=== PATIENT | female | born 1945 | race Caucasian/White ===

== ENCOUNTER 2019-05-15 09:25 | Inpatient (IN) ==
[2019-05-15 10:19] LABS: Hematocrit (blood only) 44.9 % (37-47); Hemoglobin 14.9 g/dL (12.0-16.0); Immature Granulocytes # (auto) 0.07 K/uL (0.00-0.02); Immature Granulocytes % (auto) 0.4 %; Lymphocytes % (auto) 7.2 %; Mean Corpuscular Hemoglobin 30.1 pg (25-34); Mean Corpuscular Hgb Conc 33.2 g/dL (32-36); Mean Corpuscular Volume 90.7 fL (80-100); Mean Platelet Volume 8.8 fL (7.4-10.4); Monocytes % (auto) 7.8 %; Neutrophils # (auto) 14.19 K/uL (1.4-6.5); Neutrophils % (auto) 84.6 %; Platelet Count 518 K/uL (130-400); RDW Coefficient of Variation 14.1 % (11.5-14.5); RDW Standard Deviation 46.6 fL (36.4-46.3); Red Blood Count 4.95 M/uL (4.2-5.4); White Blood Count 16.76 K/uL (4.8-10.8)
[2019-05-15 10:26] LABS: pH VBG 7.45 (7.36-7.41)
[2019-05-15 10:42] LABS: BUN Creatinine Ratio 30.1 (10-20); Calcium 8.8 mg/dl (8.5-10.1); Creatinine Clr Calc Pharmacy 37.7 ml/min; Est GFR (African American) 48.3; Est GFR (Non-African American) 41.6
[2019-05-15] MEDS ORDERED: SODIUM CHLORIDE 0.9% 1000ML 1,000 ML IV ONE ×2 (10:53→11:41)
--- NOTE | 2019-05-15 10:55 | CT Scan Report ---
CT head/brain wo con CLINICAL HISTORY: 73 years-old Female presenting with increasing tremors hx of parkinsons. TECHNIQUE: Multidetector CT imaging of the head was performed without the use of intravenous contrast . IV contrast: None. One or more dose lowering techniques were used consistent with the principles of ALARA (as low as reasonably achievable), including automatic exposure control, mA or kV adjustment t o individual patient size, and/or use of iterative reconstruction. COMPARISON: 11/08/2013. CT DOSE (mGy.cm): The estimated cumulative dose is 998.18 mGy.cm. FINDINGS: [employer] topogram: Unremarkable. Ventricles and sulci normal in size. No hemorrhage. Severe periventricular and subcortical white kishor er hypoattenuation, nonspecific but likely indicative of chronic small vessel ischemic change. No acu te territorial infarct. No mass effect or midline shift. No extra-axial fluid collection. Paranasal s inuses and mastoid air cells clear. Calvarium intact. IMPRESSION: 1. Severe chronic small vessel ischemic change as on prior exam. No acute intracranial abnormality. ACT 112: Negative or not required by law. Electronically signed by: Davey Kelly M.D. 05/15/2019 10:53 AM
--- NOTE | 2019-05-15 10:59 | XRay Report ---
XR chest 2V PA/lateral CLINICAL HISTORY: cough COMPARISON STUDY: 03/28/2016 FINDINGS: The cardiac and mediastinal contours are normal. There is no evidence of focal pulmonary co nsolidation. There is no evidence of failure. No pleural effusions are visualized.[There is stable ri ght midlung zone atelectasis/scarring. IMPRESSION: No active disease in the chest. ACT 112: Negative or not required by law. Electronically signed by: Bassem Washington M.D. 05/15/2019 10:57 AM
[2019-05-15 11:02] LABS: Influenza A virus by PCR Neg for Influ A (Neg); Influenza B virus by PCR Neg for Influ B (Neg)
[2019-05-15 11:53] LABS: Appearance Urine Cloudy (Clear); Bacteria Urine Automated Negative (Negative); Blood Urine Negative (Negative); Color Urine Dark Yellow; Epithelial Cell Urine Auto >30 /lpf (0-5); Glucose Urine UA Negative (Negative); Ketones Urine Trace (Negative); Leukocyte Esterase Urine Trace (Negative); Nitrite Urine Negative (Negative); Protein Urine Trace (Negative); Specific Gravity Urine 1.021 (1.000-1.030); Urobilinogen Urine Negative (Negative)
[2019-05-15 12:03] LABS: Bilirubin Urine Negative (Negative); Ictotest Urine Negative (Negative)
[2019-05-15] MEDS ORDERED: VANCOMYCIN HCL 1,500 MG in SODIUM CHLORIDE 0.9% 500 ML IV ONE (12:23)
[2019-05-15] MEDS ORDERED: PIPERACILL/TAZOBAC CONSULT ACTIVE PRN ×2 (12:23→13:03)
[2019-05-15] MEDS ORDERED: VANCOMYCIN CONSULT ACTIVE PRN ×2 (12:23→13:02)
[2019-05-15] MEDS: SODIUM CHLORIDE 0.9% 500 ML IV SCH ×2 (12:24→14:53)
--- NOTE | 2019-05-15 12:58 | History & Physical Report ---
Date of Service May 15, 2019 Assessment & Plan (1) Lactic acidosis: Pt is 73 y/o F with PMH Parkinson's, HTN, GERD, hypothyroidism presented to ER with complaint of weakness and feeling shaky. C/O intermittent productive cough of white sputum, congestion, hoarseness for couple weeks. Treated outpatient for bronchitis with prednisone taper and clarithromycin 500 mg twice daily x 10 days on 05/09/2019 C/O weakness, tremors of bilateral hands. Reports poor oral intake. Denies fever/chills, vomiting, diarrhea, abdominal pain, dysuria, hematuria, aspiration In ER afebrile, P: 122 down to 100, R: 20, BP: 120/71 down to 78/61, 97% on RA. WBC: 16, lactic acid: 4.3, Na: 134, BUN: 38, Cr: 1.26, GFR: 41. Negative influenza swab. Procalcitonin WNL. UA: appears contaminated CXR: No active disease in the chest. CT HEAD: Severe chronic small vessel ischemic change as on prior exam. No acute intracranial abnormality. Unknown source -Repeat lactic acid: 3.0 after 2L NSS in ER -Zosyn -trend lactic acid -Blood cultures pending -Urine culture -MRSA swab and if positive to add MRSA coverage -Hold Clarithromycin. May been having interaction with other medications such as nifedipine -IVF -Hold home BP meds at this time -Monitor CBC, BMP (2) ISRRAEL (acute kidney injury): BUN: 38, Cr: 1.26, GFR: 41. No h/o CKD -Hold lisinopril, lasix -Avoid other nephrotoxic agents -Monitor renal functions (3) Parkinson disease: -Continue Sinemet, Nuplazid -Aspiration precautions -Fall risk precautions -PT/OT eval (4) Hypertension: BP on low side and hypotensive in ER, resolved with IVF. Had BP meds prior to arrival -Hold lisinopril, lasix, nifedipine -Monitor BP (5) Hypothyroidism: -TSH in am -Continue levothyroxine (6) GERD (gastroesophageal reflux disease): -Continue PPI, H2 estephanie DVT Prophylaxis -Heparin SQ Full Code as per discussion with pt Follows with Dr Pena for routine care Pt was seen and care coordinated with Dr Brenner. See addendum History of Present Illness Chief Complaint: weakness Primary Care Provider: Burke Pena MD Pt is 73 y/o F with PMH Parkinson's, HTN, GERD, hypothyroidism presented to ER with complaint of weakness and feeling shaky. History obtained from patient and assisted by patient's daughter. Reports that patient had intermittent cough intermittently productive of white sputum, congestion, hoarseness for couple weeks. She was seen by PCP office on 05/09/2019 and was started on prednisone taper and clarithromycin 500 mg twice daily x10 days for bronchitis. Patient reports feeling weak and unsteady and has been having shaking of bilateral hands since starting medications. Reports still does not feel all that well. Patient's daughter reports seems like her cough is mild and has chronic nasal congestion. Patient reports some nausea after starting medications, no vomiting or diarrhea. Denies any history of choking or aspiration. Denies shortness of breath, fever, chills. Reports poor oral intake past day and today had decreased urination. Denies dysuria, hematuria, flank pain. Denies diaphoresis, MURRAY, dizziness, syncope, vision changes, neck pain, CP, SOB, orthopnea, palpitations, otalgia, abdominal pain, paresthesias, extremity edema, rashes. Allergies Allergy/AdvReac Type Severity Reaction Status Date / Time Sulfa (Sulfonamide Allergy Intermediate HIVES AND Verified 05/15/19 10:16 Antibiotics) RASH Home Medications Home Medications Medication Instructions Recorded Confirmed Type alendronate 1 dose PO WK 02/26/18 05/15/19 History aspirin 81 mg PO QAM 02/26/18 05/15/19 History calcium carbonate-vitamin D3 1 tab PO BID 02/26/18 05/15/19 History [Calcium 500 With D] docusate sodium 200 mg PO QAM 02/26/18 05/15/19 History furosemide [Lasix] 20 mg PO DAILY 02/26/18 05/15/19 History lisinopril 20 mg PO DAILY 02/26/18 05/15/19 History loratadine [Claritin] 10 mg PO DAILY 02/26/18 05/15/19 History nifedipine 60 mg PO QAM 02/26/18 05/15/19 History potassium chloride 20 meq PO BID 02/26/18 05/15/19 History sucralfate [Carafate] 1 g PO QID 02/26/18 05/15/19 History tramadol 50 mg PO QID PRN 02/26/18 05/15/19 History pimavanserin 34 mg capsule 34 mg PO DAILY 30 Days #30 cap 05/07/19 05/15/19 Rx carbidopa-levodopa 1 tab PO UD 05/15/19 05/15/19 History clarithromycin 500 mg PO BID 05/15/19 05/15/19 History famotidine 20 mg PO BID 05/15/19 05/15/19 History levothyroxine 150 mcg PO DAILY 05/15/19 05/15/19 History melatonin 10 mg PO HS 05/15/19 05/15/19 History omeprazole 20 mg PO BID 05/15/19 05/15/19 History prednisone 0 mg PO UD 05/15/19 05/15/19 History Past Med/Surg History Medical History Arrhythmia DTR REPORTS PT "SKIPS A BEAT SOMETIMES" Atrial flutter (Chronic) Dizziness (Chronic) Essential tremor (Chronic) Gait disturbance (Chronic) GERD (gastroesophageal reflux disease) GERD (gastroesophageal reflux disease) (Chronic) Hallucinations (Chronic) Hypertension Hypertension (Chronic) Hypothyroidism Hypothyroidism (Chronic) Memory loss (Chronic) Osteoarthritis Osteoporosis Parkinson disease FOLLOWS W/ DR. DURÁN Parkinson disease (Chronic) Peripheral neuropathy (Chronic) Surgical History History of cholecystectomy History of elbow surgery LEFT History of tooth extraction Hx of cataract surgery RIGHT S/P knee surgery Family History (Updated 05/15/19 @ 13:53 by Leila Malagon PA-C) Daughter Family history of diabetes mellitus Mother No pertinent family history Father No pertinent family history Other Cancer Social History Preferred Language: Sami Communication Ability: Effective Podiatric Assistant Required: No Beliefs That Will Affect Care: None Current Living Situation: Family Current Living Situation Comment: LIVES W/ DTR Other Information That Helps Us Care for You: No Feels Safe at Home: Yes Safety Concerns: Feels Safe At This Time Smoking Status: Never smoker Second Hand Exposure: Yes (HER WAS A SMOKER) ; Hx Alcohol Use: No Hx Substance Use: No Review of Systems Review of Systems: All systems reviewed & are unremarkable except as noted in HPI & below Physical Exam Physical Exam: General: no distress, obese Head: normocephalic, atraumatic Eyes: PERRL, EOM's intact, conjunctiva non-injected, anicteric ENT: normal inspection external ears, nose, mucous membranes dry Neck: supple, trachea midline, non-tender Lungs: clear, no respiratory distress, no wheezing/rhonchi/rales CV: RRR, no murmur, no pretibial edema Abd: normal BS, soft, non-tender Ext: no cyanosis, no calf tenderness Neuro: A&O x 3, masked facies, +cogwheel rigidity, + tremor bilateral hands Skin: warm, dry Results & Data Vital Signs (Past 12 Hours) Vital Signs Temp Pulse Pulse Resp BP BP Pulse Ox 05/15/19 11:42 104 H 20 110/61 05/15/19 11:08 107 H 23 111/47 L 96 05/15/19 11:04 106 H 23 78/61 L 96 05/15/19 09:29 36.5 C 122 H 20 120/71 97 Laboratory Results Short CBC 05/15/19 Range/Units 10:02 WBC 16.76 H (4.8-10.8) K/uL Hgb 14.9 (12.0-16.0) g/dL Hct 44.9 (37-47) % Plt Count 518 H (130-400) K/uL BMP 05/15/19 10:02 Sodium 134 L Potassium 4.0 Chloride 103 Carbon Dioxide 21 BUN 38 H Creatinine 1.26 H Glucose 118 H Calcium 8.8 Urine 05/15/19 Range/Units 11:35 Urine Color Dark Yellow Urine Appearance Cloudy A (Clear) Urine pH 5.0 (4.5-7.5) Ur Specific Thompson 1.021 (1.000-1.030) Urine Protein Trace H (Negative) Urine Glucose (UA) Negative (Negative) Diagnostic Findings CT HEAD: IMPRESSION: 1. Severe chronic small vessel ischemic change as on prior exam. No acute intracranial abnormality. CXR: IMPRESSION: No active disease in the chest. ECG Additional Comments: poor tracing, difficult to interpret sinus rhythm, rate 83 Code Status & VTE Plan VTE Prophylaxis Plan VTE Prophylaxis will be ordered: Yes Supervising Physician Co-Signing Physician Notes Patient is a 73-year-old female with multiple comorbidities presents with history of worsening generalized weakness, shakiness. Patient was recently diagnosed to have URI and was started on clarithromycin and prednisone by her PCP. Patient's family believes symptoms worsened after being started on these medications. Please review HPI for complete details of presentation. On exam patient is moderately built and nourished, generalized tremor, normocephalic atraumatic, lungs--decreased breath sounds, clear to auscultation, S1-S2, tachycardic, no murmur, bilateral 1+ lower extremity edema, abdomen soft nontender, alert, awake, oriented, grossly no focal neurological deficits. Possible Drug reaction: Interaction between clarithromycin, nifedipine. Disc ontinue clarithromycin. Also discontinue prednisone--no wheezing on exam. Possible Sepsis: Leukocytosis, lactic acidosis--no clear source of infection other than recent URI. Urine sample likely contaminated. Empirically started on IV Zosyn, IV fluids. Hold Lasix for now. Blood cultures obtained. Trend lactate levels. ISRRAEL--agree with holding Lasix, lisinopril. Continue IV fluids. Monitor renal function. I personally reviewed the record. Patient is interviewed and examined at bedside. Patient's care is coordinated with Leila Malagon PA-C. Please refer to the documentation above for details of patient's presentation and for discussion of other issues.
[2019-05-15] MEDS: PIPERACILLIN/TAZOBACTAM 4.5 GM/120 ML BAG IV ONE ×2 (13:05→13:14)
[2019-05-15] MEDS ORDERED: ACETAMINOPHEN 325 MG TAB PO PRN (14:01)
[2019-05-15] MEDS: SUCRALFATE 1 GM TAB PO SCH ×3 (15:56→20:49)
[2019-05-15] MEDS: CARBIDOPA/LEVODOPA 25/100MG TAB PO SCH ×2 (15:56→18:29)
[2019-05-15] MEDS: SODIUM CHLORIDE 0.9% 1000ML 1,000 ML IV SCH (15:56)
[2019-05-15] MEDS: HEPARIN SOD 5,000 UNIT/0.5 ML VIAL SQ SCH ×2 (15:57→21:15)
--- NOTE | 2019-05-15 17:32 | Emergency Department Note ---
Entered by Tata Odonnell acting as a scribe for Alfa Grigsby History of Present Illness General Chief complaint: Illness Stated complaint: ONGOING PNEUMONIA, NOT GETTING BETTER Time Seen by Provider: 05/15/19 09:35 Source: patient and family History of Present Illness Onset (ago): week(s) (last week) Location: chest and upper extremity Pain Consistency: + other (worsening) Maximum Pain Intensity: 0 Quality: + other (illness) Relieved By: not by medication (Clarithromycin, Prednisone) Associated symptoms: + denies other symptoms (recent falls), + cough and + other (increased shaking); no fever/chills (fever) The patient is a 73 year old female who presents to the Emergency Room with complaints of worsening illness starting last week. The patients daughter states that last week the patient went to her PCP, Dr. Jeffrey at [facility], and when they listened to her lungs, they diagnosed her with pneumonia. She reports that they started her on Clarithromycin and Prednisone for 10 days. She states that since then, her cough has not gotten better and she has become unsteady. She reports that she is now shaking more than usual and is unsure if it is due to the antibiotics interacting with her Parkinsons medication. The patients daughter denies the patient having a history of COPD and asthma. The patient denies a fever and falling recently. Home Medications Home Medications Medication Instructions Recorded Confirmed Type alendronate 1 dose PO WK 02/26/18 05/15/19 History aspirin 81 mg PO QAM 02/26/18 05/15/19 History calcium carbonate-vitamin D3 1 tab PO BID 02/26/18 05/15/19 History [Calcium 500 With D] docusate sodium 200 mg PO QAM 02/26/18 05/15/19 History furosemide [Lasix] 20 mg PO DAILY 02/26/18 05/15/19 History lisinopril 20 mg PO DAILY 02/26/18 05/15/19 History loratadine [Claritin] 10 mg PO DAILY 02/26/18 05/15/19 History nifedipine 60 mg PO QAM 02/26/18 05/15/19 History potassium chloride 20 meq PO BID 02/26/18 05/15/19 History sucralfate [Carafate] 1 g PO QID 02/26/18 05/15/19 History tramadol 50 mg PO QID PRN 02/26/18 05/15/19 History pimavanserin 34 mg capsule 34 mg PO DAILY 30 Days #30 cap 05/07/19 05/15/19 Rx carbidopa-levodopa 1 tab PO UD 05/15/19 05/15/19 History clarithromycin 500 mg PO BID 05/15/19 05/15/19 History famotidine 20 mg PO BID 05/15/19 05/15/19 History levothyroxine 150 mcg PO DAILY 05/15/19 05/15/19 History melatonin 10 mg PO HS 05/15/19 05/15/19 History omeprazole 20 mg PO BID 05/15/19 05/15/19 History prednisone 0 mg PO UD 05/15/19 05/15/19 History Allergies Allergy/AdvReac Type Severity Reaction Status Date / Time Sulfa (Sulfonamide Allergy Intermediate HIVES AND Verified 05/15/19 10:16 Antibiotics) RASH Past Med/Surg History Medical History Arrhythmia DTR REPORTS PT "SKIPS A BEAT SOMETIMES" Atrial flutter (Chronic) Dizziness (Chronic) Essential tremor (Chronic) Gait disturbance (Chronic) GERD (gastroesophageal reflux disease) GERD (gastroesophageal reflux disease) (Chronic) Hallucinations (Chronic) Hypertension Hypertension (Chronic) Hypothyroidism Hypothyroidism (Chronic) Memory loss (Chronic) Osteoarthritis Osteoporosis Parkinson disease FOLLOWS W/ DR. DURÁN Parkinson disease (Chronic) Peripheral neuropathy (Chronic) Surgical History History of cholecystectomy History of elbow surgery LEFT History of tooth extraction Hx of cataract surgery RIGHT S/P knee surgery Family History (Updated 05/15/19 @ 13:53 by Leila Malagon PA-C) Daughter Family history of diabetes mellitus Mother No pertinent family history Father No pertinent family history Other Cancer Social History Preferred Language: Estonian Communication Ability: Effective Lifestyle Block Farmer Required: No Beliefs That Will Affect Care: None Current Living Situation: Family Current Living Situation Comment: LIVES W/ DTR Feels Safe at Home: Yes Smoking Status: Never smoker Second Hand Exposure: Yes (HER WAS A SMOKER) ; Hx Alcohol Use: No Hx Substance Use: No Review of Systems See HPI for pertinent positives & negatives. and A total of 10 systems reviewed and were otherwise negative Physical Exam Vital Signs Vital Signs - 24 hr 05/15/19 09:29 05/15/19 09:40 05/15/19 10:04 Temperature 36.5 C Temperature Source Oral Oral Pulse Rate 122 H Pulse Rate [Right Finger] Respiratory Rate 20 Respiratory Effort / Characteristics Non-Labored Respiratory Depth Normal Blood Pressure 120/71 Blood Pressure [Left Arm] Blood Pressure Mean 87 Blood Pressure Mean [Left Arm] Blood Pressure Position Sitting Pulse Oximetry 97 Oxygen Delivery Method Room Air Room Air Sepsis Recent Fever Within 48 Hours No Sepsis New/Unexplained Change in Mental Status No Sepsis Action Taken by Nursing No Action Required 05/15/19 11:04 05/15/19 11:08 05/15/19 11:42 Temperature Temperature Source Pulse Rate Pulse Rate [Right Finger] 106 H 107 H 104 H Respiratory Rate 23 23 20 Respiratory Effort / Characteristics Respiratory Depth Blood Pressure Blood Pressure [Left Arm] 78/61 L 111/47 L 110/61 Blood Pressure Mean Blood Pressure Mean [Left Arm] 66 68 77 Blood Pressure Position Pulse Oximetry 96 96 Oxygen Delivery Method Room Air Room Air Sepsis Recent Fever Within 48 Hours Sepsis New/Unexplained Change in Mental Status Sepsis Action Taken by Nursing GENERAL: She is oriented to person, place, and time. She appears well-developed and well-nourished. She does not appear distressed. HENT: Exam performed. - Head: Normocephalic and atraumatic. - Right Ear: External ear normal. No mastoid tenderness. - Left Ear: External ear normal. No mastoid tenderness. - Mouth/Throat: The oropharynx is clear and moist. No trismus in the jaw. No dental abscesses or uvula swelling. No oropharyngeal exudate or tonsillar abscesses. EYES: Conjunctivae and EOM are normal. Pupils are equal, round, and reactive to light. Right eye exhibits no discharge. Left eye exhibits no discharge. No scleral icterus. NECK: Normal range of motion. Neck supple. No JVD present. No spinous process tenderness present. No carotid bruit present. No rigidity. No tracheal deviation and normal range of motion present. No Brudzinski's sign and no Kernig's sign noted. CV: Normal rate, regular rhythm, normal heart sounds and intact distal pulses. There is no peripheral edema. Palpable radial pulses bue. PULM/CHEST: Effort normal and breath sounds normal. No respiratory distress. No stridor. She has no wheezes. She has no rales. Chest Wall: She exhibits no tenderness. ABD: The abdomen is soft. Bowel sounds are normal. She has no distension. No mass is present. There is no tenderness. There is no rebound, no guarding, no Matson's sign and no tenderness at McBurney's point. Rovsig negative MUSC/SKEL: Normal range of motion. There is no peripheral edema, tenderness or deformity. LYMPH: No cervical adenopathy. NEURO: She is alert and oriented to person, place, and time. She has normal strength. No cranial nerve deficit or sensory deficit. Coordination and gait normal. GCS eye subscore is 4. GCS verbal subscore is 5. GCS motor subscore is 6. cerbellar tests wnl. Mild tremor. Masked face. SKIN: Skin is warm and dry. She is not diaphoretic. PSYCH: She has a normal mood and affect. Her behavior is normal. Judgment and thought content normal. Course Course 09: EMR reviewed. The patient has a history of Parkinson Disease and Atrial Flutter. She is on carbidopa-levodopa. The patient was evaluated in room B12B. A complete history and physical exam was performed. 1056: Vital signs show that she remains tachycardic. Her white count came back at 16.7 and her lactic acid is 4.3. 30 cc/kg IV fluid bolus was initiated. Her CT of the head was within normal limits. Her chest x-ray showed no pneumonia. Her flu swab was negative. We are awaiting her urinalysis and then plan on admitting her to the hospital. We will repeat a lactic acid after the fluid bolus is completed. Blood culture sent. 1128: I discussed the patient's case with [facility] She will evaluate the patient for further management under Dr. Brenner's service. 1223: Blood pressure stable. Patient remains tachycardic. Status post 1 L fluid, the patient's lactic acid is 3.0, which is improved. I discussed the patient's case with Dr[facility] Wills states to start the patient on empiric antibiotics Zosyn and vancomycin. Administered Medications Carbidopa/Levodopa (Sinemet 25/100 Mg) 1 tab PO BID@1400,2100 [facility] Stop: 06/14/19 14:59 Last Admin: 05/15/19 15:56 Dose: 1 tab Documented by: [id number] Heparin Sodium (Porcine) (Heparin Sodium (Porcine)) 5,000 units SQ Q8 [facility] Stop: 06/14/19 14:00 Last Admin: 05/15/19 15:57 Dose: Not Given Documented by: [id number] Sodium Chloride (Nss 1000ml) 1,000 mls @ 100 mls/hr IV .Q10H [facility] Stop: 05/16/19 10:00 Last Admin: 05/15/19 15:56 Dose: 100 mls/hr Documented by: [id number] Nuplazid 34 Mg: Non- Formulary Patient's Own Med 1 ea PO DAILY [facility] Stop: 06/15/19 08:59 Last Admin: 05/15/19 16:02 Dose: 1 cap Documented by: [id number] Sucralfate (Carafate Tab) 1 gm PO QID [facility] Stop: 06/14/19 14:00 Last Admin: 05/15/19 16:03 Dose: Not Given Documented by: [id number] Admin: 05/15/19 15:56 Dose: 1 gm Documented by: [id number] Discontinued Medications Sodium Chloride (Nss) 500 mls @ 125 mls/hr IV .Q4H [facility] Stop: 06/14/19 09:44 Last Admin: 05/15/19 14:53 Dose: Not Given Documented by: [id number] Admin: 05/15/19 12:24 Dose: Not Given Documented by: [id number] Sodium Chloride (Nss 1000ml) 1,000 mls @ 999 mls/hr IV .Q1H1M ONE Stop: 05/15/19 11:53 Last Infusion: 05/15/19 12:24 Dose: 0 mls/hr Documented by: [id number] Admin: 05/15/19 11:08 Dose: 999 mls/hr Documented by: [id number] Sodium Chloride (Nss 1000ml) 1,000 mls @ 999 mls/hr IV .Q1H1M ONE Stop: 05/15/19 12:41 Last Infusion: 05/15/19 13:36 Dose: 0 mls/hr Documented by: [id number] Admin: 05/15/19 12:24 Dose: 999 mls/hr Documented by: [id number] Vancomycin HCl 1,500 mg/ (Sodium Chloride) 530 mls @ 200 mls/hr IV NOW ONE Stop: 05/15/19 15:01 Last Admin: 05/15/19 14:53 Dose: Not Given Documented by: [id number] Piperacillin Sod/Tazobactam Sod (Zosyn) 4.5 gm in 120 mls @ 30 mls/hr IV NOW ONE Stop: 05/15/19 16:22 Last Infusion: 05/15/19 14:03 Dose: 0 mls/hr Documented by: [id number] Admin: 05/15/19 13:14 Dose: 200 mls/hr Documented by: [id number] Critical Care Time Critical Care Time: Yes Total Critical Care Time: 75 I have personally spent 75 minutes of critical care time in the direct management of this patient. This includes bedside care, interpretation of diagnostic studies, and testing, discussion with consultants, patient, and family members, and other required patient management activities. This 75 minutes is in excess of all separately billable procedures. Medical Decision Making Medical Records Attestation: I reviewed the patient's medical records. Home Medications Current Medication List: was personally reviewed by me Laboratory Data Attestation: I reviewed the patient's lab results. Result diagrams: 05/15/19 10:02 05/15/19 10:02 Lab Results 05/15/19 05/15/19 05/15/19 Range/Units 09:55 10:02 10:02 WBC 16.76 H (4.8-10.8) K/uL RBC 4.95 (4.2-5.4) M/uL Hgb 14.9 (12.0-16.0) g/dL Hct 44.9 (37-47) % MCV 90.7 (80-100) fL MCH 30.1 (25-34) pg MCHC 33.2 (32-36) g/dL RDW Std Deviation 46.6 H (36.4-46.3) fL RDW Coeff of Marcelino 14.1 (11.5-14.5) % Plt Count 518 H (130-400) K/uL MPV 8.8 (7.4-10.4) fL Immature Gran % (Auto) 0.4 % Neut % (Auto) 84.6 % Lymph % (Auto) 7.2 % Sumner % (Auto) 7.8 % Eos % (Auto) 0.0 % Baso % (Auto) 0.0 % Immature Gran # (Auto) 0.07 H (0.00-0.02) K/uL Neut # (Auto) 14.19 H (1.4-6.5) K/uL Lymph # (Auto) 1.20 (1.2-3.4) K/uL Sumner # (Auto) 1.30 H (0.11-0.59) K/uL Eos # (Auto) 0.00 (0-0.5) K/uL Baso # (Auto) 0.00 (0-0.2) K/uL VBG pH (7.36-7.41) VBG pCO2 (38-50) mmHg VBG pO2 mmHg VBG HCO3 mmol/L VBG O2 Saturation % VBG Base Excess mEq/L Barometric Pressure mm/Hg Sodium 134 L (136-145) mmol/L Potassium 4.0 (3.5-5.1) mmol/L Chloride 103 (98-107) mmol/L Carbon Dioxide 21 (21-32) mmol/L Anion Gap 10.0 (3-11) BUN 38 H (7-18) mg/dl Creatinine 1.26 H (0.6-1.2) mg/dl Est Cr Clr Drug Dosing 37.7 ml/min Est GFR ( Amer) 48.3 Est GFR (Non-Af Amer) 41.6 BUN/Creatinine Ratio 30.1 H (10-20) Glucose 118 H (70-99) mg/dl Lactate (0.4-2.0) mmol/L Calcium 8.8 (8.5-10.1) mg/dl Procalcitonin (0-0.5) ng/ml Urine Color Urine Appearance (Clear) Urine pH (4.5-7.5) Ur Specific [place] (1.000-1.030) Urine Protein (Negative) Urine Glucose (UA) (Negative) Urine Ketones (Negative) Urine Blood (Negative) Urine Nitrite (Negative) Urine Bilirubin (Negative) Urine Urobilinogen (Negative) Ur Leukocyte Esterase (Negative) Urine WBC (Auto) (0-5) /hpf Urine RBC (Auto) (0-4) /hpf U Hyaline Cast (Auto) (0-5) /lpf U Epithel Cells (Auto) (0-5) /lpf Urine Bacteria (Auto) (Negative) Influenza Type A (PCR) Neg for Influ A (Neg) Influenza Type B (PCR) Neg for Influ B (Neg) 05/15/19 05/15/19 05/15/19 Range/Units 10:02 10:02 10:02 WBC (4.8-10.8) K/uL RBC (4.2-5.4) M/uL Hgb (12.0-16.0) g/dL Hct (37-47) % MCV (80-100) fL MCH (25-34) pg MCHC (32-36) g/dL RDW Std Deviation (36.4-46.3) fL RDW Coeff of Marcelino (11.5-14.5) % Plt Count (130-400) K/uL MPV (7.4-10.4) fL Immature Gran % (Auto) % Neut % (Auto) % Lymph % (Auto) % Sumner % (Auto) % Eos % (Auto) % Baso % (Auto) % Immature Gran # (Auto) (0.00-0.02) K/uL Neut # (Auto) (1.4-6.5) K/uL Lymph # (Auto) (1.2-3.4) K/uL Sumner # (Auto) (0.11-0.59) K/uL Eos # (Auto) (0-0.5) K/uL Baso # (Auto) (0-0.2) K/uL VBG pH 7.45 H (7.36-7.41) VBG pCO2 30 L (38-50) mmHg VBG pO2 51 mmHg VBG HCO3 21 mmol/L VBG O2 Saturation 88.0 % VBG Base Excess -2.0 mEq/L Barometric Pressure 737.4 mm/Hg Sodium (136-145) mmol/L Potassium (3.5-5.1) mmol/L Chloride (98-107) mmol/L Carbon Dioxide (21-32) mmol/L Anion Gap (3-11) BUN (7-18) mg/dl Creatinine (0.6-1.2) mg/dl Est Cr Clr Drug Dosing ml/min Est GFR ( Amer) Est GFR (Non-Af Amer) BUN/Creatinine Ratio (10-20) Glucose (70-99) mg/dl Lactate 4.3 H* (0.4-2.0) mmol/L Calcium (8.5-10.1) mg/dl Procalcitonin < 0.05 (0-0.5) ng/ml Urine Color Urine Appearance (Clear) Urine pH (4.5-7.5) Ur Specific [place] (1.000-1.030) Urine Protein (Negative) Urine Glucose (UA) (Negative) Urine Ketones (Negative) Urine Blood (Negative) Urine Nitrite (Negative) Urine Bilirubin (Negative) Urine Urobilinogen (Negative) Ur Leukocyte Esterase (Negative) Urine WBC (Auto) (0-5) /hpf Urine RBC (Auto) (0-4) /hpf U Hyaline Cast (Auto) (0-5) /lpf U Epithel Cells (Auto) (0-5) /lpf Urine Bacteria (Auto) (Negative) Influenza Type A (PCR) (Neg) Influenza Type B (PCR) (Neg) 05/15/19 05/15/19 Range/Units 11:35 12:16 WBC (4.8-10.8) K/uL RBC (4.2-5.4) M/uL Hgb (12.0-16.0) g/dL Hct (37-47) % MCV (80-100) fL MCH (25-34) pg MCHC (32-36) g/dL RDW Std Deviation (36.4-46.3) fL RDW Coeff of Marcelino (11.5-14.5) % Plt Count (130-400) K/uL MPV (7.4-10.4) fL Immature Gran % (Auto) % Neut % (Auto) % Lymph % (Auto) % Sumner % (Auto) % Eos % (Auto) % Baso % (Auto) % Immature Gran # (Auto) (0.00-0.02) K/uL Neut # (Auto) (1.4-6.5) K/uL Lymph # (Auto) (1.2-3.4) K/uL Sumner # (Auto) (0.11-0.59) K/uL Eos # (Auto) (0-0.5) K/uL Baso # (Auto) (0-0.2) K/uL VBG pH (7.36-7.41) VBG pCO2 (38-50) mmHg VBG pO2 mmHg VBG HCO3 mmol/L VBG O2 Saturation % VBG Base Excess mEq/L Barometric Pressure mm/Hg Sodium (136-145) mmol/L Potassium (3.5-5.1) mmol/L Chloride (98-107) mmol/L Carbon Dioxide (21-32) mmol/L Anion Gap (3-11) BUN (7-18) mg/dl Creatinine (0.6-1.2) mg/dl Est Cr Clr Drug Dosing ml/min Est GFR ( Amer) Est GFR (Non-Af Amer) BUN/Creatinine Ratio (10-20) Glucose (70-99) mg/dl Lactate 3.0 H* (0.4-2.0) mmol/L Calcium (8.5-10.1) mg/dl Procalcitonin (0-0.5) ng/ml Urine Color Dark Yellow Urine Appearance Cloudy A (Clear) Urine pH 5.0 (4.5-7.5) Ur Specific [place] 1.021 (1.000-1.030) Urine Protein Trace H (Negative) Urine Glucose (UA) Negative (Negative) Urine Ketones Trace H (Negative) Urine Blood Negative (Negative) Urine Nitrite Negative (Negative) Urine Bilirubin Negative (Negative) Urine Urobilinogen Negative (Negative) Ur Leukocyte Esterase Trace H (Negative) Urine WBC (Auto) 1-5 (0-5) /hpf Urine RBC (Auto) 5-10 H (0-4) /hpf U Hyaline Cast (Auto) 10-30 H (0-5) /lpf U Epithel Cells (Auto) >30 H (0-5) /lpf Urine Bacteria (Auto) Negative (Negative) Influenza Type A (PCR) (Neg) Influenza Type B (PCR) (Neg) Imaging Data Radiologist's Impression: Radiology results as stated below per my review and the radiologist's interpretation: XR chest 2V PA/lateral CLINICAL HISTORY: cough COMPARISON STUDY: 03/28/2016 FINDINGS: The cardiac and mediastinal contours are normal. There is no evidence of focal pulmonary consolidation. There is no evidence of failure. No pleural effusions are visualized.[There is stable right midlung zone atelectasis/scarring. IMPRESSION: No active disease in the chest. ACT 112: Negative or not required by law. Electronically signed by: Bassem Washington M.D. 05/15/2019 10:[address] head/brain wo con CLINICAL HISTORY: 73 years-old Female presenting with increasing tremors hx of parkinsons. TECHNIQUE: Multidetector CT imaging of the head was performed without the use of intravenous contrast. IV contrast: None. One or more dose lowering techniques were used consistent with the principles of ALARA (as low as reasonably achievable), including automatic exposure control, mA or kV adjustment to in dividual patient size, and/or use of iterative reconstruction. COMPARISON: 11/08/2013. CT DOSE (mGy.cm): The estimated cumulative dose is 998.18 mGy.cm. FINDINGS: Motor Vehicle Representative topogram: Unremarkable. Ventricles and sulci normal in size. No hemorrhage. Severe periventricular and subcortical white matter hypoattenuation, nonspecific but likely indicative of chronic small vessel ischemic change. No acute territorial infarct. No mass effect or midline shift. No extra-axial fluid collection. Paranasal sinuses and mastoid air cells clear. Calvarium intact. IMPRESSION: 1. Severe chronic small vessel ischemic change as on prior exam. No acute intracranial abnormality. ACT 112: Negative or not required by law. Electronically signed by: Davey Kelly M.D. 05/15/2019 10:53 AM ECG Data Attestation: I personally reviewed and interpreted this ECG as follows: Indication: + other (arrhythmia) Rate (beats per minute): 110 Rhythm: + sinus tachycardia ECG Intervals/blocks: + Normal QRS, + Normal NM and + Normal QT-c ECG ST segments: no ST depression and no ST elevation Blood Pressure Blood Pressure Findings: Normal blood pressure Blood Pressure Disposition: did not require urgent referral [facility] Narrative 0938: EMR reviewed. The patient has a history of Parkinson Disease and Atrial Flutter. She is on carbidopa-levodopa. The patient was evaluated in room B12B. A complete history and physical exam was performed. 1056: Vital signs show that she remains tachycardic. Her white count came back at 16.7 and her lactic acid is 4.3. 30 cc/kg IV fluid bolus was initiated. Her CT of the head was within normal limits. Her chest x-ray showed no pneumonia. Her flu swab was negative. We are awaiting her urinalysis and then plan on admitting her to the hospital. We will repeat a lactic acid after the fluid bolus is completed. Blood culture sent. 1128: I discussed the patient's case with NNEKA Woody Hospitalist. She will evaluate the patient for further management under Dr. Brenner's service. 1223: Blood pressure stable. Patient remains tachycardic. Status post 1 L fluid, the patient's lactic acid is 3.0, which is improved. I discussed the patient's case with Dr. Antonia Galarza Hospitalist. Dr. Wills states to start the patient on empiric antibiotics Zosyn and vancomycin. Impression & Plan Sepsis Discharge Plan Visit Data *Final* Discharge Date/Time: 05/15/19 13:33 Chief Complaint: Illness Stated Complaint: ONGOING PNEUMONIA, NOT GETTING BETTER ED Provider: Alfa Grigsby Discharge Problem: Sepsis Patient Disposition: Admitted As Inpatient Discharge Instructions Interventions: ED Discharge Assessment Last Done: 05/15/19 13:33 Discharge Problem: Sepsis Qualifiers: Sepsis type: sepsis due to unspecified organism Sepsis acute organ dysfunction status: unspecified Qualified Code(s): A41.9 - Sepsis, unspecified organism The scribe's documentation has been prepared under my direction and personally reviewed by me in its entirety. I confirm that the note above accurately reflects all work, treatment, procedures, and medical decision making performed by me.
[2019-05-15] MEDS: CALCIUM 600MG + VIT D 400 IU TAB PO SCH (18:23)
[2019-05-15] MEDS: PANTOprazole 40 MG TAB PO SCH (20:49)
[2019-05-15] MEDS: FAMOTIDINE 20 MG TAB PO SCH (20:49)
[2019-05-15] MEDS: PIPERACILLIN/TAZOBACTAM 3.375 GM in DEXTROSE 5% 100 ML IV SCH (20:51)
[2019-05-15] MEDS ORDERED: CARBIDOPA/LEVODOPA 25/100MG TAB PO SCH (21:00)
[2019-05-16] MEDS ORDERED: Nursing to Pharmacy Communication ONE (00:28)
[2019-05-16] MEDS: SODIUM CHLORIDE 0.9% 1000ML 1,000 ML IV SCH (04:16)
[2019-05-16] MEDS: PIPERACILLIN/TAZOBACTAM 3.375 GM in DEXTROSE 5% 100 ML IV SCH ×3 (04:19→20:19)
[2019-05-16] MEDS: HEPARIN SOD 5,000 UNIT/0.5 ML VIAL SQ SCH ×3 (05:28→22:38)
[2019-05-16 07:23] LABS: Basophils # (auto) 0.01 K/uL (0-0.2); Basophils % (auto) 0.1 %; Eosinophils # (auto) 0.01 K/uL (0-0.5); Eosinophils % (auto) 0.1 %; Hematocrit (blood only) 42.4 % (37-47); Hemoglobin 14.3 g/dL (12.0-16.0); Immature Granulocytes # (auto) 0.08 K/uL (0.00-0.02); Immature Granulocytes % (auto) 0.6 %; Lymphocytes # (auto) 2.22 K/uL (1.2-3.4); Lymphocytes % (auto) 15.3 %; Mean Corpuscular Hgb Conc 33.7 g/dL (32-36); Mean Corpuscular Volume 89.1 fL (80-100); Mean Platelet Volume 8.9 fL (7.4-10.4); Monocytes # (auto) 2.01 K/uL (0.11-0.59); Monocytes % (auto) 13.9 %; Neutrophils # (auto) 10.18 K/uL (1.4-6.5); Platelet Count 409 K/uL (130-400); RDW Coefficient of Variation 14.1 % (11.5-14.5); RDW Standard Deviation 46.4 fL (36.4-46.3); Red Blood Count 4.76 M/uL (4.2-5.4); White Blood Count 14.51 K/uL (4.8-10.8)
[2019-05-16 08:04] LABS: Calcium 8.5 mg/dl (8.5-10.1); Est GFR (African American) 75.5; Est GFR (Non-African American) 65.2; Potassium 3.8 mmol/L (3.5-5.1)
[2019-05-16 08:13] LABS: Thyroid Stimulating Hormone 1.41 uIu/ml (0.300-4.500)
[2019-05-16] MEDS: TRAMADOL HCL 50 MG TABLET PO PRN ×2 (08:28→18:32)
[2019-05-16] MEDS: ASPIRIN 81 MG ECTAB PO SCH (08:29)
[2019-05-16] MEDS: CALCIUM 600MG + VIT D 400 IU TAB PO SCH ×2 (08:29→20:20)
[2019-05-16] MEDS: SUCRALFATE 1 GM TAB PO SCH ×4 (08:29→20:20)
[2019-05-16] MEDS: FAMOTIDINE 20 MG TAB PO SCH ×2 (08:30→20:21)
[2019-05-16] MEDS: PANTOprazole 40 MG TAB PO SCH ×2 (08:30→20:21)
[2019-05-16] MEDS: LORATADINE 10 MG TAB PO SCH (08:30)
[2019-05-16] MEDS: LEVOTHYROXINE SODIUM 150 MCG TABLET PO SCH (08:30)
[2019-05-16] MEDS: CARBIDOPA/LEVODOPA 25/100MG TAB PO SCH ×3 (08:30→20:21)
[2019-05-16] MEDS: DOCUSATE SODIUM 100 MG CAP PO SCH (08:30)
[2019-05-16] MEDS ORDERED: NUPLAZID 34 MG PO SCH (09:00)
[2019-05-16] MEDS ORDERED: CARBIDOPA/LEVODOPA 25/100MG TAB PO SCH (09:00)
--- NOTE | 2019-05-16 14:51 | Hospitalist Progress Note ---
Date of Service May 16, 2019 Assessment & Plan (1) Lactic acidosis: Leukocytosis -Pt is 73 y/o F with PMH Parkinson's, HTN, GERD, hypothyroidism presented to ER with complaint of weakness and feeling shaky. C/O intermittent productive cough of white sputum, congestion, hoarseness for couple weeks. Treated outpatient for bronchitis with prednisone taper and clarithromycin 500 mg twice daily x 10 days on 05/09/2019 C/O weakness, tremors of bilateral hands. Reports poor oral intake. Denies fever/chills, vomiting, diarrhea, abdominal pain, dysuria, hematuria, aspiration -In ER afebrile, P: 122 down to 100, R: 20, BP: 120/71 down to 78/61, 97% on RA. WBC: 16K, lactic acid: 4.3, Na: 134, BUN: 38, Cr: 1.26, GFR: 41. Negative influenza swab. Procalcitonin WNL. UA: appears contaminated CXR: No active disease in the chest. CT HEAD: Severe chronic small vessel ischemic change as on prior exam. No acute intracranial abnormality. -Lactic acid downtrended with IV fluids, and patient was started on empiric Zosyn -05/16/19: no fevers to date, continue Zosyn empirically, continue to hold clarithromycin while on Zosyn, follow admission blood/urine cultures. suspect that admission leukocytosis may be from previous prednisone use as outpatient (2) ISRRAEL (acute kidney injury): admission BUN: 38, Cr: 1.26, GFR: 41. No h/o CKD -Held lisinopril, lasix -creatinine 0.87 as of 05/16/19 and therefor renal function back at baseline (3) Parkinson disease: -Continue Sinemet, Nuplazid -Aspiration precautions -Fall risk precautions -PT/OT evaluations -05/16/19: Patient seen and examined after working with physical therapist. Physical Therapist felt patient walked well. (4) Hypertension: History of Hypertension with Hypotension on admission -admission blood pressures were low on admission -continue to hold blood pressure medications of lisinopril, lasix, nifedipine -blood pressure currently low normotensive (5) Hypothyroidism: -TSH 1.4 which is within euthyroid parameters -Continue levothyroxine (6) GERD (gastroesophageal reflux disease): -Continue PPI, H2 estephanie DVT Prophylaxis -Heparin SQ Full Code as per discussion with pt Follows with Dr Pena for routine [facility] [phone] Subjective Patient seen and examined after working with physical therapist. Physical Therapist felt patient walked well. Patient denied acute pain. no shortness of breath. no shaking movements. cooperative on exam. patient is pleasant. Hospital course to date also discussed with her daughter Review of Systems Review of Systems: All systems reviewed & are unremarkable except as noted in HPI & below Physical Exam Constitutional: comfortable ENMT: external ear and nose normal, oropharynx normal Neck: normal visual inspection Respiratory: normal respiratory effort, lungs clear to auscultation Cardiovascular: Rate/Rhythm: regular rhythm Gastrointestinal (Abdomen): normal bowel sounds, soft, nontender, no hepatos plenomegaly Musculoskeletal: Head/Neck/Chest: normocephalic and head atraumatic Neurologic: PERRL, EOMI, accommodation nl, no face palsy, no dysarthria Psychiatric: Orientation: alert and cooperative Results & Data Vital Signs (Past 12 Hours) Vital Signs Temp Pulse Pulse Resp BP Pulse Ox Pulse Ox 05/16/19 11:42 37.0 C 100 H 18 103/68 99 05/16/19 11:38 95 05/16/19 08:30 102 H 05/16/19 08:09 36.9 C 84 18 109/63 96 05/16/19 04:00 36.8 C 103 H 20 120/56 L 96
[2019-05-16] MEDS: NUPLAZID 34 MG PO SCH (16:30)
[2019-05-17] MEDS: PIPERACILLIN/TAZOBACTAM 3.375 GM in DEXTROSE 5% 100 ML IV SCH ×3 (05:02→19:56)
[2019-05-17] MEDS: HEPARIN SOD 5,000 UNIT/0.5 ML VIAL SQ SCH ×3 (05:03→20:02)
[2019-05-17] MEDS: LEVOTHYROXINE SODIUM 150 MCG TABLET PO SCH (05:04)
--- NOTE | 2019-05-17 06:55 | XRay Report ---
XR chest 1V portable CLINICAL HISTORY: congestion COMPARISON STUDY: Chest radiograph May 15, 2019. FINDINGS: Elevation of the right hemidiaphragm is unchanged. There is no consolidation or evidence fo r pulmonary edema. Linear right midlung opacity is unchanged and suggests atelectasis. Cardiomediasti nal silhouette is normal. Appearance of the chest is unchanged. IMPRESSION: No acute cardiopulmonary findings. No change in appearance of the chest. ACT 112: Negative or not required by law. Electronically signed by: Lamin Conte M.D. 05/17/2019 6:53 AM
[2019-05-17 07:24] LABS: Eosinophils # (auto) 0.01 K/uL (0-0.5); Eosinophils % (auto) 0.1 %; Hematocrit (blood only) 40.4 % (37-47); Hemoglobin 13.7 g/dL (12.0-16.0); Immature Granulocytes # (auto) 0.06 K/uL (0.00-0.02); Immature Granulocytes % (auto) 0.5 %; Lymphocytes # (auto) 2.05 K/uL (1.2-3.4); Lymphocytes % (auto) 17.8 %; Mean Corpuscular Hgb Conc 33.9 g/dL (32-36); Mean Corpuscular Volume 88.6 fL (80-100); Mean Platelet Volume 8.5 fL (7.4-10.4); Monocytes # (auto) 1.37 K/uL (0.11-0.59); Monocytes % (auto) 11.9 %; Neutrophils # (auto) 8.04 K/uL (1.4-6.5); Neutrophils % (auto) 69.7 %; Platelet Count 334 K/uL (130-400); RDW Coefficient of Variation 13.8 % (11.5-14.5); RDW Standard Deviation 45.1 fL (36.4-46.3); Red Blood Count 4.56 M/uL (4.2-5.4); White Blood Count 11.53 K/uL (4.8-10.8)
[2019-05-17] MEDS ORDERED: METOPROLOL TARTRATE 1 MG/ML VIAL IV PRN (07:52)
[2019-05-17] MEDS ORDERED: METOPROLOL TARTRATE 25 MG TAB PO STA (07:55)
[2019-05-17 08:00] LABS: Albumin Level 3.1 gm/dl (3.4-5.0); BUN Creatinine Ratio 26.5 (10-20); Calcium 8.5 mg/dl (8.5-10.1); Creatinine Clr Calc Pharmacy 63.8 ml/min; Est GFR (African American) 88.9; Est GFR (Non-African American) 76.7; Potassium 3.4 mmol/L (3.5-5.1)
[2019-05-17 08:02] LABS: Albumin Globulin Ratio 0.9 (0.9-2); Bilirubin,Total 0.9 mg/dl (0.2-1); Globulin 3.4 gm/dl (2.5-4.0); Total Protein 6.5 gm/dl (6.4-8.2)
[2019-05-17] MEDS: CALCIUM 600MG + VIT D 400 IU TAB PO SCH ×2 (08:18→20:02)
[2019-05-17] MEDS: ASPIRIN 81 MG ECTAB PO SCH (08:19)
[2019-05-17] MEDS: SUCRALFATE 1 GM TAB PO SCH ×4 (08:19→20:01)
[2019-05-17] MEDS: LORATADINE 10 MG TAB PO SCH (08:19)
[2019-05-17] MEDS: PANTOprazole 40 MG TAB PO SCH ×2 (08:20→20:03)
[2019-05-17] MEDS: CARBIDOPA/LEVODOPA 25/100MG TAB PO SCH ×3 (08:20→20:04)
[2019-05-17] MEDS: FAMOTIDINE 20 MG TAB PO SCH ×2 (08:20→20:04)
[2019-05-17] MEDS: DOCUSATE SODIUM 100 MG CAP PO SCH (08:21)
--- NOTE | 2019-05-17 08:39 | Hospitalist Progress Note ---
Date of Service May 17, 2019 Assessment & Plan (1) Lactic acidosis: Leukocytosis -Pt is 73 y/o F with PMH Parkinson's, HTN, GERD, hypothyroidism presented to ER with complaint of weakness and feeling shaky. C/O intermittent productive cough of white sputum, congestion, hoarseness for couple weeks. Treated outpatient for bronchitis with prednisone taper and clarithromycin 500 mg twice daily x 10 days on 05/09/2019 C/O weakness, tremors of bilateral hands. Reports poor oral intake. Denies fever/chills, vomiting, diarrhea, abdominal pain, dysuria, hematuria, aspiration -In ER afebrile, P: 122 down to 100, R: 20, BP: 120/71 down to 78/61, 97% on RA. WBC: 16K, lactic acid: 4.3, Na: 134, BUN: 38, Cr: 1.26, GFR: 41. Negative influenza swab. Procalcitonin WNL. UA: appears contaminated CXR: No active disease in the chest. CT HEAD: Severe chronic small vessel ischemic change as on prior exam. No acute intracranial abnormality. -Lactic acid downtrended with IV fluids, and patient was started on empiric Zosyn -05/16/19: no fevers to date, continue Zosyn empirically, continue to hold clarithromycin while on Zosyn, follow admission blood/urine cultures. suspect that admission leukocytosis may be from previous prednisone use as outpatient -05/17/19: white blood cell counts downtrended to 11K, urine culture no growth, blood culture results have not finalized yet but no growth to date. also of note that patient was noted on telemetry to have tachycardia and possibly atrial f ibrillation with rapid ventricular response however there are poor lead placements. metoprolol 5 mg IV given with prn metoprolol 5 mg IV q6h prn if heart rate above 110 bpm and also metoprolol 12.5 mg tartrate given. reviewed that outpatient stress echocardiogram in 09/2018 without worrisome findings. hospitalist is not convinced that patient has atrial fibrillation and will seek cardiology consult. will also plan to resume patient's nifedipine (2) Hypertension: History of Hypertension with Hypotension on admission -admission blood pressures were low on admission, continue to hold blood pressure medications of lisinopril, lasix, nifedipine -low normotensive blood pressures have improved -continue to hold lisinopril for now, continue to hold Lasix for now -will resume nifedipine 60 mg starting on 05/17/19 -monitor blood pressure while newly given metoprolol (3) ISRRAEL (acute kidney injury): admission BUN: 38, Cr: 1.26, GFR: 41. No h/o CKD -Held lisinopril, lasix -creatinine 0.87 as of 05/16/19 and therefor renal function back at baseline (4) Parkinson disease: -Continue Sinemet, Nuplazid -Aspiration precautions -Fall risk precautions -PT/OT evaluations -05/16/19: Patient seen and examined after working with physical therapist. Physical Therapist felt patient walked well. (5) Hypothyroidism: -TSH 1.4 which is within euthyroid parameters -Continue levothyroxine (6) GERD (gastroesophageal reflux disease): -Continue PPI, H2 estephanie DVT Prophylaxis -Heparin SQ Full Code Follows with Dr Pena for routine care Daughter [phone] Subjective of note that patient was noted on telemetry to have tachycardia and possibly atrial fibrillation with rapid ventricular response however there are poor lead placements. metoprolol 5 mg IV given with prn metoprolol 5 mg IV q6h prn if heart rate above 110 bpm and also metoprolol 12.5 mg tartrate given. reviewed that outpatient stress echocardiogram in 09/2018 without worrisome findings. hospitalist is not convinced that patient has atrial fibrillation and will seek cardiology consult. patient denies chest pain. patient denies palpitations. on room air. no shortness of breath. no abdominal pain. no vomiting. no fevers. Review of Systems Review of Systems: All systems reviewed & are unremarkable except as noted in HPI & below Physical Exam Constitutional: comfortable Eyes: PERRL, conjunctivae normal, anicteric sclerae + corneal abnormality ENMT: external ear and nose normal, oropharynx normal Neck: normal visual inspection Respiratory: normal respiratory effort, lungs clear to auscultation Cardiovascular: Rate/Rhythm: regular rhythm Gastrointestinal (Abdomen): normal bowel sounds, soft, nontender, no hepatosplenomegaly Musculoskeletal: Head/Neck/Chest: normocephalic and head atraumatic Neurologic: PERRL, EOMI, accommodation nl, no face palsy, no dysarthria Psychiatric: Orientation: alert and cooperative Results & Data Vital Signs (Past 12 Hours) Vital Signs Temp Pulse Pulse Resp BP BP Pulse Ox 05/17/19 08:18 93 H 145/58 H 05/17/19 08:16 93 H 145/58 H 05/17/19 07:55 37.1 C 99 H 18 100/63 94 05/17/19 04:18 36.6 C 94 H 16 106/52 L 95 05/17/19 01:36 114 H 05/16/19 23:08 37 C 115 H 20 126/63 97
[2019-05-17] MEDS: NIFEdipine EXTENDED REL 30 MG TABCR PO SCH (09:50)
[2019-05-17] MEDS ORDERED: ACETAMINOPHEN 325 MG TAB PO PRN (11:37)
[2019-05-17] MEDS ORDERED: METOPROLOL TARTRATE 1 MG/ML VIAL IV SCH (12:00)
--- NOTE | 2019-05-17 14:09 | Cardiology Consultation ---
Date of Consultation May 17, 2019 Assessment & Plan (1) Sepsis: (2) Lactic acidosis: (3) Parkinson disease: I have reviewed the EKGs. I have also reviewed the telemetry since the patient's admission. The majority of her tachycardias represents artifact due to movement as well as her Parkinson's disease. She had a stress test earlier this year that was negative. Echocardiogram during that stress test was unremarkable. I do not believe any additional cardiac testing is indicated at this time. History of Present Illness Attending Physician: Leo Tripathi MD History of Present Illness This is a 73-year-old female with a history of Parkinson's disease that was brought to the hospital by her family after prolonged outpatient illness. She had been treated for bronchitis with antibiotics and steroids. She continued to not feel well with malaise and anorexia. She was noted to have lactic acidosis upon admission and has been admitted with sepsis. Her blood and urine cultures are negative. Chest x-ray does not show evidence of pneumonia. After admission she was noted to be tachycardic on telemetry and EKG. I been asked to see her in regard to tachycardia. She has no prior history of heart disease. The patient had a stress test earlier this year that was negative and the echocardiogram had no significant findings. Allergies Allergy/AdvReac Type Severity Reaction Status Date / Time Sulfa (Sulfonamide Allergy Intermediate HIVES AND Verified 05/15/19 10:16 Antibiotics) RASH Home Medications Home Medications Medication Instructions Recorded Confirmed Type alendronate 1 dose PO WK 02/26/18 05/15/19 History aspirin 81 mg PO QAM 02/26/18 05/15/19 History calcium carbonate-vitamin D3 1 tab PO BID 02/26/18 05/15/19 History [Calcium 500 With D] docusate sodium 200 mg PO QAM 02/26/18 05/15/19 History furosemide [Lasix] 20 mg PO DAILY 02/26/18 05/15/19 History lisinopril 20 mg PO DAILY 02/26/18 05/15/19 History loratadine [Claritin] 10 mg PO DAILY 02/26/18 05/15/19 History nifedipine 60 mg PO QAM 02/26/18 05/15/19 History potassium chloride 20 meq PO BID 02/26/18 05/15/19 History sucralfate [Carafate] 1 g PO QID 02/26/18 05/15/19 History tramadol 50 mg PO QID PRN 02/26/18 05/15/19 History pimavanserin 34 mg capsule 34 mg PO DAILY 30 Days #30 cap 05/07/19 05/15/19 Rx carbidopa-levodopa 1 tab PO UD 05/15/19 05/15/19 History clarithromycin 500 mg PO BID 05/15/19 05/15/19 History famotidine 20 mg PO BID 05/15/19 05/15/19 History levothyroxine 150 mcg PO DAILY 05/15/19 05/15/19 History melatonin 10 mg PO HS 05/15/19 05/15/19 History omeprazole 20 mg PO BID 05/15/19 05/15/19 History prednisone 0 mg PO UD 05/15/19 05/15/19 History Patient History Medical History Arrhythmia DTR REPORTS PT "SKIPS A BEAT SOMETIMES" Atrial flutter (Chronic) Dizziness (Chronic) Essential tremor (Chronic) Gait disturbance (Chronic) GERD (gastroesophageal reflux disease) GERD (gastroesophageal reflux disease) (Chronic) Hallucinations (Chronic) Hypertension Hypertension (Chronic) Hypothyroidism Hypothyroidism (Chronic) Memory loss (Chronic) Osteoarthritis Osteoporosis Parkinson disease FOLLOWS W/ DR. DURÁN Parkinson disease (Chronic) Peripheral neuropathy (Chronic) Surgical History History of cholecystectomy History of elbow surgery LEFT History of tooth extraction Hx of cataract surgery RIGHT S/P knee surgery Family History Daughter Family history of diabetes mellitus Mother No pertinent family history Father No pertinent family history Other Cancer Social History Preferred Language: Azeri Communication Ability: Effective National Account Director Required: No Beliefs That Will Affect Care: None Current Living Situation: Family Current Living Situation Comment: LIVES W/ DTR Other Information That Helps Us Care for You: No Feels Safe at Home: Yes Safety Concerns: Feels Safe At This Time Smoking Status: Never smoker Second Hand Exposure: Yes (HER WAS A SMOKER) ; Hx Alcohol Use: No Hx Substance Use: No Review of Systems Review of Systems: All systems reviewed & are unremarkable except as noted in HPI & below Nothing additional to add. Physical Exam 2 Physical Exam: General: no acute distress and stated age Head: normocephalic, no masses, lesions, tenderness or abnormalities Eyes: conjunctiva are pink and non-injected, sclera clear Neck: supple, no adenopathy, no bruits, normal jugular venous pulse, no hepatojugular reflux Chest: normal shape and normal respiratory effort Lungs: clear to auscultation and percussion Cardiac Exam: - regular rate & rhythm, no murmurs gallops or rubs - normal S1, normal S2 Pulses: 2(+) throughout Abdomen: abdomen soft, non-tender, no abnormal masses and no hepatosplenomegaly Musculoskeletal: no gait disturbance, no joint inflammation, no deforming arthritis Extremities: no edema and no cyanosis Neuro: The patient has a tremor. Results & Data Vital Signs (Past 12 Hours) Vital Signs Temp Pulse Pulse Resp BP BP Pulse Ox 05/17/19 11:59 36.4 C L 62 18 111/75 100 05/17/19 08:18 93 H 145/58 H 05/17/19 08:16 93 H 145/58 H 05/17/19 07:55 37.1 C 99 H 18 100/63 94 05/17/19 04:18 36.6 C 94 H 16 106/52 L 95 Laboratory Results Laboratory Results - last 24 hr 05/17/19 05/17/19 07:13 07:13 WBC 11.53 H RBC 4.56 Hgb 13.7 Hct 40.4 MCV 88.6 MCH 30.0 MCHC 33.9 RDW Std Deviation 45.1 RDW Coeff of Marcelino 13.8 Plt Count 334 MPV 8.5 Immature Gran % (Auto) 0.5 Neut % (Auto) 69.7 Lymph % (Auto) 17.8 [place] % (Auto) 11.9 Eos % (Auto) 0.1 Baso % (Auto) 0.0 Immature Gran # (Auto) 0.06 H Neut # (Auto) 8.04 H Lymph # (Auto) 2.05 [place] # (Auto) 1.37 H Eos # (Auto) 0.01 Baso # (Auto) 0.00 Sodium 133 L Potassium 3.4 L Chloride 101 Carbon Dioxide 24 Anion Gap 8.0 BUN 20 H Creatinine 0.76 Est Cr Clr Drug Dosing 63.8 Est GFR ( Amer) 88.9 Est GFR (Non-Af Amer) 76.7 BUN/Creatinine Ratio 26.5 H Glucose 97 Calcium 8.5 Total Bilirubin 0.9 AST 22 ALT 24 Alkaline Phosphatase 78 Total Protein 6.5 Albumin 3.1 L Globulin 3.4 Albumin/Globulin Ratio 0.9 Medications Administered Current Inpatient Medications Acetaminophen (Tylenol) 325 mg PO Q6H PRN PRN Reason: Pain or Fever Stop: 06/14/19 14:00 Aspirin (Ecotrin [facility]ab) [facility] [place] Stop: 06/15/19 08:59 Last Admin: 05/17/19 08:19 Dose: 81 mg Documented by: Carbidopa/Levodopa (Sinemet 25/100 Mg) 1 tab PO BID@1400,2100 [facility] Stop: 06/14/19 14:59 Last Admin: 05/17/19 13:40 Dose: 1 tab Documented by: Carbidopa/Levodopa (Sinemet 25/100 Mg) [facility] [place] Stop: 06/15/19 08:59 Last Admin: 05/17/19 08:20 Dose: 2 tab Documented by: Diphenhydramine HCl (Benadryl Capsule) 25 mg PO HS PRN PRN Reason: insomnia Stop: 06/15/19 20:59 Last Admin: 05/16/19 20:19 Dose: 25 mg Documented by: Docusate Sodium (Colace) 100 mg PO QAM [facility] Stop: 06/15/19 08:59 Last Admin: 05/17/19 08:21 Dose: 100 mg Documented by: Famotidine (Pepcid) 20 mg PO BID [facility] Stop: 06/14/19 20:59 Last Admin: 05/17/19 08:20 Dose: 20 mg Documented by: Heparin Sodium (Porcine) (Heparin Sodium (Porcine)) 5,000 units SQ Q8 [facility] Stop: 06/14/19 14:00 Last Admin: 05/17/19 13:40 Dose: 5,000 units Documented by: Piperacillin Sod/Tazobactam (Sod 3.375 gm/ Dextrose) 115 mls @ 28.75 mls/hr IV Q8H [facility]; Protocol Stop: 05/22/19 19:59 Last Admin: 05/17/19 12:48 Dose: 28.8 mls/hr Documented by: Levothyroxine Sodium (Synthroid) 150 mcg PO DAILYBB [facility] Stop: 06/15/19 08:59 Last Admin: 05/17/19 05:04 Dose: 150 mcg Documented by: Loratadine (Claritin) 10 mg PO DAILY [facility] Stop: 06/15/19 08:59 Last Admin: 05/17/19 08:19 Dose: 10 mg Documented by: Metoprolol Tartrate (Lopressor) 5 mg IV Q6 PRN PRN Reason: tachycardia Stop: 06/16/19 11:59 Last Admin: 05/17/19 08:18 Dose: 5 mg Documented by: Miscellaneous Information (Consult) 1 ea N/A UD PRN PRN Reason: Consult Stop: 06/14/19 13:02 Multivitamins/Minerals (Caltrate Plus) 1 tab PO BID [facility] Stop: 06/14/19 20:59 Last Admin: 05/17/19 08:18 Dose: 1 tab Documented by: Nifedipine (Procardia Xl) 60 mg PO QAM [facility] Stop: 06/16/19 08:59 Last Admin: 05/17/19 09:50 Dose: 60 mg Documented by: Nuplazid 34 Mg Caps: Non-Formulary Patient's Own Med 1 ea PO DAILY@1600 [facility] Stop: 06/15/19 15:59 Last Admin: 05/16/19 16:30 Dose: 1 cap Documented by: Pantoprazole Sodium (Protonix) 40 mg PO BID [facility] Stop: 06/14/19 20:59 Last Admin: 05/17/19 08:20 Dose: 40 mg Documented by: Sucralfate (Carafate Tab) 1 gm PO QID [facility] Stop: 06/14/19 14:00 Last Admin: 05/17/19 13:40 Dose: 1 gm Documented by: Tramadol HCl (Ultram) 50 mg PO QID PRN PRN Reason: Pain Stop: 06/14/19 14:00 Last Admin: 05/16/19 18:32 Dose: 50 mg Documented by: (1) Sepsis Sepsis acute organ dysfunction status: unspecified Sepsis type: sepsis due to unspecified organism Qualified Code(s): A41.9 - Sepsis, unspecified organism
[2019-05-17] MEDS: NUPLAZID 34 MG PO SCH (16:27)
[2019-05-17] MEDS ORDERED: Nursing to Pharmacy Communication ONE (18:18)
[2019-05-17] MEDS: TRAMADOL HCL 50 MG TABLET PO PRN (19:59)
[2019-05-18] MEDS: PIPERACILLIN/TAZOBACTAM 3.375 GM in DEXTROSE 5% 100 ML IV SCH ×2 (05:01→12:23)
[2019-05-18] MEDS: LEVOTHYROXINE SODIUM 150 MCG TABLET PO SCH (05:05)
[2019-05-18] MEDS: HEPARIN SOD 5,000 UNIT/0.5 ML VIAL SQ SCH ×2 (05:05→14:01)
[2019-05-18 06:26] LABS: Basophils # (auto) 0.01 K/uL (0-0.2); Basophils % (auto) 0.1 %; Eosinophils # (auto) 0.24 K/uL (0-0.5); Eosinophils % (auto) 1.7 %; Hematocrit (blood only) 42.6 % (37-47); Hemoglobin 14.4 g/dL (12.0-16.0); Immature Granulocytes # (auto) 0.05 K/uL (0.00-0.02); Immature Granulocytes % (auto) 0.4 %; Lymphocytes % (auto) 16.4 %; Mean Corpuscular Hemoglobin 30.2 pg (25-34); Mean Corpuscular Hgb Conc 33.8 g/dL (32-36); Mean Corpuscular Volume 89.3 fL (80-100); Mean Platelet Volume 8.6 fL (7.4-10.4); Monocytes # (auto) 1.36 K/uL (0.11-0.59); Monocytes % (auto) 9.7 %; Neutrophils # (auto) 10.08 K/uL (1.4-6.5); Neutrophils % (auto) 71.7 %; Platelet Count 338 K/uL (130-400); RDW Coefficient of Variation 13.8 % (11.5-14.5); RDW Standard Deviation 45.3 fL (36.4-46.3); Red Blood Count 4.77 M/uL (4.2-5.4); White Blood Count 14.04 K/uL (4.8-10.8)
[2019-05-18 06:47] LABS: BUN Creatinine Ratio 20.3 (10-20); Calcium 8.7 mg/dl (8.5-10.1); Creatinine Clr Calc Pharmacy 65.6 ml/min; Est GFR (African American) 93.4; Est GFR (Non-African American) 80.6; Potassium 3.1 mmol/L (3.5-5.1)
[2019-05-18 06:50] LABS: Albumin Globulin Ratio 0.9 (0.9-2); Globulin 3.5 gm/dl (2.5-4.0); Total Protein 6.5 gm/dl (6.4-8.2)
[2019-05-18] MEDS: ASPIRIN 81 MG ECTAB PO SCH (07:59)
[2019-05-18] MEDS: NIFEdipine EXTENDED REL 30 MG TABCR PO SCH (08:00)
[2019-05-18] MEDS: DOCUSATE SODIUM 100 MG CAP PO SCH (08:00)
[2019-05-18] MEDS: PANTOprazole 40 MG TAB PO SCH (08:01)
[2019-05-18] MEDS: LORATADINE 10 MG TAB PO SCH (08:01)
[2019-05-18] MEDS: CARBIDOPA/LEVODOPA 25/100MG TAB PO SCH ×2 (08:01→13:58)
[2019-05-18] MEDS: FAMOTIDINE 20 MG TAB PO SCH (08:02)
[2019-05-18] MEDS: SUCRALFATE 1 GM TAB PO SCH ×2 (08:02→12:24)
[2019-05-18] MEDS: CALCIUM 600MG + VIT D 400 IU TAB PO SCH (08:03)
[2019-05-18] MEDS ORDERED: POTASSIUM CHLORIDE 20 MEQ TABCR PO STA (09:49)
[2019-05-18 13:29] LABS: Basophils # (auto) 0.02 K/uL (0-0.2); Basophils % (auto) 0.2 %; Eosinophils # (auto) 0.33 K/uL (0-0.5); Eosinophils % (auto) 2.6 %; Hematocrit (blood only) 43.2 % (37-47); Hemoglobin 14.6 g/dL (12.0-16.0); Immature Granulocytes # (auto) 0.06 K/uL (0.00-0.02); Immature Granulocytes % (auto) 0.5 %; Lymphocytes # (auto) 2.67 K/uL (1.2-3.4); Lymphocytes % (auto) 20.7 %; Mean Corpuscular Volume 88.9 fL (80-100); Mean Platelet Volume 8.7 fL (7.4-10.4); Monocytes # (auto) 1.21 K/uL (0.11-0.59); Monocytes % (auto) 9.4 %; Neutrophils # (auto) 8.63 K/uL (1.4-6.5); Neutrophils % (auto) 66.6 %; Platelet Count 339 K/uL (130-400); RDW Coefficient of Variation 13.9 % (11.5-14.5); RDW Standard Deviation 45.2 fL (36.4-46.3); Red Blood Count 4.86 M/uL (4.2-5.4); White Blood Count 12.92 K/uL (4.8-10.8)
[2019-05-18 13:32] LABS: Mean Corpuscular Hgb Conc 33.8 g/dL (32-36)
[2019-05-18 13:47] LABS: BUN Creatinine Ratio 15.9 (10-20); Calcium 8.9 mg/dl (8.5-10.1); Creatinine Clr Calc Pharmacy 42.8 ml/min; Est GFR (African American) 55.6; Potassium 3.5 mmol/L (3.5-5.1)
--- NOTE | 2019-05-18 14:02 | Hospitalist Progress Note ---
Date of Service May 18, 2019 Assessment & Plan (1) Lactic acidosis: Leukocytosis -Pt is 73 y/o F with PMH Parkinson's, HTN, GERD, hypothyroidism presented to ER with complaint of weakness and feeling shaky. C/O intermittent productive cough of white sputum, congestion, hoarseness for couple weeks. Treated outpatient for bronchitis with prednisone taper and clarithromycin 500 mg twice daily x 10 days on 05/09/2019 C/O weakness, tremors of bilateral hands. Reports poor oral intake. Denies fever/chills, vomiting, diarrhea, abdominal pain, dysuria, hematuria, aspiration -In ER afebrile, P: 122 down to 100, R: 20, BP: 120/71 down to 78/61, 97% on RA. WBC: 16K, lactic acid: 4.3, Na: 134, BUN: 38, Cr: 1.26, GFR: 41. Negative influenza swab. Procalcitonin WNL. UA: appears contaminated CXR: No active disease in the chest. CT HEAD: Severe chronic small vessel ischemic change as on prior exam. No acute intracranial abnormality. -Lactic acid downtrended with IV fluids, and patient was started on empiric Zosyn -05/16/19: no fevers to date, continue Zosyn empirically, continue to hold clarithromycin while on Zosyn, follow admission blood/urine cultures. suspect that admission leukocytosis may be from previous prednisone use as outpatient -05/17/19: white blood cell counts downtrended to 11K, urine culture no growth, blood culture results have not finalized yet but no growth to date. also of note that patient was noted on telemetry to have tachycardia and possibly atrial f ibrillation with rapid ventricular response however there are poor lead placements. metoprolol 5 mg IV given with prn metoprolol 5 mg IV q6h prn if heart rate above 110 bpm and also metoprolol 12.5 mg tartrate given. reviewed that outpatient stress echocardiogram in 09/2018 without worrisome findings. cardiology evaluated and that heart . will also plan to resume patient's nifedipine 05/18/19: Patient has not had fevers. cultures from urine and blood have not shown any growth of organisms. lactic acid as 0.7 in 6 AM labs. decision to stop further IV Zosyn by noon time. Since no source of infection is identified, hospital doctor discussed with patient and family members about stopping antibiotics completely. Patient's family preference to monitor at home rather than monitor in the hospital off antibiotics. discharge plans discussed at length. oddly the lactic acid around 1 pm was 2.5 on repeat labs when also checking for potassium levels. this sudden change may be lab error and repeat la ctic acid ordered. without further intervention the lactic acid is 1. (2) Hypertension: History of Hypertension with Hypotension on admission -admission blood pressures were low on admission, continue to hold blood pressure medications of lisinopril, lasix, nifedipine -low normotensive blood pressures have improved -continue to hold lisinopril for now, continue to hold furosemide -resumed nifedipine 60 mg starting on 05/17/19 -lisinopril and furosemide to be stopped from discharge medication; since patient's blood pressure was controlled off lisinopril and furosemide and recent outpatient cardiac test show good heart function and to avoid dehydration from furosemide; patient should discuss with family medical doctor before resuming these medications Hypokalemia -potassium 3.1 on 05/18/19 and patient given IV potassium supplements -potassium 3.5 on 05/18/19 after repletion -Patient should have repeat complete blood count and potassium levels and renal function with primary care doctor 05/23/2019 11:00 AM Provider Burke Pena MD Department Family Practice [facility] Patient should seek medical attention if she develops fevers potassium pills can be given as once a day rather than twice a day when off furosemide; prescription of potassium 20 meq daily sent off to [facility] (3) ISRRAEL (acute kidney injury): admission BUN: 38, Cr: 1.26, GFR: 41. No h/o CKD -Held lisinopril, lasix -creatinine 0.87 as of 05/16/19 and therefor renal function back at baseline (4) Parkinson disease: -Continue Sinemet, Nuplazid -Aspiration precautions -Fall risk precautions -PT/OT evaluations -05/16/19: Patient seen and examined after working with physical therapist. Physical Therapist felt patient walked well. (5) Hypothyroidism: -TSH 1.4 which is within euthyroid parameters -Continue levothyroxine (6) GERD (gastroesophageal reflux disease): -Continue PPI, H2 estephanie DVT Prophylaxis -Heparin SQ Patient should have repeat complete blood count and renal function with primary care doctor 05/23/2019 11:00 AM Provider Burke Pena MD Department Family [facility] Patient should seek medical attention if she develops fevers Full Code Lactic acidosis (resolved), Leukocytosis, Parkinson disease, Acute Kidney Injury (resolved), hypokalemia (treated) Subjective Patient has not had fevers. cultures from urine and blood have not shown any growth of organisms. IV Zosyn stopped. Since no source of infection is identified, hospital doctor discussed with patient and family members about stoppping antibiotics completely. Patient's family preference to monitor at home rather than monitor in the hospital off antibiotics. discharge plans discussed at length patient does not report of pain. no distress. breathing on room air. does not report of symptoms Review of Systems Review of Systems: All systems reviewed & are unremarkable except as noted in HPI & below Physical Exam Constitutional: comfortable Eyes: PERRL, conjunctivae normal, anicteric sclerae EOM intact bilaterally ENMT: external ear and nose normal, oropharynx normal Neck: normal visual inspection Respiratory: normal respiratory effort, lungs clear to auscultation Cardiovascular: Rate/Rhythm: regular rhythm Gastrointestinal (Abdomen): normal bowel sounds, soft, nontender, no hepatosplenomegaly Musculoskeletal: Head/Neck/Chest: normocephalic and head atraumatic Neurologic: PERRL, EOMI, accommodation nl, no face palsy, no dysarthria Psychiatric: Orientation: alert and cooperative Results & Data Vital Signs (Past 12 Hours) Vital Signs Temp Pulse Pulse Pulse Resp BP BP 05/18/19 11:22 36.7 C 81 20 120/89 05/18/19 08:00 36.4 C L 107 H 20 137/79 05/18/19 03:17 36.6 C 91 H 18 114/67 Pulse Ox 05/18/19 11:22 94 05/18/19 08:00 95 05/18/19 03:17 94
[2019-05-18] MEDS ORDERED: SODIUM CHLORIDE 0.9% 1000ML 250 ML IV ONE ×2 (14:14→14:45)
--- NOTE | 2019-05-18 15:09 | Discharge Summary ---
Date of Service May 18, 2019 Admission HPI Per Admitting Provider Pt is 73 y/o F with PMH Parkinson's, HTN, GERD, hypothyroidism presented to ER with complaint of weakness and feeling shaky. History obtained from patient and assisted by patient's daughter. Reports that patient had intermittent cough intermittently productive of white sputum, congestion, hoarseness for couple weeks. She was seen by PCP office on 05/09/2019 and was started on prednisone taper and clarithromycin 500 mg twice daily x10 days for bronchitis. Patient reports feeling weak and unsteady and has been having shaking of bilateral hands since starting medications. Reports still does not feel all that well. Patient's daughter reports seems like her cough is mild and has chronic nasal congestion. Patient reports some nausea after starting medications, no vomiting or diarrhea. Denies any history of choking or aspiration. Denies shortness of breath, fever, chills. Reports poor oral intake past day and today had decreased urination. Denies dysuria, hematuria, flank pain. Denies diaphoresis, MURRAY, dizziness, syncope, vision changes, neck pain, CP, SOB, orthopnea, palpitations, otalgia, abdominal pain, paresthesias, extremity edema, rashes. Admission Exam Per Admitting Provider General: no distress, obese Head: normocephalic, atraumatic Eyes: PERRL, EOM's intact, conjunctiva non-injected, anicteric ENT: normal inspection external ears, nose, mucous membranes dry Neck: supple, trachea midline, non-tender Lungs: clear, no respiratory distress, no wheezing/rhonchi/rales CV: RRR, no murmur, no pretibial edema Abd: normal BS, soft, non-tender Ext: no cyanosis, no calf tenderness Neuro: A&O x 3, masked facies, +cogwheel rigidity, + tremor bilateral hands Skin: warm, dry Principal Diagnosis Lactic acidosis (resolved), Leukocytosis, Parkinson disease, Acute Kidney Injury (resolved), hypokalemia (treated) Discharge Exam Constitutional comfortable Eyes PERRL, conjunctivae normal, anicteric sclerae EOM intact bilaterally ENMT external ear and nose normal, oropharynx normal Neck normal visual inspection Respiratory normal respiratory effort, lungs clear to auscultation Cardiovascular Rate/Rhythm: regular rhythm Gastrointestinal (Abdomen) normal bowel sounds, soft, nontender, no hepatosplenomegaly Musculoskeletal Head/Neck/Chest: normocephalic and head atraumatic Neurologic PERRL, EOMI, accommodation nl, no face palsy, no dysarthria Psychiatric Orientation: alert and cooperative Discharge Data Allergies Allergy/AdvReac Type Severity Reaction Status Date / Time Sulfa (Sulfonamide Allergy Intermediate HIVES AND Verified 05/15/19 10:16 Antibiotics) RASH Consultations 05/15/19 11:42 ED Decision to Admit Stat 05/15/19 14:01 Consult Case Management - Discharge Planning Routine 05/17/19 07:54 Consult Cardiology Routine Ordered Studies 05/15/19 09:45 CT head/brain wo con Stat Hospital Course (1) Lactic acidosis: Leukocytosis -Pt is 73 y/o F with PMH Parkinson's, HTN, GERD, hypothyroidism presented to ER with complaint of weakness and feeling shaky. C/O intermittent productive cough of white sputum, congestion, hoarseness for couple weeks. Treated outpatient for bronchitis with prednisone taper and clarithromycin 500 mg twice daily x 10 days on 05/09/2019 C/O weakness, tremors of bilateral hands. Reports poor oral intake. Denies fever/chills, vomiting, diarrhea, abdominal pain, dysuria, hematuria, aspiration -In ER afebrile, P: 122 down to 100, R: 20, BP: 120/71 down to 78/61, 97% on RA. WBC: 16K, lactic acid: 4.3, Na: 134, BUN: 38, Cr: 1.26, GFR: 41. Negative influenza swab. Procalcitonin WNL. UA: appears contaminated CXR: No active disease in the chest. CT HEAD: Severe chronic small vessel ischemic change as on prior exam. No acute intracranial abnormality. -Lactic acid downtrended with IV fluids, and patient was started on empiric Zosyn -05/16/19: no fevers to date, continue Zosyn empirically, continue to hold clarithromycin while on Zosyn, follow admission blood/urine cultures. suspect that admission leukocytosis may be from previous prednisone use as outpatient -05/17/19: white blood cell counts downtrended to 11K, urine culture no growth, blood culture results have not finalized yet but no growth to date. also of note that patient was noted on telemetry to have tachycardia and possibly atrial fibrillation with rapid ventricular response however there are poor lead placements. metoprolol 5 mg IV given with prn metoprolol 5 mg IV q6h prn if heart rate above 110 bpm and also metoprolol 12.5 mg tartrate given. reviewed that outpatient stress echocardiogram in 09/2018 without worrisome findings. cardiology evaluated and that heart . will also plan to resume patient's nifedipine 05/18/19: Patient has not had fevers. cultures from urine and blood have not shown any growth of organisms. lactic acid as 0.7 in 6 AM labs. decision to stop further IV Zosyn by noon time. Since no source of infection is identified, hospital doctor discussed with patient and family members about stopping antibiotics completely. Patient's family preference to monitor at home rather t myers monitor in the hospital off antibiotics. discharge plans discussed at length. oddly the lactic acid around 1 pm was 2.5 on repeat labs when also checking for potassium levels. this sudden change may be lab error and repeat lactic acid ordered. without further intervention the lactic acid is 1. (2) Hypertension: History of Hypertension with Hypotension on admission -admission blood pressures were low on admission, continue to hold blood pressure medications of lisinopril, lasix, nifedipine -low normotensive blood pressures have improved -continue to hold lisinopril for now, continue to hold furosemide -resumed nifedipine 60 mg starting on 05/17/19 -lisinopril and furosemide to be stopped from discharge medication; since patient's blood pressure was controlled off lisinopril and furosemide and recent outpatient cardiac test show good heart function and to avoid dehydration from furosemide; patient should discuss with family medical doctor before resuming these medications Hypokalemia -potassium 3.1 on 05/18/19 and patient given IV potassium supplements -potassium 3.5 on 05/18/19 after repletion -Patient should have repeat complete blood count and potassium levels and renal function with primary care doctor 05/23/2019 11:00 AM Provider Burke Pena MD Department Family [facility] Patient should seek medical attention if she develops fevers potassium pills can be given as once a day rather than twice a day when off furosemide; prescription of potassium 20 meq daily sent off to [facility] (3) ISRRAEL (acute kidney injury): admission BUN: 38, Cr: 1.26, GFR: 41. No h/o CKD -Held lisinopril, lasix -creatinine 0.87 as of 05/16/19 and therefor renal function back at baseline (4) Parkinson disease: -Continue Sinemet, Nuplazid -Aspiration precautions -Fall risk precautions -PT/OT evaluations -05/16/19: Patient seen and examined after working with physical therapist. Physical Therapist felt patient walked well. (5) Hypothyroidism: -TSH 1.4 which is within euthyroid parameters -Continue levothyroxine (6) GERD (gastroesophageal reflux disease): -Continue PPI, H2 estephanie DVT Prophylaxis -Heparin SQ Patient should have repeat complete blood count and renal function with primary care doctor 05/23/2019 11:00 AM Provider Burke Pena MD [facility] Patient should seek medical attention if she develops fevers Full Code Lactic acidosis (resolved), Leukocytosis, Parkinson disease, Acute Kidney Injury (resolved), hypokalemia (treated) Total Time Total Time Spent Total Time Spent (In Minutes): 40 minutes Total Time Includes: Examination of the Patient, Discharge Planning, Medication Reconciliation and Communication With Other Providers Discharge Plan Discharge Items Patient Disposition: Home - Self-Care Reason For Visit: ELEVATED LACTIC ACID Discharge Diagnosis: Lactic acidosis (resolved), Leukocytosis, Parkinson disease, Acute Kidney Injury (resolved), hypokalemia (treated) Condition on Discharge: Good Activity: Resume your previous activity Non-emergency contact: Primary Care Provider Call non-emergency contact if: you have any medication questions Follow-up/Referrals: Burke Pena MD [Primary Care Provider] - Diet: Heart Healthy Addtl Attending Provider Instructions: Patient was treated in the hospital concerning for infection with elevated lactic acid and elevated white blood cell. Lactic acid elevation resolved with IV fluids. White blood cell count downtrended but still above 10,000 while on Zosyn. Patient has not had fevers to date and no source of bacteria of urine cultures or blood cultures Patient also treated for hypokalemia and acute kidney injury Patient should have repeat complete blood count and potassium levels and renal function with primary care doctor 05/23/2019 11:00 AM Provider Burke Pena MD [facility] Patient should seek medical attention if she develops fevers lisinopril and furosemide to be stopped from discharge medication; since patient's blood pressure was controlled off lisinopril and furosemide and recent outpatient cardiac test show good heart function and to avoid dehydration from furosemide; patient should discuss with family medical doctor before resuming these medications potassium pills can be given as once a day rather than twice a day when off furosemide; prescription of potassium 20 meq daily sent off to [facility] Pending Studies at Discharge: No Stand-Alone Forms: My [facility], Smoking Cessation Medications and DC Order Prescriptions: New potassium chloride 20 mEq tablet extended release 20 meq PO DAILY 30 Days Qty: 30 RF: 0 Continued pimavanserin 34 mg capsule 34 mg PO DAILY 30 Days Qty: 30 RF: 5 prednisone 10 mg tablet 0 mg PO UD RF: 0 levothyroxine 150 mcg tablet 150 mcg PO DAILY RF: 0 carbidopa-levodopa 25-100 mg tablet 1 tab PO UD RF: 0 famotidine 20 mg Tablet 20 mg PO BID RF: 0 omeprazole 20 mg capsule,delayed release(DR/EC) 20 mg PO BID RF: 0 melatonin 10 mg Tablet 10 mg PO HS RF: 0 aspirin 81 mg Tablet,Delayed Release (Dr/Ec) 81 mg PO QAM RF: 0 tramadol 50 mg Tablet 50 mg PO QID PRN (Reason: Pain) RF: 0 nifedipine 60 mg Tablet Extended Release 60 mg PO QAM RF: 0 docusate sodium 100 mg Tablet 200 mg PO QAM RF: 0 loratadine [Claritin] 10 mg Tablet 10 mg PO DAILY RF: 0 calcium carbonate-vitamin D3 [Calcium 500 With D] 500 mg(1,250mg) -400 unit Tablet 1 tab PO BID RF: 0 sucralfate [Carafate] 1 gram Tablet 1 g PO QID RF: 0 alendronate 70 mg Tablet 1 dose PO WK RF: 0 Discontinued clarithromycin 500 mg tablet 500 mg PO BID RF: 0 lisinopril 20 mg Tablet 20 mg PO DAILY RF: 0 furosemide [Lasix] 20 mg Tablet 20 mg PO DAILY RF: 0 potassium chloride 20 mEq Tablet Extended Release 20 meq PO BID RF: 0 Discharge Orders: Discharge Order (Routine); Ordered 05/18/19 Ordered By: Leo Tripathi Admission Data Admit Date/Time: 05/15/19 12:54 Attending Provider: Leo Tripathi Admit Provider: Demetri Brenner Primary Care Provider: Burke Pena Other Providers: Demetri Brenner ; Julian Reese
[2019-05-18] MEDS ORDERED: MELATONIN 10 MG PO SCH (21:00)
== END 2019-05-18 16:17 | disposition home or self-care (01) | DRG 640 ==
LOC: ED 09:25 → 2N 12:54 → SUATTDRO 12:54 → 2N 13:33

== ENCOUNTER 2021-01-21 07:19 | Inpatient (IN) ==
[2021-01-21] MEDS ORDERED: methylPREDNISolone 125 MG/2 ML VIAL IV STA (07:25)
[2021-01-21] MEDS ORDERED: ALBUT/IPRATROP 3MG/0.5MG NEB 3 ML VIAL INH STA (07:25)
--- NOTE | 2021-01-21 07:32 | Emergency Department Note ---
History of Present Illness General Chief complaint: Unresponsive History of Present Illness 75-year-old female presents to the ED by EMS. The EMS provider reports that the patient was being helped by family members to go to the bathroom when she became unresponsive. The patient was transported here by EMS. Prehospital blood sugar was okay. The patient, on arrival does open her eyes briefly on verbal command. She also grimaces to pain and withdrawal slightly from pain with her upper extremities. Negative Babinski. The patient provides no additional information at this time. EMS report the family states no CPR. No additional information at this time. They brought her in on 15 L of oxygen. Home Medications Medication Instructions Recorded Confirmed Type alendronate 70 mg tablet (Fosamax) 1 dose PO WK 02/26/18 01/21/21 History aspirin 81 mg tablet,delayed 81 mg PO QAM 02/26/18 01/21/21 History release (Aspirin Low Dose) calcium carbonate 500 mg (1,250 1 tab PO BID 02/26/18 01/21/21 History mg)-vitamin D3 400 unit tablet (Calcium 500 With D) docusate sodium 100 mg tablet 200 mg PO HS 02/26/18 01/21/21 History (Stool Softener) loratadine 10 mg tablet (Claritin) 10 mg PO QAM 02/26/18 01/21/21 History nifedipine 60 mg tablet,extended 60 mg PO QAM 02/26/18 01/21/21 History release (Adalat CC) sucralfate 1 gram tablet (Carafate) 1 g PO QID 02/26/18 01/21/21 History tramadol 50 mg tablet (Ultram) 50 mg PO QID PRN 02/26/18 01/21/21 History famotidine 20 mg tablet (Pepcid) 20 mg PO HS 05/15/19 01/21/21 History omeprazole 20 mg capsule,delayed 20 mg PO BID 05/15/19 01/21/21 History release furosemide 20 mg tablet (Lasix) 20 mg PO QAM tab 06/26/19 01/21/21 History lisinopril 20 mg tablet (Prinivil) 20 mg PO QAM tab 06/26/19 01/21/21 History polyethylene glycol 3350 17 17 gm PO QAM 06/26/19 01/21/21 History gram/dose oral powder (Miralax) Hospital Bed Homecare ([facility] 1 ea FengROUTE .COMPLEX #1 ea 11/24/20 11/24/20 Rx Bed) carbidopa 25 mg-levodopa 100 mg 1 tab PO BID 01/21/21 01/21/21 History tablet (Sinemet) hydrocodone 10 mg-acetaminophen 1 tab PO Q6H PRN 01/21/21 01/21/21 History 325 mg tablet levothyroxine 175 mcg tablet 175 mcg PO DAILYBB 01/21/21 01/21/21 History (Synthroid) meloxicam 7.5 mg tablet (Mobic) 7.5 mg PO DAILY@1600 01/21/21 01/21/21 History potassium chloride 10 mEq 10 meq PO DAILY@1600 01/21/21 01/21/21 History capsule,extended release quetiapine 100 mg tablet (Seroquel) 100 mg PO HS 01/21/21 01/21/21 History quetiapine 25 mg tablet (Seroquel) 25 mg PO QAM 01/21/21 01/21/21 History Allergies Allergy/AdvReac Type Severity Reaction Status Date / Time Sulfa (Sulfonamide Allergy Intermediate HIVES AND Verified 11/24/20 10:49 Antibiotics) RASH Macrolide Antibiotics AdvReac Severe Interacted Unverified 01/21/21 08:11 with other meds Past Med/Surg History Medical History (Updated 01/21/21 @ 09:57 by Shade Knox DO) Arrhythmia DTR REPORTS PT "SKIPS A BEAT SOMETIMES" Atrial flutter Dizziness Essential tremor Gait disturbance GERD (gastroesophageal reflux disease) GERD (gastroesophageal reflux disease) Hallucinations Hypertension Hypertension Hypothyroidism Hypothyroidism Memory loss Osteoarthritis Osteoporosis Parkinson disease FOLLOWS W/ DR. 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 Required: No Beliefs That Will Affect Care: None Current Living Situation: Family Current Living Situation Comment: LIVES W/ DTR Feels Safe at Home: Yes Assistive Devices: Walker Review of Systems A total of 10 systems reviewed and were otherwise negative Physical Exam Vital Signs Vital Signs - 24 hr 01/21/21 07:28 01/21/21 07:30 01/21/21 07:35 Temperature 36.9 C Temperature Source Oral Pulse Rate 111 H 109 H Pulse Rate [Left Radial] Pulse Rate from SpO2 Sensor 111 H Respiratory Rate 25 H 25 H Respiratory Effort / Characteristics Non-Labored Respiratory Depth Normal Respiratory Pattern Regular Blood Pressure 147/109 H 147/109 H Blood Pressure [Right Arm] Blood Pressure Mean 121 121 Blood Pressure Mean [Right Arm] Blood Pressure Position Lying Blood Pressure Position [Right Arm] Pulse Oximetry 93 92 97 Oxygen Delivery Method Nasal Cannula Nasal Cannula Oxygen Flow Rate 2 4 Sepsis Recent Fever Within 48 Hours No Sepsis New/Unexplained Change in Mental Status Yes Sepsis Action Taken by Nursing Physician Notified 01/21/21 07:36 01/21/21 07:59 01/21/21 08:08 Temperature Temperature Source Pulse Rate 106 H Pulse Rate [Left Radial] 100 H Pulse Rate from SpO2 Sensor 106 H Respiratory Rate 20 33 H Respiratory Effort / Characteristics Non-Labored Spontaneous Respiratory Depth Respiratory Pattern Blood Pressure Blood Pressure [Right Arm] Blood Pressure Mean Blood Pressure Mean [Right Arm] Blood Pressure Position Blood Pressure Position [Right Arm] Pulse Oximetry 95 93 92 Oxygen Delivery Method Nasal Cannula Nasal Cannula Oxygen Flow Rate 4 4 Sepsis Recent Fever Within 48 Hours Sepsis New/Unexplained Change in Mental Status Sepsis Action Taken by Nursing 01/21/21 08:10 01/21/21 08:32 01/21/21 08:46 Temperature Temperature Source Pulse Rate 107 H 110 H 111 H Pulse Rate [Left Radial] Pulse Rate from SpO2 Sensor 109 H 121 H 111 H Respiratory Rate 29 H 25 H 28 H Respiratory Effort / Characteristics Respiratory Depth Respiratory Pattern Blood Pressure 124/51 L Blood Pressure [Right Arm] Blood Pressure Mean 75 Blood Pressure Mean [Right Arm] Blood Pressure Position Blood Pressure Position [Right Arm] Pulse Oximetry 94 82 L 96 Oxygen Delivery Method Oxygen Flow Rate Sepsis Recent Fever Within 48 Hours Sepsis New/Unexplained Change in Mental Status Sepsis Action Taken by Nursing 01/21/21 09:02 01/21/21 09:10 01/21/21 09:20 Temperature Temperature Source Pulse Rate 110 H 105 H 113 H Pulse Rate [Left Radial] Pulse Rate from SpO2 Sensor 111 H 106 H 115 H Respiratory Rate 33 H 27 H 24 Respiratory Effort / Characteristics Respiratory Depth Respiratory Pattern Blood Pressure Blood Pressure [Right Arm] Blood Pressure Mean Blood Pressure Mean [Right Arm] Blood Pressure Position Blood Pressure Position [Right Arm] Pulse Oximetry 96 99 96 Oxygen Delivery Method Oxygen Flow Rate Sepsis Recent Fever Within 48 Hours Sepsis New/Unexplained Change in Mental Status Sepsis Action Taken by Nursing 01/21/21 09:26 Temperature Temperature Source Pulse Rate Pulse Rate [Left Radial] Pulse Rate from SpO2 Sensor Respiratory Rate Respiratory Effort / Characteristics Respiratory Depth Respiratory Pattern Blood Pressure Blood Pressure [Right Arm] 115/65 Blood Pressure Mean Blood Pressure Mean [Right Arm] 81 Blood Pressure Position Blood Pressure Position [Right Arm] Lying Pulse Oximetry Oxygen Delivery Method Oxygen Flow Rate Sepsis Recent Fever Within 48 Hours Sepsis New/Unexplained Change in Mental Status Sepsis Action Taken by Nursing CONSTITUTIONAL/VITAL SIGNS: Reviewed / noted above. GENERAL: Minimally responsive, generally weak. INTEGUMENTARY: Warm, dry, and [place]. HEAD: Normocephalic. EYES: without scleral icterus or trauma. ENT/OROPHARYNX: clear and moist. LYMPHADENOPATHY/NECK: Is supple without lymphadenopathy or meningismus. RESPIRATORY: Diminished breath sounds bilaterally with expiratory wheezing. Some increased work of breathing. CARDIOVASCULAR: Regular rate and rhythm. GI/ABDOMEN: Soft and nontender. No organomegaly or pulsatile mass. EXTREMITIES: Warm and well perfused. NEUROLOGICAL: The patient opens eyes to verbal command. She grimaces to pain and withdraws slightly from pain. No focal weakness. Nonverbal. PSYCHIATRIC: normal affect. MUSCULOSKELETAL: Normally developed with good muscle tone. TRIAGE NURSING DOCUMENTATION REVIEWED. Procedures ABG Interpretation ABG Interpretation 1: ABG Results: Mildly acidotic. Slightly under ventilated . Adequate oxygenation. Findings on ABG represent a mild respiratory acidosis. No significant hypercarbia Course Administered Medications Sodium Chloride (Nss 1000ml) 1,000 mls @ 999 mls/hr IV .Q1H1M ONE Stop: 01/21/21 10:38 Last Admin: 01/21/21 09:51 Dose: 999 mls/hr Documented by: [id number] Piperacillin Sod/Tazobactam Sod (Zosyn) 4.5 gm in 120 mls @ 240 mls/hr IV NOW ONE Stop: 01/21/21 10:07 Last Admin: 01/21/21 09:51 Dose: 240 mls/hr Documented by: [id number] Discontinued Medications Albuterol (Albut/Ipratrop 3mg/0.5mg Neb 3 Ml Vial) 12 ml INH ONE STA Stop: 01/21/21 07:26 Last Admin: 01/21/21 07:56 Dose: 12 ml Documented by: [id number] Methylprednisolone (Methylprednisolone 125 Mg/2 Ml Vial) 125 mg IV NOW STA Stop: 01/21/21 07:26 Last Admin: 01/21/21 07:42 Dose: 125 mg Documented by: [id number] Medical Decision Making Differential Diagnosis Differential includes acute cardiac dysrhythmia, microinfarction, CVA, TIA, dehydration, anemia, electrolyte disturbance, seizure, trauma, intracranial bleeding, acute vascular catastrophe, thoracic aortic dissection, PE, abdominal aortic aneurysm rupture, infection, hypoglycemia, overdose, trauma. Medical Records Attestation: I reviewed the patient's medical records. Home Medications Current Medication List: was personally reviewed by me Laboratory Data Attestation: I reviewed the patient's lab results. Result diagrams: 01/21/21 07:30 01/21/21 07:30 Lab Results 01/21/21 01/21/21 01/21/21 Range/Units 07:30 07:30 07:30 WBC 16.60 H (4.8-10.8) K/uL RBC 4.86 (4.2-5.4) M/uL Hgb 14.4 (12.0-16.0) g/dL POC Hgb (12.0-16.0) g/dl Hct 45.4 (37-47) % POC Hct (37-47) % MCV 93.4 (80-100) fL MCH 29.6 (25-34) pg MCHC 31.7 L (32-36) g/dL RDW Std Deviation 48.4 H (36.4-46.3) fL RDW Coeff of Marcelino 14.1 (11.5-14.5) % Plt Count 442 H (130-400) K/uL MPV 9.7 (7.4-10.4) fL Immature Gran % (Auto) 0.3 % Neut % (Auto) 56.8 % Lymph % (Auto) 35.1 % [place] % (Auto) 7.5 % Eos % (Auto) 0.2 % Baso % (Auto) 0.1 % Neut # (Auto) 9.43 H (1.4-6.5) K/uL Lymph # (Auto) 5.83 H (1.2-3.4) K/uL [place] # (Auto) 1.24 H (0.11-0.59) K/uL Eos # (Auto) 0.04 (0-0.5) K/uL Baso # (Auto) 0.01 (0-0.2) K/uL Immature Gran # (Auto) 0.05 H (0.00-0.02) K/uL PT 10.8 (9.0-12.0) Seconds INR 1.1 (0.9-1.1) APTT 22.9 (21.0-31.0) Seconds PTT Ratio 0.9 POC pH (7.35-7.45) POC pCO2 (35-46) mmHg POC pO2 (80-95) mmHg POC HCO3 (19-24) sandro/L POC Total CO2 (24-31) mmol/L POC Base Excess (-9-1.8) sandro/L POC ABG O2 Sat (90-95) % POC Sodium (135-144) mmol/L Sodium 140 (136-145) mmol/L POC Potassium (3.3-5.0) mmol/L Potassium 3.6 (3.5-5.1) mmol/L Chloride 106 (98-107) mmol/L Carbon Dioxide 23 (21-32) mmol/L Anion Gap 12.0 H (3-11) BUN 30 H (7-18) mg/dl Creatinine 1.18 (0.6-1.2) mg/dl Est Cr Clr Drug Dosing 39.1 ml/min Est GFR ( Amer) 51.5 ml/min Est GFR (Non-Af Amer) 44.5 ml/min BUN/Creatinine Ratio 25.2 H (10-20) Glucose 291 H (70-99) mg/dl Lactate (0.4-2.0) mmol/L Calcium 9.3 (8.5-10.1) mg/dl Magnesium 2.4 (1.8-2.4) mg/dl Total Bilirubin 0.4 (0.2-1) mg/dl AST 13 L (15-37) U/L ALT 11 L (12-78) U/L Alkaline Phosphatase 76 (45-117) U/L Troponin I < 0.015 (0-0.045) ng/ml NT-Pro-B Natriuret Pep 462 (0-1800) pg/ml Total Protein 7.5 (6.4-8.2) gm/dl Albumin 3.4 (3.4-5.0) gm/dl Globulin 4.1 H (2.5-4.0) gm/dl Albumin/Globulin Ratio 0.8 L (0.9-2) Urine Color Urine Appearance (Clear) Urine pH (4.5-7.5) Ur Specific [place] (1.000-1.030) Urine Protein (Negative) Urine Glucose (UA) (Negative) Urine Ketones (Negative) Urine Blood (Negative) Urine Nitrite (Negative) Urine Bilirubin (Negative) Urine Urobilinogen (Negative) Ur Leukocyte Esterase (Negative) Urine WBC (Auto) (0-5) /hpf Urine RBC (Auto) (0-4) /hpf U Hyaline Cast (Auto) (0-5) /lpf U Epithel Cells (Auto) (0-5) /lpf Urine Bacteria (Auto) (Negative) Ur Renal Epithelial Cell Granular Casts (0) /lpf Urine Yeast (None Prsent) 01/21/21 01/21/21 01/21/21 Range/Units 07:30 07:55 08:30 WBC (4.8-10.8) K/uL RBC (4.2-5.4) M/uL Hgb (12.0-16.0) g/dL POC Hgb 15.0 (12.0-16.0) g/dl Hct (37-47) % POC Hct 44 (37-47) % MCV (80-100) fL MCH (25-34) pg MCHC (32-36) g/dL RDW Std Deviation (36.4-46.3) fL RDW Coeff of Amrcelino (11.5-14.5) % Plt Count (130-400) K/uL MPV (7.4-10.4) fL Immature Gran % (Auto) % Neut % (Auto) % Lymph % (Auto) % [place] % (Auto) % Eos % (Auto) % Baso % (Auto) % Neut # (Auto) (1.4-6.5) K/uL Lymph # (Auto) (1.2-3.4) K/uL [place] # (Auto) (0.11-0.59) K/uL Eos # (Auto) (0-0.5) K/uL Baso # (Auto) (0-0.2) K/uL Immature Gran # (Auto) (0.00-0.02) K/uL PT (9.0-12.0) Seconds INR (0.9-1.1) APTT (21.0-31.0) Seconds PTT Ratio POC pH 7.31 L (7.35-7.45) POC pCO2 45 (35-46) mmHg POC pO2 84 (80-95) mmHg POC HCO3 23 (19-24) sandro/L POC Total CO2 24 (24-31) mmol/L POC Base Excess -4.0 (-9-1.8) sandro/L POC ABG O2 Sat 95.0 (90-95) % POC Sodium 139 (135-144) mmol/L Sodium (136-145) mmol/L POC Potassium 3.4 (3.3-5.0) mmol/L Potassium (3.5-5.1) mmol/L Chloride (98-107) mmol/L Carbon Dioxide (21-32) mmol/L Anion Gap (3-11) BUN (7-18) mg/dl Creatinine (0.6-1.2) mg/dl Est Cr Clr Drug Dosing ml/min Est GFR ( Amer) ml/min Est GFR (Non-Af Amer) ml/min BUN/Creatinine Ratio (10-20) Glucose (70-99) mg/dl Lactate 6.8 H* (0.4-2.0) mmol/L Calcium (8.5-10.1) mg/dl Magnesium (1.8-2.4) mg/dl Total Bilirubin (0.2-1) mg/dl AST (15-37) U/L ALT (12-78) U/L Alkaline Phosphatase (45-117) U/L Troponin I (0-0.045) ng/ml NT-Pro-B Natriuret Pep (0-1800) pg/ml Total Protein (6.4-8.2) gm/dl Albumin (3.4-5.0) gm/dl Globulin (2.5-4.0) gm/dl Albumin/Globulin Ratio (0.9-2) Urine Color Dark Yellow Urine Appearance Cloudy A (Clear) Urine pH 5.0 (4.5-7.5) Ur Specific [place] 1.024 (1.000-1.030) Urine Protein 1+ H (Negative) Urine Glucose (UA) 1+ H (Negative) Urine Ketones Negative (Negative) Urine Blood Trace H (Negative) Urine Nitrite Negative (Negative) Urine Bilirubin Negative (Negative) Urine Urobilinogen Negative (Negative) Ur Leukocyte Esterase Negative (Negative) Urine WBC (Auto) 5-10 H (0-5) /hpf Urine RBC (Auto) 0-4 (0-4) /hpf U Hyaline Cast (Auto) 10-30 H (0-5) /lpf U Epithel Cells (Auto) >30 H (0-5) /lpf Urine Bacteria (Auto) 1+ H (Negative) Ur Renal Epithelial Cell Not Reportable Granular Casts 1-5 H (0) /lpf Urine Yeast Present A (None Prsent) Imaging Data Radiologist's Impression: Chest X-Ray 01/21/21 07:25 SINGLE VIEW CHEST CLINICAL HISTORY: Dyspnea. FINDINGS: 2 AP, portable, upright chest radiographs are compared to study dated 05/17/2019. Correlation is made with chest CT dated 10/04/2010. The examination is degraded by portable technique and patient rotation. The cardiomediastinal silhouette is unremarkable noting atherosclerotic calcification of the thoracic aorta. There is chronic elevation of the right hemidiaphragm. Scarring/platelike atelectasis is seen in the right midlung. There is no airspace consolidation typical for pneumonia or large pleural effusion. No pneumothorax is seen. The skeletal structures are osteopenic. The bony thorax is grossly intact. C holecystectomy clips are noted in the right upper quadrant. Degenerative change is noted in the shoulders and thoracic spine. IMPRESSION: No acute cardiopulmonary abnormality. ACT 112: Negative or not required by law. Electronically signed by: Lito Ruff M.D. 01/21/2021 8:[address] 01/21/21 07:25 CT head/brain wo con CLINICAL HISTORY: ams COMPARISON STUDY: May 15, 2019 TECHNIQUE: Axial CT of the brain is performed from the vertex to the skull base. IV contrast was not administered for this examination. A dose lowering technique was utilized adhering to the principles of ALARA. CT DOSE: 1074.96 mGy.cm FINDINGS: No acute intracranial hemorrhage, no midline shift or space occupying lesions. Edwards-white matter differentiation is preserved. Calcifications of the falx are seen. Evaluation is slightly limited due to beam hardening and motion artifact despite attempts. There are patchy white matter hypodensities likely on a small vessel basis. There is no evidence of pathologic ventricular dilatation. There is no acute depressed skull fractures seen. Visualized paranasal sinuses and mastoid air cells are patent and well-aerated. Motion and beam hardening artifact limits evaluation of osseous structures. IMPRESSION: No acute intracranial hemorrhage, no midline shift or space occupying lesions. No acute depressed calvarial fractures. Limited exam due to motion and beam hardening artifact. ACT 112: Negative or not required by law. The above report was generated using voice recognition software. It may contain grammatical, syntax or spelling errors. Electronically signed by: Milana Katz DO 01/21/2021 8:21 AM ECG Data Attestation: I personally reviewed and interpreted this ECG as follows: Additional Comments: Twelve-lead EKG: Per my interpretation there is a sinus tach at a rate of 107. No ST elevation. No PVCs. Normal QTC. MDM Narrative Patient presents with an altered mental status. She is only opens her eyes to verbal stimulus. She grimaces to painful stimuli and withdraws her hands from painful stimuli. She does not move her extremities or follow commands or talk. She reportedly ambulates with assistance and does carry on a conversation although slowly, according to EMS. She does have a history of dementia. On my exam her breathing appears to be somewhat labored with diminished breath sounds bilaterally and expiratory wheezes bilaterally. Vital signs reveal hypertension and tachycardia tachypnea. Saturations are 95% on 4 L. Twelve-lead EKG shows sinus tach at a rate of 107 without acute ischemic changes. CT scan of the brain did not show acute process. Chest x-ray was negative for acute disease. EKG showed a sinus tach at a rate of 107. Urine shows contamination without ketones. Questionable UTI. White blood cell count was 16.6. Glucose is 291. Troponin was negative. Lactic acid is elevated at 6.8. The patient was given a DuoNeb treatment for 1 hour in the ED. She was also given IV Solu-Medrol as her lung sounds were diminished with expiratory wheezing. The patient was empirically given IV Zosyn and a liter of normal saline IV. I spoke with the hospitalist about the patient. They will see the patient for further inpatient evaluation and care. Impression & Plan Altered mental status, UTI (urinary tract infection) Discharge Plan Visit Data Chief Complaint: Unresponsive ED Provider: Shade Knox Discharge Problem: Altered mental status, UTI (urinary tract infection) Patient Disposition: Being Evaluated by Hospitalist Forms Stand Alone Forms: My [facility], Virtual Emergency Department, Important Visit Information Prescriptions Prescriptions: No Action polyethylene glycol 3350 [Miralax] 17 gram/dose powder 17 gm PO QAM RF: 0 furosemide [Lasix] 20 mg tablet 20 mg PO QAM RF: 0 lisinopril [Prinivil] 20 mg tablet 20 mg PO QAM RF: 0 Hospital Bed Misc 1 ea .ROUTE .COMPLEX Qty: 1 RF: 0 famotidine [Pepcid] 20 mg Tablet 20 mg PO HS RF: 0 omeprazole 20 mg capsule,delayed release(DR/EC) 20 mg PO BID RF: 0 aspirin [Aspirin Low Dose] 81 mg Tablet,Delayed Release (Dr/Ec) 81 mg PO QAM RF: 0 tramadol [Ultram] 50 mg Tablet 50 mg PO QID PRN (Reason: Severe Pain (Scale Score 7-10)) RF: 0 nifedipine [Adalat CC] 60 mg Tablet Extended Release 60 mg PO QAM RF: 0 docusate sodium [Stool Softener] 100 mg Tablet 200 mg PO HS RF: 0 loratadine [Claritin] 10 mg Tablet 10 mg PO QAM RF: 0 calcium carbonate-vitamin D3 [Calcium 500 With D] 500 mg(1,250mg) -400 unit Tablet 1 tab PO BID RF: 0 sucralfate [Carafate] 1 gram Tablet 1 g PO QID RF: 0 alendronate [Fosamax] 70 mg Tablet 1 dose PO WK RF: 0 levothyroxine [Synthroid] 175 mcg tablet 175 mcg PO DAILYBB RF: 0 potassium chloride 10 mEq Capsule, Extended Release 10 meq PO DAILY@1600 RF: 0 quetiapine [Seroquel] 25 mg tablet 25 mg PO QAM RF: 0 quetiapine [Seroquel] 100 mg tablet 100 mg PO HS RF: 0 carbidopa-levodopa [Sinemet] 25-100 mg tablet 1 tab PO BID RF: 0 hydrocodone-acetaminophen 10-325 mg tablet 1 tab PO Q6H PRN (Reason: Severe Pain (Scale Score 7-10)) RF: 0 meloxicam [Mobic] 7.5 mg tablet 7.5 mg PO DAILY@1600 RF: 0 Referrals Referrals: Burke Pena MD [Primary Care Provider] -
[2021-01-21 07:50] LABS: Hematocrit (blood only) 45.4 % (37-47); Hemoglobin 14.4 g/dL (12.0-16.0); Mean Corpuscular Hemoglobin 29.6 pg (25-34); Mean Corpuscular Hgb Conc 31.7 g/dL (32-36); Mean Corpuscular Volume 93.4 fL (80-100); Mean Platelet Volume 9.7 fL (7.4-10.4); Platelet Count 442 K/uL (130-400); RDW Coefficient of Variation 14.1 % (11.5-14.5); RDW Standard Deviation 48.4 fL (36.4-46.3); Red Blood Count 4.86 M/uL (4.2-5.4)
[2021-01-21 08:05] LABS: INR 1.1 (0.9-1.1); Partial Thromboplastin Ratio 0.9; Partial Thromboplastin Time 22.9 Seconds (21.0-31.0); Prothrombin Time 10.8 Seconds (9.0-12.0)
[2021-01-21 08:10] LABS: Basophils # (auto) 0.01 K/uL (0-0.2); Basophils % (auto) 0.1 %; Eosinophils # (auto) 0.04 K/uL (0-0.5); Eosinophils % (auto) 0.2 %; Immature Granulocytes # (auto) 0.05 K/uL (0.00-0.02); Immature Granulocytes % (auto) 0.3 %; Lymphocytes # (auto) 5.83 K/uL (1.2-3.4); Lymphocytes % (auto) 35.1 %; Monocytes # (auto) 1.24 K/uL (0.11-0.59); Monocytes % (auto) 7.5 %; Neutrophils # (auto) 9.43 K/uL (1.4-6.5); Neutrophils % (auto) 56.8 %
[2021-01-21 08:15] LABS: iSTAT Arterial Blood Gas HCO3 23 meg/L (19-24); iSTAT Arterial Blood Gas pCO2 45 mmHg (35-46); iSTAT Arterial Blood Gas pH 7.31 (7.35-7.45); iSTAT Arterial Blood Gas pO2 84 mmHg (80-95); iSTAT Carbon Dioxide 24 mmol/L (24-31); iSTAT Hematocrit 44 % (37-47); iSTAT Potassium 3.4 mmol/L (3.3-5.0); iSTAT Sodium 139 mmol/L (135-144)
[2021-01-21 08:23] LABS: Alanine Aminotransferase 11 U/L (12-78); Albumin Level 3.4 gm/dl (3.4-5.0); Aspartate Aminotransferase 13 U/L (15-37); BUN Creatinine Ratio 25.2 (10-20); Blood Urea Nitrogen 30 mg/dl (7-18); Calcium 9.3 mg/dl (8.5-10.1); Carbon Dioxide 23 mmol/L (21-32); Chloride 106 mmol/L (98-107); Creatinine Clr Calc Pharmacy 39.1 ml/min; Est GFR (African American) 51.5 ml/min; Est GFR (Non-African American) 44.5 ml/min; Glucose 291 mg/dl (70-99); Magnesium 2.4 mg/dl (1.8-2.4); Potassium 3.6 mmol/L (3.5-5.1); Sodium 140 mmol/L (136-145)
--- NOTE | 2021-01-21 08:23 | CT Scan Report ---
CT head/brain wo con CLINICAL HISTORY: ams COMPARISON STUDY: May 15, 2019 TECHNIQUE: Axial CT of the brain is performed from the vertex to the skull base. IV contrast was not administered for this examination. A dose lowering technique was utilized adhering to the principles of ALARA. CT DOSE: 1074.96 mGy.cm FINDINGS: No acute intracranial hemorrhage, no midline shift or space occupying lesions. Edwards-white matter differentiation is preserved. Calcifications of the falx are seen. Evaluation is slightly limited due to beam hardening and motion artifact despite attempts. There are patchy white matter hypodensities likely on a small vessel basis. There is no evidence of pathologic ventricular dilatation. There is no acute depressed skull fractures seen. Visualized paranasal sinuses and mastoid air cells are patent and well-aerated. Motion and beam hardening artifact limits evaluation of osseous structur es. IMPRESSION: No acute intracranial hemorrhage, no midline shift or space occupying lesions. No acute depressed calvarial fractures. Limited exam due to motion and beam hardening artifact. ACT 112: Negative or not required by law. The above report was generated using voice recognition software. It may contain grammatical, syntax o r spelling errors. Electronically signed by: Milana Katz DO 01/21/2021 8:21 AM
[2021-01-21 08:28] LABS: Albumin Globulin Ratio 0.8 (0.9-2); Alkaline Phosphatase 76 U/L (45-117); Bilirubin,Total 0.4 mg/dl (0.2-1); Globulin 4.1 gm/dl (2.5-4.0); NT Pro B Type Natriuretic Pept 462 pg/ml (0-1800); Total Protein 7.5 gm/dl (6.4-8.2); Troponin I < 0.015 ng/ml (0-0.045)
--- NOTE | 2021-01-21 08:32 | XRay Report ---
SINGLE VIEW CHEST CLINICAL HISTORY: Dyspnea. FINDINGS: 2 AP, portable, upright chest radiographs are compared to study dated 05/17/2019. Correlati on is made with chest CT dated 10/04/2010. The examination is degraded by portable technique and patie nt rotation. The cardiomediastinal silhouette is unremarkable noting atherosclerotic calcification o f the thoracic aorta. There is chronic elevation of the right hemidiaphragm. Scarring/platelike atele ctasis is seen in the right midlung. There is no airspace consolidation typical for pneumonia or larg e pleural effusion. No pneumothorax is seen. The skeletal structures are osteopenic. The bony thorax is grossly intact. Cholecystectomy clips are noted in the right upper quadrant. Degenerative change i s noted in the shoulders and thoracic spine. IMPRESSION: No acute cardiopulmonary abnormality. ACT 112: Negative or not required by law. Electronically signed by: Lito Ruff M.D. 01/21/2021 8:31 AM
[2021-01-21 09:01] LABS: Appearance Urine Cloudy (Clear); Bacteria Urine Automated 1+ (Negative); Bilirubin Urine Negative (Negative); Blood Urine Trace (Negative); Color Urine Dark Yellow; Epithelial Cell Urine Auto >30 /lpf (0-5); Glucose Urine UA 1+ (Negative); Ketones Urine Negative (Negative); Leukocyte Esterase Urine Negative (Negative); Nitrite Urine Negative (Negative); Protein Urine 1+ (Negative); RBC Urine Automated 0-4 /hpf (0-4); Specific Gravity Urine 1.024 (1.000-1.030); Urobilinogen Urine Negative (Negative)
[2021-01-21] MEDS ORDERED: SODIUM CHLORIDE 0.9% 1000ML 1,000 ML IV ONE (09:38)
[2021-01-21] MEDS ORDERED: PIPERACILL/TAZOBAC CONSULT ACTIVE PRN (09:38)
[2021-01-21] MEDS ORDERED: PIPERACILLIN/TAZOBACTAM 4.5 GM/120 ML BAG IV ONE (09:38)
--- NOTE | 2021-01-21 11:12 | History & Physical Report ---
Date of Service January 21, 2021 Assessment & Plan (1) Altered mental status: (2) Hypoxia: (3) Lewy body dementia: (4) Parkinson disease: (5) Hypothyroidism: (6) Hypertension: (7) GERD (gastroesophageal reflux disease): Plan: Pt presented to the ED this AM with altered mental status of unclear etiology. Work-up in the ED revealed leukocytosis and elevated lactate level but CT head negative, CXR negative. New-onset of urinary incontinence and foul odor to urine concerning for potential UTI and associated sepsis - UA appears potentially contaminated, culture is pending. Empiric antibiotics were started in the ED - will continue. Also with tachypnea and hypoxia upon initial presentation. Seems to have improved with solumedrol, neb, and O2. Will check D-dimer and if elevated, check CTA PE protocol to r/o clot. Add doxycycline and nebs Q6 hrs. Holding most oral meds until mental status improves but will continue Seroquel and Sinemet if able to give safely. Speech eval to determine most appropriate diet once mental status improves. Gentle IVF while NPO - monitor for signs of fluid overload. Appears slightly dehydrated at present - dtr notes recent decreased oral intake. Follow lactate. Blood glucose on initial labs is elevated - no hx of DM. Check A1c, accuchecks, insulin sliding scale since may have hyperglycemia related to steroids in ED. Case reviewed with attending physician, Dr. Smith. Plan of care discussed and as outlined above. Code status discussed with daughter, Terri Lew, with whom patient lives. She is the point of contact for family - [phone]. She states that her mother does not have a written living will or POA but that she has verbalized that she is DNR/DNI and does not want a feeding tube placed. Tolu Duenas PA-C History of Present Illness Chief Complaint: Altered mental status Primary Care Provider: Burke Pena MD This is a 75 y/o female with a PMH of Parkinson's, Lewy body dementia, hypothyroidism, osteoporosis, MGUS, and hypertension who was brought to the ED today via EMS due to altered mental status. History from the patient is unobtainable so the chart was extensively reviewed and additional history was provided by the pt's daughter, Terri, with whom she lives. Per the dtr, pt has been "off" for the past 7-10 days. She brought pt to the ED last week due to concern that she may have a UTI but the wait was several hours and pt wasn't in acute distress so they went home. Over the past few days, the dtr has noted increased need for assistance, especially with feeding, and a foul odor to the urine. Pt did have her left knee injection as scheduled yesterday and was able to make that appointment. Last night she had two episodes of urinary incontinence, which the dtr reports is very unusual for pt. This morning, she took her meds but did not eat her breakfast. When family went to help her to the bathroom, she reported that she had already urinated in her Depend then seemed to "check out." Her dtr reports that she has had similar episodes in the past, but they are usually able to get her to snap out of it and "come back" but that this morning, she seemed confused and in distress so they called EMS. The pt's breathing became labored - dtr used their home pulseox and reported it was in the 60s. EMS applied O2 on arrival and transported pt to the ED. In the ED, pt was given Solumedrol and neb treatment due to wheezing. O2 has been weaned to 4L but pulseox drops when it is removed to upper 80s/low 90s. Work-up in the ED shows possible UTI vs contaminated UA - empiric antibiotics were started. CT head negative, chest x-ray negative. COVID test pending. Pt was vaccinated for COVID per dtr. Allergies Allergy/AdvReac Type Severity Reaction Status Date / Time Sulfa (Sulfonamide Allergy Intermediate HIVES AND Verified 11/24/20 10:49 Antibiotics) RASH Macrolide Antibiotics AdvReac Severe Interacted Unverified 01/21/21 08:11 with other meds Home Medications Medication Instructions Recorded Confirmed Type alendronate 70 mg tablet (Fosamax) 1 dose PO WK 02/26/18 01/21/21 History aspirin 81 mg tablet,delayed 81 mg PO QAM 02/26/18 01/21/21 History release (Aspirin Low Dose) calcium carbonate 500 mg (1,250 1 tab PO BID 02/26/18 01/21/21 History mg)-vitamin D3 400 unit tablet (Calcium 500 With D) docusate sodium 100 mg tablet 200 mg PO HS 02/26/18 01/21/21 History (Stool Softener) loratadine 10 mg tablet (Claritin) 10 mg PO QAM 02/26/18 01/21/21 History nifedipine 60 mg tablet,extended 60 mg PO QAM 02/26/18 01/21/21 History release (Adalat CC) sucralfate 1 gram tablet (Carafate) 1 g PO ACHS 02/26/18 01/21/21 History tramadol 50 mg tablet (Ultram) 50 mg PO QID PRN 02/26/18 01/21/21 History famotidine 20 mg tablet (Pepcid) 20 mg PO BID 05/15/19 01/21/21 History omeprazole 20 mg capsule,delayed 20 mg PO BID 05/15/19 01/21/21 History release furosemide 20 mg tablet (Lasix) 20 mg PO QAM tab 06/26/19 01/21/21 History lisinopril 20 mg tablet (Prinivil) 20 mg PO QAM tab 06/26/19 01/21/21 History polyethylene glycol 3350 17 17 gm PO QAM 06/26/19 01/21/21 History gram/dose oral powder (Miralax) carbidopa 25 mg-levodopa 100 mg 1 tab PO BID 01/21/21 01/21/21 History tablet (Sinemet) hydrocodone 10 mg-acetaminophen 1 tab PO Q6H PRN 01/21/21 01/21/21 History 325 mg tablet levothyroxine 175 mcg tablet 175 mcg PO DAILYBB 01/21/21 01/21/21 History (Synthroid) meloxicam 7.5 mg tablet (Mobic) 7.5 mg PO DAILY@1600 01/21/21 01/21/21 History potassium chloride 10 mEq 20 meq PO DAILY@1600 01/21/21 01/21/21 History capsule,extended release quetiapine 100 mg tablet (Seroquel) 100 mg PO HS 01/21/21 01/21/21 History quetiapine 25 mg tablet (Seroquel) 25 mg PO QAM 01/21/21 01/21/21 History Past Med/Surg History Medical History (Updated 01/21/21 @ 13:29 by Madison Duenas PA-C) Arrhythmia DTR REPORTS PT "SKIPS A BEAT SOMETIMES" Atrial flutter Cystocele with rectocele Dizziness Essential tremor Gait disturbance GERD (gastroesophageal reflux disease) Hallucinations Hypertension Hypothyroidism Lewy body dementia Memory loss Monoclonal gammopathy Osteoarthritis Osteoporosis Parkinson disease Peripheral neuropathy Poor balance Surgical History History of cholecystectomy History of elbow surgery LEFT History of tooth extraction Hx of cataract surgery RIGHT S/P knee surgery Family History Daughter Family history of diabetes mellitus Mother No pertinent family history Father No pertinent family history Other Cancer Social History Smoking Status: Former smoker Second Hand Exposure: Yes (HER WAS A SMOKER); Hx Alcohol Use: No Hx Substance Use: No Preferred Language: Pashto Communication Ability: Impaired Rep[employer] Equipment Required: No Beliefs That Will Affect Care: None Current Living Situation: Family Current Living Situation Comment: LIVES W/ DTR Other Information That Helps Us Care for You: No Feels Safe at Home: Yes Safety Concerns: Feels Safe At This Time Assistive Devices: Walker Review of Systems Review of Systems: Unobtainable due to reduced consciousness Physical Exam Constitutional: no acute distress Confused, not answering questions or following commends. Does respond to painful stimuli. Refuses to open eyes or allow them to be opened. Neck: trachea midline Respiratory: + tachypneic; no respiratory distress and does not use accessory muscles Auscultation: lungs clear to auscultation bilaterally and + diminished lung sounds (at bases); no rales, no rhonchi and no wheezes Cardiovascular: Rate/Rhythm: regular rhythm and + tachycardic Heart Sounds: no gallop and no cardiac rub Gastrointestinal (Abdomen): Inspection/Auscultation: normal bowel sounds; abdomen not distended Percussion/Palpation: abdomen soft; abdomen nontender Musculoskeletal: Head/Neck/Chest: normocephalic, head atraumatic and neck supple Skin: no rashes and no jaundice Neurologic: + confused Speech / Cognition: + abnormal speech (mostly non- verbal ) Psychiatric: Orientation: + not oriented to place and + not oriented to time Results & Data Results & Data ([facility]) Vital Signs (Past 12 Hours) Vital Signs Temp Pulse Pulse Resp BP BP Pulse Ox 01/21/21 10:00 113 H 30 H 110/66 94 01/21/21 09:46 105 H 21 102/63 98 01/21/21 09:31 109 H 20 104/64 94 01/21/21 09:26 115/65 01/21/21 09:20 113 H 24 96 01/21/21 09:10 105 H 27 H 99 01/21/21 09:02 110 H 33 H 96 01/21/21 08:46 111 H 28 H 96 01/21/21 08:32 110 H 25 H 124/51 L 82 L 01/21/21 08:10 107 H 29 H 94 01/21/21 08:08 106 H 33 H 92 01/21/21 07:59 100 H 20 93 01/21/21 07:36 95 01/21/21 07:35 97 01/21/21 07:30 36.9 C 109 H 25 H 147/109 H 92 01/21/21 07:28 111 H 25 H 147/109 H 93 Laboratory Results Laboratory Results - last 24 hr 01/21/21 01/21/21 01/21/21 07:30 07:30 07:30 WBC 16.60 H RBC 4.86 Hgb 14.4 POC Hgb Hct 45.4 POC Hct MCV 93.4 MCH 29.6 MCHC 31.7 L RDW Std Deviation 48.4 H RDW Coeff of Marcelino 14.1 Plt Count 442 H MPV 9.7 Immature Gran % (Auto) 0.3 Neut % (Auto) 56.8 Lymph % (Auto) 35.1 [place] % (Auto) 7.5 Eos % (Auto) 0.2 Baso % (Auto) 0.1 Neut # (Auto) 9.43 H Lymph # (Auto) 5.83 H [place] # (Auto) 1.24 H Eos # (Auto) 0.04 Baso # (Auto) 0.01 Immature Gran # (Auto) 0.05 H Blood Smear Review Pending PT 10.8 INR 1.1 APTT 22.9 PTT Ratio 0.9 POC pH POC pCO2 POC pO2 POC HCO3 POC Total CO2 POC Base Excess POC ABG O2 Sat POC Sodium Sodium 140 POC Potassium Potassium 3.6 Chloride 106 Carbon Dioxide 23 Anion Gap 12.0 H BUN 30 H Creatinine 1.18 Est Cr Clr Drug Dosing 39.1 Est GFR ( Amer) 51.5 Est GFR (Non-Af Amer) 44.5 BUN/Creatinine Ratio 25.2 H Glucose 291 H Lactate Calcium 9.3 Magnesium 2.4 Total Bilirubin 0.4 AST 13 L ALT 11 L Alkaline Phosphatase 76 Troponin I < 0.015 NT-Pro-B Natriuret Pep 462 Total Protein 7.5 Albumin 3.4 Globulin 4.1 H Albumin/Globulin Ratio 0.8 L Urine Color Urine Appearance Urine pH Ur Specific [place] Urine Protein Urine Glucose (UA) Urine Ketones Urine Blood Urine Nitrite Urine Bilirubin Urine Urobilinogen Ur Leukocyte Esterase Urine WBC (Auto) Urine RBC (Auto) U Hyaline Cast (Auto) U Epithel Cells (Auto) Urine Bacteria (Auto) Ur Renal Epithelial Cell Granular Casts Urine Yeast COVID-19 Eval Order SARS-CoV-2 (PCR) 01/21/21 01/21/21 01/21/21 07:30 07:55 08:30 WBC RBC Hgb POC Hgb 15.0 Hct POC Hct 44 MCV MCH MCHC RDW Std Deviation RDW Coeff of Marcelino Plt Count MPV Immature Gran % (Auto) Neut % (Auto) Lymph % (Auto) [place] % (Auto) Eos % (Auto) Baso % (Auto) Neut # (Auto) Lymph # (Auto) [place] # (Auto) Eos # (Auto) Baso # (Auto) Immature Gran # (Auto) Blood Smear Review PT INR APTT PTT Ratio POC pH 7.31 L POC pCO2 45 POC pO2 84 POC HCO3 23 POC Total CO2 24 POC Base Excess -4.0 POC ABG O2 Sat 95.0 POC Sodium 139 Sodium POC Potassium 3.4 Potassium Chloride Carbon Dioxide Anion Gap BUN Creatinine Est Cr Clr Drug Dosing Est GFR ( Amer) Est GFR (Non-Af Amer) BUN/Creatinine Ratio Glucose Lactate 6.8 H* Calcium Magnesium Total Bilirubin AST ALT Alkaline Phosphatase Troponin I NT-Pro-B Natriuret Pep Total Protein Albumin Globulin Albumin/Globulin Ratio Urine Color Dark Yellow Urine Appearance Cloudy A Urine pH 5.0 Ur Specific [place] 1.024 Urine Protein 1+ H Urine Glucose (UA) 1+ H Urine Ketones Negative Urine Blood Trace H Urine Nitrite Negative Urine Bilirubin Negative Urine Urobilinogen Negative Ur Leukocyte Esterase Negative Urine WBC (Auto) 5-10 H Urine RBC (Auto) 0-4 U Hyaline Cast (Auto) 10-30 H U Epithel Cells (Auto) >30 H Urine Bacteria (Auto) 1+ H Ur Renal Epithelial Cell Not Reportable Granular Casts 1-5 H Urine Yeast Present A COVID-19 Eval Order SARS-CoV-2 (PCR) 01/21/21 01/21/21 01/21/21 09:31 10:12 10:12 WBC RBC Hgb POC Hgb Hct POC Hct MCV MCH MCHC RDW Std Deviation RDW Coeff of Marcelino Plt Count MPV Immature Gran % (Auto) Neut % (Auto) Lymph % (Auto) [place] % (Auto) Eos % (Auto) Baso % (Auto) Neut # (Auto) Lymph # (Auto) [place] # (Auto) Eos # (Auto) Baso # (Auto) Immature Gran # (Auto) Blood Smear Review PT INR APTT PTT Ratio POC pH POC pCO2 POC pO2 POC HCO3 POC Total CO2 POC Base Excess POC ABG O2 Sat POC Sodium Sodium POC Potassium Potassium Chloride Carbon Dioxide Anion Gap BUN Creatinine Est Cr Clr Drug Dosing Est GFR ( Amer) Est GFR (Non-Af Amer) BUN/Creatinine Ratio Glucose Lactate 4.2 H* Calcium Magnesium Total Bilirubin AST ALT Alkaline Phosphatase Troponin I NT-Pro-B Natriuret Pep Total Protein Albumin Globulin Albumin/Globulin Ratio Urine Color Urine Appearance Urine pH Ur Specific [place] Urine Protein Urine Glucose (UA) Urine Ketones Urine Blood Urine Nitrite Urine Bilirubin Urine Urobilinogen Ur Leukocyte Esterase Urine WBC (Auto) Urine RBC (Auto) U Hyaline Cast (Auto) U Epithel Cells (Auto) Urine Bacteria (Auto) Ur Renal Epithelial Cell Granular Casts Urine Yeast COVID-19 Eval Order Covid19 at [facility] SARS-CoV-2 (PCR) NEGATIVE Diagnostic Findings CT Head 01/21/21 - IMPRESSION: No acute intracranial hemorrhage, no midline shift or space occupying lesions. No acute depressed calvarial fractures. Limited exam due to motion and beam hardening artifact. Chest X-ray 01/21/21 - IMPRESSION: No acute cardiopulmonary abnormality. Medications Administered Discontinued Medications Albuterol (Albut/Ipratrop 3mg/0.5mg Neb 3 Ml Vial) 12 ml INH ONE STA Stop: 01/21/21 07:26 Last Admin: 01/21/21 07:56 Dose: 12 ml Documented by: [id number] Sodium Chloride (Nss 1000ml) 1,000 mls @ 999 mls/hr IV .Q1H1M ONE Stop: 01/21/21 10:38 Last Infusion: 01/21/21 10:53 Dose: 0 mls/hr Documented by: [id number] Admin: 01/21/21 09:51 Dose: 999 mls/hr Documented by: [id number] Piperacillin Sod/Tazobactam Sod (Zosyn) 4.5 gm in 120 mls @ 240 mls/hr IV NOW ONE Stop: 01/21/21 10:07 Last Infusion: 01/21/21 10:53 Dose: 0 mls/hr Documented by: [id number] Admin: 01/21/21 09:51 Dose: 240 mls/hr Documented by: [id number] Methylprednisolone (Methylprednisolone 125 Mg/2 Ml Vial) 125 mg IV NOW STA Stop: 01/21/21 07:26 Last Admin: 01/21/21 07:42 Dose: 125 mg Documented by: [id number] Code Status & VTE Plan VTE Prophylaxis Plan VTE Prophylaxis will be ordered: Yes Supervising Physician Co-Signing Physician Notes Attending Addendum: care coordinated with RAMILA Augusta Duenas please refer to her notes for full details, I agree with her notes patient seen and examined, records reviewed by myself as well on exam, patient seen resting in bed, sitting up alert, pleasantly confused not in distress, on 2 L O2 via NC denies pain, shortness of breath no other symptoms VS noted and reviewed oriented x 0, not in distress, speaks in sentences with no effort nor accessory muscle use normal rate, regular rhythm, no murmurs intermittent faint wheeze b/l, good air entry BL non distended, soft, nontender no bipedal edema, erythema, warmth confused, but no other focal neuro deficits WBC 16 Hg 14 Crea 1.1 ASSESSMENT AND PLAN SEPSIS, LIKELY FROM UTI, ACUTE BRONCHITIS ff up cultures Zosyn + Doxy IV HYPOXIA, ACUTE BRONCHITIS improved continue Nebs, Doxy ENCEPHALOPATHY UNDERLYING LEWY BODY DEMENTIA likely secondary to above management per above other diagnoses and plan of care as per RAMILA Smith MD (1) Altered mental status Altered mental status type: stupor Qualified Code(s): R40.1 - Stupor
[2021-01-21] MEDS ORDERED: GLUCOSE 10 TABS/TUBE PO PRN (13:10)
[2021-01-21] MEDS ORDERED: DEXTROSE 50% 50 ML SYRINGE IV PRN (13:10)
[2021-01-21] MEDS ORDERED: GLUCAGON FOR INJ 1 MG VIAL SQ PRN (13:10)
[2021-01-21] MEDS ORDERED: GLUCOSE 40% GEL 15 GM TUBE PO PRN (13:10)
[2021-01-21] MEDS ORDERED: CARBOHYDRATES FOR HYPOGLYCEMIA PO PRN (13:10)
[2021-01-21 13:17] LABS: D Dimer 2210 ug/L FEU (0-500)
[2021-01-21 13:21] LABS: Estimated Average Glucose 123 mg/dl; Hemoglobin A1C 5.9 % (4.5-5.6)
[2021-01-21] MEDS: SODIUM CHLORIDE 0.9% 1000ML 1,000 ML IV SCH (13:54)
[2021-01-21] MEDS: DOXYCYCLINE HYCLATE 100 MG in DEXTROSE 5% 100 ML IV SCH (13:55)
[2021-01-21] MEDS ORDERED: OPTIRAY 320 125ml IV ONE (15:05)
[2021-01-21] MEDS: PIPERACILLIN/TAZOBACTAM 3.375 GM in DEXTROSE 5% 100 ML IV SCH ×2 (15:16→22:07)
--- NOTE | 2021-01-21 15:27 | CT Scan Report ---
CT ANGIOGRAM OF THE CHEST CLINICAL HISTORY: PE shortness of breath. COMPARISON STUDY: No previous studies for comparison. TECHNIQUE: Following the IV administration of 120 mL of Optiray, CT angiogram of the thorax was perfo rmed from the thoracic inlet to the lung bases utilizing the pulmonary embolus protocol. Images are r eviewed in the axial, sagittal, and coronal planes. IV contrast was administered without complication . MIP imaging was performed. A dose lowering technique was utilized adhering to the principles of AL VIRAL. CT DOSE: 714.79 mGy.cm FINDINGS: There is adequate opacification within main pulmonary artery. No definite pulmonary embolus is seen h owever evaluation of peripheral branches of pulmonary artery is suboptimal due to motion artifact. Main pulmonary artery is normal in caliber. No right heart strain is seen. There is no axillary, supra clavicle or internal mammary lymphadenopathy seen. Evaluation of the righ t axilla and right chest wall is limited due to close proximity to the CT scan gantry and beam harden ing artifact. Heart is normal in size without pericardial effusion. Moderate coronary calcifications are seen. Visualized portion of thyroid gland is not opacified. Esophagus is patulous. Minimal hiatal hernia is seen. Tracheobronchial tree is patent. No large infiltrates or consolidative lesions are seen. There is prominence of the superior aspect of the right major fissure which could be due to loculated effusion however there is no definite pleura l effusion is seen at dependent portions of bilateral lower lobes. -Pulmonary micronodule measuring less than 4 mm in size is seen within left upper lobe, and unchanged since remote prior study performed on October 04, 2010 (4/186) Evaluation is of pulmonary parenchyma is significantly limited due to motion artifact. Limited evaluation of upper abdominal viscera shows no evidence of acute abnormalities, status post c holecystectomy and multiple punctate calcifications of the spleen. Limited exam due to motion artifac t. Osseous structures: Diffuse osteopenia and degenerative changes of the spine. No definite aggressive osseous lesions are seen. IMPRESSION: 1. No definite central pulmonary embolus is seen. Evaluation of peripheral branches of the pulmonary artery is limited due to motion artifact. No secondary signs of pulmonary embolus. 2. No infiltrates or consolidative lesions are seen. Limited evaluation of pulmonary parenchyma due to motion artifact. 3. Splenic calcifications are seen and could represent sequela from prior granulomatous process. 4. Stable pulmonary micronodule within left upper lobe. 5. The rest of findings as above. ACT 112: Negative or not required by law. The above report was generated using voice recognition software. It may contain grammatical, syntax o r spelling errors. Electronically signed by: Milana Katz DO 01/21/2021 3:26 PM
[2021-01-21] MEDS: ALBUT/IPRATROP 3MG/0.5MG NEB 3 ML VIAL NEB SCH ×2 (15:56→19:12)
[2021-01-21] MEDS: INSULIN ASPART 100 UNITS/ML 3 ML PEN SC SCH ×2 (17:24→21:48)
[2021-01-21] MEDS ORDERED: ACETAMINOPHEN 500 MG TAB PO PRN (18:33)
[2021-01-21] MEDS: CARBIDOPA/LEVODOPA 25/100MG TAB PO SCH (20:30)
[2021-01-21] MEDS: PANTOprazole 40 MG in SYRINGE 0 ML IV SCH ×2 (20:31→20:33)
[2021-01-21] MEDS: QUEtiapine FUMARATE 100 MG TABLET PO SCH (20:31)
[2021-01-21] MEDS ORDERED: FAMOTIDINE 20 MG in SYRINGE 3 ML IV SCH (21:00)
[2021-01-22] MEDS ORDERED: ALBUT/IPRATROP 3MG/0.5MG NEB 3 ML VIAL NEB PRN (02:36)
[2021-01-22] MEDS: DOXYCYCLINE HYCLATE 100 MG in DEXTROSE 5% 100 ML IV SCH ×2 (02:38→13:05)
[2021-01-22 03:17] LABS: Base Excess ABG -3.7 mEq/L (-9-1.8); HCO3 ABG 22 mmol/L (19-24); Oxygen Saturation ABG 98.6 % (90-95); PCO2 ABG 40 mmHg (35-46); PO2 ABG 130 mmHg (80-95); pH ABG 7.35 (7.35-7.45)
[2021-01-22 03:21] LABS: Allen Test POS (Pos)
[2021-01-22] MEDS: SODIUM CHLORIDE 0.9% 1000ML 1,000 ML IV SCH (04:46)
[2021-01-22] MEDS: LEVOTHYROXINE SODIUM 175 MCG TABLET PO SCH (05:33)
[2021-01-22 06:35] LABS: Basophils # (auto) 0.01 K/uL (0-0.2); Basophils % (auto) 0.1 %; Eosinophils # (auto) 0.01 K/uL (0-0.5); Eosinophils % (auto) 0.1 %; Hematocrit (blood only) 40.8 % (37-47); Hemoglobin 12.9 g/dL (12.0-16.0); Immature Granulocytes # (auto) 0.04 K/uL (0.00-0.02); Immature Granulocytes % (auto) 0.3 %; Lymphocytes # (auto) 1.61 K/uL (1.2-3.4); Mean Corpuscular Hemoglobin 28.5 pg (25-34); Mean Corpuscular Hgb Conc 31.6 g/dL (32-36); Mean Corpuscular Volume 90.1 fL (80-100); Mean Platelet Volume 9.1 fL (7.4-10.4); Monocytes # (auto) 1.26 K/uL (0.11-0.59); Monocytes % (auto) 8.6 %; Neutrophils # (auto) 11.66 K/uL (1.4-6.5); Neutrophils % (auto) 79.9 %; Platelet Count 319 K/uL (130-400); RDW Coefficient of Variation 14.6 % (11.5-14.5); RDW Standard Deviation 47.8 fL (36.4-46.3); Red Blood Count 4.53 M/uL (4.2-5.4); White Blood Count 14.59 K/uL (4.8-10.8)
--- NOTE | 2021-01-22 06:47 | Electrocardiogram Report ---
Test Reason : Blood Pressure : / mmHG Vent. Rate : 107 BPM Atrial Rate : 107 BPM P-R Int : 178 ms QRS Dur : 102 ms QT Int : 320 ms P-R-T Axes : 037 010 089 degrees QTc Int : 427 ms Poor data quality, interpretation may be adversely affected Sinus tachycardia Nonspecific ST and T wave abnormality Abnormal ECG When compared with ECG of 30-NOV-2020 09:19, Premature atrial complexes are no longer Present Confirmed by Dg Lai ([id number]) on 01/22/2021 6:46:41 AM Referred By: REFERRED SELF Confirmed By:Dg Lai
[2021-01-22 06:57] LABS: BUN Creatinine Ratio 32.1 (10-20); Calcium 8.2 mg/dl (8.5-10.1); Creatinine Clr Calc Pharmacy 51.7 ml/min; Est GFR (African American) 72.5 ml/min; Est GFR (Non-African American) 62.5 ml/min; Potassium 3.4 mmol/L (3.5-5.1)
[2021-01-22] MEDS: ALBUT/IPRATROP 3MG/0.5MG NEB 3 ML VIAL NEB SCH (07:31)
[2021-01-22] MEDS ORDERED: methylPREDNISolone 60 MG in SYRINGE 0 ML IV STA (07:49)
[2021-01-22] MEDS ORDERED: FUROSEMIDE 40 MG in SYRINGE 0 ML IV SCH (08:00)
[2021-01-22] MEDS: PIPERACILLIN/TAZOBACTAM 3.375 GM in DEXTROSE 5% 100 ML IV SCH ×3 (08:17→23:29)
[2021-01-22] MEDS ORDERED: LEVALBUTEROL HCL 1.25 MG/3 ML NEB INH SCH (08:30)
--- NOTE | 2021-01-22 08:40 | Hospitalist Progress Note ---
Date of Service January 22, 2021 Assessment & Plan (1) Sepsis: (2) Respiratory failure: Plan: SEPSIS, SECONDARY TO UTI, ACUTE BRONCHITIS lactic acidosis resolved cultures pending continue Zosyn + Doxy d/c IV fluids monitor closely ACUTE HYPOXIC, HYPERCAPNEIC RESPIRATORY FAILURE CXR: (+) LL infiltrates, congestion lasix 40mg IV BID Solumedrol 40mg BID Nebs q6h antibiotics as above Echo ordered HTN BP meds held to prevent hypotension LEWY BODY DEMENTIA [place] DISEASE METABOLIC ENCEPHALOPATHY SECONDARY TO ABOVE monitor continue Sinemet GERD continue Protonix DVT Px add Lovenox SC daily plan of care discussed with patient's daughter Erma in detail and at length all questions answered she is understanding, agreeable, comfortable with the plan of care Admission and Anticipated Discharge Date Admission Date: January 21, 2021 Subjective ff up for sepsis, UTI, bronchitis, etc called by RN and RT due to hypoxia, respiratory distress seen at bedside immediately 83% on oxymask, no verbal output, eyes closed, tachypneic (+) bilateral rales/wheezing STAT bipap, lasix, solumedrol, abg, labs ordered improved to 94% on Bipap patient became more comfortable discussed with Dr. Hagen daughter Treri updated Review of Systems Review of Systems: all noted and negative except for above Physical Exam Physical Exam: General- lethargic, tachypneic Eyes- anicteric Neck- no JVD Lungs- (+) bilateral rales/wheezing- moderate Heart- normal rate, regular rhythm; no murmurs Abdomen- normal bowel sounds, nondistended, soft, nontender Extremities- no pretibial edema, no calf tenderness Neuro- lethargic Skin- warm & dry Results & Data Results & Data ([facility]) Vital Signs (Past 12 Hours) Vital Signs Temp Pulse Pulse Resp BP Pulse Ox 01/22/21 08:25 115 H 24 92 01/22/21 08:11 122 H 24 96 01/22/21 07:32 87 22 93 01/22/21 07:20 37.1 C 108 H 24 173/79 H 96 01/22/21 04:12 37.1 C 98 H 22 113/68 98 01/22/21 00:16 109 H 01/21/21 23:30 36.6 C 120 H 22 100/55 L 94 all noted and reviewed including below
--- NOTE | 2021-01-22 08:41 | XRay Report ---
XR chest 1V portable CLINICAL HISTORY: hypoxia, possible chf COMPARISON STUDY: January 21, 2021 FINDINGS: No definite pneumothorax is seen however evaluation is limited because bilateral lung apices are obsc ured by patient's chin.. No pleural effusion. Interval development of prominent mixed reticular and airspace opacity at the left perihilar region w hich was not seen on prior study yesterday. Lung volumes are decreased. There is prominence of linear density within right mid lung. Right hemidiaphragm remains elevated. Cardiomediastinal silhouette is within normal limits in size. Pulmonary vasculature is indistinct.. Osseous structures: Osteopenia and degenerative changes of the spine. IMPRESSION: 1. Interval development of prominent left perihilar opacity which was not seen on prior study yester day, might represent atelectasis, or aspiration or focal focal pulmonary edema. Pneumonia could also be included in differential diagnosis. 2. The rest of findings as above. ACT 112: Negative or not required by law. The above report was generated using voice recognition software. It may contain grammatical, syntax o r spelling errors. Electronically signed by: Milana Katz DO 01/22/2021 8:40 AM
[2021-01-22] MEDS: INSULIN ASPART 100 UNITS/ML 3 ML PEN SC SCH ×4 (08:59→23:39)
[2021-01-22 09:01] LABS: Base Excess ABG -4.9 mEq/L (-9-1.8); HCO3 ABG 28 mmol/L (19-24); Oxygen Saturation ABG 94.2 % (90-95); PCO2 ABG 94 mmHg (35-46); PO2 ABG 86 mmHg (80-95)
[2021-01-22 09:10] LABS: Allen Test Pos (Pos)
[2021-01-22 09:12] LABS: pH ABG 7.08 (7.35-7.45)
--- NOTE | 2021-01-22 09:49 | Pulmonary Consultation ---
Date of Consultation January 22, 2021 Assessment & Plan (1) Acute on chronic respiratory failure with hypoxia and hypercapnia: (2) Parkinson disease: (3) Lewy body dementia: (4) Kyphoscoliosis: CT chest 01/21/2021 personally reviewed: Minimal linear atelectasis of the posterior segment of the right upper lobe No lung infiltrate appreciated No mediastinal adenopathy Chest x-ray 01/22/2021 personally reviewed: Increased hilar vascular markings, this is new compared to the time of presentation likely fluid overload/pulmonary edema ABG 01/22/2021 9 AM: 7.08/94/86 ABG 01/22/2021 11 AM: 7.27/56/112 --Acute hypoxic hypercapnic respiratory failure Hypercapnia is likely multifactorial from TAMMI/OHS as well as possibility of kyphoscoliosis playing a role I do not see any clear signs of pneumonia on the CT chest. I would not give antibiotics if it was given for pneumonia. COVID-19 PCR negative Continue with BiPAP nightly and as needed shortness of breath Keep O2 saturation between 88-92% Do not over oxygenate the patient as this will decrease the central drive. --Pulmonary edema Patient got Lasix today Repeat chest x-ray done in the afternoon 01/22/2021 already shows improvement No further Lasix but try to keep the patient euvolemic --Kyphoscoliosis --DNR/DNI Plan: Patient's ABG did improve after changing settings to the BiPAP Continue with the same BiPAP settings I do think patient's anxiety level is also playing a role Follow-up nasal MRSA. If negative DC vancomycin Overall prognosis of the patient is guarded given that we body dementia Palliative care consult should be considered Repeat chest x-ray done today after diuresis shows improvement in the infiltrates. Continue with aspiration precautions. Would suggest to gradually take the patient off BiPAP to see if she is able to tolerate without it. If not continue with continuous BiPAP Please note the above document was generated using voice recognition software. It may contain grammatical, syntax or spelling errors.Any formal questions or concerns about the content, text or information contained within the body of this dictation should be directly addressed to the provider for clarification. History of Present Illness Attending Physician: Kannan Smith MD History of Present Illness 75-year-old female past medical history of Lewy body dementia, Parkinson's, hypothyroidism, MGUS was brought to the hospital because of altered mental status Patient was also short of breath and hypoxic. Initially she was put on BiPAP She also got IV fluids as she had lactic acidosis. Today pulmonary were consulted as on the ABG patient's pH was 7.08 and PCO2 was in the 90s Unable to obtain history from the patient herself. At the time of examination patient was on BiPAP but she was in distress Breathing in the 30s. Nurses were in the room when I came to see the patient. Her mask was elevated and there was no leak. I refit in the mask and patient started to get good tidal volume. I briefly increased her FiO2 to 100%. Patient saturation went up to 97% I went gradually to 60% and she was still saturating in the low 90s. Allergies Allergy/AdvReac Type Severity Reaction Status Date / Time Sulfa (Sulfonamide Allergy Intermediate HIVES AND Verified 11/24/20 10:49 Antibiotics) RASH Macrolide Antibiotics AdvReac Severe Interacted Unverified 01/21/21 08:11 with other meds Home Medications Medication Instructions Recorded Confirmed Type alendronate 70 mg tablet (Fosamax) 1 dose PO WK 02/26/18 01/21/21 History aspirin 81 mg tablet,delayed 81 mg PO QAM 02/26/18 01/21/21 History release (Aspirin Low Dose) calcium carbonate 500 mg (1,250 1 tab PO BID 02/26/18 01/21/21 History mg)-vitamin D3 400 unit tablet (Calcium 500 With D) docusate sodium 100 mg tablet 200 mg PO HS 02/26/18 01/21/21 History (Stool Softener) loratadine 10 mg tablet (Claritin) 10 mg PO QAM 02/26/18 01/21/21 History nifedipine 60 mg tablet,extended 60 mg PO QAM 02/26/18 01/21/21 History release (Adalat CC) sucralfate 1 gram tablet (Carafate) 1 g PO ACHS 02/26/18 01/21/21 History tramadol 50 mg tablet (Ultram) 50 mg PO QID PRN 02/26/18 01/21/21 History famotidine 20 mg tablet (Pepcid) 20 mg PO BID 05/15/19 01/21/21 History omeprazole 20 mg capsule,delayed 20 mg PO BID 05/15/19 01/21/21 History release furosemide 20 mg tablet (Lasix) 20 mg PO QAM tab 06/26/19 01/21/21 History lisinopril 20 mg tablet (Prinivil) 20 mg PO QAM tab 06/26/19 01/21/21 History polyethylene glycol 3350 17 17 gm PO QAM 06/26/19 01/21/21 History gram/dose oral powder (Miralax) carbidopa 25 mg-levodopa 100 mg 1 tab PO BID 01/21/21 01/21/21 History tablet (Sinemet) hydrocodone 10 mg-acetaminophen 1 tab PO Q6H PRN 01/21/21 01/21/21 History 325 mg tablet levothyroxine 175 mcg tablet 175 mcg PO DAILYBB 01/21/21 01/21/21 History (Synthroid) meloxicam 7.5 mg tablet (Mobic) 7.5 mg PO DAILY@1600 01/21/21 01/21/21 History potassium chloride 10 mEq 20 meq PO DAILY@1600 01/21/21 01/21/21 History capsule,extended release quetiapine 100 mg tablet (Seroquel) 100 mg PO HS 01/21/21 01/21/21 History quetiapine 25 mg tablet (Seroquel) 25 mg PO QAM 01/21/21 01/21/21 History Patient History Medical History (Updated 01/22/21 @ 16:50 by Kannan Smith MD) Arrhythmia DTR REPORTS PT "SKIPS A BEAT SOMETIMES" Atrial flutter Cystocele with rectocele Dizziness Essential tremor Gait disturbance GERD (gastroesophageal reflux disease) Hallucinations Hypertension Hypothyroidism Lewy body dementia Memory loss Monoclonal gammopathy Osteoarthritis Osteoporosis Parkinson disease Peripheral neuropathy Poor balance Surgical History History of cholecystectomy History of elbow surgery LEFT History of tooth extraction Hx of cataract surgery RIGHT S/P knee surgery Family History Daughter Family history of diabetes mellitus Mother No pertinent family history Father No pertinent family history Other Cancer Social History Smoking Status: Former smoker Second Hand Exposure: Yes (HER WAS A SMOKER); Hx Alcohol Use: No Hx Substance Use: No Preferred Language: Angolan Communication Ability: Impaired 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 Required: No Beliefs That Will Affect Care: None Current Living Situation: Family Current Living Situation Comment: LIVES W/ DTR Other Information That Helps Us Care for You: No Feels Safe at Home: Yes Safety Concerns: Feels Safe At This Time Assistive Devices: BiPap and Walker Review of Systems Review of Systems: All systems reviewed & are unremarkable except as noted in HPI & below Physical Exam Physical Exam: Constitutional: In respiratory distress HEENT: EOMI, PERRLA, arcus senilis bilaterally Respiratory system: Decreased air entry bilaterally, no wheeze, no rhonchi, mild crackles bilateral lower lobes CVS: S1-S2 positive, tachycardia Abdomen: Soft, nontender, nondistended, positive bowel sounds x4, obese Extremities: +2 pulses bilaterally radialis/ dorsalis pedis, no cyanosis, no edema Neuro: Awake and alert Psych: Unable to assess G/U: Positive Kelly Skin: no rashes, warm and dry Lymphatic: no cervical or axillary lymphadenopathy Results & Data Results & Data ([facility]) Vital Signs (Past 12 Hours) Vital Signs Temp Pulse Pulse Resp BP Pulse Ox 01/22/21 08:25 115 H 24 92 01/22/21 08:11 122 H 24 96 01/22/21 07:32 87 22 93 01/22/21 07:20 37.1 C 108 H 24 173/79 H 96 01/22/21 04:12 37.1 C 98 H 22 113/68 98 01/22/21 00:16 109 H 01/21/21 23:30 36.6 C 120 H 22 100/55 L 94 01/22/21 06:09 01/22/21 06:09 PG Care Time/CCT Total # of Minutes Spent Total Time Spent with Patient: Total time spent is greater than 50% in coordination of care (as documented) at patient's floor/unit and/or counseling patient: Coding Level of Care Code 27638 Initial Inpt Care Lvl 3 Diagnoses Acute on chronic respiratory failure with hypoxia and hypercapnia J96.21; J96.22 Parkinson disease G20 Lewy body dementia G31.83; F02.80 Kyphoscoliosis M41.9
[2021-01-22] MEDS: CARBIDOPA/LEVODOPA 25/100MG TAB PO SCH ×2 (10:17→21:11)
[2021-01-22] MEDS: QUEtiapine FUMARATE 25 MG TABLET PO SCH (10:18)
[2021-01-22 11:15] LABS: Base Excess ABG -2.8 mEq/L (-9-1.8); HCO3 ABG 25 mmol/L (19-24); Oxygen Saturation ABG 97.6 % (90-95); PCO2 ABG 56 mmHg (35-46); PO2 ABG 112 mmHg (80-95); pH ABG 7.27 (7.35-7.45)
[2021-01-22 11:19] LABS: Allen Test Pos (Pos)
[2021-01-22] MEDS: PANTOprazole 40 MG in SYRINGE 0 ML IV SCH (11:53)
--- NOTE | 2021-01-22 12:18 | Electrocardiogram Report ---
Test Reason : Blood Pressure : / mmHG Vent. Rate : 119 BPM Atrial Rate : 119 BPM P-R Int : 184 ms QRS Dur : 100 ms QT Int : 298 ms P-R-T Axes : 054 018 168 degrees QTc Int : 419 ms Sinus tachycardia with Premature atrial complexes some consecutive Nonspecific ST and T wave abnormality Abnormal ECG When compared with ECG of 21-JAN-2021 07:22, Premature atrial complexes are now Present Nonspecific T wave abnormality, worse in Inferior leads Nonspecific T wave abnormality has replaced inverted T waves in Lateral leads Confirmed by Brenton Bojorquez ([id number]) on 01/22/2021 12:17:48 PM Referred By: REFERRED SELF Confirmed By:Carlos Bojorquez
[2021-01-22] MEDS ORDERED: XOPENEX/ATROVENT 1.25mg/0.5MG NEB COMBO NEB SCH (13:00)
[2021-01-22] MEDS: LEVALBUTEROL 1.25MG/0.5ML NEB INH SCH ×2 (14:03→19:07)
[2021-01-22] MEDS: IPRATROPIUM BROMIDE NEB SOLN 0.02% 2.5 ML VIAL INH SCH ×2 (14:03→19:07)
[2021-01-22] MEDS ORDERED: Nursing to Pharmacy Communication SCH (14:45)
[2021-01-22] MEDS ORDERED: ACETAMINOPHEN 1,000 MG/100 ML VIAL IV STA (15:17)
--- NOTE | 2021-01-22 15:51 | XRay Report ---
XR chest 1V portable CLINICAL HISTORY: respiratory distress COMPARISON STUDY: January 22, 2021 at 08:07 hours FINDINGS: No evidence of pneumothorax. Slightly limited exam because right lung apex is partially obscured by p atient's chin.. No pleural effusion. Recently seen patchy airspace opacities at the left mid to lower lung are significantly improved sinc e recent prior which could be due to better inspiratory effort. Linear density at the right mid lung is no longer visualized. Questionable nodular opacity seen projecting to the right upper lung region. Cardiomediastinal silhouette is within normal limits in size. No significant pulmonary vascular congestion.. Osseous structures: Degenerative changes of the spine. IMPRESSION: 1. Interval improvement of airspace opacities at the left mid to lower lung region. Recently seen li near densities/atelectasis within the right midlung is resolved. 2. Questionable nodular opacity projects into the right mid lung region, attention on follow-up imag ing. The rest of findings as above. ACT 112: Negative or not required by law. The above report was generated using voice recognition software. It may contain grammatical, syntax o r spelling errors. Electronically signed by: Milana Katz DO 01/22/2021 3:49 PM
[2021-01-22] MEDS ORDERED: FUROSEMIDE 40 MG in SYRINGE 0 ML IV ONE (16:00)
[2021-01-22] MEDS ORDERED: ACETAMINOPHEN 1,000 MG/100 ML VIAL IV PRN ×2 (16:53→16:57)
[2021-01-22] MEDS ORDERED: ENOXAPARIN INJ 40 MG/0.4 ML SYR SQ SCH (17:00)
[2021-01-22] MEDS: methylPREDNISolone 40 MG in SYRINGE 0 ML IV SCH (17:38)
--- NOTE | 2021-01-22 18:43 | Ultrasound Report ---
US venous doppler LE BI CLINICAL HISTORY: r/o dvt COMPARISON STUDY: No previous studies for comparison. FINDINGS: Real-time and color flow Doppler imaging were performed. Flow was seen within the femoral, popliteal and calf veins with no intraluminal thrombus demonstrated. The saphenous vein is patent. Patient on BiPAP and was unable to follow commands which limits evaluation. IMPRESSION: No evidence of deep venous thrombosis. ACT 112: Negative or not required by law. The above report was generated using voice recognition software. It may contain grammatical, syntax o r spelling errors. Electronically signed by: Milana Katz DO 01/22/2021 6:42 PM
[2021-01-22] MEDS: QUEtiapine FUMARATE 100 MG TABLET PO SCH (21:11)
[2021-01-23] MEDS: LEVALBUTEROL 1.25MG/0.5ML NEB INH SCH ×4 (00:33→19:45)
[2021-01-23] MEDS: IPRATROPIUM BROMIDE NEB SOLN 0.02% 2.5 ML VIAL INH SCH ×4 (00:33→19:45)
[2021-01-23] MEDS: methylPREDNISolone 40 MG in SYRINGE 0 ML IV SCH ×3 (01:09→21:52)
[2021-01-23] MEDS: DOXYCYCLINE HYCLATE 100 MG in DEXTROSE 5% 100 ML IV SCH ×2 (01:11→13:16)
[2021-01-23] MEDS ORDERED: METOPROLOL TARTRATE 1 MG/ML VIAL IV STA (03:19)
[2021-01-23 03:24] LABS: iSTAT Art Bld Gas pCO2 Correct 49 mmHg (35-46); iSTAT Art Bld Gas pH Corrected 7.358 (7.35-7.45); iSTAT Arterial Blood Gas HCO3 27 meg/L (19-24); iSTAT Arterial Blood Gas pCO2 48 mmHg (35-46); iSTAT Arterial Blood Gas pH 7.36 (7.35-7.45); iSTAT Arterial Blood Gas pO2 287 mmHg (80-95); iSTAT Arterial Blood Gas pO2 C 289; iSTAT Carbon Dioxide 29 mmol/L (24-31); iSTAT FiO2 80 %; iSTAT Hematocrit 43 % (37-47); iSTAT Hemoglobin 14.6 g/dl (12.0-16.0); iSTAT Site R Radial; iSTAT Sodium 145 mmol/L (135-144)
[2021-01-23 04:13] LABS: Hematocrit (blood only) 43.3 % (37-47); Hemoglobin 13.8 g/dL (12.0-16.0); Immature Granulocytes # (auto) 0.04 K/uL (0.00-0.02); Immature Granulocytes % (auto) 0.2 %; Lymphocytes # (auto) 0.46 K/uL (1.2-3.4); Lymphocytes % (auto) 2.5 %; Mean Corpuscular Hgb Conc 31.9 g/dL (32-36); Mean Platelet Volume 9.6 fL (7.4-10.4); Monocytes % (auto) 3.2 %; Neutrophils # (auto) 17.61 K/uL (1.4-6.5); Neutrophils % (auto) 94.1 %; Platelet Count 339 K/uL (130-400); RDW Coefficient of Variation 14.3 % (11.5-14.5); RDW Standard Deviation 47.6 fL (36.4-46.3); Red Blood Count 4.76 M/uL (4.2-5.4); White Blood Count 18.71 K/uL (4.8-10.8)
[2021-01-23 04:31] LABS: Albumin Level 3.3 gm/dl (3.4-5.0); BUN Creatinine Ratio 29.6 (10-20); Calcium 8.1 mg/dl (8.5-10.1); Est GFR (African American) 53.2 ml/min; Est GFR (Non-African American) 45.9 ml/min; Potassium 3.1 mmol/L (3.5-5.1)
[2021-01-23 04:40] LABS: Albumin Globulin Ratio 0.9 (0.9-2); Bilirubin,Total 0.7 mg/dl (0.2-1); Globulin 3.8 gm/dl (2.5-4.0); Total Protein 7.1 gm/dl (6.4-8.2); Troponin I 0.063 ng/ml (0-0.045)
[2021-01-23] MEDS ORDERED: METOPROLOL TARTRATE 1 MG/ML VIAL IV PRN (04:48)
[2021-01-23] MEDS ORDERED: HEPARIN SODIUM/DEXTROSE 25,000 UNITS/500 ML BAG IV SCH (05:00)
[2021-01-23] MEDS: POTASSIUM CHLORIDE / WTR 10 MEQ/100 ML PLCT IV SCH ×4 (06:06→09:10)
[2021-01-23] MEDS: INSULIN ASPART 100 UNITS/ML 3 ML PEN SC SCH ×4 (06:13→21:30)
[2021-01-23] MEDS: LEVOTHYROXINE SODIUM 175 MCG TABLET PO SCH (06:14)
[2021-01-23] MEDS: PIPERACILLIN/TAZOBACTAM 3.375 GM in DEXTROSE 5% 100 ML IV SCH (06:16)
[2021-01-23 06:31] LABS: Partial Thromboplastin Ratio 0.9; Partial Thromboplastin Time 24.7 Seconds (21.0-31.0)
--- NOTE | 2021-01-23 06:42 | XRay Report ---
XR chest 1V portable CLINICAL HISTORY: congestion COMPARISON STUDY: Chest CT January 21, 2021. Chest radiograph January 22, 2021. FINDINGS: Cardiomediastinal silhouette is stable. There is no pneumothorax or pleural effusion. Left basilar opacity is improved. Mild right midlung opacity has slightly increased. There is no evidence for pulmonary edema. There are cholecystectomy clips. IMPRESSION: 1. Interval improvement in left basilar opacity. 2. Slight increase in right midlung opacity. 3. No evidence for pulmonary edema. ACT 112: Negative or not required by law. Electronically signed by: Lamin Conte M.D. 01/23/2021 6:41 AM
[2021-01-23] MEDS: Heparin IV Adult Wt-Based Low-Dose *NO* Bolus Protocol IV SCH ×6 (06:51→08:32)
--- NOTE | 2021-01-23 07:38 | Electrocardiogram Report ---
Test Reason : Blood Pressure : / mmHG Vent. Rate : 126 BPM Atrial Rate : 107 BPM P-R Int : 000 ms QRS Dur : 090 ms QT Int : 310 ms P-R-T Axes : 000 -03 150 degrees QTc Int : 448 ms Poor data quality, interpretation may be adversely affected Sinus rhythm wih frequent and consecutive atrial ectopy Nonspecific ST abnormality Abnormal ECG When compared with ECG of 22-JAN-2021 08:30, no change Confirmed by Brenton Bojorquez ([id number]) on 01/23/2021 7:38:01 AM Referred By: REFERRED SELF Confirmed By:Carlos Bojorquez
[2021-01-23 07:52] LABS: INR 1.2 (0.9-1.1)
[2021-01-23] MEDS ORDERED: Nursing to Pharmacy Communication SCH ×2 (08:15→11:00)
[2021-01-23] MEDS: QUEtiapine FUMARATE 25 MG TABLET PO SCH (08:55)
[2021-01-23] MEDS: CARBIDOPA/LEVODOPA 25/100MG TAB PO SCH ×3 (08:55→21:52)
--- NOTE | 2021-01-23 08:59 | Pulmonology Progress Note ---
Date of Service January 23, 2021 Assessment & Plan (1) Acute on chronic respiratory failure with hypoxia and hypercapnia: (2) Parkinson disease: (3) Lewy body dementia: (4) Kyphoscoliosis: Plan: CT chest 01/21/2021 personally reviewed: Minimal linear atelectasis of the posterior segment of the right upper lobe No lung infiltrate appreciated No mediastinal adenopathy Chest x-ray 01/22/2021 personally reviewed: Increased hilar vascular markings, this is new compared to the time of presentation likely fluid overload/pulmonary edema ABG 01/22/2021 9 AM: 7.08/94/86 ABG 01/22/2021 11 AM: 7.27/56/112 --Acute hypoxic hypercapnic respiratory failure Hypercapnia is likely multifactorial from TAMMI/OHS as well as possibility of kyphoscoliosis playing a role I do not see any clear signs of pneumonia on the CT chest. I would not give antibiotics if it was given for pneumonia. COVID-19 PCR negative Continue with BiPAP nightly and as needed shortness of breath Keep O2 saturation between 88-92% Do not over oxygenate the patient as this will decrease the central drive. --Pulmonary edema Patient got Lasix today Repeat chest x-ray done in the afternoon 01/22/2021 already shows improvement No further Lasix but try to keep the patient euvolemic --Kyphoscoliosis --DNR/DNI Due to chronic respiratory failure consequent to restrictive thoracic cage abnormality from kyphoscoliosis, patient now requires a noninvasive home ventilator. Bilevel therapy with and without a rate would be ineffective as patient requires a volume targeted mode. Ventilation is required to decrease work of breathing and improve pulmonary status. Interruption of ventilator support would lead to decline of health status. NIMV settings should be AVAPS-AE; Breath rate: auto; Inspiratory time:auto; Sigh: off; Tidal Volume: 350-450, PS min: 4-10 PS max: 12-20; EPAP min: 6-10; EPAP max: 10-16; AVAPS rate: 14 during sleep and as needed Plan: ABG shows pH of 7.36 which is significantly improved from before. Patient is ventilating well with the help of BiPAP Can give a trial of taking the patient off BiPAP to see if she is able to tolerate diet. Would recommend not to over oxygenate the patient. I do think patient will benefit from AVAPS machine at home. Again overall prognosis is guarded. Palliative care consult will be recommended. Nasal MRSA is negative. Case discussed with Luis Please note the above document was generated using voice recognition software. It may contain grammatical, syntax or spelling errors.Any formal questions or concerns about the content, text or information contained within the body of this dictation should be directly addressed to the provider for clarification. Admission and Anticipated Discharge Date Admission Date: January 21, 2021 Subjective Patient seen and examined at bedside. No acute distress. Patient was on BiPAP 14/8 30% saturating 98% respiratory to 23 I went down on BiPAP to 12/8 and went down on FiO2 21%. Patient was still getting good tidal volumes of 500 mL. T-max 38.1 Review of Systems Review of Systems: Unobtainable due to mental health condition Physical Exam Physical Exam: Constitutional: No acute distress HEENT: EOMI, PERRLA, arcus senilis bilaterally Respiratory system: Decreased air entry bilaterally, no wheeze, positive rhonchi, mild crackles bilateral lower lobes CVS: S1-S2 positive, distant heart sounds Abdomen: Soft, nontender, nondistended, positive bowel sounds x4, obese Extremities: +2 pulses bilaterally radialis/ dorsalis pedis, no cyanosis, no edema Neuro: Awake and alert Psych: Unable to assess G/U: Positive Kelly Skin: no rashes, warm and dry Lymphatic: no cervical or axillary lymphadenopathy Results & Data Results & Data ([facility]) Vital Signs (Past 12 Hours) Vital Signs Temp Pulse Pulse Pulse Resp BP BP 01/23/21 08:11 86 86 20 01/23/21 07:53 36.8 C 106 H 22 116/79 01/23/21 04:54 37.0 C 112 H 24 130/78 01/23/21 04:02 89 24 01/23/21 03:39 118 H 106/75 01/23/21 03:23 37.5 C 119 H 24 140/70 01/23/21 02:45 140 H 37 H 01/23/21 00:34 24 01/23/21 00:12 105 H 01/22/21 23:49 36.8 C 102 H 20 138/86 01/22/21 22:07 86 24 Pulse Ox 09/05/21 08:11 96 01/23/21 07:53 98 01/23/21 04:54 93 01/23/21 04:02 96 01/23/21 03:39 01/23/21 03:23 94 01/23/21 02:45 93 01/23/21 00:34 96 01/23/21 00:12 01/22/21 23:49 95 01/22/21 22:07 95 01/23/21 03:58 01/23/21 03:58 PG Care Time/CCT Total # of Minutes Spent Total Time Spent with Patient: Total time spent is greater than 50% in coordination of care (as documented) at patient's floor/unit and/or counseling patient: Coding Level of Care Code 14703 Subseq Hosp Care Lvl 3 Diagnoses Acute on chronic respiratory failure with hypoxia and hypercapnia J96.21; J96.22 Parkinson disease G20 Lewy body dementia G31.83; F02.80 Kyphoscoliosis M41.9
[2021-01-23] MEDS: PANTOprazole 40 MG in SYRINGE 0 ML IV SCH (10:25)
--- NOTE | 2021-01-23 12:31 | Cardiology Consultation ---
Date of Consultation January 23, 2021 Assessment & Plan (1) Multifocal atrial tachycardia: (2) Acute on chronic respiratory failure with hypoxia and hypercapnia: (3) Kyphoscoliosis: (4) Lewy body dementia: 75-year-old female with multiple ongoing medical issues as well outlined. Now admitted with acute hypercapnic respiratory failure multifactorial. Telemetry since admission has demonstrated sinus and sinus tachycardia with frequent atrial ectopy, multifocal atrial tachycardia being driven by underlying stressors including hypoxia and respiratory failure LV systolic function is preserved Recommendations: Would supplement potassium to greater than 4 Beta-estephanie initiated would continue Treat underlying medical issues. Chart and patient reviewed, prognosis significantly limited. Would not escalate cardiac care History of Present Illness Reason for Consultation: Atrial tachycardia Requesting Physician: Kannan Smith MD Attending Physician: Kannan Smith MD History of Present Illness Patient is a 75-year-old female with underlying dementia/Parkinson's disease unable to give additional information. Records reviewed She presents now with hypercapnic respiratory failure. She is referred for evaluation of atrial arrhythmias observed on telemetry since admission, overnight Allergies Allergy/AdvReac Type Severity Reaction Status Date / Time Sulfa (Sulfonamide Allergy Intermediate HIVES AND Verified 11/24/20 10:49 Antibiotics) RASH Macrolide Antibiotics AdvReac Severe Interacted Unverified 01/21/21 08:11 with other meds Home Medications Medication Instructions Recorded Confirmed Type alendronate 70 mg tablet (Fosamax) 1 dose PO WK 02/26/18 01/21/21 History aspirin 81 mg tablet,delayed 81 mg PO QAM 02/26/18 01/21/21 History release (Aspirin Low Dose) calcium carbonate 500 mg (1,250 1 tab PO BID 02/26/18 01/21/21 History mg)-vitamin D3 400 unit tablet (Calcium 500 With D) docusate sodium 100 mg tablet 200 mg PO HS 02/26/18 01/21/21 History (Stool Softener) loratadine 10 mg tablet (Claritin) 10 mg PO QAM 02/26/18 01/21/21 History nifedipine 60 mg tablet,extended 60 mg PO QAM 02/26/18 01/21/21 History release (Adalat CC) sucralfate 1 gram tablet (Carafate) 1 g PO ACHS 02/26/18 01/21/21 History tramadol 50 mg tablet (Ultram) 50 mg PO QID PRN 02/26/18 01/21/21 History famotidine 20 mg tablet (Pepcid) 20 mg PO BID 05/15/19 01/21/21 History omeprazole 20 mg capsule,delayed 20 mg PO BID 05/15/19 01/21/21 History release furosemide 20 mg tablet (Lasix) 20 mg PO QAM tab 06/26/19 01/21/21 History lisinopril 20 mg tablet (Prinivil) 20 mg PO QAM tab 06/26/19 01/21/21 History polyethylene glycol 3350 17 17 gm PO QAM 06/26/19 01/21/21 History gram/dose oral powder (Miralax) carbidopa 25 mg-levodopa 100 mg 1 tab PO BID 01/21/21 01/21/21 History tablet (Sinemet) hydrocodone 10 mg-acetaminophen 1 tab PO Q6H PRN 01/21/21 01/21/21 History 325 mg tablet levothyroxine 175 mcg tablet 175 mcg PO DAILYBB 01/21/21 01/21/21 History (Synthroid) meloxicam 7.5 mg tablet (Mobic) 7.5 mg PO DAILY@1600 01/21/21 01/21/21 History potassium chloride 10 mEq 20 meq PO DAILY@1600 01/21/21 01/21/21 History capsule,extended release quetiapine 100 mg tablet (Seroquel) 100 mg PO HS 01/21/21 01/21/21 History quetiapine 25 mg tablet (Seroquel) 25 mg PO QAM 01/21/21 01/21/21 History Patient History Medical History Arrhythmia DTR REPORTS PT "SKIPS A BEAT SOMETIMES" Atrial flutter Cystocele with rectocele Dizziness Essential tremor Gait disturbance GERD (gastroesophageal reflux disease) Hallucinations Hypertension Hypothyroidism Lewy body dementia Memory loss Monoclonal gammopathy Osteoarthritis Osteoporosis Parkinson disease Peripheral neuropathy Poor balance Surgical History History of cholecystectomy History of elbow surgery LEFT History of tooth extraction Hx of cataract surgery RIGHT S/P knee surgery Family History Daughter Family history of diabetes mellitus Mother No pertinent family history Father No pertinent family history Other Cancer Social History Smoking Status: Former smoker Second Hand Exposure: Yes (HER WAS A SMOKER); Hx Alcohol Use: No Hx Substance Use: No Preferred Language: American Communication Ability: Impaired Javascript Engineer Required: No Beliefs That Will Affect Care: None Current Living Situation: Family Current Living Situation Comment: LIVES W/ DTR Other Information That Helps Us Care for You: No Feels Safe at Home: Yes Safety Concerns: Feels Safe At This Time Assistive Devices: Oxygen - Continuous Review of Systems Review of Systems: Unobtainable due to cognitive status Physical Exam Constitutional: + ill appearing and + altered mental status ENMT: external ear and nose normal, oropharynx normal Respiratory: Auscultation: + diminished lung sounds and + wheezes Cardiovascular: Rate/Rhythm: regular rate, regular rhythm and + tachycardic Heart Sounds: no murmur Gastrointestinal (Abdomen): normal bowel sounds, soft, nontender, no hepatosplenomegaly Results & Data ([facility]) Vital Signs (Past 12 Hours) Vital Signs Temp Pulse Pulse Pulse Resp BP BP 01/23/21 10:31 104 H 22 01/23/21 09:37 121 H 24 01/23/21 08:11 86 86 20 01/23/21 07:53 36.8 C 106 H 22 116/79 01/23/21 04:54 37.0 C 112 H 24 130/78 01/23/21 04:02 89 24 01/23/21 03:39 118 H 106/75 01/23/21 03:23 37.5 C 119 H 24 140/70 01/23/21 02:45 140 H 37 H 01/23/21 00:34 24 Pulse Ox 01/23/21 10:31 95 01/23/21 09:37 96 01/23/21 08:11 96 01/23/21 07:53 98 01/23/21 04:54 93 01/23/21 04:02 96 01/23/21 03:39 01/23/21 03:23 94 01/23/21 02:45 93 01/23/21 00:34 96 Laboratory Results Laboratory Results - last 24 hr 01/22/21 01/22/21 01/22/21 16:26 17:35 20:34 WBC RBC Hgb POC Hgb Hct POC Hct MCV MCH MCHC RDW Std Deviation RDW Coeff of Marcelino Plt Count MPV Immature Gran % (Auto) Neut % (Auto) Lymph % (Auto) [place] % (Auto) Eos % (Auto) Baso % (Auto) Neut # (Auto) Lymph # (Auto) [place] # (Auto) Eos # (Auto) Baso # (Auto) Immature Gran # (Auto) PT INR APTT PTT Ratio Sample Site POC pH POC pCO2 POC pO2 POC HCO3 POC Total CO2 POC Base Excess ABG pH (Temp Correct) ABG pCO2 (Temp Corrct POC ABG pO2 at Pt Temp POC ABG O2 Sat Mushtaq Test O2 Delivery Device POC O2 Rate POC FiO2 IPAP POC Sodium Sodium POC Potassium Potassium Chloride Carbon Dioxide Anion Gap BUN Creatinine Est Cr Clr Drug Dosing Est GFR ( Amer) Est GFR (Non-Af Amer) BUN/Creatinine Ratio Glucose POC Glucose 156 H 136 H Calcium Magnesium Total Bilirubin AST ALT Alkaline Phosphatase Troponin I Total Protein Albumin Globulin Albumin/Globulin Ratio Nasal Screen MRSA (PCR) Negative 01/22/21 01/23/21 01/23/21 23:27 02:57 03:09 WBC RBC Hgb POC Hgb 14.6 Hct POC Hct 43 MCV MCH MCHC RDW Std Deviation RDW Coeff of Marcelino Plt Count MPV Immature Gran % (Auto) Neut % (Auto) Lymph % (Auto) [place] % (Auto) Eos % (Auto) Baso % (Auto) Neut # (Auto) Lymph # (Auto) [place] # (Auto) Eos # (Auto) Baso # (Auto) Immature Gran # (Auto) PT INR APTT PTT Ratio Sample Site R Radial POC pH 7.36 POC pCO2 48 H POC pO2 287 H POC HCO3 27 H POC Total CO2 29 POC Base Excess 2.0 H ABG pH (Temp Correct) 7.358 ABG pCO2 (Temp Corrct 49 H POC ABG pO2 at Pt Temp 289 POC ABG O2 Sat 100.0 H Mushtaq Test NA O2 Delivery Device BIPAP POC O2 Rate 14 POC FiO2 80 IPAP 14 POC Sodium 145 H Sodium POC Potassium 3.0 L Potassium Chloride Carbon Dioxide Anion Gap BUN Creatinine Est Cr Clr Drug Dosing Est GFR ( Amer) Est GFR (Non-Af Amer) BUN/Creatinine Ratio Glucose POC Glucose 127 H 156 H Calcium Magnesium Total Bilirubin AST ALT Alkaline Phosphatase Troponin I Total Protein Albumin Globulin Albumin/Globulin Ratio Nasal Screen MRSA (PCR) 01/23/21 01/23/21 01/23/21 03:58 03:58 05:48 WBC 18.71 H RBC 4.76 Hgb 13.8 POC Hgb Hct 43.3 POC Hct MCV 91.0 MCH 29.0 MCHC 31.9 L RDW Std Deviation 47.6 H RDW Coeff of Marcelino 14.3 Plt Count 339 MPV 9.6 Immature Gran % (Auto) 0.2 Neut % (Auto) 94.1 Lymph % (Auto) 2.5 [place] % (Auto) 3.2 Eos % (Auto) 0.0 Baso % (Auto) 0.0 Neut # (Auto) 17.61 H Lymph # (Auto) 0.46 L [place] # (Auto) 0.60 H Eos # (Auto) 0.00 Baso # (Auto) 0.00 Immature Gran # (Auto) 0.04 H PT INR APTT PTT Ratio Sample Site POC pH POC pCO2 POC pO2 POC HCO3 POC Total CO2 POC Base Excess ABG pH (Temp Correct) ABG pCO2 (Temp Corrct POC ABG pO2 at Pt Temp POC ABG O2 Sat Mushtaq Test O2 Delivery Device POC O2 Rate POC FiO2 IPAP POC Sodium Sodium 144 POC Potassium Potassium 3.1 L Chloride 111 H Carbon Dioxide 26 Anion Gap 7.0 BUN 34 H Creatinine 1.15 Est Cr Clr Drug Dosing 40.0 Est GFR ( Amer) 53.2 Est GFR (Non-Af Amer) 45.9 BUN/Creatinine Ratio 29.6 H Glucose 148 H POC Glucose 120 H Calcium 8.1 L Magnesium 2.0 Total Bilirubin 0.7 AST 59 H ALT 49 Alkaline Phosphatase 62 Troponin I 0.063 H* Total Protein 7.1 Albumin 3.3 L Globulin 3.8 Albumin/Globulin Ratio 0.9 Nasal Screen MRSA (PCR) 01/23/21 01/23/21 01/23/21 06:09 09:32 11:38 WBC RBC Hgb POC Hgb Hct POC Hct MCV MCH MCHC RDW Std Deviation RDW Coeff of Marcelino Plt Count MPV Immature Gran % (Auto) Neut % (Auto) Lymph % (Auto) [place] % (Auto) Eos % (Auto) Baso % (Auto) Neut # (Auto) Lymph # (Auto) [place] # (Auto) Eos # (Auto) Baso # (Auto) Immature Gran # (Auto) PT 12.0 INR 1.2 H APTT 24.7 PTT Ratio 0.9 Sample Site POC pH POC pCO2 POC pO2 POC HCO3 POC Total CO2 POC Base Excess ABG pH (Temp Correct) ABG pCO2 (Temp Corrct POC ABG pO2 at Pt Temp POC ABG O2 Sat Mushtaq Test O2 Delivery Device POC O2 Rate POC FiO2 IPAP POC Sodium Sodium POC Potassium Potassium Chloride Carbon Dioxide Anion Gap BUN Creatinine Est Cr Clr Drug Dosing Est GFR ( Amer) Est GFR (Non-Af Amer) BUN/Creatinine Ratio Glucose POC Glucose 134 H Calcium Magnesium Total Bilirubin AST ALT Alkaline Phosphatase Troponin I 0.057 H* Total Protein Albumin Globulin Albumin/Globulin Ratio Nasal Screen MRSA (PCR) 01/23/21 12:22 WBC RBC Hgb POC Hgb Hct POC Hct MCV MCH MCHC RDW Std Deviation RDW Coeff of Marcelino Plt Count MPV Immature Gran % (Auto) Neut % (Auto) Lymph % (Auto) [place] % (Auto) Eos % (Auto) Baso % (Auto) Neut # (Auto) Lymph # (Auto) [place] # (Auto) Eos # (Auto) Baso # (Auto) Immature Gran # (Auto) PT INR APTT Pending PTT Ratio Pending Sample Site POC pH POC pCO2 POC pO2 POC HCO3 POC Total CO2 POC Base Excess ABG pH (Temp Correct) ABG pCO2 (Temp Corrct POC ABG pO2 at Pt Temp POC ABG O2 Sat Mushtaq Test O2 Delivery Device POC O2 Rate POC FiO2 IPAP POC Sodium Sodium POC Potassium Potassium Chloride Carbon Dioxide Anion Gap BUN Creatinine Est Cr Clr Drug Dosing Est GFR ( Amer) Est GFR (Non-Af Amer) BUN/Creatinine Ratio Glucose POC Glucose Calcium Magnesium Total Bilirubin AST ALT Alkaline Phosphatase Troponin I Total Protein Albumin Globulin Albumin/Globulin Ratio Nasal Screen MRSA (PCR)
[2021-01-23 12:44] LABS: Partial Thromboplastin Ratio 1.1; Partial Thromboplastin Time 28.6 Seconds (21.0-31.0)
--- NOTE | 2021-01-23 15:42 | Hospitalist Progress Note ---
Date of Service January 23, 2021 Assessment & Plan (1) Sepsis: (2) Respiratory failure: Plan: SEPSIS, SECONDARY TO UTI, ACUTE BRONCHITIS lactic acidosis resolved sputum, urine , bloodcultures : negative so far d/c Vanco and Zosyn continue Doxy d/c IV fluids monitor closely ACUTE HYPOXIC, HYPERCAPNEIC RESPIRATORY FAILURE CXR: (+) LL infiltrates, congestion lasix 40mg IV BID given Solumedrol 40mg BID Nebs q6h antibiotics as above Echo : EF normal CXR: improving congestion wean off bipap will need Trilogy machine on discharge LEWY BODY DEMENTIA PARKINSON DISEASE METABOLIC ENCEPHALOPATHY SECONDARY TO ABOVE somewhat more awake today continue Sinemet, Seroquel MULTIFOCAL ATRIAL TACHYCARDIA likely from respiratory failure HR improving Maintain K above 4 management of respiratory failure as above HTN BP meds held to prevent hypotension GERD continue Protonix DVT Px Lovenox SC daily plan of care discussed with patient's daughter Terri in detail and at length all questions answered she is understanding, agreeable, comfortable with the plan of care Admission and Anticipated Discharge Date Admission Date: January 21, 2021 Subjective ff up for respiratory failure, etc events overnight noted seen resting in bed, on bipap follows command to open and close eyes, squeeze and let go examiner's fingers not in distress not tachypneic dark urine noted no other issues per 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 layer 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 of Systems Review of Systems: all noted and negative except for above Physical Exam Physical Exam: General- as noted per above Eyes- anicteric Neck- no JVD Lungs- diminished, mild rhonchi BL no rales/wheezing Heart- normal rate, regular rhythm; no murmurs Abdomen- normal bowel sounds, nondistended, soft, nontender Extremities- no pretibial edema, no calf tenderness Neuro- somewhat drowsy but easily awakened moves all extremities equally Skin- warm & dry Results & Data Results & Data ([facility]) Vital Signs (Past 12 Hours) Vital Signs Temp Pulse Pulse Pulse Resp BP BP 01/23/21 14:49 20 01/23/21 13:25 86 18 01/23/21 10:31 104 H 22 01/23/21 10:00 110 H 01/23/21 09:37 121 H 24 01/23/21 08:11 86 86 20 01/23/21 07:53 36.8 C 106 H 22 116/79 01/23/21 04:54 37.0 C 112 H 24 130/78 01/23/21 04:02 89 24 01/23/21 03:39 118 H 106/75 Pulse Ox 01/23/21 14:49 95 01/23/21 13:25 96 01/23/21 10:31 95 01/23/21 10:00 01/23/21 09:37 96 01/23/21 08:11 96 01/23/21 07:53 98 01/23/21 04:54 93 01/23/21 04:02 96 01/23/21 03:39 all noted and reviewed including below
[2021-01-23 16:05] LABS: Potassium 3.3 mmol/L (3.5-5.1)
[2021-01-23 16:15] LABS: Magnesium 2.1 mg/dl (1.8-2.4); Troponin I 0.034 ng/ml (0-0.045)
[2021-01-23] MEDS: QUEtiapine FUMARATE 100 MG TABLET PO SCH (21:52)
[2021-01-23] MEDS: POTASSIUM CHLORIDE CRTAB 20 MEQ TABCR PO STA ×2 (22:43→22:55)
[2021-01-24] MEDS: POTASSIUM CHLORIDE / WTR 10 MEQ/100 ML PLCT IV SCH ×4 (00:28→01:52)
[2021-01-24] MEDS: LEVALBUTEROL 1.25MG/0.5ML NEB INH SCH ×4 (00:56→19:12)
[2021-01-24] MEDS: IPRATROPIUM BROMIDE NEB SOLN 0.02% 2.5 ML VIAL INH SCH ×4 (00:56→19:12)
[2021-01-24] MEDS ORDERED: MoRPHine SULFATE 2 MG/ML CARP IV STA (01:23)
[2021-01-24] MEDS ORDERED: LORazepam 0.25 MG/0.5 ML VIAL IV STA (02:02)
[2021-01-24] MEDS ORDERED: METOPROLOL TARTRATE 1 MG/ML VIAL IV STA (02:03)
[2021-01-24 02:05] LABS: iSTAT Allen Test Pass; iSTAT Art Bld Gas pCO2 Correct 41 mmHg (35-46); iSTAT Art Bld Gas pH Corrected 7.419 (7.35-7.45); iSTAT Arterial Blood Gas HCO3 27 meg/L (19-24); iSTAT Arterial Blood Gas pCO2 41 mmHg (35-46); iSTAT Arterial Blood Gas pH 7.42 (7.35-7.45); iSTAT Arterial Blood Gas pO2 77 mmHg (80-95); iSTAT Arterial Blood Gas pO2 C 78; iSTAT Carbon Dioxide 28 mmol/L (24-31); iSTAT Hematocrit 40 % (37-47); iSTAT Hemoglobin 13.6 g/dl (12.0-16.0); iSTAT Potassium 3.6 mmol/L (3.3-5.0); iSTAT Site R Radial; iSTAT Sodium 145 mmol/L (135-144)
[2021-01-24] MEDS: DOXYCYCLINE HYCLATE 100 MG in DEXTROSE 5% 100 ML IV SCH ×2 (03:39→15:24)
[2021-01-24] MEDS: LEVOTHYROXINE SODIUM 175 MCG TABLET PO SCH (05:58)
[2021-01-24 06:40] LABS: Hematocrit (blood only) 40.1 % (37-47); Hemoglobin 12.9 g/dL (12.0-16.0); Immature Granulocytes # (auto) 0.03 K/uL (0.00-0.02); Immature Granulocytes % (auto) 0.3 %; Lymphocytes # (auto) 0.87 K/uL (1.2-3.4); Lymphocytes % (auto) 7.7 %; Mean Corpuscular Hemoglobin 29.1 pg (25-34); Mean Corpuscular Hgb Conc 32.2 g/dL (32-36); Mean Corpuscular Volume 90.3 fL (80-100); Mean Platelet Volume 9.6 fL (7.4-10.4); Monocytes # (auto) 0.56 K/uL (0.11-0.59); Neutrophils # (auto) 9.77 K/uL (1.4-6.5); Platelet Count 290 K/uL (130-400); RDW Coefficient of Variation 14.4 % (11.5-14.5); RDW Standard Deviation 47.7 fL (36.4-46.3); Red Blood Count 4.44 M/uL (4.2-5.4); White Blood Count 11.23 K/uL (4.8-10.8)
[2021-01-24 06:50] LABS: Partial Thromboplastin Ratio 0.9; Partial Thromboplastin Time 22.6 Seconds (21.0-31.0)
[2021-01-24 06:59] LABS: BUN Creatinine Ratio 59.3 (10-20); Calcium 8.6 mg/dl (8.5-10.1); Creatinine Clr Calc Pharmacy 67.5 ml/min; Est GFR (African American) 97.8 ml/min; Est GFR (Non-African American) 84.4 ml/min; Potassium 3.6 mmol/L (3.5-5.1)
--- NOTE | 2021-01-24 07:50 | XRay Report ---
XR chest 1V portable CLINICAL HISTORY: Respiratory distress. COMPARISON STUDY: Chest CT January 21, 2021. Chest radiograph March 25, 2021. FINDINGS: Incidental note is made of cholecystectomy clips. There is no pneumothorax or pleural effus ion. Cardiomediastinal silhouette is stable. There is no evidence for pulmonary edema. There is suspe cted hazy left midlung opacity. There is minimal right lung opacity. Left lung opacity is slightly in creased. IMPRESSION: Slight increase in mild bilateral opacities which favor an infectious process. ACT 112: Negative or not required by law. Electronically signed by: Lamin Conte M.D. 01/24/2021 7:49 AM
--- NOTE | 2021-01-24 07:58 | Cardiology Progress Note ---
Date of Service January 24, 2021 Assessment & Plan (1) Multifocal atrial tachycardia: (2) Acute on chronic respiratory failure with hypoxia and hypercapnia: (3) Kyphoscoliosis: (4) Lewy body dementia: Plan: 75-year-old female with multiple ongoing medical issues as well outlined. Now admitted with acute hypercapnic respiratory failure multifactorial. Telemetry since admission has demonstrated sinus and sinus tachycardia with frequent atrial ectopy, multifocal atrial tachycardia being driven by underlying stressors including hypoxia and respiratory failure LV systolic function is preserved Recommendations: As before, would supplement potassium to greater than 4 Receiving IV metoprolol on a as needed basis. If more frequent arrhythmias would schedule routine dosing. If, when patient able to take oral would add low-dose metoprolol succinate at 12.5 mg/day Treat underlying medical issues. Chart and patient reviewed, prognosis significantly limited. Would not escalate cardiac care We will sign off contact with any further question Admission and Anticipated Discharge Date Admission Date: January 21, 2021 Subjective Patient was seen and examined, chart, medications, telemetry reviewed. Patient on BiPAP at time of examination. Will open eyes on questioning but no cognitive response Telemetry demonstrates short salvos of multifocal atrial tachycardia nonsustained. Review of Systems Review of Systems: All systems reviewed & are unremarkable except as noted in Subjective Physical Exam Constitutional: + ill appearing and + altered mental status On external ventilatory support ENMT: external ear and nose normal, oropharynx normal Neck: trachea midline, no thyromegaly Respiratory: Auscultation: + diminished lung sounds Cardiovascular: Rate/Rhythm: regular rate and regular rhythm Heart Sounds: no murmur Gastrointestinal (Abdomen): normal bowel sounds, soft, nontender, no hepatosplenomegaly Results & Data ([facility]) Vital Signs (Past 12 Hours) Vital Signs Temp Pulse Pulse Pulse Resp BP BP 01/24/21 07:34 37.2 C 82 20 134/72 01/24/21 07:17 80 80 23 01/24/21 06:53 37.0 C 86 20 102/62 01/24/21 03:39 96 H 21 01/24/21 02:32 37.0 C 83 20 96/58 L 01/24/21 02:22 115 H 120/67 01/24/21 02:21 115 H 120/67 01/24/21 01:10 101 H 26 H 01/24/21 01:00 102 H 25 H 01/23/21 23:34 37.2 C 89 20 105/68 01/23/21 23:30 109 H 01/23/21 22:19 91 H 18 Pulse Ox 01/24/21 07:34 96 01/24/21 07:17 94 01/24/21 06:53 90 01/24/21 03:39 94 01/24/21 02:32 97 01/24/21 02:22 01/24/21 02:21 01/24/21 01:10 93 01/24/21 01:00 92 01/23/21 23:34 92 01/23/21 23:30 01/23/21 22:19 94 Laboratory Results Laboratory Results - last 24 hr 01/23/21 01/23/21 01/23/21 09:32 11:38 12:22 WBC RBC Hgb POC Hgb Hct POC Hct MCV MCH MCHC RDW Std Deviation RDW Coeff of Marcelino Plt Count MPV Immature Gran % (Auto) Neut % (Auto) Lymph % (Auto) [place] % (Auto) Eos % (Auto) Baso % (Auto) Neut # (Auto) Lymph # (Auto) [place] # (Auto) Eos # (Auto) Baso # (Auto) Immature Gran # (Auto) APTT 28.6 PTT Ratio 1.1 Sample Site POC pH POC pCO2 POC pO2 POC HCO3 POC Total CO2 POC Base Excess ABG pH (Temp Correct) ABG pCO2 (Temp Corrct POC ABG pO2 at Pt Temp POC ABG O2 Sat Mushtaq Test POC Sodium Sodium POC Potassium Potassium Chloride Carbon Dioxide Anion Gap BUN Creatinine Est Cr Clr Drug Dosing Est GFR ( Amer) Est GFR (Non-Af Amer) BUN/Creatinine Ratio Glucose POC Glucose 134 H Calcium Magnesium Troponin I 0.057 H* 01/23/21 01/23/21 01/23/21 15:43 16:41 20:19 WBC RBC Hgb POC Hgb Hct POC Hct MCV MCH MCHC RDW Std Deviation RDW Coeff of Marcelino Plt Count MPV Immature Gran % (Auto) Neut % (Auto) Lymph % (Auto) [place] % (Auto) Eos % (Auto) Baso % (Auto) Neut # (Auto) Lymph # (Auto) [place] # (Auto) Eos # (Auto) Baso # (Auto) Immature Gran # (Auto) APTT PTT Ratio Sample Site POC pH POC pCO2 POC pO2 POC HCO3 POC Total CO2 POC Base Excess ABG pH (Temp Correct) ABG pCO2 (Temp Corrct POC ABG pO2 at Pt Temp POC ABG O2 Sat Mushtaq Test POC Sodium Sodium POC Potassium Potassium 3.3 L Chloride Carbon Dioxide Anion Gap BUN Creatinine Est Cr Clr Drug Dosing Est GFR ( Amer) Est GFR (Non-Af Amer) BUN/Creatinine Ratio Glucose POC Glucose 118 H 103 H Calcium Magnesium 2.1 Troponin I 0.034 01/24/21 01/24/21 01/24/21 01:49 06:06 06:06 WBC 11.23 H RBC 4.44 Hgb 12.9 POC Hgb 13.6 Hct 40.1 POC Hct 40 MCV 90.3 MCH 29.1 MCHC 32.2 RDW Std Deviation 47.7 H RDW Coeff of Marcelino 14.4 Plt Count 290 MPV 9.6 Immature Gran % (Auto) 0.3 Neut % (Auto) 87.0 Lymph % (Auto) 7.7 [place] % (Auto) 5.0 Eos % (Auto) 0.0 Baso % (Auto) 0.0 Neut # (Auto) 9.77 H Lymph # (Auto) 0.87 L [place] # (Auto) 0.56 Eos # (Auto) 0.00 Baso # (Auto) 0.00 Immature Gran # (Auto) 0.03 H APTT PTT Ratio Sample Site R Radial POC pH 7.42 POC pCO2 41 POC pO2 77 L POC HCO3 27 H POC Total CO2 28 POC Base Excess 2.0 H ABG pH (Temp Correct) 7.419 ABG pCO2 (Temp Corrct 41 POC ABG pO2 at Pt Temp 78 POC ABG O2 Sat 95.0 Mushtaq Test Pass POC Sodium 145 H Sodium 145 POC Potassium 3.6 Potassium 3.6 Chloride 110 H Carbon Dioxide 27 Anion Gap 8.0 BUN 40 H Creatinine 0.68 D Est Cr Clr Drug Dosing 67.5 Est GFR ( Amer) 97.8 Est GFR (Non-Af Amer) 84.4 BUN/Creatinine Ratio 59.3 H Glucose 131 H POC Glucose Calcium 8.6 Magnesium Troponin I 01/24/21 06:06 WBC RBC Hgb POC Hgb Hct POC Hct MCV MCH MCHC RDW Std Deviation RDW Coeff of Marcelino Plt Count MPV Immature Gran % (Auto) Neut % (Auto) Lymph % (Auto) [place] % (Auto) Eos % (Auto) Baso % (Auto) Neut # (Auto) Lymph # (Auto) [place] # (Auto) Eos # (Auto) Baso # (Auto) Immature Gran # (Auto) APTT 22.6 PTT Ratio 0.9 Sample Site POC pH POC pCO2 POC pO2 POC HCO3 POC Total CO2 POC Base Excess ABG pH (Temp Correct) ABG pCO2 (Temp Corrct POC ABG pO2 at Pt Temp POC ABG O2 Sat Mushtaq Test POC Sodium Sodium POC Potassium Potassium Chloride Carbon Dioxide Anion Gap BUN Creatinine Est Cr Clr Drug Dosing Est GFR ( Amer) Est GFR (Non-Af Amer) BUN/Creatinine Ratio Glucose POC Glucose Calcium Magnesium Troponin I
--- NOTE | 2021-01-24 08:29 | Electrocardiogram Report ---
Test Reason : Blood Pressure : / mmHG Vent. Rate : 110 BPM Atrial Rate : 091 BPM P-R Int : 000 ms QRS Dur : 084 ms QT Int : 316 ms P-R-T Axes : 000 003 005 degrees QTc Int : 427 ms Poor data quality, interpretation may be adversely affected Probable Sinus rhythm with frequent atrial ectopy and atrial runs Nonspecific T wave abnormality Abnormal ECG When compared with ECG of 23-JAN-2021 03:14, No significant change Confirmed by Burke Tobin ([id number]) on 01/24/2021 8:28:57 AM Referred By: REFERRED SELF Confirmed By:Burke Tobin
[2021-01-24] MEDS: INSULIN ASPART 100 UNITS/ML 3 ML PEN SC SCH ×4 (08:34→20:42)
[2021-01-24] MEDS: CARBIDOPA/LEVODOPA 25/100MG TAB PO SCH ×2 (08:52→19:58)
[2021-01-24] MEDS: QUEtiapine FUMARATE 25 MG TABLET PO SCH (08:52)
[2021-01-24] MEDS: methylPREDNISolone 40 MG in SYRINGE 0 ML IV SCH (08:52)
--- NOTE | 2021-01-24 11:31 | Pulmonology Progress Note ---
Date of Service January 24, 2021 Assessment & Plan (1) Acute on chronic respiratory failure with hypoxia and hypercapnia: (2) Parkinson disease: (3) Lewy body dementia: (4) Kyphoscoliosis: Plan: 75-year-old female with a past medical history of obesity, Lewy body dementia, Parkinson's disease, kyphoscoliosis and acute on chronic hypoxemic/hypercapnic respiratory failure. Acute hypoxemic and hypercapnic respiratory failure: Noninvasive ventilator such as AVAPS is recommended. Her hypercapnia appears to be improving. Avoid sedating medications. I have transitioned her Solu-Medrol to prednisone. Continue steroids for 5 days total. PFTs as outpatient can be considered, but I am not sure that she will be able to perform them. Unclear whether she has underlying obstructive pulmonary physiology. Continue 5 to 7 days of antibiotics. Avoid hyperoxia. Maintain saturations of 90 to 94%. Thank you for the consultation. Please call with questions. Admission and Anticipated Discharge Date Admission Date: January 21, 2021 Subjective Patient seen and examined. She is lethargic. It is difficult to obtain a history from her. I asked her she is in any pain and she said "no". No significant overnight events. Review of Systems Review of Systems: 03/03 point ROS is limited due to the patient's lethargic state. Physical Exam Physical Exam: Constitutional: 75-year-old female. Appears obese. No apparent distress. Eyes: Pupils are equal round and reactive to light. Conjunctivae are normal. Anicteric sclera. Ears nose, mouth and throat: No focal deformities. Neck: Trachea is midline. Visual inspection is normal. Respiratory: Diminished bilaterally. Cardiovascular: Regular rate and rhythm. No murmurs. 1+ pitting edema. Gastrointestinal: Normal bowel sounds, soft, nontender and nondistended. No hepatosplenomegaly noted. Musculoskeletal: No cyanosis. Patient is able to move all extremities. Range of motion is limited. Kyphoscoliotic Skin: No rashes, warm dry and intact. Neurologic: No obvious focal neurological deficits seen. Psychiatric: Lethargic. Unable to fully assess. Results & Data Results & Data ([facility]) Vital Signs (Past 12 Hours) Vital Signs Temp Pulse Pulse Pulse Resp BP BP 01/24/21 07:34 99.0 F 82 20 134/72 01/24/21 07:17 80 80 23 01/24/21 06:53 98.6 F 86 20 102/62 01/24/21 03:39 96 H 21 01/24/21 02:32 98.6 F 83 20 96/58 L 01/24/21 02:22 115 H 120/67 01/24/21 02:21 115 H 120/67 01/24/21 01:10 101 H 26 H 01/24/21 01:00 102 H 25 H 01/23/21 23:34 99.0 F 89 20 105/68 01/23/21 23:30 109 H Pulse Ox 01/24/21 07:34 96 01/24/21 07:17 94 01/24/21 06:53 90 01/24/21 03:39 94 01/24/21 02:32 97 01/24/21 02:22 01/24/21 02:21 01/24/21 01:10 93 01/24/21 01:00 92 01/23/21 23:34 92 01/23/21 23:30 vital signs, labs and imaging personally reviewed PG Care Time/CCT Total # of Minutes Spent Total Time Spent with Patient: Total time spent is greater than 50% in coordination of care (as documented) at patient's floor/unit and/or counseling patient: Coding Level of Care Code 23442 Subseq Hosp Care Lvl 2 Diagnoses Acute on chronic respiratory failure with hypoxia and hypercapnia J96.21; J96.22 Parkinson disease G20 Lewy body dementia G31.83; F02.80 Kyphoscoliosis M41.9
[2021-01-24] MEDS: PANTOprazole 40 MG in SYRINGE 0 ML IV SCH (12:27)
--- NOTE | 2021-01-24 13:30 | Hospitalist Progress Note ---
Date of Service January 24, 2021 Assessment & Plan (1) Sepsis: (2) Respiratory failure: Plan: POSSIBLE SEPSIS, SECONDARY TO UTI, ACUTE BRONCHITIS lactic acidosis resolved sputum, urine , bloodcultures : negative so far d/c Vanco and Zosyn continue Doxy d/c IV fluids monitor closely ACUTE HYPOXIC, HYPERCAPNEIC RESPIRATORY FAILURE Likely secondary to acute bronchitis, in the setting of Parkinson disease/Lewy body dementia, kyphoscoliosis, possible underlying obstructive lung disease CXR: (+) LL infiltrates, congestion lasix 40mg IV BID given Solumedrol 40mg BID Nebs q6h antibiotics as above Echo : EF normal CXR: improving congestion wean off bipap will need Trilogy machine on discharge Continue prednisone, doxycycline IV, nebs LEWY BODY DEMENTIA PARKINSON DISEASE METABOLIC ENCEPHALOPATHY SECONDARY TO ABOVE somewhat more awake today continue Sinemet, Seroquel MULTIFOCAL ATRIAL TACHYCARDIA likely from respiratory failure HR improving Maintain K above 4 as much as possible management of respiratory failure as above HTN BP meds held to prevent hypotension GERD continue Protonix DVT Px Lovenox SC daily Disposition Lives with daughter at home We will order PT and OT evaluation Admission and Anticipated Discharge Date Admission Date: January 21, 2021 Subjective Follow-up for acute hypoxic and hypercapnic respiratory failure, etc. Events of overnight noted Seen resting in bed, on nasal cannula, saturating more than 90%, not in distress, comfortable Able to answer some questions in words, able to squeeze and let go of examiner's fingers on command Taking most of her medications No other issues at this time Review of Systems Review of Systems: all noted and negative except for above Physical Exam Physical Exam: General-eyes mostly closed but seems to be awake, answers most questions with some words, breathing with no effort accessory muscle use Eyes- anicteric Neck- no JVD Lungs- clear breath sounds bilaterally, no rhonchi or wheezing noted Heart- normal rate, regular rhythm; no murmurs Abdomen- normal bowel sounds, nondistended, soft, nontender Extremities- no pretibial edema, no calf tenderness Neuro-eyes mostly closed appear to be somewhat drowsy, but moves all extremities equally Skin- warm & dry Results & Data Results & Data ([facility]) Vital Signs (Past 12 Hours) Vital Signs Temp Pulse Pulse Pulse Resp BP BP 01/24/21 12:44 88 22 01/24/21 12:13 37 C 92 H 20 149/92 H 01/24/21 07:34 37.2 C 82 20 134/72 01/24/21 07:17 80 80 23 01/24/21 06:53 37.0 C 86 20 102/62 01/24/21 03:39 96 H 21 01/24/21 02:32 37.0 C 83 20 96/58 L 01/24/21 02:22 115 H 120/67 01/24/21 02:21 115 H 120/67 Pulse Ox 01/24/21 12:44 93 01/24/21 12:13 91 01/24/21 07:34 96 01/24/21 07:17 94 01/24/21 06:53 90 01/24/21 03:39 94 01/24/21 02:32 97 01/24/21 02:22 01/24/21 02:21 all noted and reviewed including below
[2021-01-24] MEDS: ENOXAPARIN INJ 40 MG/0.4 ML SYR SQ SCH (15:24)
[2021-01-24] MEDS: QUEtiapine FUMARATE 100 MG TABLET PO SCH (19:58)
[2021-01-25] MEDS: DOXYCYCLINE HYCLATE 100 MG in DEXTROSE 5% 100 ML IV SCH ×2 (01:16→14:03)
[2021-01-25] MEDS: LEVALBUTEROL 1.25MG/0.5ML NEB INH SCH ×2 (01:17→07:29)
[2021-01-25] MEDS: IPRATROPIUM BROMIDE NEB SOLN 0.02% 2.5 ML VIAL INH SCH ×2 (01:17→07:29)
[2021-01-25] MEDS: LEVOTHYROXINE SODIUM 175 MCG TABLET PO SCH (06:05)
[2021-01-25 07:35] LABS: Basophils # (auto) 0.01 K/uL (0-0.2); Basophils % (auto) 0.1 %; Eosinophils # (auto) 0.02 K/uL (0-0.5); Eosinophils % (auto) 0.2 %; Hematocrit (blood only) 41.6 % (37-47); Hemoglobin 13.3 g/dL (12.0-16.0); Immature Granulocytes # (auto) 0.01 K/uL (0.00-0.02); Immature Granulocytes % (auto) 0.1 %; Lymphocytes # (auto) 1.93 K/uL (1.2-3.4); Mean Corpuscular Hemoglobin 29.3 pg (25-34); Mean Corpuscular Volume 91.6 fL (80-100); Mean Platelet Volume 9.7 fL (7.4-10.4); Monocytes # (auto) 0.73 K/uL (0.11-0.59); Monocytes % (auto) 7.9 %; Neutrophils % (auto) 70.7 %; Platelet Count 287 K/uL (130-400); RDW Coefficient of Variation 14.6 % (11.5-14.5); RDW Standard Deviation 49.5 fL (36.4-46.3); Red Blood Count 4.54 M/uL (4.2-5.4)
[2021-01-25 08:03] LABS: Partial Thromboplastin Ratio 0.8; Partial Thromboplastin Time < 20.0 Seconds (21.0-31.0)
[2021-01-25] MEDS ORDERED: LEVALBUTEROL 1.25MG/0.5ML NEB INH PRN (08:06)
[2021-01-25] MEDS ORDERED: IPRATROPIUM BROMIDE NEB SOLN 0.02% 2.5 ML VIAL INH PRN (08:06)
[2021-01-25 08:07] LABS: Est GFR (African American) 98.8 ml/min; Est GFR (Non-African American) 85.2 ml/min
[2021-01-25 08:42] LABS: BUN Creatinine Ratio 46.9 (10-20); Calcium 8.9 mg/dl (8.5-10.1); Creatinine Clr Calc Pharmacy 64.1 ml/min; Est GFR (African American) 95.2 ml/min; Est GFR (Non-African American) 82.2 ml/min; Potassium 3.7 mmol/L (3.5-5.1)
[2021-01-25] MEDS: predniSONE 20 MG TAB PO SCH (08:42)
[2021-01-25] MEDS: CARBIDOPA/LEVODOPA 25/100MG TAB PO SCH ×2 (08:43→20:33)
[2021-01-25] MEDS: QUEtiapine FUMARATE 25 MG TABLET PO SCH (08:44)
[2021-01-25] MEDS: INSULIN ASPART 100 UNITS/ML 3 ML PEN SC SCH ×4 (09:01→20:34)
[2021-01-25] MEDS: PANTOprazole 40 MG in SYRINGE 0 ML IV SCH (12:35)
[2021-01-25] MEDS: ENOXAPARIN INJ 40 MG/0.4 ML SYR SQ SCH (12:35)
--- NOTE | 2021-01-25 17:24 | Hospitalist Progress Note ---
Date of Service January 25, 2021 Assessment & Plan (1) Sepsis: (2) Respiratory failure: Plan: POSSIBLE SEPSIS, SECONDARY TO UTI, ACUTE BRONCHITIS lactic acidosis resolved sputum, urine , bloodcultures : negative so far d/c Vanco and Zosyn continue Doxy for Acute Bronchitis d/c IV fluids monitor closely ACUTE HYPOXIC, HYPERCAPNEIC RESPIRATORY FAILURE Likely secondary to acute bronchitis, in the setting of Parkinson disease/Lewy body dementia, kyphoscoliosis, possible underlying obstructive lung disease CXR: (+) LL infiltrates, congestion lasix 40mg IV BID given Solumedrol 40mg BID Nebs q6h antibiotics as above Echo : EF normal CXR: improving congestion weaned off continuous bipap, now used while sleeping during the day and at HS will need Trilogy machine on discharge- rehabilitation caseworker informed Continue prednisone taper, doxycycline IV, nebs now euvolemic, hold usual Lasix 20mg PO daily-- monitor daily LEWY BODY DEMENTIA PARKINSON DISEASE METABOLIC ENCEPHALOPATHY SECONDARY TO ABOVE more awake, eating now continue Sinemet, Seroquel MULTIFOCAL ATRIAL TACHYCARDIA likely from respiratory failure HR improving Maintain K above 4 as much as possible management of respiratory failure as above HTN BP meds held to prevent hypotension resume now also on Lasix 20mg po at home--> resume when po intake continues to improve GERD continue Protonix DVT Px Lovenox SC daily Disposition Lives with daughter at home We will order PT and OT evaluation Admission and Anticipated Discharge Date Admission Date: January 21, 2021 Subjective ff up for acute respiratory failure, etc seen resting in bed, mostly sleeping as per RN, patient able to have mashed potatoes and apple sauce today, taking her meds by mouth no note of chest pain, dyspnea, cough, abdominal pain, nausea (+) diarrhea in the afternoon no other acute issues per coating operator of Systems Review of Systems: all noted and negative except for above Physical Exam Physical Exam: General- sleeping, breathing with no effort, accessory muscle use Eyes- anicteric Neck- no JVD Lungs- clear breath sounds bilaterally Heart- normal rate, regular rhythm; no murmurs Abdomen- normal bowel sounds, nondistended, soft, nontender Extremities- no pretibial edema, no calf tenderness Neuro- sleeping Skin- warm & dry Results & Data Results & Data ([facility]) Vital Signs (Past 12 Hours) Vital Signs Temp Pulse Pulse Pulse Resp BP Pulse Ox 01/25/21 16:00 36.8 C 84 18 155/86 H 95 01/25/21 11:54 37 C 91 H 20 168/88 H 94 01/25/21 07:57 36.3 C L 74 20 138/79 97 01/25/21 07:29 91 H 91 H 19 97 all noted and reviewed including below
[2021-01-25] MEDS: QUEtiapine FUMARATE 100 MG TABLET PO SCH (20:33)
[2021-01-26] MEDS: DOXYCYCLINE HYCLATE 100 MG in DEXTROSE 5% 100 ML IV SCH ×2 (01:14→14:57)
[2021-01-26] MEDS: LEVOTHYROXINE SODIUM 175 MCG TABLET PO SCH (05:12)
[2021-01-26 07:28] LABS: Partial Thromboplastin Ratio 0.8; Partial Thromboplastin Time < 20.0 Seconds (21.0-31.0)
[2021-01-26] MEDS: predniSONE 20 MG TAB PO SCH (08:22)
[2021-01-26] MEDS: CARBIDOPA/LEVODOPA 25/100MG TAB PO SCH ×2 (08:22→19:32)
[2021-01-26] MEDS: QUEtiapine FUMARATE 25 MG TABLET PO SCH ×2 (08:22→19:32)
[2021-01-26] MEDS: INSULIN ASPART 100 UNITS/ML 3 ML PEN SC SCH ×4 (08:24→20:29)
[2021-01-26] MEDS: PANTOprazole 40 MG in SYRINGE 0 ML IV SCH (12:27)
--- NOTE | 2021-01-26 14:13 | Hospitalist Progress Note ---
Date of Service January 26, 2021 Assessment & Plan (1) Sepsis: Plan: POSSIBLE SEPSIS SECONDARY TO ACUTE BRONCHITIS Present on admission with tachycardia, Leukocytosis, febrile and elevated lactic acid CXR showed no acute cardiopulmonary abnormality. CTA showed no PE and no infiltrates or consolidative lesions are seen Most recent CXR on 01/24 showed slight increase in mild bilateral opacities which favor an infectious process. sputum cx, urine cx and blood cx negative so far IV Vanco and Zosyn were discontinued Currently on doxycycline for Acute Bronchitis, will continue to complete 5 to 7 days course Lactic acid normalize Clinically stable (2) Respiratory failure: Plan: ACUTE HYPOXIC, HYPERCAPNEIC RESPIRATORY FAILURE Acute pulmonary edema Likely secondary to acute bronchitis, in the setting of Parkinson disease/Lewy body dementia, kyphoscoliosis, possible underlying obstructive lung disease Most recent CXR showed Slight increase in mild bilateral opacities which favor an infectious process. Echo showed no regional wall motion abnormality. Left ventricular is hyperdynamic. No hemodynamic significant valvular aortic stenosis. Ejection fraction 65 to 70%. Lasix 40mg IV BID given and Solumedrol 40mg BID Pt was weaned off Bipap Pulmonary on board Continue steroids for 5 days total. PFTs as outpatient can be considered Case management is working on trilogy once discharge home Continue doxycycline BID Keep oxygen sat btw 90 to 94% Will resume PO lasix LEWY BODY DEMENTIA PARKINSON DISEASE METABOLIC ENCEPHALOPATHY SECONDARY TO ABOVE more awake, eating now continue Sinemet, Seroquel MULTIFOCAL ATRIAL TACHYCARDIA likely from respiratory failure HR improving Maintain K above 4 and magnesium above 2 HTN BP meds held to prevent hypotension BP med resumed Will resume Lasix 20mg po at home--> resume when po intake continues to improve GERD continue Protonix DVT Px Lovenox SC daily Disposition Lives with daughter at home PT/OT eval Admission and Anticipated Discharge Date Admission Date: January 21, 2021 Subjective Pt was seen and examined for follow up of respiratory failure Lying in bed with no acute distress Patient said that she feels weak Denies any chest pain, palpitation, dizziness, shortness of breath. Review of Systems Review of Systems: All systems reviewed & are unremarkable except as noted in Subjective Physical Exam Physical Exam: General- No acute distress Head- atraumatic Eyes- PERRL, EOMI, ENT- oropharynx clear Neck- supple, no JVD Lungs- clear to auscultation Heart- regular rhythm; no murmur Abdomen- normal bowel sounds, soft, nontender Extremities- no calf tenderness Neuro- alert, oriented x 3; PERRL, EOMI; no facial palsy; no dysarthria Skin- warm & dry Results & Data Results & Data ([facility]) Vital Signs (Past 12 Hours) Vital Signs Temp Pulse Pulse Resp BP Pulse Ox 01/26/21 11:20 36.8 C 77 18 137/75 90 01/26/21 09:47 94 H 01/26/21 07:36 83 20 132/70 96 01/26/21 03:40 84 20 149/84 H 96 01/26/21 02:48 71 21 94
[2021-01-26] MEDS: ENOXAPARIN INJ 40 MG/0.4 ML SYR SQ SCH (14:57)
[2021-01-26] MEDS: FUROSEMIDE 20 MG TAB PO SCH (17:17)
[2021-01-26] MEDS: QUEtiapine FUMARATE 100 MG TABLET PO SCH (19:33)
[2021-01-27] MEDS: DOXYCYCLINE HYCLATE 100 MG in DEXTROSE 5% 100 ML IV SCH ×2 (00:55→15:33)
[2021-01-27] MEDS: LEVOTHYROXINE SODIUM 175 MCG TABLET PO SCH (04:56)
[2021-01-27 06:38] LABS: Eosinophils # (auto) 0.08 K/uL (0-0.5); Hematocrit (blood only) 42.9 % (37-47); Hemoglobin 13.9 g/dL (12.0-16.0); Immature Granulocytes # (auto) 0.06 K/uL (0.00-0.02); Immature Granulocytes % (auto) 0.7 %; Lymphocytes # (auto) 2.07 K/uL (1.2-3.4); Lymphocytes % (auto) 25.5 %; Mean Corpuscular Hemoglobin 28.7 pg (25-34); Mean Corpuscular Hgb Conc 32.4 g/dL (32-36); Mean Corpuscular Volume 88.6 fL (80-100); Mean Platelet Volume 9.6 fL (7.4-10.4); Monocytes # (auto) 0.79 K/uL (0.11-0.59); Monocytes % (auto) 9.7 %; Neutrophils # (auto) 5.12 K/uL (1.4-6.5); Neutrophils % (auto) 63.1 %; Platelet Count 273 K/uL (130-400); RDW Coefficient of Variation 14.4 % (11.5-14.5); RDW Standard Deviation 46.5 fL (36.4-46.3); Red Blood Count 4.84 M/uL (4.2-5.4); White Blood Count 8.12 K/uL (4.8-10.8)
[2021-01-27 06:54] LABS: Partial Thromboplastin Ratio 0.9; Partial Thromboplastin Time 22.4 Seconds (21.0-31.0)
[2021-01-27 07:19] LABS: BUN Creatinine Ratio 39.5 (10-20); Calcium 8.5 mg/dl (8.5-10.1); Creatinine Clr Calc Pharmacy 73.5 ml/min; Est GFR (African American) 100.8 ml/min; Potassium 3.3 mmol/L (3.5-5.1)
[2021-01-27] MEDS ORDERED: POTASSIUM CHLORIDE 10 MEQ TABCR PO STA (08:03)
[2021-01-27] MEDS ORDERED: POTASSIUM CHLORIDE CRTAB 20 MEQ TABCR PO STA (08:03)
[2021-01-27] MEDS: predniSONE 20 MG TAB PO SCH (08:22)
[2021-01-27] MEDS: FUROSEMIDE 20 MG TAB PO SCH (08:22)
[2021-01-27] MEDS: CARBIDOPA/LEVODOPA 25/100MG TAB PO SCH ×2 (08:22→20:52)
[2021-01-27] MEDS: INSULIN ASPART 100 UNITS/ML 3 ML PEN SC SCH ×4 (08:23→21:08)
[2021-01-27] MEDS: PANTOprazole 40 MG in SYRINGE 0 ML IV SCH (12:05)
[2021-01-27] MEDS: ENOXAPARIN INJ 40 MG/0.4 ML SYR SQ SCH (15:33)
--- NOTE | 2021-01-27 17:22 | Hospitalist Progress Note ---
Date of Service January 27, 2021 Assessment & Plan (1) Sepsis: Plan: POSSIBLE SEPSIS SECONDARY TO ACUTE BRONCHITIS Present on admission with tachycardia, Leukocytosis, febrile and elevated lactic acid CXR showed no acute cardiopulmonary abnormality. CTA showed no PE and no infiltrates or consolidative lesions are seen Most recent CXR on 01/24 showed slight increase in mild bilateral opacities which favor an infectious process. sputum cx, urine cx and blood cx negative so far IV Vanco and Zosyn were discontinued Currently on doxycycline for Acute Bronchitis, will continue to complete 5 to 7 days course Lactic acid normalize Clinically stable (2) Respiratory failure: Plan: ACUTE HYPOXIC, HYPERCAPNEIC RESPIRATORY FAILURE Acute pulmonary edema Likely secondary to acute bronchitis, in the setting of Parkinson disease/Lewy body dementia, kyphoscoliosis, possible underlying obstructive lung disease Most recent CXR showed Slight increase in mild bilateral opacities which favor an infectious process. Echo showed no regional wall motion abnormality. Left ventricular is hyperdynamic. No hemodynamic significant valvular aortic stenosis. Ejection fraction 65 to 70%. Lasix 40mg IV BID given and Solumedrol 40mg BID Pt was weaned off Bipap Continue Lasix PO Pulmonary on board Continue steroids for 5 days total. PFTs as outpatient can be considered Case management is working on trilogy once discharge Continue doxycycline BID Keep oxygen sat btw 90 to 94% LEWY BODY DEMENTIA PARKINSON DISEASE METABOLIC ENCEPHALOPATHY SECONDARY TO ABOVE more awake, eating now continue Sinemet, Seroquel MULTIFOCAL ATRIAL TACHYCARDIA likely from respiratory failure HR improving Maintain K above 4 and magnesium above 2 HTN Continue lasix and lisinopril resumed Continue monitor BP GERD continue Protonix DVT Px Lovenox SC daily Disposition Lives with daughter at home PT/OT eval Admission and Anticipated Discharge Date Admission Date: January 21, 2021 Subjective Pt was seen and examined for follow up of respiratory failure Lying in bed with no acute distress Spoke to nurse, she said that it took 2 people to move the patient Spoke to daughter over the phone and provided with update Daughter said that before the admission that pt was able to use a walker to ambulate Denies any chest pain, palpitation, dizziness, shortness of breath. Review of Systems Review of Systems: All systems reviewed & are unremarkable except as noted in Subjective Physical Exam Physical Exam: General- No acute distress Head- atraumatic Eyes- PERRL, EOMI, ENT- oropharynx clear Neck- supple, no JVD Lungs- clear to auscultation Heart- regular rhythm; no murmur Abdomen- normal bowel sounds, soft, nontender Extremities- no calf tenderness Neuro- alert, oriented x 3; PERRL, EOMI; no facial palsy; no dysarthria Skin- warm & dry Results & Data Results & Data ([facility]) Vital Signs (Past 12 Hours) Vital Signs Temp Pulse Pulse Resp BP BP Pulse Ox 01/27/21 15:37 96 H 01/27/21 15:30 37.2 C 63 20 152/76 H 91 01/27/21 11:16 37 C 79 16 132/71 95 01/27/21 07:07 79 01/27/21 06:47 36.6 C 59 L 18 150/93 H 92
[2021-01-27] MEDS: QUEtiapine FUMARATE 100 MG TABLET PO SCH (20:52)
[2021-01-28] MEDS: DOXYCYCLINE HYCLATE 100 MG in DEXTROSE 5% 100 ML IV SCH (02:12)
[2021-01-28] MEDS: LEVOTHYROXINE SODIUM 175 MCG TABLET PO SCH (05:46)
[2021-01-28 07:08] LABS: Partial Thromboplastin Ratio 0.9; Partial Thromboplastin Time 22.9 Seconds (21.0-31.0)
[2021-01-28 07:20] LABS: Creatinine Clr Calc Pharmacy 64.4 ml/min; Est GFR (African American) 95.2 ml/min; Est GFR (Non-African American) 82.2 ml/min
[2021-01-28] MEDS ORDERED: lisinopril 20 MG TAB PO SCH (09:00)
[2021-01-28] MEDS: predniSONE 20 MG TAB PO SCH (09:23)
[2021-01-28] MEDS: FUROSEMIDE 20 MG TAB PO SCH (09:24)
[2021-01-28] MEDS: CARBIDOPA/LEVODOPA 25/100MG TAB PO SCH (09:24)
[2021-01-28] MEDS: INSULIN ASPART 100 UNITS/ML 3 ML PEN SC SCH ×2 (09:32→12:53)
[2021-01-28] MEDS: PANTOprazole 40 MG in SYRINGE 0 ML IV SCH (12:03)
[2021-01-28] MEDS ORDERED: POTASSIUM CHLORIDE CRTAB 20 MEQ TABCR PO STA (12:21)
--- NOTE | 2021-01-28 12:21 | Hospitalist Progress Note ---
Date of Service January 28, 2021 Assessment & Plan (1) Sepsis: Plan: POSSIBLE SEPSIS SECONDARY TO ACUTE BRONCHITIS Present on admission with tachycardia, Leukocytosis, febrile and elevated lactic acid CXR showed no acute cardiopulmonary abnormality. CTA showed no PE and no infiltrates or consolidative lesions are seen Most recent CXR on 01/24 showed slight increase in mild bilateral opacities which favor an infectious process. sputum cx, urine cx and blood cx negative so far IV Vanco and Zosyn were discontinued Currently on doxycycline for Acute Bronchitis, will complete the the course of the abx today Lactic acid normalize Clinically stable (2) Respiratory failure: Plan: ACUTE HYPOXIC, HYPERCAPNEIC RESPIRATORY FAILURE Acute pulmonary edema Likely secondary to acute bronchitis, in the setting of Parkinson disease/Lewy body dementia, kyphoscoliosis, possible underlying obstructive lung disease Most recent CXR showed Slight increase in mild bilateral opacities which favor an infectious process. Echo showed no regional wall motion abnormality. Left ventricular is hyperdynamic. No hemodynamic significant valvular aortic stenosis. Ejection fraction 65 to 70%. Lasix 40mg IV BID given and Solumedrol 40mg BID Pt was weaned off Bipap Continue Lasix PO Pulmonary on board Continue steroids for 5 days total. PFTs as outpatient can be considered Case management is working on trilogy once discharge Completed doxycycline BID course today Will discharge on prednisone 20mg for 2 days Keep oxygen sat btw 90 to 94% LEWY BODY DEMENTIA PARKINSON DISEASE METABOLIC ENCEPHALOPATHY SECONDARY TO ABOVE more awake, eating now continue Sinemet, Seroquel PT recommended SNF or rehab MULTIFOCAL ATRIAL TACHYCARDIA likely from respiratory failure HR improving Maintain K above 4 and magnesium above 2 Hypokalemia K 3.4 today K replaced Continue K supplement Will check BMP in 1 week HTN Continue lasix and lisinopril resumed Continue monitor BP GERD continue Protonix DVT Px Lovenox SC daily Disposition Plan to discharge to rehab today Admission and Anticipated Discharge Date Admission Date: January 21, 2021 Subjective Pt was seen and examined for follow up of respiratory failure Lying in bed with no acute distress Pt said that she feels fine today I spoke to daughter yesterday about rehab Pt has been accepted to go to [facility] today Denies any chest pain, palpitation, dizziness, shortness of breath. Review of Systems Review of Systems: All systems reviewed & are unremarkable except as noted in Subjective Physical Exam Physical Exam: General- No acute distress Head- atraumatic Eyes- PERRL, EOMI, ENT- oropharynx clear Neck- supple, no JVD Lungs- clear to auscultation Heart- regular rhythm; no murmur Abdomen- normal bowel sounds, soft, nontender Extremities- no calf tenderness Neuro- alert, oriented x 3; PERRL, EOMI; no facial palsy; no dysarthria Skin- warm & dry Results & Data Results & Data ([facility]) Vital Signs (Past 12 Hours) Vital Signs Temp Pulse Pulse Pulse Resp BP Pulse Ox 01/28/21 11:01 36.6 C 99 H 16 118/74 96 01/28/21 07:14 37.0 C 89 16 151/67 H 96 01/28/21 04:01 94 H 01/28/21 03:20 36.5 C 65 20 147/94 H 93 01/28/21 02:15 69 19 97
--- NOTE | 2021-01-28 12:57 | Discharge Summary ---
Date of Service January 28, 2021 Admission HPI Per Admitting Provider This is a 75 y/o female with a PMH of Parkinson's, Lewy body dementia, hypothyroidism, osteoporosis, MGUS, and hypertension who was brought to the ED today via EMS due to altered mental status. History from the patient is unobtainable so the chart was extensively reviewed and additional history was provided by the pt's daughter, Terri, with whom she lives. Per the dtr, pt has been "off" for the past 7-10 days. She brought pt to the ED last week due to concern that she may have a UTI but the wait was several hours and pt wasn't in acute distress so they went home. Over the past few days, the dtr has noted increased need for assistance, especially with feeding, and a foul odor to the urine. Pt did have her left knee injection as scheduled yesterday and was able to make that appointment. Last night she had two episodes of urinary incontinence, which the dtr reports is very unusual for pt. This morning, she took her meds but did not eat her breakfast. When family went to help her to the bathroom, she reported that she had already urinated in her Depend then seemed to "check out." Her dtr reports that she has had similar episodes in the past, but they are usually able to get her to snap out of it and "come back" but that this morning, she seemed confused and in distress so they called EMS. The pt's breathing became labored - dtr used their home pulseox and reported it was in the 60s. EMS applied O2 on arrival and transported pt to the ED. In the ED, pt was given Solumedrol and neb treatment due to wheezing. O2 has been weaned to 4L but pulseox drops when it is removed to upper 80s/low 90s. Work-up in the ED shows possible UTI vs contaminated UA - empiric antibiotics were started. CT head negative, chest x-ray negative. COVID test pending. Pt was vaccinated for COVID per dtr. Admission Exam Per Admitting Provider Constitutional: no acute distress Confused, not answering questions or followi ng commends. Does respond to painful stimuli. Refuses to open eyes or allow them to be opened. Neck: trachea midline Respiratory: + tachypneic; no respiratory distress and does not use accessor y muscles Auscultation: lungs clear to auscultation bilaterally and + diminished lung sounds (at bases); no rales, no rhonchi and no wheezes Cardiovascular: regular rhythm and + tachycardic Heart Sounds: no gallop and no cardiac rub Gastrointestinal: normal bowel sounds; abdomen not distended Percussion/Palpation: abdomen soft; abdomen nontender Head/Neck/Chest: normocephalic, head atraumatic and neck supple Skin: no rashes and no jaundice Neurologic: + confused Speech / Cognition: + abnormal speech (mostly non- verbal ) Psychiatric: Orientation: + not oriented to place and + not oriented to time Principal Diagnosis Sepsis: ACUTE HYPOXIC, HYPERCAPNEIC RESPIRATORY FAILURE Acute pulmonary edema LEWY BODY DEMENTIA PARKINSON DISEASE METABOLIC ENCEPHALOPATHY SECONDARY TO ABOVE MULTIFOCAL ATRIAL TACHYCARDIA Hypokalemia Discharge Exam General- No acute distress Head- atraumatic Eyes- PERRL, EOMI, ENT- oropharynx clear Neck- supple, no JVD Lungs- clear to auscultation Heart- regular rhythm; no murmur Abdomen- normal bowel sounds, soft, nontender Extremities- no calf tenderness Neuro- alert, oriented x 3; PERRL, EOMI; no facial palsy; no dysarthria Skin- warm & dry Discharge Data Allergies Allergy/AdvReac Type Severity Reaction Status Date / Time Sulfa (Sulfonamide Allergy Intermediate HIVES AND Verified 11/24/20 10:49 Antibiotics) RASH Macrolide Antibiotics AdvReac Severe Interacted Unverified 01/21/21 08:11 with other meds Consultations 01/21/21 10:02 ED Decision to Admit Stat 01/22/21 09:16 Consult Pulmonology Routine 01/23/21 04:48 Consult Cardiology Routine Ordered Studies 01/21/21 07:25 CT head/brain wo con Stat 01/21/21 13:25 CT angio chest PE protocol Stat 01/22/21 08:00 US venous doppler LE BI Routine SINGLE VIEW CHEST CLINICAL HISTORY: Dyspnea. FINDINGS: 2 AP, portable, upright chest radiographs are compared to study dated 05/17/2019. Correlation is made with chest CT dated 10/04/2010. The examination is degraded by portable technique and patient rotation. The cardiomediastinal silhouette is unremarkable noting atherosclerotic calcification of the thoracic aorta. There is chronic elevation of the right hemidiaphragm. Scarring/platelike atelectasis is seen in the right midlung. There is no airspace consolidation typical for pneumonia or large pleural effusion. No pneumothorax is seen. The skeletal structures are osteopenic. The bony thorax is grossly intact. Cholecystectomy clips are noted in the right upper quadrant. Degenerative change is noted in the shoulders and thoracic spine. IMPRESSION: No acute cardiopulmonary abnormality. ACT 112: Negative or not required by law. Electronically signed by: Lito Ruff M.D. 01/21/2021 8:31 AM Dictated: 01/21/21828Transcribed: 01/21/21828 CT head/brain wo con CLINICAL HISTORY: ams COMPARISON STUDY: May 15, 2019 TECHNIQUE: Axial CT of the brain is performed from the vertex to the skull base. IV contrast was not administered for this examination. A dose lowering technique was utilized adhering to the principles of ALARA. CT DOSE: 1074.96 mGy.cm FINDINGS: No acute intracranial hemorrhage, no midline shift or space occupying lesions. Edwards-white matter differentiation is preserved. Calcifications of the falx are seen. Evaluation is slightly limited due to beam hardening and motion artifact despite attempts. There are patchy white matter hypodensities likely on a small vessel basis. There is no evidence of pathologic ventricular dilatation. There is no acute depressed skull fractures seen. Visualized paranasal sinuses and mastoid air cells are patent and well-aerated. Motion and beam hardening artifact limits evaluation of osseous structures. IMPRESSION: No acute intracranial hemorrhage, no midline shift or space occupying lesions. No acute depressed calvarial fractures. Limited exam due to motion and beam hardening artifact. ACT 112: Negative or not required by law. The above report was generated using voice recognition software. It may contain grammatical, syntax or spelling errors. Electronically signed by: Milana Katz DO 01/21/2021 8:21 AM Dictated: 01/21/21816Transcribed: 01/21/21816 CT ANGIOGRAM OF THE CHEST CLINICAL HISTORY: PE shortness of breath. COMPARISON STUDY: No previous studies for comparison. TECHNIQUE: Following the IV administration of 120 mL of Optiray, CT angiogram of the thorax was performed from the thoracic inlet to the lung bases utilizing the pulmonary embolus protocol. Images are reviewed in the axial, sagittal, and coronal planes. IV contrast was administered without complication. MIP imaging was performed. A dose lowering technique was utilized adhering to the principles of ALARA. CT DOSE: 714.79 mGy.cm FINDINGS: There is adequate opacification within main pulmonary artery. No definite pulmonary embolus is seen however evaluation of peripheral branches of pulmonary artery is suboptimal due to motion artifact. Main pulmonary artery is normal in caliber. No right heart strain is seen. There is no axillary, supra clavicle or internal mammary lymphadenopathy seen. Evaluation of the right axilla and right chest wall is limited due to close proximity to the CT scan gantry and beam hardening artifact. Heart is normal in size without pericardial effusion. Moderate coronary calcifications are seen. Visualized portion of thyroid gland is not opacified. Esophagus is patulous. Minimal hiatal hernia is seen. Tracheobronchial tree is patent. No large infiltrates or consolidative lesions are seen. There is prominence of the superior aspect of the right major fissure which could be due to loculated effusion however there is no definite pleural effusion is seen at dependent portions of bilateral lower lobes. -Pulmonary micronodule measuring less than 4 mm in size is seen within left upper lobe, and unchanged since remote prior study performed on October 04, 2010 (4/186) Evaluation is of pulmonary parenchyma is significantly limited due to motion artifact. Limited evaluation of upper abdominal viscera shows no evidence of acute abnormalities, status post cholecystectomy and multiple punctate calcifications of the spleen. Limited exam due to motion artifact. Osseous structures: Diffuse osteopenia and degenerative changes of the spine. No definite aggressive osseous lesions are seen. IMPRESSION: 1. No definite central pulmonary embolus is seen. Evaluation of peripheral branches of the pulmonary artery is limited due to motion artifact. No secondary signs of pulmonary embolus. 2. No infiltrates or consolidative lesions are seen. Limited evaluation of pulmonary parenchyma due to motion artifact. 3. Splenic calcifications are seen and could represent sequela from prior granulomatous process. 4. Stable pulmonary micronodule within left upper lobe. 5. The rest of findings as above. ACT 112: Negative or not required by law. The above report was generated using voice recognition software. It may contain grammatical, syntax or spelling errors. Electronically signed by: Milana Katz DO 01/21/2021 3:26 PM Dictated: 01/21/21 1508Transcribed: 01/21/21 1508 XR chest 1V portable CLINICAL HISTORY: hypoxia, possible chf COMPARISON STUDY: January 21, 2021 FINDINGS: No definite pneumothorax is seen however evaluation is limited because bilateral lung apices are obscured by patient's chin.. No pleural effusion. Interval development of prominent mixed reticular and airspace opacity at the left perihilar region which was not seen on prior study yesterday. Lung volumes are decreased. There is prominence of linear density within right mid lung. Right hemidiaphragm remains elevated. Cardiomediastinal silhouette is within normal limits in size. Pulmonary vasculature is indistinct.. Osseous structures: Osteopenia and degenerative changes of the spine. IMPRESSION: 1. Interval development of prominent left perihilar opacity which was not seen on prior study yesterday, might represent atelectasis, or aspiration or focal focal pulmonary edema. Pneumonia could also be included in differential diagnosis. 2. The rest of findings as above. ACT 112: Negative or not required by law. The above report was generated using voice recognition software. It may contain grammatical, syntax or spelling errors. Electronically signed by: Milana Katz DO 01/22/2021 8:40 AM Dictated: 01/22/21835Transcribed: 01/22/21835 US venous doppler LE BI CLINICAL HISTORY: r/o dvt COMPARISON STUDY: No previous studies for comparison. FINDINGS: Real-time and color flow Doppler imaging were performed. Flow was seen within the femoral, popliteal and calf veins with no intraluminal thrombus demonstrated. The saphenous vein is patent. Patient on BiPAP and was unable to follow commands which limits evaluation. IMPRESSION: No evidence of deep venous thrombosis. ACT 112: Negative or not required by law. The above report was generated using voice recognition software. It may contain grammatical, syntax or spelling errors. Electronically signed by: Milana Katz DO 01/22/2021 6:42 PM Dictated: 01/22/211840Transcribed: 01/22/211840 XR chest 1V portable CLINICAL HISTORY: respiratory distress COMPARISON STUDY: January 22, 2021 at 08:07 hours FINDINGS: No evidence of pneumothorax. Slightly limited exam because right lung apex is partially obscured by patient's chin.. No pleural effusion. Recently seen patchy airspace opacities at the left mid to lower lung are significantly improved since recent prior which could be due to better inspiratory effort. Linear density at the right mid lung is no longer visualized. Questionable nodular opacity seen projecting to the right upper lung region. Cardiomediastinal silhouette is within normal limits in size. No significant pulmonary vascular congestion.. Osseous structures: Degenerative changes of the spine. IMPRESSION: 1. Interval improvement of airspace opacities at the left mid to lower lung region. Recently seen linear densities/atelectasis within the right midlung is resolved. 2. Questionable nodular opacity projects into the right mid lung region, attention on follow-up imaging. The rest of findings as above. ACT 112: Negative or not required by law. The above report was generated using voice recognition software. It may contain grammatical, syntax or spelling errors. Electronically signed by: Milana Katz DO 01/22/2021 3:49 PM Dictated: 01/22/21 1547Transcribed: 01/22/21 1547 XR chest 1V portable CLINICAL HISTORY: congestion COMPARISON STUDY: Chest CT January 21, 2021. Chest radiograph January 22, 2021. FINDINGS: Cardiomediastinal silhouette is stable. There is no pneumothorax or pleural effusion. Left basilar opacity is improved. Mild right midlung opacity has slightly increased. There is no evidence for pulmonary edema. There are cholecystectomy clips. IMPRESSION: 1. Interval improvement in left basilar opacity. 2. Slight increase in right midlung opacity. 3. No evidence for pulmonary edema. ACT 112: Negative or not required by law. Electronically signed by: Lamin Conte M.D. 01/23/2021 6:41 AM Dictated: 01/23/21 0640Transcribed: 01/23/21 0640 XR chest 1V portable CLINICAL HISTORY: Respiratory distress. COMPARISON STUDY: Chest CT January 21, 2021. Chest radiograph March 25, 2021. FINDINGS: Incidental note is made of cholecystectomy clips. There is no pneumothorax or pleural effusion. Cardiomediastinal silhouette is stable. There is no evidence for pulmonary edema. There is suspected hazy left midlung opacity. There is minimal right lung opacity. Left lung opacity is slightly increased. IMPRESSION: Slight increase in mild bilateral opacities which favor an infectious process. ACT 112: Negative or not required by law. Electronically signed by: Lamin Conte M.D. 01/24/2021 7:49 AM Dictated: 01/24/21746Transcribed: 01/24/21746 Hospital Course (1) Sepsis: POSSIBLE SEPSIS SECONDARY TO ACUTE BRONCHITIS Present on admission with tachycardia, Leukocytosis, febrile and elevated lactic acid CXR showed no acute cardiopulmonary abnormality. CTA showed no PE and no infiltrates or consolidative lesions are seen Most recent CXR on 01/24 showed slight increase in mild bilateral opacities which favor an infectious process. sputum cx, urine cx and blood cx negative so far IV Vanco and Zosyn were discontinued Currently on doxycycline for Acute Bronchitis, will complete the the course of the abx today Lactic acid normalize Clinically stable (2) Respiratory failure: ACUTE HYPOXIC, HYPERCAPNEIC RESPIRATORY FAILURE Acute pulmonary edema Likely secondary to acute bronchitis, in the setting of Parkinson disease/Lewy body dementia, kyphoscoliosis, possible underlying obstructive lung disease Most recent CXR showed Slight increase in mild bilateral opacities which favor an infectious process. Echo showed no regional wall motion abnormality. Left ventricular is hyperdynamic. No hemodynamic significant valvular aortic stenosis. Ejection fraction 65 to 70%. Lasix 40mg IV BID given and Solumedrol 40mg BID Pt was weaned off Bipap Continue Lasix PO Pulmonary on board Continue steroids for 5 days total. PFTs as outpatient can be considered Case management is working on trilogy once discharge Completed doxycycline BID course today Will discharge on prednisone 20mg for 2 days Keep oxygen sat btw 90 to 94% LEWY BODY DEMENTIA PARKINSON DISEASE METABOLIC ENCEPHALOPATHY SECONDARY TO ABOVE more awake, eating now continue Sinemet, Seroquel PT recommended SNF or rehab MULTIFOCAL ATRIAL TACHYCARDIA likely from respiratory failure HR improving Maintain K above 4 and magnesium above 2 Hypokalemia K 3.4 today K replaced Continue K supplement Will check BMP in 1 week HTN Continue lasix and lisinopril resumed Continue monitor BP GERD continue Protonix DVT Px Lovenox SC daily Disposition Plan to discharge to rehab today Total Time Total Time Spent Total Time Spent (In Minutes): 35 minutes Discharge Plan Discharge Items Patient Disposition: Transfer Inpatient Rehab Fac Reason For Visit: ALTERED MENTAL STATUS Discharge Diagnosis: Sepsis: ACUTE HYPOXIC, HYPERCAPNEIC RESPIRATORY FAILURE Acute pulmonary edema LEWY BODY DEMENTIA PARKINSON DISEASE METABOLIC ENCEPHALOPATHY SECONDARY TO ABOVE MULTIFOCAL ATRIAL TACHYCARDIA Hypokalemia Activity: Resume your previous activity Non-emergency contact: Primary Care Provider Call non-emergency contact if: you have any medication questions Follow-up/Referrals: Burke Pena MD [Primary Care Provider] - (Date & Time 02/01/2021 11:00 AM Provider Burke Pena MD Department Family Practice [facility] ) Diet: Heart Healthy Addtl Attending Provider Instructions: Follow up with your primary care provider Continue physical and occupation therapy Check BMP within 1 week to monitor your renal function Con trilogy at night and as needed whie sleeping and Shortness of breath You will need to arrange for outpatient pulmonary function test ( your physician will refer you) fall precaution Pending Studies at Discharge: No Stand-Alone Forms: My [employer], Smoking Cessation Skilled Items Patient informed of condition?: Yes DNR: Yes Discharge Level of Care: Acute rehab Communicable Disease: No Discharge Prognosis: Stable Lines: None Urinary Catheter: No Medications and DC Order Prescriptions: New prednisone 20 mg Tablet 20 mg PO DAILY Qty: 2 RF: 0 acetaminophen [Tylenol Extra Strength] 500 mg Tablet 500 mg PO Q6H PRN (Reason: fever or pain) Qty: 30 RF: 0 ipratropium bromide 0.02 % Solution 0.5 mg inhalation Q6R PRN (Reason: shortness of breath or wheezing) 30 Days Qty: 75 RF: 0 levalbuterol HCl 1.25 mg/0.5 mL Solution For Nebulization 1.25 mg inhalation Q6R PRN (Reason: shortness of breath or wheezing) Qty: 30 RF: 0 Continued polyethylene glycol 3350 [Miralax] 17 gram/dose powder 17 gm PO QAM RF: 0 furosemide [Lasix] 20 mg tablet 20 mg PO QAM RF: 0 lisinopril [Prinivil] 20 mg tablet 20 mg PO QAM RF: 0 famotidine [Pepcid] 20 mg Tablet 20 mg PO BID RF: 0 omeprazole 20 mg capsule,delayed release(DR/EC) 20 mg PO BID RF: 0 aspirin [Aspirin Low Dose] 81 mg Tablet,Delayed Release (Dr/Ec) 81 mg PO QAM RF: 0 nifedipine [Adalat CC] 60 mg Tablet Extended Release 60 mg PO QAM RF: 0 docusate sodium [Stool Softener] 100 mg Tablet 200 mg PO HS RF: 0 loratadine [Claritin] 10 mg Tablet 10 mg PO QAM RF: 0 calcium carbonate-vitamin D3 [Calcium 500 With D] 500 mg(1,250mg) -400 unit Tablet 1 tab PO BID RF: 0 sucralfate [Carafate] 1 gram Tablet 1 g PO ACHS RF: 0 alendronate [Fosamax] 70 mg Tablet 1 dose PO WK RF: 0 levothyroxine [Synthroid] 175 mcg tablet 175 mcg PO DAILYBB RF: 0 potassium chloride 10 mEq Capsule, Extended Release 20 meq PO DAILY@1600 RF: 0 quetiapine [Seroquel] 25 mg tablet 25 mg PO QAM RF: 0 quetiapine [Seroquel] 100 mg tablet 100 mg PO HS RF: 0 carbidopa-levodopa [Sinemet] 25-100 mg tablet 1 tab PO BID RF: 0 meloxicam [Mobic] 7.5 mg tablet 7.5 mg PO DAILY@1600 RF: 0 Changed tramadol [Ultram] 50 mg Tablet 50 mg PO BID PRN (Reason: Severe Pain (Scale Score 7-10)) Qty: 10 RF: 0 Discontinued hydrocodone-acetaminophen 10-325 mg tablet 1 tab PO Q6H PRN (Reason: Severe Pain (Scale Score 7-10)) RF: 0 Discharge Orders: Discharge Order (Routine); Ordered 01/28/21 Ordered By: Florin Mc Admission Data Admit Date/Time: 01/21/21 18:38 Attending Provider: Florin Mc Admit Provider: Kannan Smith Primary Care Provider: Burke Pena Other Providers: Kannan Smith ; Trino Hagen ; Kojo Navarro ; Ghulam Dale ; Ty Gutierrez ; Esvin Delacruz ; Julian Reese ; Koby Cochran ; Janel Michael ; Julissa Paiz ; Shona Owusu ; Amador Workman ; [facility] ; [facility]
--- NOTE | 2021-02-03 13:53 | Coding Query ---
CODING QUERY To promote full compliance with coding requirements relating to patient care, provider participation is requested in all cases of [employer] uncertainty. Please assist us with the question(s) below: Coding Question(s): Acute on Chronic Respiratory Failure w/ Hypoxia and Hypercapnia is documented on consults but discharge and other documentation states Acute Hypoxic, Hypercapnic Respiratory Failure. Please clarify below: ( ) Acute on Chronic Hypoxic, Hypercapnic Respiratory Failure (x ) Acute Hypoxic, Hypercapnic Respiratory Failure ( ) Other Please Explain: Thank you Aristides Rivera Principal Diagnosis: "that condition established after study, to be chiefly responsible for occasioning the admission of the patient to the hospital for care." Co-Existing Principal Diagnosis: "when two or more diagnoses equally meet the criteria for principal diagnosis as determined by the circumstances of admission, diagnostic work up, and/or therapy provided, and the Alphabetic Index, Tabular List, or another coding guideline does not provide sequencing direction, any one of the diagnoses may be sequenced first." "When the physician has documented what appears to be a current diagnosis in the body of the record, but has not included the diagnosis in the final diagnostic statement, the physician should be asked whether the diagnosis should be added." (Source Coding [facility] 2 QTR90. p3-4) [place]
== END 2021-01-28 14:38 | DRG 871 ==
LOC: ED 07:19 → 2N 07:19 → SUATTDRO 18:38

== ENCOUNTER 2021-04-05 04:03 | Inpatient (IN) ==
[2021-04-05] MEDS ORDERED: RAPID SEQUENCE INDUCTION BAG ONE (04:07)
[2021-04-05] MEDS ORDERED: PROPOFOL IV EMULSION 10 MG/ML 100 ML VIAL IV ONE ×2 (04:16→10:33)
[2021-04-05] MEDS ORDERED: methylPREDNISolone 125 MG/2 ML VIAL IV STA (04:20)
[2021-04-05] MEDS ORDERED: ALBUT/IPRATROP 3MG/0.5MG NEB 3 ML VIAL NEB STA (04:20)
--- NOTE | 2021-04-05 04:22 | Emergency Department Note ---
Impression & Plan Acute hypercapnic respiratory failure ADMIT to ICU ED Provider Note HPI: The patient is a 75-year-old female with history of dementia, acute on chronic respiratory failure with hypoxia and hypercapnia, presents the emergency department tonight in respiratory distress via EMS. Patient reportedly was displaying increased work of breathing last night that was noticed by family. On arrival here to the ED the patient is on a nonrebreather mask with significant increased work of breathing, she is altered mentation and is drowsy/lethargic. She is borderline oxygen saturations at 90% on my initial evaluation. She is not alert to verbal stimuli and appears significantly ill. ROS: -Pulmonary: Increased work of breathing/respiratory distress *10 point review systems was conducted and is otherwise negative unless stated above *Outpatient medications and allergy history reviewed PE: General: Lethargic with increased work of breathing HEENT: Normocephalic, atraumatic, trachea midline Eyes: Extraocular eye movement is intact, no scleral erythema Pulmonary: Diminished bilaterally with tachypnea and significant expiratory wheezing, crackles noted at the bases Cardio: Tachycardic rate with a regular rhythm GI: Abdomen is soft, nontender : No suprapubic tenderness MSK: No evidence of trauma or malformation of the extremities, no edema Skin: No evidence of rash Neuro: Patient is lethargic Psychiatric: Not applicable quality assurance monitor: - An order was placed for continuous cardiac monitoring - Patient was noted to be in irregular rhythm with rate of 122 EKG: Indication: Respiratory distress Rate: 122 Rhythm: Sinus tachycardia with frequent PACs Intervals: QTC 547, otherwise within normal limits ST changes: No ST elevation Time: 0438 Procedure note: Endotracheal intubation RSI medications: 20 mg of etomidate, 80 mg of succinylcholine -Patient was placed in the supine position, patient was premedicated with etomid ate, also medicated with succinylcholine, utilizing a S3 blade and glide scope, visualization was obtained of the vocal cords without difficulty, 7.5 endotracheal tube was advanced and secured at 22 cm at the lip, balloon inflated, tube secured by respiratory therapy, capnography with good color lillie nge, bilateral breath sounds are auscultated. Chest x-ray ordered. Medical Decision Making: Patient presented to the emergency department in significant respiratory distress, shortly after arrival she did require intubation secondary to increased work of breathing and altered mentation. Venous blood gas was obtained that shows evidence of significant hypercarbic respiratory failure with a PCO2 in the 70s, lab work was initiated including blood cultures, lactic acid, CBC, CMP, troponin. Lab work shows evidence of a nonspecific leukocytosis, lactic acid is slightly elevated at 2.1, patient was given nebulized treatments and IV steroids here in the ED. I do suspect that her symptoms are secondary to acute hypercarbic respiratory failure given her history and increased work of breathing on arrival. CT angiography was obtained given the patient's tachycardia that does not show any evidence of pneumonia, no evidence of pulmonary embolism. COVID-19 testing is negative. At this time blood cultures were drawn, will hold off on IV antibiotics given negative CT imaging of the chest, I suspect the patient's symptoms are secondary to acute on chronic COPD exacerbation with hypercarbic re spiratory failure. Patient has a history of dementia, she is reportedly full code at this time however family at the bedside is stating that they may want to be less aggressive with her care in the near future. I did discuss the above findings with the on-call hospitalist through the [facility], Dr. Wong, who accepted the patient to the ICU for further care. Repeat blood gas shows improvement in the patient's hypercarbic respiratory failure following ventilation. Chest x-ray shows appropriate positioning of the ET tube. Patient's daughter at the bedside is in agreement the above plan the patient was admitted to the ICU in improved condition. * Diagnosis: Acute hypoxic respiratory failure with hypercapnia * Disposition: Admission to ICU * CRITICAL CARE TIME: 50 min -Time spent at the bedside independent of procedures for arrangement of ICU care for acute hypoxic respiratory failure with hypercapnia requiring endotracheal intubation, discussion with other physicians and arrangement of admission to the ICU, time spent at the bedside in discussion with family regarding the patient's course of care, interpretation of diagnostic studies Koby Irene DO Emergency Medicine Past Med/Surg History Medical History (Updated 04/05/21 @ 18:03 by Koby Irene DO) Arrhythmia DTR REPORTS PT "SKIPS A BEAT SOMETIMES" Atrial flutter Cystocele with rectocele Dizziness Essential tremor Gait disturbance GERD (gastroesophageal reflux disease) Hallucinations Hypertension Hypothyroidism Hypoxia Lewy body dementia Memory loss Monoclonal gammopathy Osteoarthritis Osteoporosis Palliative care encounter Parkinson disease Peripheral neuropathy Poor balance Senile degeneration of brain Surgical History History of cholecystectomy History of elbow surgery LEFT History of tooth extraction Hx of cataract surgery RIGHT S/P knee surgery Family History Daughter Family history of diabetes mellitus Mother No pertinent family history Father No pertinent family history Other Cancer Social History Smoking Status: Never smoker Second Hand Exposure: Yes (HER WAS A SMOKER); Hx Alcohol Use: No Hx Substance Use: No Preferred Language: Vincentian Communication Ability: Impaired Communication Ability Comment: breathing tube in place Cleaner And Presser Required: No Beliefs That Will Affect Care: None Current Living Situation: Family Current Living Situation Comment: LIVES W/ DTR Other Information That Helps Us Care for You: No Feels Safe at Home: Yes Safety Concerns: Feels Safe At This Time Assistive Devices: Oxygen - Continuous Allergies Allergies Allergy/AdvReac Type Severity Reaction Status Date / Time Sulfa (Sulfonamide Allergy Intermediate HIVES AND Verified 04/05/21 07:19 Antibiotics) RASH Macrolide Antibiotics AdvReac Severe Interacted Unverified 04/05/21 07:19 with other meds Home Meds Home Medications Medication Instructions Recorded Confirmed alendronate 70 mg tablet (Fosamax) 1 dose PO WK 02/26/18 04/05/21 aspirin 81 mg tablet,delayed 81 mg PO QAM 02/26/18 04/05/21 release (Aspirin Low Dose) calcium carbonate 500 mg (1,250 1 tab PO BID 02/26/18 04/05/21 mg)-vitamin D3 400 unit tablet (Calcium 500 With D) docusate sodium 100 mg tablet 200 mg PO HS 02/26/18 04/05/21 (Stool Softener) loratadine 10 mg tablet (Claritin) 10 mg PO QAM 02/26/18 04/05/21 nifedipine 60 mg tablet,extended 60 mg PO QAM 02/26/18 04/05/21 release (Adalat CC) sucralfate 1 gram tablet (Carafate) 1 g PO ACHS 02/26/18 04/05/21 famotidine 20 mg tablet (Pepcid) 20 mg PO HS 05/15/19 04/05/21 omeprazole 20 mg capsule,delayed 20 mg PO BID 05/15/19 04/05/21 release furosemide 20 mg tablet (Lasix) 20 mg PO QAM tab 06/26/19 04/05/21 lisinopril 20 mg tablet (Prinivil) 20 mg PO QAM tab 06/26/19 04/05/21 polyethylene glycol 3350 17 17 gm PO QAM 06/26/19 04/05/21 gram/dose oral powder (Miralax) levothyroxine 175 mcg tablet 175 mcg PO DAILYBB 01/21/21 04/05/21 (Synthroid) meloxicam 7.5 mg tablet (Mobic) 7.5 mg PO DAILY@1600 01/21/21 04/05/21 potassium chloride 10 mEq 20 meq PO DAILY@1600 01/21/21 04/05/21 capsule,extended release quetiapine 100 mg tablet (Seroquel) 100 mg PO HS 01/21/21 04/05/21 quetiapine 25 mg tablet (Seroquel) 25 mg PO QAM 01/21/21 04/05/21 hydrocodone 10 mg-acetaminophen 1 tab PO Q4H PRN 04/05/21 04/05/21 325 mg tablet Previous Rx's Medication Instructions Recorded acetaminophen 500 mg tablet 500 mg PO Q6H PRN #30 tab 01/28/21 (Tylenol Extra Strength) tramadol 50 mg tablet (Ultram) 50 mg PO BID PRN #10 tab 01/28/21 carbidopa 25 mg-levodopa 100 mg 1 tab PO BID 30 Days #60 tab 03/29/21 tablet (Sinemet) Results & Data (ED) Vital Signs Vital Signs - 24 hr 04/05/21 04:12 04/05/21 04:20 04/05/21 04:30 Temperature Temperature Source Pulse Rate 117 H 118 H 122 H Pulse Rate from SpO2 Sensor 131 H 104 H 106 H Respiratory Rate 19 26 H 23 Respiratory Effort / Characteristics Respiratory Depth Respiratory Pattern Blood Pressure Blood Pressure Mean Pulse Oximetry 95 99 92 Oxygen Delivery Method Oxygen Flow Rate Fraction of Inspired Oxygen Sepsis New/Unexplained Change in Mental Status Sepsis Action Taken by Nursing End-Tidal CO2 50 39 04/05/21 04:40 04/05/21 04:42 04/05/21 04:50 Temperature 36.8 C Temperature Source Oral Pulse Rate 120 H 120 H 117 H Pulse Rate from SpO2 Sensor 114 H 118 H Respiratory Rate 23 29 H 26 H Respiratory Effort / Characteristics Short of Breath Respiratory Depth Normal Respiratory Pattern Regular Blood Pressure 153/52 H 121/67 Blood Pressure Mean 85 85 Pulse Oximetry 95 91 95 Oxygen Delivery Method Nebulizer Oxygen Flow Rate 8 Fraction of Inspired Oxygen Sepsis New/Unexplained Change in Mental Status N/A Sepsis Action Taken by Nursing Physician Notified End-Tidal CO2 44 04/05/21 04:52 04/05/21 04:54 04/05/21 05:00 Temperature Temperature Source Pulse Rate 109 H Pulse Rate from SpO2 Sensor 107 H Respiratory Rate 24 31 H Respiratory Effort / Characteristics Mechanically Ventilated Mechanically Ventilated Respiratory Depth Normal Respiratory Pattern Regular Blood Pressure Blood Pressure Mean Pulse Oximetry 95 95 96 Oxygen Delivery Method Mechanical Vent Mechanical Vent Oxygen Flow Rate Fraction of Inspired Oxygen 30 30 Sepsis New/Unexplained Change in Mental Status Sepsis Action Taken by Nursing End-Tidal CO2 40 04/05/21 05:07 04/05/21 05:18 04/05/21 05:27 Temperature Temperature Source Pulse Rate 113 H Pulse Rate from SpO2 Sensor Respiratory Rate 28 H 28 H 24 Respiratory Effort / Characteristics Mechanically Ventilated Respiratory Depth Respiratory Pattern Blood Pressure Blood Pressure Mean Pulse Oximetry 93 94 Oxygen Delivery Method Mechanical Vent Oxygen Flow Rate Fraction of Inspired Oxygen 30 30 Sepsis New/Unexplained Change in Mental Status Sepsis Action Taken by Nursing End-Tidal CO2 41 52 04/05/21 05:30 04/05/21 05:40 04/05/21 05:47 Temperature Temperature Source Pulse Rate 133 H 126 H Pulse Rate from SpO2 Sensor 114 H 112 H Respiratory Rate 19 15 30 H Respiratory Effort / Characteristics Mechanically Ventilated Respiratory Depth Respiratory Pattern Blood Pressure 133/68 136/69 Blood Pressure Mean 89 91 Pulse Oximetry 94 91 97 Oxygen Delivery Method Mechanical Vent Oxygen Flow Rate Fraction of Inspired Oxygen 30 Sepsis New/Unexplained Change in Mental Status Sepsis Action Taken by Nursing End-Tidal CO2 42 54 04/05/21 05:50 04/05/21 06:00 04/05/21 06:10 Temperature Temperature Source Pulse Rate 108 H 106 H 103 H Pulse Rate from SpO2 Sensor 113 H 112 H 102 H Respiratory Rate 22 20 20 Respiratory Effort / Characteristics Mechanically Ventilated Respiratory Depth Respiratory Pattern Blood Pressure 111/55 L Blood Pressure Mean 73 Pulse Oximetry 94 92 93 Oxygen Delivery Method Mechanical Vent Oxygen Flow Rate Fraction of Inspired Oxygen 30 Sepsis New/Unexplained Change in Mental Status Sepsis Action Taken by Nursing End-Tidal CO2 43 39 38 04/05/21 06:20 04/05/21 06:30 04/05/21 06:40 Temperature Temperature Source Pulse Rate 106 H 104 H 100 H Pulse Rate from SpO2 Sensor 114 H 104 H 100 H Respiratory Rate 20 22 20 Respiratory Effort / Characteristics Mechanically Ventilated Respiratory Depth Respiratory Pattern Blood Pressure Blood Pressure Mean Pulse Oximetry 90 93 93 Oxygen Delivery Method Mechanical Vent Oxygen Flow Rate Fraction of Inspired Oxygen 30 Sepsis New/Unexplained Change in Mental Status Sepsis Action Taken by Nursing End-Tidal CO2 39 44 41 Laboratory Data Result diagrams: 04/05/21 04:25 04/05/21 04:25 Lab Results 04/05/21 04/05/21 04/05/21 Range/Units 04:25 04:25 04:25 WBC 13.59 H (4.8-10.8) K/uL RBC 4.75 (4.2-5.4) M/uL Hgb 13.7 (12.0-16.0) g/dL Hct 44.1 (37-47) % MCV 92.8 (80-100) fL MCH 28.8 (25-34) pg MCHC 31.1 L (32-36) g/dL RDW Std Deviation 48.3 H (36.4-46.3) fL RDW Coeff of Marcelino 14.2 (11.5-14.5) % Plt Count 427 H (130-400) K/uL MPV 9.2 (7.4-10.4) fL Immature Gran % (Auto) 0.2 % Neut % (Auto) 90.9 % Lymph % (Auto) 4.4 % [place] % (Auto) 4.4 % Eos % (Auto) 0.1 % Baso % (Auto) 0.0 % Neut # (Auto) 12.35 H (1.4-6.5) K/uL Lymph # (Auto) 0.60 L (1.2-3.4) K/uL [place] # (Auto) 0.60 H (0.11-0.59) K/uL Eos # (Auto) 0.01 (0-0.5) K/uL Baso # (Auto) 0.00 (0-0.2) K/uL Immature Gran # (Auto) 0.03 H (0.00-0.02) K/uL PT (9.0-12.0) Seconds INR (0.9-1.1) APTT (21.0-31.0) Seconds PTT Ratio POC pH (7.35-7.45) POC pCO2 (35-46) mmHg POC pO2 (80-95) mmHg POC HCO3 (19-24) sandro/L POC Total CO2 (24-31) mmol/L POC Base Excess (-9-1.8) sandro/L ABG pH (7.35-7.45) ABG pCO2 (35-46) mmHg ABG pO2 (80-95) mmHg ABG HCO3 (19-24) mmol/L ABG O2 Saturation (90-95) % ABG Base Excess (-9-1.8) mEq/L Mushtaq Test (Pos) VBG pH (7.36-7.41) VBG pCO2 (38-50) mmHg VBG pO2 mmHg VBG HCO3 mmol/L VBG O2 Saturation % VBG Base Excess mEq/L Barometric Pressure mm/Hg Oxygen Given Sodium 139 (136-145) mmol/L Potassium 4.7 (3.5-5.1) mmol/L Chloride 108 H (98-107) mmol/L Carbon Dioxide 27 (21-32) mmol/L Anion Gap 4.0 (3-11) BUN 30 H (7-18) mg/dl Creatinine 0.90 (0.6-1.2) mg/dl Est Cr Clr Drug Dosing 51.3 ml/min Est GFR ( Amer) 71.5 ml/min Est GFR (Non-Af Amer) 61.7 ml/min BUN/Creatinine Ratio 33.3 H (10-20) Glucose 219 H (70-99) mg/dl Lactate (0.4-2.0) mmol/L Calcium 9.0 (8.5-10.1) mg/dl Magnesium 2.4 (1.8-2.4) mg/dl Total Bilirubin 0.3 (0.2-1) mg/dl AST 12 L (15-37) U/L ALT 17 (12-78) U/L Alkaline Phosphatase 89 (45-117) U/L Troponin I < 0.015 (0-0.045) ng/ml NT-Pro-B Natriuret Pep 418 (0-1800) pg/ml Total Protein 7.7 (6.4-8.2) gm/dl Albumin 3.5 (3.4-5.0) gm/dl Globulin 4.2 H (2.5-4.0) gm/dl Albumin/Globulin Ratio 0.8 L (0.9-2) Procalcitonin < 0.05 (0-0.5) ng/ml Urine Color Urine Appearance (Clear) Urine pH (4.5-7.5) Ur Specific [place] (1.000-1.030) Urine Protein (Negative) Urine Glucose (UA) (Negative) Urine Ketones (Negative) Urine Blood (Negative) Urine Nitrite (Negative) Urine Bilirubin (Negative) Urine Urobilinogen (Negative) Ur Leukocyte Esterase (Negative) Urine WBC (Auto) (0-5) /hpf Urine RBC (Auto) (0-4) /hpf U Hyaline Cast (Auto) (0-5) /lpf U Epithel Cells (Auto) (0-5) /lpf Urine Bacteria (Auto) (Negative) Urine Yeast (None Prsent) COVID-19 Eval Order SARS-CoV-2 (PCR) (Negative) 04/05/21 04/05/21 04/05/21 Range/Units 04:25 04:25 04:25 WBC (4.8-10.8) K/uL RBC (4.2-5.4) M/uL Hgb (12.0-16.0) g/dL Hct (37-47) % MCV (80-100) fL MCH (25-34) pg MCHC (32-36) g/dL RDW Std Deviation (36.4-46.3) fL RDW Coeff of Marcelino (11.5-14.5) % Plt Count (130-400) K/uL MPV (7.4-10.4) fL Immature Gran % (Auto) % Neut % (Auto) % Lymph % (Auto) % [place] % (Auto) % Eos % (Auto) % Baso % (Auto) % Neut # (Auto) (1.4-6.5) K/uL Lymph # (Auto) (1.2-3.4) K/uL [place] # (Auto) (0.11-0.59) K/uL Eos # (Auto) (0-0.5) K/uL Baso # (Auto) (0-0.2) K/uL Immature Gran # (Auto) (0.00-0.02) K/uL PT 10.6 (9.0-12.0) Seconds INR 1.0 (0.9-1.1) APTT 21.8 (21.0-31.0) Seconds PTT Ratio 0.8 POC pH (7.35-7.45) POC pCO2 (35-46) mmHg POC pO2 (80-95) mmHg POC HCO3 (19-24) sandro/L POC Total CO2 (24-31) mmol/L POC Base Excess (-9-1.8) sandro/L ABG pH (7.35-7.45) ABG pCO2 (35-46) mmHg ABG pO2 (80-95) mmHg ABG HCO3 (19-24) mmol/L ABG O2 Saturation (90-95) % ABG Base Excess (-9-1.8) mEq/L Mushtaq Test (Pos) VBG pH 7.16 L (7.36-7.41) VBG pCO2 78 H (38-50) mmHg VBG pO2 71 mmHg VBG HCO3 27 mmol/L VBG O2 Saturation 91.0 % VBG Base Excess -3.2 mEq/L Barometric Pressure 732.8 mm/Hg Oxygen Given Sodium (136-145) mmol/L Potassium (3.5-5.1) mmol/L Chloride (98-107) mmol/L Carbon Dioxide (21-32) mmol/L Anion Gap (3-11) BUN (7-18) mg/dl Creatinine (0.6-1.2) mg/dl Est Cr Clr Drug Dosing ml/min Est GFR ( Amer) ml/min Est GFR (Non-Af Amer) ml/min BUN/Creatinine Ratio (10-20) Glucose (70-99) mg/dl Lactate 2.1 H* (0.4-2.0) mmol/L Calcium (8.5-10.1) mg/dl Magnesium (1.8-2.4) mg/dl Total Bilirubin (0.2-1) mg/dl AST (15-37) U/L ALT (12-78) U/L Alkaline Phosphatase (45-117) U/L Troponin I (0-0.045) ng/ml NT-Pro-B Natriuret Pep (0-1800) pg/ml Total Protein (6.4-8.2) gm/dl Albumin (3.4-5.0) gm/dl Globulin (2.5-4.0) gm/dl Albumin/Globulin Ratio (0.9-2) Procalcitonin (0-0.5) ng/ml Urine Color Urine Appearance (Clear) Urine pH (4.5-7.5) Ur Specific [place] (1.000-1.030) Urine Protein (Negative) Urine Glucose (UA) (Negative) Urine Ketones (Negative) Urine Blood (Negative) Urine Nitrite (Negative) Urine Bilirubin (Negative) Urine Urobilinogen (Negative) Ur Leukocyte Esterase (Negative) Urine WBC (Auto) (0-5) /hpf Urine RBC (Auto) (0-4) /hpf U Hyaline Cast (Auto) (0-5) /lpf U Epithel Cells (Auto) (0-5) /lpf Urine Bacteria (Auto) (Negative) Urine Yeast (None Prsent) COVID-19 Eval Order SARS-CoV-2 (PCR) (Negative) 04/05/21 04/05/21 04/05/21 Range/Units 04:27 04:28 04:44 WBC (4.8-10.8) K/uL RBC (4.2-5.4) M/uL Hgb (12.0-16.0) g/dL Hct (37-47) % MCV (80-100) fL MCH (25-34) pg MCHC (32-36) g/dL RDW Std Deviation (36.4-46.3) fL RDW Coeff of Marcelino (11.5-14.5) % Plt Count (130-400) K/uL MPV (7.4-10.4) fL Immature Gran % (Auto) % Neut % (Auto) % Lymph % (Auto) % [place] % (Auto) % Eos % (Auto) % Baso % (Auto) % Neut # (Auto) (1.4-6.5) K/uL Lymph # (Auto) (1.2-3.4) K/uL [place] # (Auto) (0.11-0.59) K/uL Eos # (Auto) (0-0.5) K/uL Baso # (Auto) (0-0.2) K/uL Immature Gran # (Auto) (0.00-0.02) K/uL PT (9.0-12.0) Seconds INR (0.9-1.1) APTT (21.0-31.0) Seconds PTT Ratio POC pH 7.27 L (7.35-7.45) POC pCO2 59 H (35-46) mmHg POC pO2 222 H (80-95) mmHg POC HCO3 27 H (19-24) sandro/L POC Total CO2 29 (24-31) mmol/L POC Base Excess 0.0 (-9-1.8) sandro/L ABG pH 7.27 L (7.35-7.45) ABG pCO2 53 H (35-46) mmHg ABG pO2 204 H (80-95) mmHg ABG HCO3 24 (19-24) mmol/L ABG O2 Saturation 99.5 H (90-95) % ABG Base Excess -3.7 (-9-1.8) mEq/L Mushtaq Test POS (Pos) VBG pH (7.36-7.41) VBG pCO2 (38-50) mmHg VBG pO2 mmHg VBG HCO3 mmol/L VBG O2 Saturation % VBG Base Excess mEq/L Barometric Pressure 734.3 mm/Hg Oxygen Given Sodium (136-145) mmol/L Potassium (3.5-5.1) mmol/L Chloride (98-107) mmol/L Carbon Dioxide (21-32) mmol/L Anion Gap (3-11) BUN (7-18) mg/dl Creatinine (0.6-1.2) mg/dl Est Cr Clr Drug Dosing ml/min Est GFR ( Amer) ml/min Est GFR (Non-Af Amer) ml/min BUN/Creatinine Ratio (10-20) Glucose (70-99) mg/dl Lactate (0.4-2.0) mmol/L Calcium (8.5-10.1) mg/dl Magnesium (1.8-2.4) mg/dl Total Bilirubin (0.2-1) mg/dl AST (15-37) U/L ALT (12-78) U/L Alkaline Phosphatase (45-117) U/L Troponin I (0-0.045) ng/ml NT-Pro-B Natriuret Pep (0-1800) pg/ml Total Protein (6.4-8.2) gm/dl Albumin (3.4-5.0) gm/dl Globulin (2.5-4.0) gm/dl Albumin/Globulin Ratio (0.9-2) Procalcitonin (0-0.5) ng/ml Urine Color Urine Appearance (Clear) Urine pH (4.5-7.5) Ur Specific [place] (1.000-1.030) Urine Protein (Negative) Urine Glucose (UA) (Negative) Urine Ketones (Negative) Urine Blood (Negative) Urine Nitrite (Negative) Urine Bilirubin (Negative) Urine Urobilinogen (Negative) Ur Leukocyte Esterase (Negative) Urine WBC (Auto) (0-5) /hpf Urine RBC (Auto) (0-4) /hpf U Hyaline Cast (Auto) (0-5) /lpf U Epithel Cells (Auto) (0-5) /lpf Urine Bacteria (Auto) (Negative) Urine Yeast (None Prsent) COVID-19 Eval Order Covid19 at [facility] SARS-CoV-2 (PCR) (Negative) 04/05/21 04/05/21 04/05/21 Range/Units 04:44 04:49 06:30 WBC (4.8-10.8) K/uL RBC (4.2-5.4) M/uL Hgb (12.0-16.0) g/dL Hct (37-47) % MCV (80-100) fL MCH (25-34) pg MCHC (32-36) g/dL RDW Std Deviation (36.4-46.3) fL RDW Coeff of Marcelino (11.5-14.5) % Plt Count (130-400) K/uL MPV (7.4-10.4) fL Immature Gran % (Auto) % Neut % (Auto) % Lymph % (Auto) % [place] % (Auto) % Eos % (Auto) % Baso % (Auto) % Neut # (Auto) (1.4-6.5) K/uL Lymph # (Auto) (1.2-3.4) K/uL [place] # (Auto) (0.11-0.59) K/uL Eos # (Auto) (0-0.5) K/uL Baso # (Auto) (0-0.2) K/uL Immature Gran # (Auto) (0.00-0.02) K/uL PT (9.0-12.0) Seconds INR (0.9-1.1) APTT (21.0-31.0) Seconds PTT Ratio POC pH (7.35-7.45) POC pCO2 (35-46) mmHg POC pO2 (80-95) mmHg POC HCO3 (19-24) sandro/L POC Total CO2 (24-31) mmol/L POC Base Excess (-9-1.8) sandro/L ABG pH (7.35-7.45) ABG pCO2 (35-46) mmHg ABG pO2 (80-95) mmHg ABG HCO3 (19-24) mmol/L ABG O2 Saturation (90-95) % ABG Base Excess (-9-1.8) mEq/L Mushtaq Test (Pos) VBG pH (7.36-7.41) VBG pCO2 (38-50) mmHg VBG pO2 mmHg VBG HCO3 mmol/L VBG O2 Saturation % VBG Base Excess mEq/L Barometric Pressure mm/Hg Oxygen Given Sodium (136-145) mmol/L Potassium (3.5-5.1) mmol/L Chloride (98-107) mmol/L Carbon Dioxide (21-32) mmol/L Anion Gap (3-11) BUN (7-18) mg/dl Creatinine (0.6-1.2) mg/dl Est Cr Clr Drug Dosing ml/min Est GFR ( Amer) ml/min Est GFR (Non-Af Amer) ml/min BUN/Creatinine Ratio (10-20) Glucose (70-99) mg/dl Lactate 3.8 H* (0.4-2.0) mmol/L Calcium (8.5-10.1) mg/dl Magnesium (1.8-2.4) mg/dl Total Bilirubin (0.2-1) mg/dl AST (15-37) U/L ALT (12-78) U/L Alkaline Phosphatase (45-117) U/L Troponin I (0-0.045) ng/ml NT-Pro-B Natriuret Pep (0-1800) pg/ml Total Protein (6.4-8.2) gm/dl Albumin (3.4-5.0) gm/dl Globulin (2.5-4.0) gm/dl Albumin/Globulin Ratio (0.9-2) Procalcitonin (0-0.5) ng/ml Urine Color Yellow Urine Appearance Cloudy A (Clear) Urine pH 5.0 (4.5-7.5) Ur Specific [place] 1.025 (1.000-1.030) Urine Protein 1+ H (Negative) Urine Glucose (UA) Trace H (Negative) Urine Ketones Negative (Negative) Urine Blood Negative (Negative) Urine Nitrite Negative (Negative) Urine Bilirubin Negative (Negative) Urine Urobilinogen Negative (Negative) Ur Leukocyte Esterase Negative (Negative) Urine WBC (Auto) >30 H (0-5) /hpf Urine RBC (Auto) 5-10 H (0-4) /hpf U Hyaline Cast (Auto) 0 (0-5) /lpf U Epithel Cells (Auto) >30 H (0-5) /lpf Urine Bacteria (Auto) Negative (Negative) Urine Yeast Budding A (None Prsent) COVID-19 Eval Order SARS-CoV-2 (PCR) NEGATIVE (Negative) Administered Medications Carbidopa/Levodopa (Carbidopa/Levodopa 25/100mg Tab) 1 tab PO BID AADL Stop: 05/05/21 09:59 Last Admin: 04/05/21 11:34 Dose: Not Given Documented by: [id number] Enoxaparin Sodium (Enoxaparin Inj 40 Mg/0.4 Ml Syr) 40 mg SQ Q24H ADAL Stop: 05/05/21 09:21 Last Admin: 04/05/21 10:38 Dose: 40 mg Documented by: [id number] Sodium Chloride (Nss 1000ml) 1,000 mls @ 125 mls/hr IV .Q8H ADAL Stop: 05/05/21 09:21 Last Admin: 04/05/21 09:48 Dose: 125 mls/hr Documented by: [id number] Famotidine 20 mg/ Syringe 5 mls @ 2.5 mls/min IV BID ADAL Stop: 05/05/21 09:21 Last Admin: 04/05/21 11:16 Dose: Not Given Documented by: [id number] Doxycycline Hyclate 100 mg/ (Dextrose) 110 mls @ 50 mls/hr IV BID ADAL Stop: 04/12/21 10:59 Last Infusion: 04/05/21 13:55 Dose: 0 mls/hr Documented by: [id number] Admin: 04/05/21 11:15 Dose: 50 mls/hr Documented by: [id number] Methylprednisolone 40 mg/ (Syringe) 0.64 mls @ 1.5 mls/min IV Q8H [facility] Stop: 05/05/21 09:59 Last Admin: 04/05/21 13:03 Dose: 1.5 mls/min Documented by: [id number] Propofol (Diprivan) 1,000 mg in 100 mls @ 9.6 mls/hr IV .[id number] ADAL; Protocol Stop: 04/08/21 11:29 Last Titration: 04/05/21 13:44 Dose: 20 mcg/kg/min, 9.6 mls/hr Documented by: [id number] Admin: 04/05/21 12:20 Dose: 20 mcg/kg/min, 9.6 mls/hr Documented by: [id number] Cosigned by: [id number] Fentanyl Citrate (Fentanyl Drip) 1,250 mcg in 250 mls @ 10 mls/hr IV .Q25H [facility]; Protocol Stop: 04/19/21 11:29 Last Titration: 04/05/21 14:30 Dose: 50 mcg/hr, 10 mls/hr Documented by: [id number] Cosigned by: [id number] Titration: 04/05/21 13:44 Dose: 25 mcg/hr, 5 mls/hr Documented by: [id number] Cosigned by: [id number] Admin: 04/05/21 12:53 Dose: 25 mcg/hr, 5 mls/hr Documented by: [id number] Cosigned by: [id number] Piperacillin Sod/Tazobactam (Sod 4.5 gm/ Dextrose) 120 mls @ 30 mls/hr IV Q8H [facility]; Protocol Stop: 04/12/21 14:14 Last Admin: 04/05/21 14:58 Dose: 30 mls/hr Documented by: [id number] Insulin Aspart (Insulin Aspart 100 Units/Ml 3 Ml Pen) 0 units SC ACHS [facility] Stop: 05/05/21 09:21 Last Admin: 04/05/21 13:53 Dose: Not Given Documented by: [id number] Cosigned by: [id number] Admin: 04/05/21 11:39 Dose: Not Given Documented by: [id number] Cosigned by: [id number] Ipratropium [place] (Ipratropium [place] Neb Soln 0.02% 2.5 Ml Vial) 0.5 mg INH Q6R ADAL Stop: 05/05/21 09:59 Last Admin: 04/05/21 14:07 Dose: 0.5 mg Documented by: [id number] Admin: 04/05/21 10:33 Dose: 0.5 mg Documented by: [id number] Levalbuterol HCl (Levalbuterol 1.25mg/0.5ml Neb) 1.25 mg INH Q6R ADAL Stop: 05/05/21 09:59 Last Admin: 04/05/21 14:08 Dose: 1.25 mg Documented by: [id number] Admin: 04/05/21 10:33 Dose: 1.25 mg Documented by: [id number] Quetiapine Fumarate (Quetiapine Fumarate 25 Mg Tablet) 25 mg PO QAM [facility] Stop: 05/05/21 09:59 Last Admin: 04/05/21 11:33 Dose: Not Given Documented by: [id number] Discontinued Medications Albuterol (Albut/Ipratrop 3mg/0.5mg Neb 3 Ml Vial) 3 ml NEB NOW STA Stop: 04/05/21 04:21 Last Admin: 04/05/21 04:39 Dose: 3 ml Documented by: [id number] Famotidine (Famotidine 20mg/5ml Iv Push) Confirm Administered Dose 20 mg IV .STK-MED ONE Stop: 04/05/21 11:08 Last Admin: 04/05/21 11:16 Dose: 20 mg Documented by: [id number] Piperacillin Sod/Tazobactam Sod (Zosyn) 4.5 gm in 120 mls @ 240 mls/hr IV NOW ONE; Protocol Stop: 04/05/21 10:29 Last Infusion: 04/05/21 11:21 Dose: 0 mls/hr Documented by: [id number] Admin: 04/05/21 10:08 Dose: 240 mls/hr Documented by: [id number] Ioversol (Optiray 320 125ml) 125 ml IV ONCE ONE Stop: 04/05/21 05:27 Last Admin: 04/05/21 05:27 Dose: 91 ml Documented by: [id number] Methylprednisolone (Methylprednisolone 125 Mg/2 Ml Vial) 125 mg IV NOW STA Stop: 04/05/21 04:21 Last Admin: 04/05/21 04:39 Dose: 125 mg Documented by: [id number] Methylprednisolone (Methylprednisolone 40 Mg/Ml Vial) Confirm Administered Dose 40 mg .ROUTE .STK-MED ONE Stop: 04/05/21 13:00 Last Admin: 04/05/21 13:04 Dose: Not Given Documented by: [id number] Miscellaneous (Rapid Sequence Induction Bag) Confirm Administered Dose 1 ea .ROUTE .STK-MED ONE Stop: 04/05/21 04:08 Last Admin: 04/05/21 04:39 Dose: 1 ea Documented by: [id number] Propofol (Propofol Iv Emulsion 10 Mg/Ml 100 Ml Vial) Confirm Administered Dose 1,000 mg IV .STK-MED ONE Stop: 04/05/21 04:17 Last Admin: 04/05/21 04:39 Dose: 1,000 mg Documented by: [id number] Cosigned by: [id number] Propofol (Propofol Iv Emulsion 10 Mg/Ml 100 Ml Vial) Confirm Administered Dose 1,000 mg IV .STK-MED ONE Stop: 04/05/21 10:34 Last Admin: 04/05/21 11:18 Dose: 1,000 mg Documented by: [id number] Cosigned by: [id number] Imaging Data Radiologist's Impression: Chest X-Ray 04/05/21 04:18 XR chest 1V portable CLINICAL HISTORY: SEPSIS/intubated TECHNIQUE: Single frontal radiograph of the chest was obtained. Comparison: Comparison is made to chest one view 01/24/2021 FINDINGS: Endotracheal tube terminates approximately 3 cm from the kareen. Enteric tube terminates in the stomach. The cardiomediastinal silhouette is normal. Lungs are underinflated and there are right greater than left airspace opacities likely represent atelectasis. No evidence of pleural effusion or pneumothorax. IMPRESSION: Satisfactory position of endotracheal and enteric tubes. Underinflated lungs with likely right atelectasis. ACT 112: Negative or not required by law. Electronically signed by: Rasat Lang M.D. 04/05/2021 8:43 AM Chest CTA 04/05/21 05:10 CT ANGIOGRAM OF THE CHEST CLINICAL HISTORY: Hypoxia. COMPARISON STUDY: Chest x-ray dated 03/26/2021. Chest CT dated 01/21/2021. TECHNIQUE: Following the IV administration of 91 cc of Optiray 320, CT angiogram of the chest was performed from the upper abdomen to the thoracic inlet utilizing the pulmonary embolus protocol. Images are reviewed in the axial, sagittal, and coronal planes. 3-D MIPS images are created and assessed. IV contrast was administered without complication. A dose lowering technique was utilized adhering to the principles of ALARA. The examination is severely degraded by motion artifact, as well as by streak artifact from the arms which could not be elevated above the chest. CT DOSE: 643.67 mGy.cm FINDINGS: Thyroid: Enlarged and heterogeneous. Thoracic aorta: There is atherosclerotic calcification of the thoracic aorta comment with is normal in caliber and demonstrates standard 3-vessel arch anatomy. No dissection is seen. Pulmonary vasculature: The pulmonary trunk is normal in caliber. There are no filling defects identified in main or lobar pulmonary branches to suggest pulmonary embolus. The segmental and subsegmental branches cannot be evaluated due to severe motion artifact. Heart: The heart is top normal in size and without pericardial effusion. There are coronary artery calcifications. Lungs and pleural spaces: Evaluation of the lung parenchyma is severely degraded by motion artifact. Dependent atelectasis is seen at both lung bases. Additional foci of linear scarring/atelectasis are noted throughout both lungs. The trachea is grossly clear. No airspace consolidation typical for pneumonia or large pleural effusion is identified. Scattered calcified granulomas are observed. Mediastinum: No mediastinal lymphadenopathy is clearly identified. Marisol: Grossly clear. Axillae: There is no axillary lymphadenopathy. Upper abdomen: An enteric tube is in place. Cholecystectomy clips are noted. There are numerous calcified splenic granulomas. Skeletal structures: The skeletal structures are osteopenic. No lytic or blastic bony lesions are seen. Arthritic change is seen in the shoulders. IMPRESSION: 1. Severely streak and motion degraded examination. 2. There is no evidence of central pulmonary embolus in the main or lobar pulmonary arteries. The segmental and subsegmental branches cannot be assessed due to artifact. 3. No airspace consolidation typical for pneumonia or pleural effusion is identified. ACT 112: Negative or not required by law. Electronically signed by: Lito Ruff M.D. 04/05/2021 8:32 AM Discharge Plan Visit Data Chief Complaint: Shortness of Breath/Dyspnea Stated Complaint: Resp Distress ED Provider: Koby Irene Discharge Problem: Acute hypercapnic respiratory failure Patient Disposition: Admitted As Inpatient Discharge Instructions Interventions: ED Discharge Assessment Last Done: 04/05/21 09:10
[2021-04-05 04:38] LABS: Eosinophils # (auto) 0.01 K/uL (0-0.5); Eosinophils % (auto) 0.1 %; Hematocrit (blood only) 44.1 % (37-47); Hemoglobin 13.7 g/dL (12.0-16.0); Immature Granulocytes # (auto) 0.03 K/uL (0.00-0.02); Immature Granulocytes % (auto) 0.2 %; Lymphocytes % (auto) 4.4 %; Mean Corpuscular Hemoglobin 28.8 pg (25-34); Mean Corpuscular Hgb Conc 31.1 g/dL (32-36); Mean Corpuscular Volume 92.8 fL (80-100); Mean Platelet Volume 9.2 fL (7.4-10.4); Monocytes % (auto) 4.4 %; Neutrophils # (auto) 12.35 K/uL (1.4-6.5); Neutrophils % (auto) 90.9 %; Platelet Count 427 K/uL (130-400); RDW Coefficient of Variation 14.2 % (11.5-14.5); RDW Standard Deviation 48.3 fL (36.4-46.3); Red Blood Count 4.75 M/uL (4.2-5.4); White Blood Count 13.59 K/uL (4.8-10.8)
[2021-04-05 04:39] LABS: Base Excess VBG -3.2 mEq/L; pH VBG 7.16 (7.36-7.41)
[2021-04-05 04:41] LABS: Base Excess ABG -3.7 mEq/L (-9-1.8); HCO3 ABG 24 mmol/L (19-24); Oxygen Saturation ABG 99.5 % (90-95); PCO2 ABG 53 mmHg (35-46); PO2 ABG 204 mmHg (80-95); pH ABG 7.27 (7.35-7.45)
[2021-04-05 04:49] LABS: Partial Thromboplastin Ratio 0.8; Partial Thromboplastin Time 21.8 Seconds (21.0-31.0); Prothrombin Time 10.6 Seconds (9.0-12.0)
[2021-04-05 04:54] LABS: Alanine Aminotransferase 17 U/L (12-78); Albumin Level 3.5 gm/dl (3.4-5.0); Aspartate Aminotransferase 12 U/L (15-37); BUN Creatinine Ratio 33.3 (10-20); Blood Urea Nitrogen 30 mg/dl (7-18); Carbon Dioxide 27 mmol/L (21-32); Chloride 108 mmol/L (98-107); Creatinine Clr Calc Pharmacy 51.3 ml/min; Est GFR (African American) 71.5 ml/min; Est GFR (Non-African American) 61.7 ml/min; Glucose 219 mg/dl (70-99); Magnesium 2.4 mg/dl (1.8-2.4); Potassium 4.7 mmol/L (3.5-5.1); Sodium 139 mmol/L (136-145)
[2021-04-05 04:55] LABS: Allen Test POS (Pos)
[2021-04-05 04:59] LABS: Albumin Globulin Ratio 0.8 (0.9-2); Alkaline Phosphatase 89 U/L (45-117); Bilirubin,Total 0.3 mg/dl (0.2-1); Globulin 4.2 gm/dl (2.5-4.0); NT Pro B Type Natriuretic Pept 418 pg/ml (0-1800); Total Protein 7.7 gm/dl (6.4-8.2); Troponin I < 0.015 ng/ml (0-0.045)
[2021-04-05 05:02] LABS: Appearance Urine Cloudy (Clear); Bacteria Urine Automated Negative (Negative); Bilirubin Urine Negative (Negative); Blood Urine Negative (Negative); Color Urine Yellow; Epithelial Cell Urine Auto >30 /lpf (0-5); Glucose Urine UA Trace (Negative); Ketones Urine Negative (Negative); Leukocyte Esterase Urine Negative (Negative); Nitrite Urine Negative (Negative); Protein Urine 1+ (Negative); Specific Gravity Urine 1.025 (1.000-1.030); Urobilinogen Urine Negative (Negative); WBC Urine Automated >30 /hpf (0-5)
[2021-04-05] MEDS ORDERED: OPTIRAY 320 125ml IV ONE (05:26)
[2021-04-05 05:28] LABS: Cast Urine Automated 0 /lpf (0-5)
--- NOTE | 2021-04-05 08:19 | History and Physical Report ---
DATE OF ADMISSION: 04/05/2021 CHIEF COMPLAINT: Acute respiratory failure. HISTORY OF PRESENT ILLNESS: This is a 75-year-old female with past medical history significant for hypothyroidism, hypertension, GERD, generalized osteoarthritis, osteoporosis, Parkinson disease, Lewy body dementia without behavioral disturbance,who lives at home, was brought in because of respiratory distress. The patient was here in the hospital in January of this year with acute hypoxic and hypercapnic respiratory failure, seen by Pulmonary. At that time, thought from acute bronchitis . She received antibiotics, steroids and she did fine and she was discharged to [facility] and from [facility] she was discharged back to home. She lives with her and daughter. Per daughter she was doing okay. She walks with a walker. She chops the food for her to eat. Daughter does not think she has been aspirated. She was doing fine when she went to sleep in the nighttime. She took her to the bathroom around 11:00 p.m. Patient's goes to work and around 2:00 a.m., he checked her and she was doing fine and she when daughter went to check her around 3:00 in the morning, she was found to be struggling to breathe and she was not answering any questions and she was drooling and she called the ambulance. She was brought into the ER with non-breather. Her venous blood gas showed pH of 7.16 and pCO2 of 78 and ER physician intubated the patient in the ER. Currently status post intubation on Diprivan. Daughter is in the room. Otherwise, the patient is afebrile. Hemodynamics are stable. As per daughter, there is no recent fever, no cough, no nausea, no vomiting, no complaints of any pain, no diarrhea. ALLERGIES: SULFA ANTIBIOTICS, MACROLIDES. PAST MEDICAL HISTORY: As mentioned above. PAST SURGICAL HISTORY: No past surgical history on file. MEDICATIONS: As per [facility], the patient is on nifedipine 60 mg p.o. daily, hydrocodone/acetaminophen 10/325 mg 1 tablet p.o. q. 6 hours p.r.n. for pain, potassium chloride 20 mEq p.o. b.i.d., tramadol 50 mg p.o. q. 4 hours p.r.n., Lasix 20 mg p.o. daily, meloxicam 7.5 mg daily, omeprazole 20 mg p.o. daily, alendronate 70 mg p.o. weekly, famotidine 40 mg p.o. daily, sucralfate 1 gram p.o. at bedtime, levothyroxine 175 mcg p.o. daily, lisinopril 20 mg p.o. daily, Seroquel 100 mg at bedtime, 25 mg daily, trazodone 150 mg p.o. daily, melatonin 1 mg p.o. at bedtime, loratadine 10 mg p.o. daily, carbidopa/levodopa 25/100 one 1 tablet p.o. b.i.d., aspirin 81 mg p.o. daily. FAMILY HISTORY: Significant for no family history on file. SOCIAL HISTORY: Currently lives with her and daughter. No smoking, alcohol, no drug use. REVIEW OF SYSTEMS: As per HPI. Could not complete ROS as patient is intubated. PHYSICAL EXAMINATION: GENERAL: The patient currently status post intubated and sedated. VITAL SIGNS: Temperature 36.8, pulse 96, respiratory rate 20, blood pressure 135/72, oxygen 94% on mechanical ventilation. HEENT: Atraumatic.Difficult to exam eyes as patient shutting them tight NECK: No JVD. No neck masses seen. CARDIOVASCULAR: S1 and S2 heard. Regular rate and rhythm. No murmur, no gallop. RESPIRATORY SYSTEM: Normal AP diameter. No accessory muscle use. No wheezing, no crackles. ABDOMEN: Soft, bowel sounds present, nontender, no distention. CENTRAL NERVOUS SYSTEM: Currently status post intubated, sedated. EXTREMITIES: No edema, no erythema. SKIN: Some bruises seen on the left gautam, which the daughter attributes to the mattress. LABORATORY DATA: WBC 13.5, hemoglobin 13.7, hematocrit 44.1, platelets 427. PT 10.6, INR 1, APTT 21, APTT 21.8. ABG, pH of 7.2, pCO2 of 53, pCO2 404, bicarbonate 24. On presentation, venous blood gas was pH of 7.16, pCO2 of 78. Sodium 139, potassium 4.7, chloride 108, bicarbonate 27, BUN 30, creatinine 0.9, serum glucose 299. Initial lactate was 2.1, calcium 9, magnesium 2.4, total bilirubin 0.3, AST 12, ALT 17, alkaline phosphatase 89. Troponin I less than 0.015. BNP 418. Procalcitonin less than 0.05. Urinalysis, +1 protein. SARS-CoV-2 PCR negative. IMAGING DATA: Chest x-ray, no acute disease seen. CT of the chest results are pending. EKG: Atrial fibrillation with rapid ventricular response at rate of 132. No ST changes seen. ASSESSMENT AND PLAN: This 75-year-old female who presents with respiratory distress and altered mental status. 1. Acute hypoxic and hypercapnic respiratory failure. S/p Intubation and mechanical ventilation.Similar episode in January but Patient was not intubated at last admission . Thought to from acute bronchitis. Pulmonary recommended PFTs outpatient but seems has not done. The patient received DuoNebs and steroids in the ER. We will continue with IV Solu-Medrol 40 t.i.d. nebs around the clock and p.r.n. . We will follow the final report of CT of chest and Critical care consult. 2. Questionable Rapid atrial fibrillation, new onset.. Patient has a history of multifocal atrial tachycardia. We will consult Cardiology to see if it is atrial fibrillation or atrial tachycardia. 3. Parkinson disease and Lewy body dementia: Continue her home carbidopa/levodopa and Seroquel . 4. Hypertension, currently holding her lisinopril, nifedipine and Lasix. Restart when able. 5. Gastroesophageal reflux disease: Placed on IV Pepcid. 6. Hypothyroidism: Continue Synthroid. 7. Chronic pain, we will hold the pain medications. Last admission, her hydrocodone/acetaminophen was discontinued.But Daughter says she still has hydrocodone at home but seldom uses it. Last night she had tramadol. 8. Deep venous thrombosis prophylaxis: We will place on Lovenox for now. DISPOSITION: Closely monitor in the ICU. Level 1 full code as per my discussion with the daughter. Job ID: [id number] MTDD
--- NOTE | 2021-04-05 08:22 | Electrocardiogram Report ---
Test Reason : Blood Pressure : / mmHG Vent. Rate : 122 BPM Atrial Rate : 129 BPM P-R Int : 000 ms QRS Dur : 092 ms QT Int : 384 ms P-R-T Axes : 000 010 044 degrees QTc Int : 547 ms Poor data quality, interpretation may be adversely affected Sinus tachycardia with frequent Premature atrial complexes and atrial runs Diffuse Nonspecific T wave abnormality Abnormal ECG When compared with ECG of 23-JAN-2021 06:59, HR has increased by 12 bpm Confirmed by Burke Tobin ([id number]) on 04/05/2021 8:22:19 AM Referred By: REFERRED SELF Confirmed By:Burke Tobin
--- NOTE | 2021-04-05 08:34 | CT Scan Report ---
CT ANGIOGRAM OF THE CHEST CLINICAL HISTORY: Hypoxia. COMPARISON STUDY: Chest x-ray dated 03/26/2021. Chest CT dated 01/21/2021. TECHNIQUE: Following the IV administration of 91 cc of Optiray 320, CT angiogram of the chest was per formed from the upper abdomen to the thoracic inlet utilizing the pulmonary embolus protocol. Images are reviewed in the axial, sagittal, and coronal planes. 3-D MIPS images are created and assessed. IV contrast was administered without complication. A dose lowering technique was utilized adhering to the principles of ALARA. The examination is severely degraded by motion artifact, as well as by strea k artifact from the arms which could not be elevated above the chest. CT DOSE: 643.67 mGy.cm FINDINGS: Thyroid: Enlarged and heterogeneous. Thoracic aorta: There is atherosclerotic calcification of the thoracic aorta comment with is normal i n caliber and demonstrates standard 3-vessel arch anatomy. No dissection is seen. Pulmonary vasculature: The pulmonary trunk is normal in caliber. There are no filling defects identif ied in main or lobar pulmonary branches to suggest pulmonary embolus. The segmental and subsegmental branches cannot be evaluated due to severe motion artifact. Heart: The heart is top normal in size and without pericardial effusion. There are coronary artery ca lcifications. Lungs and pleural spaces: Evaluation of the lung parenchyma is severely degraded by motion artifact. Dependent atelectasis is seen at both lung bases. Additional foci of linear scarring/atelectasis are noted throughout both lungs. The trachea is grossly clear. No airspace consolidation typical for pneu monia or large pleural effusion is identified. Scattered calcified granulomas are observed. Mediastinum: No mediastinal lymphadenopathy is clearly identified. Marisol: Grossly clear. Axillae: There is no axillary lymphadenopathy. Upper abdomen: An enteric tube is in place. Cholecystectomy clips are noted. There are numerous calci fied splenic granulomas. Skeletal structures: The skeletal structures are osteopenic. No lytic or blastic bony lesions are see n. Arthritic change is seen in the shoulders. IMPRESSION: 1. Severely streak and motion degraded examination. 2. There is no evidence of central pulmonary embolus in the main or lobar pulmonary arteries. The seg mental and subsegmental branches cannot be assessed due to artifact. 3. No airspace consolidation typical for pneumonia or pleural effusion is identified. ACT 112: Negative or not required by law. Electronically signed by: Lito Ruff M.D. 04/05/2021 8:32 AM
--- NOTE | 2021-04-05 08:45 | XRay Report ---
XR chest 1V portable CLINICAL HISTORY: SEPSIS/intubated TECHNIQUE: Single frontal radiograph of the chest was obtained. Comparison: Comparison is made to chest one view 01/24/2021 FINDINGS: Endotracheal tube terminates approximately 3 cm from the kareen. Enteric tube terminates in the stoma ch. The cardiomediastinal silhouette is normal. Lungs are underinflated and there are right greater t myers left airspace opacities likely represent atelectasis. No evidence of pleural effusion or pneumoth orax. IMPRESSION: Satisfactory position of endotracheal and enteric tubes. Underinflated lungs with likely right atelec tasis. ACT 112: Negative or not required by law. Electronically signed by: Rasta Lang M.D. 04/05/2021 8:43 AM
--- NOTE | 2021-04-05 08:52 | CT Scan Report ---
CT head/brain wo con CLINICAL HISTORY: 75 years-old Female with AMS. Acutely altered mental status TECHNIQUE: Multiple axial CT images of the head were obtained without contrast. A dose lowering tech nique was utilized adhering to the principles of ALARA. CT DOSE: 729.78 mGycm COMPARISON: Head CT 01/21/2021 FINDINGS: Motion degraded exam. No acute intracranial hemorrhage, midline shift, intracranial mass, hydrocephal us, territorial ischemia or abnormal extra-axial collection. Age-related involutional changes. Extens jasbir white matter hypodensities suggest chronic microvascular ischemic disease. Calcifications of the falx cerebri. The calvarium is intact. The paranasal sinuses, mastoid air cells, and middle ear cavities are clear . Endotracheal tube is partially imaged IMPRESSION: Motion degraded exam. No acute intracranial abnormality identified. ACT 112: Negative or not required by law. The above report was generated using voice recognition software. It may contain grammatical, syntax o r spelling errors. Electronically signed by: Jaime España M.D. 04/05/2021 8:50 AM
[2021-04-05] MEDS ORDERED: ICU PROTOCOL FOR HYPERGLYCEMIA PRN (09:22)
[2021-04-05] MEDS ORDERED: XOPENEX/ATROVENT 1.25mg/0.5MG NEB COMBO NEB SCH (09:22)
[2021-04-05] MEDS ORDERED: PIPERACILL/TAZOBAC CONSULT ACTIVE PRN (09:22)
[2021-04-05] MEDS: SODIUM CHLORIDE 0.9% 1000ML 1,000 ML IV SCH ×2 (09:48→20:19)
[2021-04-05] MEDS ORDERED: PIPERACILLIN/TAZOBACTAM 4.5 GM/120 ML BAG IV ONE (10:00)
--- NOTE | 2021-04-05 10:20 | Critical Care Consultation ---
Date of Consultation April 05, 2021 Assessment & Plan (1) Acute on chronic respiratory failure with hypoxia and hypercapnia: Reason Critically Ill: 75-year-old female here with a PMHx significant for Lewy body dementia, Parkinson's with behavioral disturbance, hypothyroidism, and MGUS who presented to [facility] for acute-onset respiratory distress and who was admitted to the ICU for close hemodynamic monitoring due to acute hypoxic hypercapnic respiratory failure; intubated in the ED and sedated. Neuro - Intubated and sedated with Propofol. - will add Fentanyl Lewy body dementia and Parkinson's: suspect that progression of these illnesses is playing a major role in current presentation. Of note CT head on admission was unremarkable for acute process. - continue home Carbidopa/Levodopa and Quetiapine Cardiac - Multifocal atrial tachycardia, possibly due to underlying lung disease: with previous recommendation to start daily rate-controlling agent, although never done. Currently rates controlled in 90s s/p intubation, without need for PRN BBs. - Cardiology consulted - appreciate recs - repeat EKG ordered HTN: - held home Nifedipine given currently normotensive, and was just intubated - close monitoring; will re-start home meds if/when necessary Respiratory - Acute hypoxic/hypercapnic respiratory failure: Although patient had negative FUEL OPERATOR evaluation in 01/2021, cannot r/o aspiration event leading to respiratory decompensation, given likely progressive Lewy body dementia and Parkinson's. Also suspect that kyphoscoliosis and possibly undiagnosed TAMMI/OHS is contributing. Although no oxygen at home, patient may be hypercapnic at baseline to due to the above. Do not suspect infection. - repeat ABG ordered, with significant improvement: 7.42/39/82/25 - currently on low vent settings; may be able to do SBT and extubate in the next 24 hours - Solu-Medrol 40mg IV Q8H started on admission - can continue for now - continue abx for now (see below) - consulted speech for FUEL OPERATOR eval (given likely worsening of swallowing ability over the last several months) - recommend PFT evaluation as outpatient GI - NPO. Hold on tube feeds for now, as patient may be extubated in next 24 hours. RENAL/LYTES - Lactic acidosis: likely due to hypercapnia in setting of above. - repeat lactate ordered - suspect improvement (s/p intubation and hypercapnia resolved) - Replace lytes as needed. - - No concerns at this time. ENDO - No h/o diabetes. Continue home Synthroid for hypothyroidism. HEME - Stable H&H. ID - Do not suspect respiratory infection as cause of respiratory failure, given no recent s/s illness, afebrile, negative procalcitonin, no leukocytosis and CXR/CTA chest without signs of consolidation/infiltrate. However there is right- sided atelectasis on CXR and concern for aspiration. - continue Doxycycline and Zosyn for now, although can stop Doxy if MRSA nares is negative - Monitor fever curve. LINES/IV ACCESS - PIVs intact. DVT PROPHYLAXIS - Lovenox CODE STATUS - Patient was previously DNR/DNI in 01/2021 but was made full code during this hospitalization. Given significant comorbidities and current respiratory failure (intubated), will consult Palliative care to clarify goals of care. Thank you for allowing us to be part of this patient's care. Please refer to Dr. Hagen's documentation for any further recommendations. (2) Lactic acidosis: (3) Multifocal atrial tachycardia: (4) Parkinson disease: (5) Lewy body dementia: (6) Hallucinations: (7) Essential tremor: (8) GERD (gastroesophageal reflux disease): (9) Kyphoscoliosis: Supervising Physician Co-Signing Physician Notes Was the resident-physician during care of patient. I separately evaluated patient for crenshaw portions of the history and the exam. I was present during the critical portion of medical decision making, and I discussed the case with the resident. I generally agree with the findings and plan except for any additions/exceptions noted. 75-year-old female past medical history of Lewy body dementia, Parkinson's, hypothyroidism, MGUS came to the hospital because of altered mental status She was intubated in the ED for altered mental status and ventilatory failure. I have seen the patient back in January when she was in the hospital At that time she was DNR/DNI Patient does have severe kyphoscoliosis and she had hypercapnia at bedtime along with pulmonary edema At the time of examination patient was on 40% FiO2 saturating 97%, she was breathing with the vent. Systolic blood pressure was in the 90s maps of greater than 65 I went down on respiratory rate to 14 and went down on FiO2 30% Constitutional:In respiratory distress HEENT: EOMI, PERRLA,arcus senilis bilaterally, positive ETT Respiratory system:Decreased air entry bilaterally, no wheeze, no rhonchi, mild crackles bilateral lower lobes CVS: S1-S2 positive Abdomen: Soft, nontender, nondistended, positive bowel sounds x4,obese Extremities: +2 pulses bilaterally radialis/ dorsalis pedis,no cyanosis, no edema Neuro:Sedated, intubated Psych:Unable to assess G/U:Positive Kelly CTA chest 04/05/2021 personally reviewed: Motion degraded study, minimal atelectasis bilateral lower lobes, no pleural effusion Linear scarring of the right middle lobe, no mediastinal lymphadenopathy Plan: Patient is respite status has improved after being intubated Patient most likely had acute hypercapnic respiratory for from underlying kyphoscoliosis as well as Parkinson's and Lewy body dementia Patient will need trilogy machine on discharge Patient was DNR/DNI, currently she is full code We will get palliative care involved Continue with antibiotics for 48 hours empirically I have personally spent 48 minutes of critical care time in the direct management of this patient. This is a life/limb threatening event. This includes time spent evaluating patient, direct bedside care, chart review, placing orders, interpretation of diagnostic studies, discussion with consultants, patient, and/or family members regarding treatment decisions, as well as other required patient management activities. This time is exclusive of all separately billable procedures, and teaching time and separate from and in addition to any other critical care service time. History of Present Illness Reason for Consultation: acute respiratory failure Requesting Physician: Dr. Wong Attending Physician: Tata Elliott MD History of Present Illness Nadia Infante is a 75yo female with PMHx significant for Lewy body dementia, Parkinson's with behavioral disturbance, hypothyroidism, and MGUS who presented to [facility] ED on 04/05 for acute hypoxic/hypercapnic respiratory failure - she was intubated in the ED, currently on Propofol. ICU was consulted for close hemodynamic monitoring in setting of the above. Of note the patient was hospitalized here in 01/2021 for acute hypoxic/hypercapnic respiratory failure thought to be due to aspiration pneumo amandeep. FUEL OPERATOR eval was done at that time, with no signs of aspiration. She had received abx, steroids and lasix during that hospitalization. Pulm was also consulted during that hospitalization and suspected that patient's previous h/o kyphoscoliosis, undiagnosed TAMMI/OHS, and progressive Lewy body dementia were major contributors to respiratory failure and recommended against abx. Notably Cardiology was also consulted at that time for multifocal a-tach; patient had received several PRN beta-blockers and Cardiology recommended scheduled PO beta- estephanie on discharge, but patient was not initiated on this. During hospitalization in 01/2021, patient's daughter said that the patient has verbalized that she wants to be DNR/DNI, although she does not have a living will/advanced directive or appointed POA. Per patient's daughter, she was doing well at home (patient lives with and daughter) without signs of respiratory distress or aspiration. No recent illnesses. Patient's had seen her at 0200 this morning before he went to work and she was sleeping with NAD; then patient's daughter found her at 0300 in respiratory distress as described above. Patient was brought to the ED in non- rebreather; in the ED patient remained obtunded and VBG showed pH 7.16 and pCO2 78 - she was intubated in the ED and currently sedated with Propofol. EKG was remarkable for a-fib with RVR (rate 120s), but her rates decreased to 90s s/p intubation, without PRN rate-control medications administered. Lab work-up showed lactate 2.1 --> 3.8, procalcitonin WNL, no leukocytosis, troponin/BNP WNL. Repeat ABG (s/p intubation, on AC/20/350/5/30) significantly improved: 7.42/39/82/25. CTA chest largely unremarkable: negative for PE, and there was no airspace consolidation or pleural effusion. Allergies Allergy/AdvReac Type Severity Reaction Status Date / Time Sulfa (Sulfonamide Allergy Intermediate HIVES AND Verified 04/05/21 07:19 Antibiotics) RASH Macrolide Antibiotics AdvReac Severe Interacted Unverified 04/05/21 07:19 with other meds Home Medications Medication Instructions Recorded Confirmed Type alendronate 70 mg tablet (Fosamax) 1 dose PO WK 02/26/18 04/05/21 History aspirin 81 mg tablet,delayed 81 mg PO QAM 02/26/18 04/05/21 History release (Aspirin Low Dose) calcium carbonate 500 mg (1,250 1 tab PO BID 02/26/18 04/05/21 History mg)-vitamin D3 400 unit tablet (Calcium 500 With D) docusate sodium 100 mg tablet 200 mg PO HS 02/26/18 04/05/21 History (Stool Softener) loratadine 10 mg tablet (Claritin) 10 mg PO QAM 02/26/18 04/05/21 History nifedipine 60 mg tablet,extended 60 mg PO QAM 02/26/18 04/05/21 History release (Adalat CC) sucralfate 1 gram tablet (Carafate) 1 g PO ACHS 02/26/18 04/05/21 History famotidine 20 mg tablet (Pepcid) 20 mg PO HS 05/15/19 04/05/21 History omeprazole 20 mg capsule,delayed 20 mg PO BID 05/15/19 04/05/21 History release furosemide 20 mg tablet (Lasix) 20 mg PO QAM tab 06/26/19 04/05/21 History lisinopril 20 mg tablet (Prinivil) 20 mg PO QAM tab 06/26/19 04/05/21 History polyethylene glycol 3350 17 17 gm PO QAM 06/26/19 04/05/21 History gram/dose oral powder (Miralax) levothyroxine 175 mcg tablet 175 mcg PO DAILYBB 01/21/21 04/05/21 History (Synthroid) meloxicam 7.5 mg tablet (Mobic) 7.5 mg PO DAILY@1600 01/21/21 04/05/21 History potassium chloride 10 mEq 20 meq PO DAILY@1600 01/21/21 04/05/21 History capsule,extended release quetiapine 100 mg tablet (Seroquel) 100 mg PO HS 01/21/21 04/05/21 History quetiapine 25 mg tablet (Seroquel) 25 mg PO QAM 01/21/21 04/05/21 History acetaminophen 500 mg tablet 500 mg PO Q6H PRN #30 tab 01/28/21 04/05/21 Rx (Tylenol Extra Strength) tramadol 50 mg tablet (Ultram) 50 mg PO BID PRN #10 tab 01/28/21 04/05/21 Rx carbidopa 25 mg-levodopa 100 mg 1 tab PO BID 30 Days #60 tab 03/29/21 04/05/21 Rx tablet (Sinemet) hydrocodone 10 mg-acetaminophen 1 tab PO Q4H PRN 04/05/21 04/05/21 History 325 mg tablet Patient History Medical History (Updated 04/05/21 @ 16:15 by TYRESE Lamb) Arrhythmia DTR REPORTS PT "SKIPS A BEAT SOMETIMES" Atrial flutter Cystocele with rectocele Dizziness Essential tremor Gait disturbance GERD (gastroesophageal reflux disease) Hallucinations Hypertension Hypothyroidism Hypoxia Lewy body dementia Memory loss Monoclonal gammopathy Osteoarthritis Osteoporosis Palliative care encounter Parkinson disease Peripheral neuropathy Poor balance Senile degeneration of brain Surgical History History of cholecystectomy History of elbow surgery LEFT History of tooth extraction Hx of cataract surgery RIGHT S/P knee surgery Family History Daughter Family history of diabetes mellitus Mother No pertinent family history Father No pertinent family history Other Cancer Social History Smoking Status: Never smoker Second Hand Exposure: Yes (HER WAS A SMOKER); Hx Alcohol Use: No Hx Substance Use: No Preferred Language: [place] Communication Ability: Impaired Communication Ability Comment: breathing tube in place Supervisor Of Operations Required: No Beliefs That Will Affect Care: None Current Living Situation: Family Current Living Situation Comment: LIVES W/ DTR Other Information That Helps Us Care for You: No Feels Safe at Home: Yes Safety Concerns: Feels Safe At This Time Assistive Devices: Oxygen - Continuous Review of Systems Review of Systems: Unobtainable due to endotracheal tube Physical Exam Physical Exam: General: Intubated/sedated HEENT: Atraumatic, normocephalic. ETT in place Pulm: Diminished lung sounds bilaterally. -wheezes, -rales, -rhonchi. Symmetrical chest rise. Breathing in sync with vent. Cardiac: RRR, -mrg. Radial pulses intact and symmetrical. No LE edema. Abdominal: soft, non-tender, non-distended, BS x 4 Skin: warm, dry, no rash Results & Data Results & Data ([facility]) Vital Signs (Past 12 Hours) Vital Signs Temp Pulse Resp BP Pulse Ox 04/05/21 09:10 90 20 98 04/05/21 09:00 92 H 20 99 04/05/21 08:51 95 H 97 04/05/21 08:30 98 H 22 122/86 95 04/05/21 08:20 96 H 20 94 04/05/21 08:10 94 H 23 94 04/05/21 08:00 96 H 22 121/77 94 04/05/21 07:50 96 H 21 95 04/05/21 07:40 93 H 20 93 04/05/21 07:30 93 H 20 113/62 93 04/05/21 07:20 98 H 20 92 04/05/21 07:13 97 H 22 94 04/05/21 07:10 95 H 20 94 04/05/21 07:00 95 H 20 105/58 L 94 04/05/21 06:50 96 H 20 135/72 94 04/05/21 06:40 100 H 20 93 04/05/21 06:30 104 H 22 93 04/05/21 06:20 106 H 20 90 04/05/21 06:10 103 H 20 93 04/05/21 06:00 106 H 20 111/55 L 92 04/05/21 05:50 108 H 22 94 04/05/21 05:47 30 H 97 04/05/21 05:40 126 H 15 136/69 91 04/05/21 05:30 133 H 19 133/68 94 04/05/21 05:27 24 04/05/21 05:18 28 H 94 04/05/21 05:07 113 H 28 H 93 04/05/21 05:00 109 H 31 H 96 04/05/21 04:54 95 04/05/21 04:52 24 95 04/05/21 04:50 117 H 26 H 95 04/05/21 04:42 36.8 C 120 H 29 H 121/67 91 04/05/21 04:40 120 H 23 153/52 H 95 04/05/21 04:30 122 H 23 92 04/05/21 04:20 118 H 26 H 99 04/05/21 04:12 117 H 19 95 Resident Activity Tracking Resident Involvement: Resident Care Provided Care Provided: Adult Hospital Medicine
[2021-04-05] MEDS: IPRATROPIUM BROMIDE NEB SOLN 0.02% 2.5 ML VIAL INH SCH ×3 (10:33→19:57)
[2021-04-05] MEDS: LEVALBUTEROL 1.25MG/0.5ML NEB INH SCH ×3 (10:33→19:57)
[2021-04-05] MEDS: ENOXAPARIN INJ 40 MG/0.4 ML SYR SQ SCH (10:38)
--- NOTE | 2021-04-05 10:55 | Cardiology Consultation ---
Date of Consultation April 05, 2021 Assessment & Plan (1) Acute on chronic respiratory failure with hypoxia and hypercapnia: (2) Multifocal atrial tachycardia: By history Patient is a 75-year-old female presenting with hypercapnic respiratory failure. EKG as per interpreting physician appropriate with sinus with sinus tachycardia and atrial ectopy Telemetry reveals sinus tachycardia with atrial ectopy, no atrial fibrillation Current rhythm after intubation sinus rhythm in the 90s with a rare atrial ectopic beats Patient carries prior history of multifocal atrial tachycardia the setting of marked respiratory distress. No sustained or evidence of such currently no atrial fibrillation Preserved LV systolic function on echocardiogram January 2021. Troponin currently negative Recommendations: Treat underlying respiratory issues as doing Consider low-dose beta-estephanie in future for heart rate and rhythm control once hemodynamically stable Repeat EKG now rate controlled Cardiology will sign off contact with questions History of Present Illness Reason for Consultation: Evaluate presenting heart rhythm Requesting Physician: Dr. Elliott Attending Physician: Tata Elliott MD History of Present Illness Patient is a 75-year-old female with complex history is as outlined in history with past hospitalizations with acute respiratory failure most recent January 2021. Patient represents an hypercapnic respiratory failure. Patient intubated in the emergency room and being transferred to the intensive care unit. Currently sedated and mechanically ventilated Patient referred to evaluate presenting heart rhythm No additional information gained full charts reviewed. Preserved LV systolic function on last admission echocardiogram Allergies Allergy/AdvReac Type Severity Reaction Status Date / Time Sulfa (Sulfonamide Allergy Intermediate HIVES AND Verified 04/05/21 07:19 Antibiotics) RASH Macrolide Antibiotics AdvReac Severe Interacted Unverified 04/05/21 07:19 with other meds Home Medications Medication Instructions Recorded Confirmed Type alendronate 70 mg tablet (Fosamax) 1 dose PO WK 02/26/18 04/05/21 History aspirin 81 mg tablet,delayed 81 mg PO QAM 02/26/18 04/05/21 History release (Aspirin Low Dose) calcium carbonate 500 mg (1,250 1 tab PO BID 02/26/18 04/05/21 History mg)-vitamin D3 400 unit tablet (Calcium 500 With D) docusate sodium 100 mg tablet 200 mg PO HS 02/26/18 04/05/21 History (Stool Softener) loratadine 10 mg tablet (Claritin) 10 mg PO QAM 02/26/18 04/05/21 History nifedipine 60 mg tablet,extended 60 mg PO QAM 02/26/18 04/05/21 History release (Adalat CC) sucralfate 1 gram tablet (Carafate) 1 g PO ACHS 02/26/18 04/05/21 History famotidine 20 mg tablet (Pepcid) 20 mg PO HS 05/15/19 04/05/21 History omeprazole 20 mg capsule,delayed 20 mg PO BID 05/15/19 04/05/21 History release furosemide 20 mg tablet (Lasix) 20 mg PO QAM tab 06/26/19 04/05/21 History lisinopril 20 mg tablet (Prinivil) 20 mg PO QAM tab 06/26/19 04/05/21 History polyethylene glycol 3350 17 17 gm PO QAM 06/26/19 04/05/21 History gram/dose oral powder (Miralax) levothyroxine 175 mcg tablet 175 mcg PO DAILYBB 01/21/21 04/05/21 History (Synthroid) meloxicam 7.5 mg tablet (Mobic) 7.5 mg PO DAILY@1600 01/21/21 04/05/21 History potassium chloride 10 mEq 20 meq PO DAILY@1600 01/21/21 04/05/21 History capsule,extended release quetiapine 100 mg tablet (Seroquel) 100 mg PO HS 01/21/21 04/05/21 History quetiapine 25 mg tablet (Seroquel) 25 mg PO QAM 01/21/21 04/05/21 History acetaminophen 500 mg tablet 500 mg PO Q6H PRN #30 tab 01/28/21 04/05/21 Rx (Tylenol Extra Strength) tramadol 50 mg tablet (Ultram) 50 mg PO BID PRN #10 tab 01/28/21 04/05/21 Rx carbidopa 25 mg-levodopa 100 mg 1 tab PO BID 30 Days #60 tab 03/29/21 04/05/21 Rx tablet (Sinemet) hydrocodone 10 mg-acetaminophen 1 tab PO Q4H PRN 04/05/21 04/05/21 History 325 mg tablet Patient History Medical History Arrhythmia DTR REPORTS PT "SKIPS A BEAT SOMETIMES" Atrial flutter Cystocele with rectocele Dizziness Essential tremor Gait disturbance GERD (gastroesophageal reflux disease) Hallucinations Hypertension Hypothyroidism Lewy body dementia Memory loss Monoclonal gammopathy Osteoarthritis Osteoporosis Parkinson disease Peripheral neuropathy Poor balance Surgical History History of cholecystectomy History of elbow surgery LEFT History of tooth extraction Hx of cataract surgery RIGHT S/P knee surgery Family History Daughter Family history of diabetes mellitus Mother No pertinent family history Father No pertinent family history Other Cancer Social History Smoking Status: Never smoker Second Hand Exposure: Yes (HER WAS A SMOKER); Hx Alcohol Use: No Hx Substance Use: No Preferred Language: Swedish Communication Ability: Impaired Communication Ability Comment: breathing tube in place Code Number Stamper Required: No Beliefs That Will Affect Care: None Current Living Situation: Family Current Living Situation Comment: LIVES W/ DTR Other Information That Helps Us Care for You: No Feels Safe at Home: Yes Safety Concerns: Feels Safe At This Time Assistive Devices: Walker Review of Systems Review of Systems: Unobtainable due to endotracheal tube Physical Exam Constitutional: + obese and + mechanically ventilated Neck: trachea midline, no thyromegaly Respiratory: Auscultation: + diminished lung sounds Cardiovascular: Rate/Rhythm: regular rate and regular rhythm Heart Sounds: no murmur Extremities: no edema Results & Data ([facility]) Vital Signs (Past 12 Hours) Vital Signs Temp Pulse Resp BP Pulse Ox 04/05/21 10:38 97 H 23 98 04/05/21 09:10 90 20 98 04/05/21 09:00 92 H 20 99 04/05/21 08:51 95 H 97 04/05/21 08:30 98 H 22 122/86 95 04/05/21 08:20 96 H 20 94 04/05/21 08:10 94 H 23 94 04/05/21 08:00 96 H 22 121/77 94 04/05/21 07:50 96 H 21 95 04/05/21 07:40 93 H 20 93 04/05/21 07:30 93 H 20 113/62 93 04/05/21 07:20 98 H 20 92 04/05/21 07:13 97 H 22 94 04/05/21 07:10 95 H 20 94 04/05/21 07:00 95 H 20 105/58 L 94 04/05/21 06:50 96 H 20 135/72 94 04/05/21 06:40 100 H 20 93 04/05/21 06:30 104 H 22 93 04/05/21 06:20 106 H 20 90 04/05/21 06:10 103 H 20 93 04/05/21 06:00 106 H 20 111/55 L 92 04/05/21 05:50 108 H 22 94 04/05/21 05:47 30 H 97 04/05/21 05:40 126 H 15 136/69 91 04/05/21 05:30 133 H 19 133/68 94 04/05/21 05:27 24 04/05/21 05:18 28 H 94 04/05/21 05:07 113 H 28 H 93 04/05/21 05:00 109 H 31 H 96 04/05/21 04:54 95 04/05/21 04:52 24 95 04/05/21 04:50 117 H 26 H 95 04/05/21 04:42 36.8 C 120 H 29 H 121/67 91 04/05/21 04:40 120 H 23 153/52 H 95 04/05/21 04:30 122 H 23 92 04/05/21 04:20 118 H 26 H 99 04/05/21 04:12 117 H 19 95
[2021-04-05 11:06] LABS: Base Excess ABG 0.6 mEq/L (-9-1.8); HCO3 ABG 25 mmol/L (19-24); Oxygen Saturation ABG 96.2 % (90-95); PCO2 ABG 39 mmHg (35-46); PO2 ABG 82 mmHg (80-95); pH ABG 7.42 (7.35-7.45)
[2021-04-05] MEDS ORDERED: FAMOTIDINE 20MG/5ML IV PUSH IV ONE (11:07)
[2021-04-05 11:09] LABS: Allen Test Pos (Pos)
[2021-04-05] MEDS: DOXYCYCLINE HYCLATE 100 MG in DEXTROSE 5% 100 ML IV SCH ×2 (11:15→20:19)
[2021-04-05] MEDS: FAMOTIDINE 20 MG in SYRINGE 3 ML IV SCH ×2 (11:16→20:19)
[2021-04-05] MEDS ORDERED: STAT IV Infusion **Titration per Protocol STA ×2 (11:22→21:55)
[2021-04-05] MEDS ORDERED: PROPOFOL BOLUS FROM BAG IV PRN (11:22)
[2021-04-05] MEDS ORDERED: fentaNYL DRIP 1,250 MCG/250 ML BAG IV SCH (11:30)
[2021-04-05 11:33] LABS: iSTAT Arterial Blood Gas HCO3 27 meg/L (19-24); iSTAT Arterial Blood Gas pCO2 59 mmHg (35-46); iSTAT Arterial Blood Gas pH 7.27 (7.35-7.45); iSTAT Arterial Blood Gas pO2 222 mmHg (80-95); iSTAT Carbon Dioxide 29 mmol/L (24-31)
[2021-04-05] MEDS: QUEtiapine FUMARATE 25 MG TABLET PO SCH (11:33)
[2021-04-05] MEDS: CARBIDOPA/LEVODOPA 25/100MG TAB PO SCH ×2 (11:34→20:20)
[2021-04-05] MEDS: INSULIN ASPART 100 UNITS/ML 3 ML PEN SC SCH ×4 (11:39→21:38)
[2021-04-05] MEDS: propofoL 1,000 MG/100 ML VIAL IV SCH (12:20)
[2021-04-05] MEDS: methylPREDNISolone 40 MG in SYRINGE 0 ML IV SCH ×2 (13:03→20:19)
[2021-04-05] MEDS ORDERED: PIPERACILLIN/TAZOBACTAM 3.375 GM in DEXTROSE 5% 100 ML IV SCH (14:00)
[2021-04-05] MEDS: PIPERACILLIN/TAZOBACTAM 4.5 GM in DEXTROSE 5% 100 ML IV SCH ×2 (14:58→22:25)
--- NOTE | 2021-04-05 16:15 | Palliative Care Consultation ---
Date of Consultation April 05, 2021 Assessment & Plan (1) Palliative care encounter: Ms. Infante is a 75 year old female who presented to the [facility] with hypoxia and hypercapnia. She was initially a DNR/DNI and this was reversed in the ED where she was intubated and sedated. Additional PMH includes: Lewy body dementia, Parkinson's with behavioral disturbance, and hypothyroidism. Palliative Medicine was consulted to discuss overall goals of care prior to extubation. Patient currently a Full code. Patient is intubated and sedated and unable to participate in conversation. She is on A/C FiO2 0.40, PEEP 5 Tv 350. She is on Fentanyl and Propofol for sedation. She lives at home with her daughter, Terri at baseline. I did reach out to Terri at [phone] and left a non descript voicemail. It would be helpful to have a better understanding of her goals once we extubate her mother. If post extubation, which is expected to occur tomorrow, Friday 04/06, would she want her to be reintubated or transition to a DNR/DNI and comfort focus if further decline. Remain Full code at this time. Palliative will follow. (2) Hypoxia: (3) Senile degeneration of brain: History of Present Illness Reason for Consultation: goals of care Requesting Physician: Dr. Davis Attending Physician: Tata Elliott MD History of Present Illness Ms. Infante is a 75 year old female who presented to the [facility] with hypoxia and hypercapnia. She was initially a DNR/DNI and this was reversed in the ED where she was intubated and sedated. Additional PMH includes: Lewy body dementia, Parkinson's with behavioral disturbance, and hypothyroidism. Pallia tive Medicine was consulted to discuss overall goals of care prior to extubation. Patient currently a Full code. Please see A/P for further details. Thanks for involving palliative with this patient. Allergies Allergy/AdvReac Type Severity Reaction Status Date / Time Sulfa (Sulfonamide Allergy Intermediate HIVES AND Verified 04/05/21 07:19 Antibiotics) RASH Macrolide Antibiotics AdvReac Severe Interacted Unverified 04/05/21 07:19 with other meds Home Medications Medication Instructions Recorded Confirmed Type alendronate 70 mg tablet (Fosamax) 1 dose PO WK 02/26/18 04/05/21 History aspirin 81 mg tablet,delayed 81 mg PO QAM 02/26/18 04/05/21 History release (Aspirin Low Dose) calcium carbonate 500 mg (1,250 1 tab PO BID 02/26/18 04/05/21 History mg)-vitamin D3 400 unit tablet (Calcium 500 With D) docusate sodium 100 mg tablet 200 mg PO HS 02/26/18 04/05/21 History (Stool Softener) loratadine 10 mg tablet (Claritin) 10 mg PO QAM 02/26/18 04/05/21 History nifedipine 60 mg tablet,extended 60 mg PO QAM 02/26/18 04/05/21 History release (Adalat CC) sucralfate 1 gram tablet (Carafate) 1 g PO ACHS 02/26/18 04/05/21 History famotidine 20 mg tablet (Pepcid) 20 mg PO HS 05/15/19 04/05/21 History omeprazole 20 mg capsule,delayed 20 mg PO BID 05/15/19 04/05/21 History release furosemide 20 mg tablet (Lasix) 20 mg PO QAM tab 06/26/19 04/05/21 History lisinopril 20 mg tablet (Prinivil) 20 mg PO QAM tab 06/26/19 04/05/21 History polyethylene glycol 3350 17 17 gm PO QAM 06/26/19 04/05/21 History gram/dose oral powder (Miralax) levothyroxine 175 mcg tablet 175 mcg PO DAILYBB 01/21/21 04/05/21 History (Synthroid) meloxicam 7.5 mg tablet (Mobic) 7.5 mg PO DAILY@1600 01/21/21 04/05/21 History potassium chloride 10 mEq 20 meq PO DAILY@1600 01/21/21 04/05/21 History capsule,extended release quetiapine 100 mg tablet (Seroquel) 100 mg PO HS 01/21/21 04/05/21 History quetiapine 25 mg tablet (Seroquel) 25 mg PO QAM 01/21/21 04/05/21 History acetaminophen 500 mg tablet 500 mg PO Q6H PRN #30 tab 01/28/21 04/05/21 Rx (Tylenol Extra Strength) tramadol 50 mg tablet (Ultram) 50 mg PO BID PRN #10 tab 01/28/21 04/05/21 Rx carbidopa 25 mg-levodopa 100 mg 1 tab PO BID 30 Days #60 tab 03/29/21 04/05/21 Rx tablet (Sinemet) hydrocodone 10 mg-acetaminophen 1 tab PO Q4H PRN 04/05/21 04/05/21 History 325 mg tablet Patient History Medical History Arrhythmia DTR REPORTS PT "SKIPS A BEAT SOMETIMES" Atrial flutter Cystocele with rectocele Dizziness Essential tremor Gait disturbance GERD (gastroesophageal reflux disease) Hallucinations Hypertension Hypothyroidism Hypoxia Lewy body dementia Memory loss Monoclonal gammopathy Osteoarthritis Osteoporosis Palliative care encounter Parkinson disease Peripheral neuropathy Poor balance Senile degeneration of brain Surgical History History of cholecystectomy History of elbow surgery LEFT History of tooth extraction Hx of cataract surgery RIGHT S/P knee surgery Family History Daughter Family history of diabetes mellitus Mother No pertinent family history Father No pertinent family history Other Cancer Social History Smoking Status: Never smoker Second Hand Exposure: Yes (HER WAS A SMOKER); Hx Alcohol Use: No Hx Substance Use: No Preferred Language: Swiss Communication Ability: Impaired Communication Ability Comment: breathing tube in place Co Chairman Required: No Beliefs That Will Affect Care: None Current Living Situation: Family Current Living Situation Comment: LIVES W/ DTR Other Information That Helps Us Care for You: No Feels Safe at Home: Yes Safety Concerns: Feels Safe At This Time Assistive Devices: Oxygen - Continuous Review of Systems Review of Systems: Unobtainable due to endotracheal tube Physical Exam Constitutional: + frail appearing ENMT: Mouth: + dry oral mucous membranes Respiratory: normal respiratory effort and symmetric chest movement Auscultation: + diminished lung sounds Cardiovascular: Rate/Rhythm: regular rate and regular rhythm Heart Sounds: normal S1 and normal S2 Extremities: normal capillary refill; no edema Gastrointestinal (Abdomen): Inspection/Auscultation: abdomen normal to inspection Musculoskeletal: hands and legs contracted Skin: + pallor Psychiatric: intubated and sedated Results & Data ([facility]) Vital Signs (Past 12 Hours) Vital Signs Temp Pulse Pulse Resp BP Pulse Ox 04/05/21 15:15 96 H 20 106/53 L 96 04/05/21 15:00 93 H 20 104/44 L 95 04/05/21 14:45 99 H 20 91 04/05/21 14:30 97 H 20 89/68 L 90 04/05/21 14:15 102 H 20 92 04/05/21 14:10 100 H 20 93 04/05/21 14:02 108 H 30 H 97 04/05/21 14:00 103 H 26 H 95/57 L 95 04/05/21 13:45 114 H 23 97 04/05/21 13:40 140 H 26 H 97 04/05/21 13:15 99 H 21 96 04/05/21 13:00 97 H 21 97 04/05/21 12:45 92 H 20 97 04/05/21 12:30 91 H 20 133/86 97 04/05/21 12:15 88 20 116/72 98 04/05/21 12:00 94 H 20 96 04/05/21 11:45 91 H 20 125/68 97 04/05/21 11:30 89 20 97 04/05/21 11:15 90 20 97 04/05/21 11:00 90 20 98 04/05/21 10:45 93 H 21 97 04/05/21 10:38 97 H 23 98 04/05/21 10:30 88 20 98 04/05/21 10:15 94 H 20 99 04/05/21 10:00 91 H 20 119/66 98 04/05/21 09:45 90 20 97 04/05/21 09:30 90 20 109/68 97 04/05/21 09:15 90 20 87/57 L 97 04/05/21 09:10 90 20 98 04/05/21 09:00 92 H 20 99 04/05/21 08:51 95 H 97 04/05/21 08:30 98 H 22 122/86 95 04/05/21 08:20 96 H 20 94 04/05/21 08:10 94 H 23 94 04/05/21 08:00 96 H 22 121/77 94 04/05/21 07:50 96 H 21 95 04/05/21 07:40 93 H 20 93 04/05/21 07:30 93 H 20 113/62 93 04/05/21 07:20 98 H 20 92 04/05/21 07:13 97 H 22 94 04/05/21 07:10 95 H 20 94 04/05/21 07:00 95 H 20 105/58 L 94 04/05/21 06:50 96 H 20 135/72 94 04/05/21 06:40 100 H 20 93 04/05/21 06:30 104 H 22 93 04/05/21 06:20 106 H 20 90 04/05/21 06:10 103 H 20 93 04/05/21 06:00 106 H 20 111/55 L 92 04/05/21 05:50 108 H 22 94 04/05/21 05:47 30 H 97 04/05/21 05:40 126 H 15 136/69 91 04/05/21 05:30 133 H 19 133/68 94 04/05/21 05:27 24 04/05/21 05:18 28 H 94 04/05/21 05:07 113 H 28 H 93 04/05/21 05:00 109 H 31 H 96 04/05/21 04:54 95 04/05/21 04:52 24 95 04/05/21 04:50 117 H 26 H 95 04/05/21 04:42 36.8 C 120 H 29 H 121/67 91 04/05/21 04:40 120 H 23 153/52 H 95 04/05/21 04:30 122 H 23 92 04/05/21 04:20 118 H 26 H 99 PG Care Time/CCT Total # of Minutes Spent Total Time Spent with Patient: Total time spent is greater than 50% in coordination of care (as documented) at patient's floor/unit and/or counseling patient: 70 minutes with > 50% of that time spent assessing the patient, discussing goals of care and collaborating with IDT Coding Level of Care Code 01943 Initial Inpt Care Lvl 3 Diagnoses Palliative care encounter Z51.5 Hypoxia R09.02 Senile degeneration of brain G31.1 Time Spent (min) 70
--- NOTE | 2021-04-05 16:55 | Communication Note ---
Date of Service: April 05, 2021 She is a 75-year-old female with significant past medical history of Lewy body dementia without behavioral disturbances, Parkinson's disease and other si gnificant medical comorbid conditions was admitted with acute respiratory failure and required intubation. She remains sedated in the ICU on mechanical ventilator and remains hemodynamically stable. She is being taken care of by treasury analyst and ophthalmology technician. And she is also been seen by the palliative care team.Plan to extubate tomorrow. Further progress note to follow tomorrow by oncoming hospitalist. Dr Cheng Elliott
--- NOTE | 2021-04-05 16:58 | Billing Data ---
Date of Service April 05, 2021 Coding Level of Care Code Critical Care 1st 30-74 mins Time Spent (min) 48
[2021-04-05] MEDS ORDERED: ETOMIDATE 2 MG/ML 20 ML VIAL IV ONE (19:10)
[2021-04-05] MEDS ORDERED: SUCCINYLCHOLINE CHLORIDE 20 MG/ML 10 ML VIAL IV ONE (19:10)
[2021-04-05] MEDS: QUEtiapine FUMARATE 100 MG TABLET PO SCH (20:21)
[2021-04-05] MEDS: DEXMEDETOMIDINE HCL 200 MCG in SODIUM CHLORIDE 0.9% 48 ML IV SCH (22:25)
[2021-04-06] MEDS: IPRATROPIUM BROMIDE NEB SOLN 0.02% 2.5 ML VIAL INH SCH ×4 (00:02→20:02)
[2021-04-06] MEDS: LEVALBUTEROL 1.25MG/0.5ML NEB INH SCH ×4 (00:02→20:02)
[2021-04-06] MEDS: propofoL 1,000 MG/100 ML VIAL IV SCH (01:48)
[2021-04-06] MEDS: DEXMEDETOMIDINE HCL 200 MCG in SODIUM CHLORIDE 0.9% 48 ML IV SCH ×3 (02:36→12:03)
[2021-04-06] MEDS: methylPREDNISolone 40 MG in SYRINGE 0 ML IV SCH ×2 (04:25→12:22)
[2021-04-06 05:16] LABS: Hematocrit (blood only) 37.3 % (37-47); Hemoglobin 11.6 g/dL (12.0-16.0); Immature Granulocytes # (auto) 0.02 K/uL (0.00-0.02); Immature Granulocytes % (auto) 0.2 %; Lymphocytes # (auto) 1.03 K/uL (1.2-3.4); Lymphocytes % (auto) 10.6 %; Mean Corpuscular Hemoglobin 28.4 pg (25-34); Mean Corpuscular Hgb Conc 31.1 g/dL (32-36); Mean Corpuscular Volume 91.2 fL (80-100); Mean Platelet Volume 9.3 fL (7.4-10.4); Monocytes # (auto) 0.56 K/uL (0.11-0.59); Monocytes % (auto) 5.7 %; Neutrophils # (auto) 8.13 K/uL (1.4-6.5); Neutrophils % (auto) 83.5 %; Platelet Count 314 K/uL (130-400); RDW Coefficient of Variation 14.3 % (11.5-14.5); Red Blood Count 4.09 M/uL (4.2-5.4); White Blood Count 9.74 K/uL (4.8-10.8)
[2021-04-06 05:25] LABS: iSTAT Allen Test Pass; iSTAT Arterial Blood Gas HCO3 24 meg/L (19-24); iSTAT Arterial Blood Gas pCO2 37 mmHg (35-46); iSTAT Arterial Blood Gas pH 7.41 (7.35-7.45); iSTAT Arterial Blood Gas pO2 77 mmHg (80-95); iSTAT Carbon Dioxide 25 mmol/L (24-31); iSTAT FiO2 25 %; iSTAT Site L Radial
[2021-04-06 05:25] LABS: iSTAT Allen Test Pass; iSTAT Arterial Blood Gas HCO3 25 meg/L (19-24); iSTAT Arterial Blood Gas pCO2 43 mmHg (35-46); iSTAT Arterial Blood Gas pH 7.38 (7.35-7.45); iSTAT Arterial Blood Gas pO2 38 mmHg (80-95); iSTAT Carbon Dioxide 26 mmol/L (24-31); iSTAT FiO2 25 %; iSTAT Site L Radial
[2021-04-06] MEDS: PIPERACILLIN/TAZOBACTAM 4.5 GM in DEXTROSE 5% 100 ML IV SCH (05:25)
[2021-04-06] MEDS: SODIUM CHLORIDE 0.9% 1000ML 1,000 ML IV SCH ×2 (05:25→08:03)
[2021-04-06] MEDS: LEVOTHYROXINE SODIUM 175 MCG TABLET PO SCH (05:26)
[2021-04-06 05:40] LABS: Albumin Level 2.8 gm/dl (3.4-5.0); BUN Creatinine Ratio 31.5 (10-20); Calcium 8.5 mg/dl (8.5-10.1); Creatinine Clr Calc Pharmacy 50.7 ml/min; Est GFR (African American) 70.5 ml/min; Est GFR (Non-African American) 60.9 ml/min; Magnesium 2.3 mg/dl (1.8-2.4)
[2021-04-06 05:43] LABS: Albumin Globulin Ratio 0.8 (0.9-2); Bilirubin,Total 0.3 mg/dl (0.2-1); Globulin 3.7 gm/dl (2.5-4.0); Phosphorus 3.1 mg/dl (2.5-4.9); Total Protein 6.5 gm/dl (6.4-8.2)
[2021-04-06 07:26] LABS: Estimated Average Glucose 114 mg/dl; Hemoglobin A1C 5.6 % (4.5-5.6)
--- NOTE | 2021-04-06 07:54 | Critical Care Progress Note ---
Date of Service April 06, 2021 Assessment & Plan (1) Acute on chronic respiratory failure with hypoxia and hypercapnia: Plan: Reason Critically Ill: 75-year-old female here with a PMHx significant for Lewy body dementia, Parkinson's with behavioral disturbance, hypothyroidism, and MGUS who presented to [facility] for acute-onset respiratory distress and who was admitted to the ICU for close hemodynamic monitoring due to acute hypoxic hypercapnic respiratory failure. Intubated in the ED on 04/05, and extubated on 04/06. Currently on BiPAP. Neuro - Fentanyl and Propofol weaned off, still on Precedex - will wean off Precedex, hopefully within the next several hours Lewy body dementia and Parkinson's: suspect that progression of these illnesses is playing a major role in current presentation. Of note CT head on admission was unremarkable for acute process. - continue home Carbidopa/Levodopa - hold Quetiapine for today, plan to re-start tomorrow Cardiac - Multifocal atrial tachycardia, possibly due to underlying lung disease: with previous recommendation to start daily rate-controlling agent, although never done. Currently rates controlled in 60s-80s, without need for PRN BBs. - Cardiology consulted - appreciate recs - repeat EKG ordered HTN: - held home Nifedipine given currently normotensive, and was just intubated - close monitoring; will re-start home meds if/when necessary Respiratory - Acute hypoxic/hypercapnic respiratory failure: Although patient had negative MEDICAL PHYSICS PROFESSOR evaluation in 01/2021, cannot r/o aspiration event leading to respiratory decompensation, given likely progressive Lewy body dementia and Parkinson's. Also suspect that kyphoscoliosis and possibly undiagnosed TAMMI/OHS is contributing. Although no oxygen at home, patient may be hypercapnic at baseline to due to the above. Do not suspect infection. - extubated this AM and tolerating BiPAP well - Solu-Medrol 40mg IV Q8H started on admission - weaned to 40mg IV daily today - continue Doxy, stopped Zosyn (see below) - consulted speech for MEDICAL PHYSICS PROFESSOR eval (given likely worsening of swallowing ability over the last several months) - recommend PFT evaluation as outpatient GI - NPO pending MEDICAL PHYSICS PROFESSOR eval. RENAL/LYTES - Lactic acidosis, resolved: likely due to hypercapnia in setting of above. - Replace lytes as needed. - - No concerns at this time. ENDO - No h/o diabetes. Continue home Synthroid for hypothyroidism. HEME - Stable H&H. ID - Do not suspect respiratory infection as cause of respiratory failure, given no recent s/s illness, afebrile, negative procalcitonin, no leukocytosis and CXR/CTA chest without signs of consolidation/infiltrate. However there is right- sided atelectasis on CXR and concern for aspiration. - stopped Zosyn today, will continue Doxycycline x5 days (day 2/5) for anti- inflammatory effect and to cover for atypical pathogens - Monitor fever curve. LINES/IV ACCESS - PIVs intact. DVT PROPHYLAXIS - Lovenox CODE STATUS - Patient was previously DNR/DNI in 01/2021 but was made full code during this hospitalization. Given significant comorbidities and current respiratory failure (intubated), Palliative was consulted to clarify goals of care - in process. REMAIN FULL CODE FOR NOW. Thank you for allowing us to be part of this patient's care. Please refer to Dr. Hagen's documentation for any further recommendations. (2) Lactic acidosis: (3) Multifocal atrial tachycardia: (4) Parkinson disease: (5) Lewy body dementia: (6) Hallucinations: (7) Essential tremor: (8) GERD (gastroesophageal reflux disease): (9) Kyphoscoliosis: Admission and Anticipated Discharge Date Admission Date: April 05, 2021 Supervising Physician Co-Signing Physician Notes Was the resident-physician during care of patient. I separately evaluated patient for crenshaw portions of the history and the exam. I was present during the critical portion of medical decision making, and I discussed the case with the resident. I generally agree with the findings and plan except for any additions/exceptions noted. 75-year-old female past medical history of Lewy body dementia, Parkinson's, hypothyroidism, MGUS came to the hospital because of altered mental status She was intubated in the ED for altered mental status and ventilatory failure. I have seen the patient back in January when she was in the hospital At that time she was DNR/DNI Patient does have severe kyphoscoliosis and she had hypercapnia at bedtime along with pulmonary edema At the time of exam patient patient was on pressure support 10/5 getting tidal volumes in the four hundreds. I went down on pressure support to 8/5. Patient was on Precedex 0.3 as well as fentanyl 25. I discontinued the fentanyl Constitutional:No acute distress HEENT: EOMI, PERRLA,positive ETT Respiratory system:Decreased air entry bilaterally, no wheeze, no rhonchi, mild crackles bilateral lower lobes CVS: S1-S2 positive Abdomen: Soft, nontender, nondistended, positive bowel sounds x4,obese Extremities: +2 pulses bilaterally radialis/ dorsalis pedis,no cyanosis, no edema Neuro:Sedated, intubated Psych:Unable to assess G/U:Positive Kelly CTA chest 04/05/2021 personally reviewed: Motion degraded study, minimal atelectasis bilateral lower lobes, no pleural effusion Linear scarring of the right middle lobe, no mediastinal lymphadenopathy --Prophylaxis VTE: Lovenox GI: Pepcid Lines: Peripheral Diet: N.p.o. Plan: In/out: +2.2 L, urine output 775 Trial of extubation today. Degree Solu-Medrol daily Procalcitonin is negative again, DC Zosyn, continue with doxycycline for 5 days I have personally spent 34 minutes of critical care time in the direct management of this patient. This is a life/limb threatening event. This includes time spent evaluating patient, direct bedside care, chart review, placing orders, interpretation of diagnostic studies, discussion with consultants, patient, and/or family members regarding treatment decisions, as well as other required patient management activities. This time is exclusive of all separately billable procedures, and teaching time and separate from and in addition to any other critical care service time. Subjective Propofol weaned off overnight. Was started on Precedex overnight to assist with vent wean. Tolerating CPAP vent settings (12/24/39) this AM without difficulty. Currently remains intubated/sedated with Fentanyl/Precedex. Review of Systems Review of Systems: Unobtainable due to endotracheal tube Physical Exam Physical Exam: General: Intubated/sedated HEENT: Atraumatic, normocephalic. ETT in place Pulm: Coarse lung sounds bilaterally. -wheezes, -rales, -rhonchi. Symmetrical chest rise. Cardiac: RRR, -mrg. Radial pulses intact and symmetrical. No LE edema. Abdominal: soft, non-tender, non-distended, BS x 4 Skin: warm, dry, no rash Results & Data Results & Data ([facility]) Vital Signs (Past 12 Hours) Vital Signs Temp Pulse Pulse Resp BP Pulse Ox 04/06/21 07:00 53 L 13 128/65 93 04/06/21 06:00 56 L 10 L 117/58 L 94 04/06/21 05:19 68 11 L 92 04/06/21 05:00 67 15 103/55 L 96 04/06/21 04:01 61 25 H 92 04/06/21 04:00 36.8 C 60 16 121/52 L 92 04/06/21 03:00 62 14 87/52 L 93 04/06/21 02:30 66 14 88/39 L 93 04/06/21 02:00 68 14 90/42 L 92 04/06/21 01:00 75 15 82/46 L 92 04/06/21 00:00 37.2 C 63 62 14 90/52 L 92 04/05/21 23:59 79 04/05/21 23:50 64 14 92 04/05/21 23:00 86 14 109/40 L 93 04/05/21 22:00 99 H 15 130/53 L 94 04/05/21 21:00 105 H 15 121/73 93 04/05/21 20:01 103 H 22 97 04/05/21 20:00 37.4 C 101 H 22 121/55 L 95 Resident Activity Tracking Resident Involvement: Resident Care Provided Care Provided: Adult Hospital Medicine
[2021-04-06] MEDS: DOXYCYCLINE HYCLATE 100 MG in DEXTROSE 5% 100 ML IV SCH ×2 (07:59→21:09)
[2021-04-06] MEDS: CARBIDOPA/LEVODOPA 25/100MG TAB PO SCH ×2 (08:00→20:52)
[2021-04-06] MEDS: FAMOTIDINE 20 MG in SYRINGE 3 ML IV SCH ×2 (08:00→21:09)
[2021-04-06] MEDS: INSULIN ASPART 100 UNITS/ML 3 ML PEN SC SCH ×4 (08:02→18:56)
--- NOTE | 2021-04-06 09:19 | XRay Report ---
XR chest 1V portable HISTORY: 75 years-old Female f/u acute respiratory failure COMPARISON: Chest radiograph and CTA chest 04/05/2021 TECHNIQUE: Portable AP view of the chest FINDINGS: Cardiac silhouette is enlarged. Endotracheal tube overlies the midline approximately 3.2 cm superior to the kareen. Enteric tube courses below the diaphragm and coils within the stomach. The patient is rotated. The lungs are hypoinflated. Numerous telemetry leads are coiled over the central chest. No p neumothorax or large pleural effusion. No acute fracture. Cholecystectomy. IMPRESSION: 1. Lines and tubes as above. 2. Hypoinflation with chronic interstitial coarsening. 3. No pneumothorax. ACT 112: Negative or not required by law. The above report was generated using voice recognition software. It may contain grammatical, syntax o r spelling errors. Electronically signed by: Jaime España M.D. 04/06/2021 9:17 AM
[2021-04-06] MEDS: ENOXAPARIN INJ 40 MG/0.4 ML SYR SQ SCH (09:43)
--- NOTE | 2021-04-06 15:49 | Hospitalist Progress Note ---
Date of Service April 06, 2021 Assessment & Plan (1) Acute hypercapnic respiratory failure: (2) Altered mental status: (3) Lewy body dementia: Plan: 75-year-old female with PMH of acute hypoxic and hypercapnic respiratory failure a year ago, hypothyroidism, hypertension, GERD, generalized osteoarthritis, osteoporosis, Parkinson disease, Lewy body dementia without behavioral disturbance,who lives at home, was brought in 04/05 because of respiratory distress. She lives with her and daughter. Walks with a walker at baseline. She was found by her daughter struggling to breathe at 2 AM on the day of arrival and admitting Venous blood gas showed pH of 7.16 and PCO2 of 78; patient was intubated in the ED and was managed in the ICU afterwards. #. Acute hypoxic and hypercapnic respiratory failure #. Acute metabolic encephalopathy 2/2 above History of same a year ago but not intubated patient was found struggling to breathe at 2 AM on the day of arrival by her daughter. Not on home oxygen. As per daughter, there is no recent fever, no cough, no nausea, no vomiting, no complaints of any pain, no diarrhea. Admitting CTA chest: Motion degraded study, no evidence of central PE or global pulmonary arteries. No airspace consolidation typical for pneumonia or pleural effusion. Admitting CT head: No acute intracranial abnormality identified. Per H&P note, admitting venous blood gas pH of 7.16 and PCO2 of 78 --> intubated in the ED 04/05 --> transferred to ICU care----> extubated to BiPAP 04/06. Critical care suspecting possible aspiration contributing to her respiratory distress given progressive Lewy body dementia and Parkinson's disease. Await speech eval. Patient extubated, lethargic at bedside, opens eyes to name, off of sedation. Being managed in the critical care. Procalcitonin negative, Zosyn DC'd 04/06. Continue with nebulizations and steroid and doxycycline Patient needs PFT as an outpatient. #. Abnormal cardiac rhythm likely MAT Has history of MAT in the setting of marked respiratory distress per cardiology. Admitting EKG: Sinus tachycardia with frequent premature atrial complexes and atrial runs. Heart rate 122. Admitting troponin negative Cardiology on board: Should resolve with underlying respiratory issue treatment, consider low-dose beta-estephanie in future for heart rate and rhythm control once hemodynamically stable. Continue to monitor #. Parkinson disease and Lewy body dementia: Continue her home carbidopa/levodopa; and Seroquel held--> plan to restart tomorrow per critical care team #. Hypertension, currently holding her lisinopril, nifedipine and Lasix. Restart when able. #. Gastroesophageal reflux disease: Placed on IV Pepcid. PO when able. #. Hypothyroidism: Continue Synthroid. #. Chronic pain, we will hold the pain medications. Last admission, her hydrocodone/acetaminophen was discontinued. But Daughter says she still has hydrocodone at home but seldom uses it. The night MANUFACTURING PROCESS TECHNICIAN she had tramadol. #. Deep venous thrombosis prophylaxis: c/w enoxaparin Full code, Palliative care on board. N.p.o., pending speech eval. Admission and Anticipated Discharge Date Admission Date: April 05, 2021 Subjective Patient was lying semiupright in bed, on BiPAP, opens eyes to name, unable to cooperate, per RN not oriented at baseline, no acute events overnight per RN. Per RN she has had decreased urine output today, patient is extubated to BiPAP today. Patient is n.p.o. ROS not available due to her cognitive condition. Physical Exam Physical Exam: GENERAL: Opens eyes to name, unable to cooperate, NAD, on BiPAP. HEENT: No pallor, no icterus. Pupils equal, round and reactive to light. Oral mucosa dry. NECK: No JVD, no neck masses. HEART: S1 and S2 heard. Regular rate and rhythm. No murmur, no gallop. RESPIRATORY SYSTEM: Normal AP diameter. No accessory muscle use. No wheezing, crackles diffuse and bilateral. ABDOMEN: Soft, bowel sounds present, no distention. CENTRAL NERVOUS SYSTEM: No facial droop. Patient unable to cooperate, not assessable. EXTREMITIES: No edema, no erythema seen. Results & Data Results & Data ([facility]) Vital Signs (Past 12 Hours) Vital Signs Temp Pulse Pulse Resp BP Pulse Ox 04/06/21 13:17 114 H 114 H 20 98 04/06/21 12:00 110 H 17 120/54 L 97 04/06/21 11:20 90 20 95 04/06/21 11:00 78 28 H 123/62 95 04/06/21 10:00 81 26 H 110/53 L 93 04/06/21 09:00 70 17 135/60 94 04/06/21 08:43 88 24 96 04/06/21 08:26 69 89 19 93 04/06/21 08:00 36.6 C 65 11 L 119/50 L 94 04/06/21 07:00 53 L 13 128/65 93 04/06/21 06:00 56 L 10 L 117/58 L 94 04/06/21 05:19 68 11 L 92 04/06/21 05:00 67 15 103/55 L 96 04/06/21 04:01 61 25 H 92 04/06/21 04:00 36.8 C 60 16 121/52 L 92 (1) Altered mental status Altered mental status type: stupor Qualified Code(s): R40.1 - Stupor
--- NOTE | 2021-04-06 16:28 | Billing Data ---
Date of Service April 06, 2021 Coding Level of Care Code Critical Care 1st 30-74 mins Time Spent (min) 33
[2021-04-06] MEDS: METOPROLOL TARTRATE 1 MG/ML VIAL IV PRN (17:30)
[2021-04-06] MEDS ORDERED: METOPROLOL TARTRATE 1 MG/ML VIAL IV PRN (17:33)
[2021-04-06] MEDS ORDERED: Nursing to Pharmacy Communication SCH (17:45)
[2021-04-06] MEDS ORDERED: METOPROLOL TARTRATE 1 MG/ML VIAL IV SCH (18:00)
[2021-04-07] MEDS: INSULIN ASPART 100 UNITS/ML 3 ML PEN SC SCH ×5 (00:09→21:01)
[2021-04-07] MEDS: METOPROLOL TARTRATE 1 MG/ML VIAL IV PRN (00:15)
[2021-04-07] MEDS: LEVALBUTEROL 1.25MG/0.5ML NEB INH SCH ×4 (00:17→19:37)
[2021-04-07] MEDS: IPRATROPIUM BROMIDE NEB SOLN 0.02% 2.5 ML VIAL INH SCH ×4 (00:17→19:37)
[2021-04-07] MEDS: LEVOTHYROXINE SODIUM 175 MCG TABLET PO SCH (01:44)
[2021-04-07 05:15] LABS: Hematocrit (blood only) 38.6 % (37-47); Hemoglobin 12.1 g/dL (12.0-16.0); Mean Corpuscular Hemoglobin 28.2 pg (25-34); Mean Corpuscular Hgb Conc 31.3 g/dL (32-36); Mean Platelet Volume 9.4 fL (7.4-10.4); Platelet Count 347 K/uL (130-400); RDW Coefficient of Variation 14.4 % (11.5-14.5); RDW Standard Deviation 47.4 fL (36.4-46.3); Red Blood Count 4.29 M/uL (4.2-5.4); White Blood Count 13.15 K/uL (4.8-10.8)
[2021-04-07 06:09] LABS: BUN Creatinine Ratio 44.8 (10-20); Calcium 8.8 mg/dl (8.5-10.1); Creatinine Clr Calc Pharmacy 58.4 ml/min; Est GFR (African American) 83.7 ml/min; Est GFR (Non-African American) 72.2 ml/min; Magnesium 2.5 mg/dl (1.8-2.4); Phosphorus 1.8 mg/dl (2.5-4.9); Potassium 3.4 mmol/L (3.5-5.1)
[2021-04-07] MEDS ORDERED: POTASSIUM PHOS 3 MMOL/1 ML INFUSION IV STA (07:20)
--- NOTE | 2021-04-07 07:22 | Critical Care Progress Note ---
Date of Service April 07, 2021 Assessment & Plan (1) Acute on chronic respiratory failure with hypoxia and hypercapnia: Plan: Reason Critically Ill: 75-year-old female here with a PMHx significant for Lewy body dementia, Parkinson's with behavioral disturbance, hypothyroidism, and MGUS who presented to [facility] for acute-onset respiratory distress and who was admitted to the ICU for close hemodynamic monitoring due to acute hypoxic hypercapnic respiratory failure. Intubated in the ED on 04/05, and extubated on 04/06. Currently doing well on 2L NC. Neuro - Precedex weaned off yesterday. Lewy body dementia and Parkinson's: suspect that progression of these illnesses is playing a major role in current presentation. Of note CT head on admission was unremarkable for acute process. - continue home Carbidopa/Levodopa - can re-start home Quetiapine today, once cleared for PO by VOLUNTEER SERVICES ASSISTANT Cardiac - Multifocal atrial tachycardia, possibly due to underlying lung disease: with previous recommendation to start daily rate-controlling agent, although never done. Currently rates controlled in 60s-80s, without need for PRN BBs. - Cardiology consulted - appreciate recs - consider low-dose beta-blockade on discharge HTN: - held home Nifedipine given currently normotensive - re-start as tolerated Respiratory - Acute hypoxic/hypercapnic respiratory failure: Although patient had negative VOLUNTEER SERVICES ASSISTANT evaluation in 01/2021, cannot r/o aspiration event leading to respiratory decompensation, given likely progressive Lewy body dementia and Parkinson's. Also suspect that kyphoscoliosis and possibly undiagnosed TAMMI/OHS is contributing. Although no oxygen at home, patient may be hypercapnic at baseline to due to the above. Do not suspect infection. - doing well on minimal supplemental O2 via NC - continue Solu-Medrol 40mg IV daily - continue Doxycycline (day 3/5) - consulted speech for VOLUNTEER SERVICES ASSISTANT eval (given likely worsening of swallowing ability over the last several months) - pending - patient would benefit from Trilogy machine at home - CM to assist with arranging this - recommend PFT evaluation as outpatient GI - NPO pending VOLUNTEER SERVICES ASSISTANT eval. RENAL/LYTES - Lactic acidosis, resolved: likely due to hypercapnia in setting of above. Hypokalemia/hypophosphatemia - repleting. - Replace lytes as needed. - - No concerns at this time. ENDO - No h/o diabetes. Continue home Synthroid for hypothyroidism. HEME - Stable H&H. ID - Do not suspect respiratory infection as cause of respiratory failure, given no recent s/s illness, afebrile, negative procalcitonin, no leukocytosis and CXR/CTA chest without signs of consolidation/infiltrate. However there is right-sided atelectasis on CXR and concern for aspiration. - stopped Zosyn today, will continue Doxycycline x5 days (day 3/5) for anti- inflammatory effect and to cover for atypical pathogens - Monitor fever curve. LINES/IV ACCESS - PIVs intact. DVT PROPHYLAXIS - Lovenox CODE STATUS - Patient was previously DNR/DNI in 01/2021 but was made full code during this hospitalization. Given significant comorbidities and current respiratory failure (intubated), Palliative was consulted to clarify goals of care - in process. REMAIN FULL CODE FOR NOW. DISPO - Patient stable for downgrade out of ICU. Thank you for allowing us to be part of this patient's care. Please refer to Dr. Hagen's documentation for any further recommendations. (2) Lactic acidosis: (3) Multifocal atrial tachycardia: (4) Parkinson disease: (5) Lewy body dementia: (6) Hallucinations: (7) Essential tremor: (8) GERD (gastroesophageal reflux disease): (9) Kyphoscoliosis: Admission and Anticipated Discharge Date Admission Date: April 05, 2021 Supervising Physician Co-Signing Physician Notes Was the resident-physician during care of patient. I separately evaluated patient for crenshaw portions of the history and the exam. I was present during the critical portion of medical decision making, and I discussed the case with the resident. I generally agree with the findings and plan except for any additions/exceptions noted. Patient seen and examined at bedside. No acute distress, no adverse events overnight Patient tolerated BiPAP well overnight She denies any chest pain. She is spiking low-grade fever. Constitutional:No acute distress HEENT: EOMI, PERRLA Respiratory system:Decreased air entry bilaterally, no wheeze, no rhonchi, mild crackles bilateral lower lobes CVS: S1-S2 positive Abdomen: Soft, nontender, nondistended, positive bowel sounds x4,obese Extremities: +2 pulses bilaterally radialis/ dorsalis pedis,no cyanosis, no edema Neuro:Awake alert oriented to self Psych: Normal mood and affect G/U:Positive Kelly --Prophylaxis VTE: Lovenox GI: Pepcid Lines: Peripheral Diet: Swallow eval today Plan: In/out: +333, urine output 601 Elevated ABG tomorrow if the patient is still hypercapnic she might qualify for trilogy machine Hypokalemia and hypophosphatemia being replaced. Patient does seem to have new onset A. fib. Given her other comorbidities and high risk of fall I do not think anticoagulating her therapeutically will be appropriate thing. Palliative care has been consulted to make sure what will be her goals of care. She was DNR/DNI on the last visit. Patient is hemodynamically stable to be downgraded to medical floor Continue with antibiotics to cover for UTI and doxycycline for atypical coverage for total of 5 days Please note the above document was generated using voice recognition software. It may contain grammatical, syntax or spelling errors.Any formal questions or concerns about the content, text or information contained within the body of this dictation should be directly addressed to the provider for clarification. Subjective Patient remained on BiPAP yesterday and overnight, and was weaned to 2L NC this morning. Precedex also weaned off yesterday. This morning patient is minimally conversive (although this may be chronic baseline due to many comorbidities). Does not appear in any acute distress. Denies fever/chills, chest pain, or SOB. Review of Systems Review of Systems: All systems reviewed & are unremarkable except as noted in HPI & below Physical Exam Physical Exam: General: A+O to self and place only (?chronic), NAD, cooperative, lying in bed comfortably HEENT: Atraumatic, normocephalic. Pulm: Coarse lung sounds bilaterally. -wheezes, -rales, -rhonchi. Symmetrical chest rise. Cardiac: RRR, -mrg. Radial pulses intact and symmetrical. No LE edema. Abdominal: soft, non-tender, non-distended, BS x 4 Skin: warm, dry, no rash Results & Data Results & Data ([facility]) Vital Signs (Past 12 Hours) Vital Signs Temp Pulse Pulse Resp BP Pulse Ox 04/07/21 06:00 88 22 130/53 L 94 04/07/21 05:00 97 H 20 130/76 94 04/07/21 04:00 37.6 C H 85 21 122/59 L 94 04/07/21 03:51 90 20 93 04/07/21 03:00 90 14 132/81 94 04/07/21 02:00 89 18 130/72 94 04/07/21 01:00 90 18 123/70 92 04/07/21 00:17 90 21 95 04/07/21 00:15 112 H 132/62 04/07/21 00:00 99 H 18 132/61 95 04/06/21 23:59 94 H 04/06/21 23:00 37.2 C 105 H 22 114/80 95 04/06/21 22:40 95 H 19 94 04/06/21 22:00 109 H 18 109/71 95 04/06/21 21:00 114 H 19 98/66 L 93 04/06/21 20:03 109 H 109 H 20 95 04/06/21 20:00 107 H 22 164/82 H 93 Resident Activity Tracking Resident Involvement: Resident Care Provided Care Provided: Adult Hospital Medicine
[2021-04-07] MEDS ORDERED: POTASSIUM PHOSPHATE 21 MMOL in SODIUM CHLORIDE 0.9% 500 ML IV ONE (07:30)
--- NOTE | 2021-04-07 07:48 | XRay Report ---
XR chest 1V portable HISTORY: 75 years-old Female f/u follow-up study in a patient with recent respiratory failure COMPARISON: Chest radiograph 04/06/2021, CTA chest 04/05/2021 TECHNIQUE: AP view of the chest FINDINGS: Interval extubation with removal of the enteric tube. Cardiomediastinal and hilar silhouettes are wit hin normal limits. Linear atelectasis of the right midlung. No pneumothorax, pleural effusion or over t pulmonary edema. Mid thoracic dextroscoliosis. Degenerative changes of the shoulders and spine. IMPRESSION: 1. Interval extubation with removal of the enteric tube. 2. Linear right midlung atelectasis. ACT 112: Negative or not required by law. The above report was generated using voice recognition software. It may contain grammatical, syntax o r spelling errors. Electronically signed by: Jaime España M.D. 04/07/2021 7:46 AM
[2021-04-07] MEDS: DOXYCYCLINE HYCLATE 100 MG in DEXTROSE 5% 100 ML IV SCH ×2 (08:01→20:07)
[2021-04-07] MEDS: FAMOTIDINE 20 MG in SYRINGE 3 ML IV SCH ×2 (08:01→20:07)
[2021-04-07] MEDS: CARBIDOPA/LEVODOPA 25/100MG TAB PO SCH ×3 (08:01→20:07)
[2021-04-07] MEDS: methylPREDNISolone 40 MG in SYRINGE 0 ML IV SCH (08:01)
[2021-04-07] MEDS: ENOXAPARIN INJ 40 MG/0.4 ML SYR SQ SCH (08:01)
--- NOTE | 2021-04-07 08:44 | Electrocardiogram Report ---
Test Reason : Blood Pressure : / mmHG Vent. Rate : 113 BPM Atrial Rate : 093 BPM P-R Int : 000 ms QRS Dur : 078 ms QT Int : 296 ms P-R-T Axes : 000 002 017 degrees QTc Int : 406 ms Poor data quality, interpretation may be adversely affected Atrial fibrillation with rapid ventricular response vs. sinus with atrial runs (baseline artifact pre cludes definitive reading) Diffuse Nonspecific T wave abnormality Abnormal ECG When compared with ECG of 05-APR-2021 04:38, Current rhythm more suggestive of atrial fibrillation Confirmed by Burke Tobin ([id number]) on 04/07/2021 8:44:09 AM Referred By: REFERRED SELF Confirmed By:Burke Tobin
--- NOTE | 2021-04-07 13:54 | Hospitalist Progress Note ---
Date of Service April 07, 2021 Assessment & Plan (1) Acute hypercapnic respiratory failure: (2) Altered mental status: (3) Lewy body dementia: Plan: 75-year-old female with PMH of acute hypoxic and hypercapnic respiratory failure a year ago, hypothyroidism, hypertension, GERD, generalized osteoarthritis, osteoporosis, Parkinson disease, Lewy body dementia without behavioral disturbance,who lives at home, was brought in 04/05 because of respiratory distress. She lives with her and daughter. Walks with a walker at baseline. She was found by her daughter struggling to breathe at 2 AM on the day of arrival and admitting Venous blood gas showed pH of 7.16 and PCO2 of 78; patient was intubated in the ED and was managed in the ICU afterwards. #. Acute hypoxic and hypercapnic respiratory failure #. Acute metabolic encephalopathy 2/2 above History of same a year ago but not intubated. This time, patient was found struggling to breathe at 2 AM on the day of arrival by her daughter. Not on home oxygen. As per daughter, there is no recent fever, no cough, no nausea, no vomiting, no complaints of any pain, no diarrhea. Admitting CTA chest: Motion degraded study, no evidence of central PE or global pulmonary arteries. No airspace consolidation typical for pneumonia or pleural effusion. Admitting CT head: No acute intracranial abnormality identified. Per H&P note, admitting venous blood gas pH of 7.16 and PCO2 of 78 --> intubated in the ED 04/05 --> transferred to ICU care----> extubated to BiPAP 04/06. Critical care suspecting possible aspiration contributing to her respiratory distress given progressive Lewy body dementia and Parkinson's disease. Await speech eval. Patient extubated 04/06, minimally conversive and seems to be at her baseline mentation. Opens eyes to name. Transfer to PCU status. Procalcitonin negative, Zosyn DC'd 04/06. Continue with nebulizations and steroid and doxycycline . Change IV steroid to p.o. when able. Per Pulm, patient will benefit from trilogy machine at homeCM working on it. Patient needs PFT as an outpatient. #. Abnormal cardiac rhythm likely MAT Has history of MAT in the setting of marked respiratory distress per cardiology. Admitting EKG: Sinus tachycardia with frequent premature atrial complexes and atrial runs. Heart rate 122. Admitting troponin negative Cardiology on board: Should resolve with underlying respiratory issue treatment, consider low-dose beta-estephanie in future for heart rate and rhythm control once hemodynamically stable. Continue to monitor. #. Parkinson disease and Lewy body dementia: Continue her home carbidopa/levodopa; and Seroquel held--> can restart once cleared by speech. #. Hypertension, currently holding her lisinopril, nifedipine and Lasix. Restart when able. #. Gastroesophageal reflux disease: Placed on IV Pepcid. PO when able. #. Hypothyroidism: Continue Synthroid. #. Chronic pain, we will hold the pain medications. Last admission, her hydrocodone/acetaminophen was discontinued. But Daughter says she still has hydrocodone at home but seldom uses it. The night COSMETICS DEMONSTRATOR she had tramadol. #. Deep venous thrombosis prophylaxis: c/w enoxaparin Oral meds when cleared by speech. Full code, Palliative care on board. N.p.o., pending speech eval. PT/OT while inpatient, patient will need placement. Admission and Anticipated Discharge Date Admission Date: April 05, 2021 Subjective Patient was seen and examined at bedside. Per RN, patient off of Precedex overnight and was on BiPAP overnight. No acute events overnight per RN. At bedside exam, patient was on 1 L nasal cannula, NAD, minimally conversive, orientation could not be assessed, ROS could not be assessed due to cognitive status. Denies any pain. Patient remains n.p.o. until evaluated by speech. Physical Exam Physical Exam: GENERAL: Opens eyes to name, minimally conversive. Unable to cooperate, NAD, on 1 L. HEENT: No pallor, no icterus. Pupils equal, round and reactive to light. Oral mucosa dry. NECK: No JVD, no neck masses. HEART: S1 and S2 heard. Regular rate and rhythm. No murmur, no gallop. RESPIRATORY SYSTEM: Normal AP diameter. No accessory muscle use. No wheezing, bilateral cracklesimproving ABDOMEN: Soft, bowel sounds present, no distention. CENTRAL NERVOUS SYSTEM: No facial droop. Patient unable to cooperate, not assessable. EXTREMITIES: No edema, no erythema seen. Results & Data Results & Data ([facility]) Vital Signs (Past 12 Hours) Vital Signs Temp Pulse Pulse Resp BP Pulse Ox 04/07/21 08:00 36.8 C 97 H 04/07/21 07:24 85 85 21 93 04/07/21 06:00 88 22 130/53 L 94 04/07/21 05:00 97 H 20 130/76 94 04/07/21 04:00 37.6 C H 85 21 122/59 L 94 04/07/21 03:51 90 20 93 04/07/21 03:00 90 14 132/81 94 04/07/21 02:00 89 18 130/72 94 (1) Altered mental status Altered mental status type: stupor Qualified Code(s): R40.1 - Stupor
[2021-04-07] MEDS: POTASSIUM CHLORIDE / WTR 10 MEQ/100 ML PLCT IV SCH ×5 (14:01→18:55)
[2021-04-07] MEDS ORDERED: DEXTROSE 50% 50 ML SYRINGE IV PRN (20:15)
[2021-04-07] MEDS ORDERED: GLUCAGON FOR INJ 1 MG VIAL IM PRN (20:15)
[2021-04-07] MEDS ORDERED: CARBOHYDRATES FOR HYPOGLYCEMIA PO PRN (20:15)
[2021-04-07] MEDS ORDERED: GLUCOSE 10 TABS/TUBE PO PRN (20:15)
[2021-04-07] MEDS ORDERED: GLUCOSE 40% GEL 15 GM TUBE PO PRN (20:15)
[2021-04-07] MEDS: QUEtiapine FUMARATE 100 MG TABLET PO SCH (20:29)
[2021-04-07] MEDS ORDERED: Nursing to Pharmacy Communication SCH (20:45)
[2021-04-08] MEDS: IPRATROPIUM BROMIDE NEB SOLN 0.02% 2.5 ML VIAL INH SCH ×3 (00:22→12:54)
[2021-04-08] MEDS: LEVALBUTEROL 1.25MG/0.5ML NEB INH SCH ×3 (00:22→12:55)
[2021-04-08 05:41] LABS: Hemoglobin 12.1 g/dL (12.0-16.0); Mean Corpuscular Hemoglobin 28.5 pg (25-34); Mean Corpuscular Hgb Conc 31.8 g/dL (32-36); Mean Corpuscular Volume 89.6 fL (80-100); Mean Platelet Volume 9.7 fL (7.4-10.4); Platelet Count 282 K/uL (130-400); RDW Coefficient of Variation 14.3 % (11.5-14.5); RDW Standard Deviation 46.8 fL (36.4-46.3); Red Blood Count 4.24 M/uL (4.2-5.4); White Blood Count 8.36 K/uL (4.8-10.8)
[2021-04-08 06:17] LABS: BUN Creatinine Ratio 36.6 (10-20); Calcium 8.4 mg/dl (8.5-10.1); Creatinine Clr Calc Pharmacy 85.1 ml/min; Est GFR (African American) 106.1 ml/min; Est GFR (Non-African American) 91.6 ml/min; Phosphorus 2.3 mg/dl (2.5-4.9); Potassium 3.3 mmol/L (3.5-5.1)
[2021-04-08] MEDS ORDERED: POTASSIUM CHLORIDE CRTAB 20 MEQ TABCR PO STA (07:53)
[2021-04-08] MEDS: INSULIN ASPART 100 UNITS/ML 3 ML PEN SC SCH ×4 (08:04→20:36)
[2021-04-08] MEDS: LEVOTHYROXINE SODIUM 175 MCG TABLET PO SCH (09:21)
[2021-04-08] MEDS: QUEtiapine FUMARATE 25 MG TABLET PO SCH (09:50)
[2021-04-08] MEDS: predniSONE 20 MG TAB PO SCH (09:50)
[2021-04-08] MEDS: DOXYCYCLINE HYCLATE 100 MG in DEXTROSE 5% 100 ML IV SCH ×2 (09:51→20:34)
[2021-04-08] MEDS: FAMOTIDINE 20 MG in SYRINGE 3 ML IV SCH ×2 (09:51→20:35)
[2021-04-08] MEDS: POT PHOSPHATE MONOBASIC W/ SOD TAB PO SCH ×4 (09:51→20:35)
[2021-04-08] MEDS: ENOXAPARIN INJ 40 MG/0.4 ML SYR SQ SCH (09:51)
[2021-04-08] MEDS: CARBIDOPA/LEVODOPA 25/100MG TAB PO SCH ×2 (09:52→20:34)
[2021-04-08 12:18] LABS: iSTAT Allen Test Pass; iSTAT Arterial Blood Gas HCO3 23 meg/L (19-24); iSTAT Arterial Blood Gas pCO2 35 mmHg (35-46); iSTAT Arterial Blood Gas pH 7.42 (7.35-7.45); iSTAT Arterial Blood Gas pO2 77 mmHg (80-95); iSTAT Carbon Dioxide 24 mmol/L (24-31); iSTAT Site L Radial
--- NOTE | 2021-04-08 14:04 | Palliative Care Progress Note ---
Date of Service April 08, 2021 Assessment & Plan (1) Palliative care encounter: Plan: Patient was extubated and has been tolerating nasal canula. She has been downgraded to PCU status, but remained a Full Code. The patient was unable to have meaningful conversation with me. I called her daughter, Terri. at [phone] and talked at length. She said that she normally can talk and have conversation, walk with a walker and eat if her meals are prepared. At this point, even rehabilitation would be challenging having her reliably participate. I did confirm that in the event of cardiac or respiratory arrest, she would not want her to be resuscitated. Official DNR/DNI placed. Palliative medicine will sign off and follow peripherally. Should you require additional support, please contact us. (2) Hypoxia: (3) Senile degeneration of brain: Admission and Anticipated Discharge Date Admission Date: April 05, 2021 Subjective Patient unable to open her eyes on command nor follow other commands like wiggling toes or squeezing hands. See A/P for further details Review of Systems Review of Systems: [place] System Assessment Scale: by observation Pain: 0/3 Nausea: 0/3 Anxiety: 0/3 SOB: 1/3 palliative performance scale: 30% Physical Exam Constitutional: + frail appearing ENMT: Mouth: + dry oral mucous membranes Respiratory: normal respiratory effort and symmetric chest movement Auscultation: + diminished lung sounds Cardiovascular: Rate/Rhythm: regular rate and regular rhythm Heart Sounds: normal S1 and normal S2 Extremities: normal capillary refill; no edema Gastrointestinal (Abdomen): Inspection/Auscultation: abdomen normal to inspection Skin: + pallor Results & Data ([facility]) Vital Signs (Past 12 Hours) Vital Signs Temp Pulse Pulse Resp BP Pulse Ox 04/08/21 12:55 121 H 17 92 04/08/21 08:00 94 H 04/08/21 07:59 99 H 18 93 04/08/21 04:00 38.4 C H 87 24 114/60 93 04/08/21 03:01 88 28 H 93 PG Care Time/CCT Total # of Minutes Spent Total Time Spent with Patient: Total time spent is greater than 50% in coordination of care (as documented) at patient's floor/unit and/or counseling patient: 35 minutes with >50% of that time spent assessing the patient, discussing goals of care with family and collaborating with IDT Coding Level of Care Code 85090 Subseq Hosp Care Lvl 3 Diagnoses Palliative care encounter Z51.5 Hypoxia R09.02 Senile degeneration of brain G31.1 Time Spent (min) 35
--- NOTE | 2021-04-08 14:26 | Hospitalist Progress Note ---
Date of Service April 08, 2021 Assessment & Plan (1) Acute hypercapnic respiratory failure: (2) Altered mental status: (3) Lewy body dementia: Plan: 75-year-old female with PMH of acute hypoxic and hypercapnic respiratory failure a year ago, hypothyroidism, hypertension, GERD, generalized osteoarthritis, osteoporosis, Parkinson disease, Lewy body dementia without behavioral disturbance,who lives at home, was brought in 04/05 because of respiratory distress. She lives with her and daughter. Walks with a walker at baseline. She was found by her daughter struggling to breathe at 2 AM on the day of arrival and admitting Venous blood gas showed pH of 7.16 and PCO2 of 78; patient was intubated in the ED and was managed in the ICU afterwards. #. Acute hypoxic and hypercapnic respiratory failure #. Acute metabolic encephalopathy 2/2 above History of same a year ago but not intubated. This time, patient was found struggling to breathe at 2 AM on the day of arrival by her daughter. Not on home oxygen. As per daughter, there is no recent fever, no cough, no nausea, no vomiting, no complaints of any pain, no diarrhea. Admitting CTA chest: Motion degraded study, no evidence of central PE or global pulmonary arteries. No airspace consolidation typical for pneumonia or pleural effusion. Admitting CT head: No acute intracranial abnormality identified. Per H&P note, admitting venous blood gas pH of 7.16 and PCO2 of 78 --> intubated in the ED 04/05 --> transferred to ICU care----> extubated to BiPAP 04/06. Critical care suspecting possible aspiration contributing to her respiratory distress given progressive Lewy body dementia and Parkinson's disease. Await speech eval. Patient extubated 04/06, minimally conversive and seems to be at her baseline mentation. Opens eyes to name. Procalcitonin negative, Zosyn DC'd 04/06. Continue with nebulizations and steroid and doxycycline . c/w prednisone - D/C 04/12 Per Pulm, patient will benefit from trilogy machine at homeCM working on it. Patient needs PFT as an outpatient. #. Abnormal cardiac rhythm likely MAT Has history of MAT in the setting of marked respiratory distress per cardiology. Admitting EKG: Sinus tachycardia with frequent premature atrial complexes and atrial runs. Heart rate 122. Admitting troponin negative Cardiology on board: Should resolve with underlying respiratory issue treatment, consider low-dose beta-estephanie in future for heart rate and rhythm control once hemodynamically stable. Continue to monitor. #. Parkinson disease and Lewy body dementia: Continue her home carbidopa/levodopa; and Seroquel held--> can restart once cleared by speech. #. Hypertension, currently holding her lisinopril, nifedipine and Lasix. Restart when able. #. Gastroesophageal reflux disease: Placed on IV Pepcid. PO when able. #. Hypothyroidism: Continue Synthroid. #. Chronic pain, we will hold the pain medications. Last admission, her hydrocodone/acetaminophen was discontinued. But Daughter says she still has hydrocodone at home but seldom uses it. The night PACKING MACHINE FEEDER she had tramadol. #. Deep venous thrombosis prophylaxis: c/w enoxaparin Oral meds when cleared by speech. DNR/DNI, Palliative care on board. N.p.o., pending speech eval. PT/OT while inpatient, patient will need placement. Can be DC'd 1-2 days when placement available. Admission and Anticipated Discharge Date Admission Date: April 05, 2021 Subjective Patient was lying in bed, on 2 L nasal cannula oxygen, NAD. Per RN patient is eating ways, has more bowel movement, no acute events overnight. Patient minimally conversive, replied no pain, other ROS limited due to cognitive status. Urinary catheter in situ with light yellow urine collection. Physical Exam Physical Exam: GENERAL: Opens eyes to name, minimally conversive. Unable to cooperate, NAD, on 2 L. HEENT: No pallor, no icterus. Pupils equal, round and reactive to light. Oral mucosa dry. NECK: No JVD, no neck masses. HEART: S1 and S2 heard. Regular rate and rhythm. No murmur, no gallop. RESPIRATORY SYSTEM: Normal AP diameter. No accessory muscle use. No wheezing, bilateral crackles luis enrique at bases. ABDOMEN: Soft, bowel sounds present, no distention. CENTRAL NERVOUS SYSTEM: No facial droop. Patient unable to cooperate, not assessable. EXTREMITIES: No edema, no erythema seen. Results & Data Results & Data ([facility]) Vital Signs (Past 12 Hours) Vital Signs Temp Pulse Pulse Resp BP Pulse Ox 04/08/21 12:55 121 H 17 92 04/08/21 08:00 94 H 11/19/21 07:59 99 H 18 93 04/08/21 04:00 38.4 C H 87 24 114/60 93 04/08/21 03:01 88 28 H 93 (1) Altered mental status Altered mental status type: stupor Qualified Code(s): R40.1 - Stupor
--- NOTE | 2021-04-08 16:45 | Billing Data ---
Date of Service April 07, 2021 Coding Level of Care Code 24902 Subseq Hosp Care Lvl 3
[2021-04-08] MEDS ORDERED: IPRATROPIUM BROMIDE NEB SOLN 0.02% 2.5 ML VIAL INH PRN (16:49)
[2021-04-08] MEDS ORDERED: LEVALBUTEROL 1.25MG/0.5ML NEB INH PRN (16:49)
[2021-04-08] MEDS: QUEtiapine FUMARATE 100 MG TABLET PO SCH (20:36)
[2021-04-09] MEDS: LEVOTHYROXINE SODIUM 175 MCG TABLET PO SCH (05:52)
[2021-04-09 05:54] LABS: Hematocrit (blood only) 38.5 % (37-47); Hemoglobin 12.1 g/dL (12.0-16.0); Mean Corpuscular Hemoglobin 28.3 pg (25-34); Mean Corpuscular Hgb Conc 31.4 g/dL (32-36); Mean Corpuscular Volume 90.2 fL (80-100); Mean Platelet Volume 9.6 fL (7.4-10.4); Nucleated RBC # (auto) 0.08 K/uL (0-0); Nucleated RBC % (auto) 1.6 %; Platelet Count 240 K/uL (130-400); RDW Coefficient of Variation 14.5 % (11.5-14.5); RDW Standard Deviation 47.4 fL (36.4-46.3); Red Blood Count 4.27 M/uL (4.2-5.4); White Blood Count 4.98 K/uL (4.8-10.8)
[2021-04-09 06:43] LABS: BUN Creatinine Ratio 32.2 (10-20); Calcium 8.5 mg/dl (8.5-10.1); Creatinine Clr Calc Pharmacy 76.9 ml/min; Est GFR (African American) 102.5 ml/min; Est GFR (Non-African American) 88.4 ml/min; Magnesium 2.5 mg/dl (1.8-2.4); Phosphorus 2.9 mg/dl (2.5-4.9); Potassium 3.5 mmol/L (3.5-5.1)
[2021-04-09] MEDS: DOXYCYCLINE HYCLATE 100 MG in DEXTROSE 5% 100 ML IV SCH ×2 (08:30→20:50)
[2021-04-09] MEDS: FAMOTIDINE 20 MG in SYRINGE 3 ML IV SCH ×2 (08:30→20:50)
[2021-04-09] MEDS ORDERED: POTASSIUM CHLORIDE CRTAB 20 MEQ TABCR PO STA (08:34)
[2021-04-09] MEDS: QUEtiapine FUMARATE 25 MG TABLET PO SCH (08:40)
[2021-04-09] MEDS: CARBIDOPA/LEVODOPA 25/100MG TAB PO SCH ×2 (08:40→20:52)
[2021-04-09] MEDS: POT PHOSPHATE MONOBASIC W/ SOD TAB PO SCH ×4 (08:40→20:52)
[2021-04-09] MEDS: predniSONE 20 MG TAB PO SCH (08:40)
[2021-04-09] MEDS: INSULIN ASPART 100 UNITS/ML 3 ML PEN SC SCH ×4 (09:50→21:00)
[2021-04-09] MEDS: POTASSIUM CHLORIDE / WTR 10 MEQ/100 ML PLCT IV SCH ×2 (10:38→11:39)
[2021-04-09] MEDS: ENOXAPARIN INJ 40 MG/0.4 ML SYR SQ SCH (10:38)
--- NOTE | 2021-04-09 19:56 | Hospitalist Progress Note ---
Date of Service April 09, 2021 Assessment & Plan (1) Acute hypercapnic respiratory failure: (2) Altered mental status: (3) Lewy body dementia: Plan: 75-year-old female with PMH of acute hypoxic and hypercapnic respiratory failure a year ago, hypothyroidism, hypertension, GERD, generalized osteoarthritis, osteoporosis, Parkinson disease, Lewy body dementia without behavioral disturbance,who lives at home, was brought in 04/05 because of respiratory distress. She lives with her and daughter. Walks with a walker at baseline. She was found by her daughter struggling to breathe at 2 AM on the day of arrival and admitting Venous blood gas showed pH of 7.16 and PCO2 of 78; patient was intubated in the ED and was managed in the ICU afterwards. #. Acute hypoxic and hypercapnic respiratory failure #. Acute metabolic encephalopathy 2/2 above History of same a year ago but not intubated. This time, patient was found struggling to breathe at 2 AM on the day of arrival by her daughter. Not on home oxygen. As per daughter, there is no recent fever, no cough, no nausea, no vomiting, no complaints of any pain, no diarrhea. Admitting CTA chest: Motion degraded study, no evidence of central PE or global pulmonary arteries. No airspace consolidation typical for pneumonia or pleural effusion. Admitting CT head: No acute intracranial abnormality identified. Per H&P note, admitting venous blood gas pH of 7.16 and PCO2 of 78 --> intubated in the ED 04/05 --> transferred to ICU care----> extubated to BiPAP 04/06. Critical care suspecting possible aspiration contributing to her respiratory distress given progressive Lewy body dementia and Parkinson's disease. Await speech eval. Patient extubated 04/06, minimally conversive and seems to be at her baseline mentation. Opens eyes to name. Procalcitonin negative, Zosyn DC'd 04/06. Continue with nebulizations and steroid and doxycycline . c/w prednisone - D/C 04/12 Per Pulm, patient will benefit from trilogy machine at homeCM working on it. Patient needs PFT as an outpatient. #. Abnormal cardiac rhythm likely MAT Has history of MAT in the setting of marked respiratory distress per cardiology. Admitting EKG: Sinus tachycardia with frequent premature atrial complexes and atrial runs. Heart rate 122. Admitting troponin negative Cardiology on board: Should resolve with underlying respiratory issue treatment, consider low-dose beta-estephanie in future for heart rate and rhythm control once hemodynamically stable. Continue to monitor. Monitor electrolytes daily and replace as appropriate. #. Parkinson disease and Lewy body dementia: Continue her home carbidopa/levodopa; and Seroquel held--> can restart once cleared by speech. #. Hypertension, currently holding her lisinopril, nifedipine and Lasix. Restart when able. #. Gastroesophageal reflux disease: Placed on IV Pepcid. PO when able. #. Hypothyroidism: Continue Synthroid. #. Chronic pain, we will hold the pain medications. Last admission, her hydrocodone/acetaminophen was discontinued. But Daughter says she still has hydrocodone at home but seldom uses it. The night DOCKET CLERK she had tramadol. #. Deep venous thrombosis prophylaxis: c/w enoxaparin Oral meds when cleared by speech. DNR/DNI, Palliative care on board. N.p.o., pending speech eval. PT/OT while inpatient, patient will need placement. Awaiting improvement in the condition/improvement in p.o. intake. Prognosis poor, will benefit from palliative care. Admission and Anticipated Discharge Date Admission Date: April 05, 2021 Subjective Patient was lying in bed, on 2 L nasal cannula oxygen, NAD. Per RN patient is eating very little, no acute events overnight. Patient minimally conversive, replied no pain, other ROS limited due to cognitive status. Urinary catheter in situ with light yellow urine collection. Physical Exam Physical Exam: GENERAL: Opens eyes to name, minimally conversive. Unable to cooperate, NAD, on 2 L. HEENT: No pallor, no icterus. Pupils equal, round and reactive to light. Oral mucosa dry. NECK: No JVD, no neck masses. HEART: S1 and S2 heard. Regular rate and rhythm. No murmur, no gallop. RESPIRATORY SYSTEM: Normal AP diameter. No accessory muscle use. No wheezing, bilateral crackles luis enrique at bases. ABDOMEN: Soft, bowel sounds present, no distention. CENTRAL NERVOUS SYSTEM: No facial droop. Patient unable to cooperate, not assessable. EXTREMITIES: No edema, no erythema seen. Results & Data Results & Data ([facility]) Vital Signs (Past 12 Hours) Vital Signs Temp Pulse Pulse Resp BP BP Pulse Ox 04/09/21 16:36 37.0 C 96 H 25 H 173/78 H 96 04/09/21 15:13 90 04/09/21 11:43 37.5 C 89 24 142/96 H 99 04/09/21 08:32 37.5 C 88 24 134/87 99 04/09/21 08:00 91 H (1) Altered mental status Altered mental status type: stupor Qualified Code(s): R40.1 - Stupor
[2021-04-09] MEDS: QUEtiapine FUMARATE 100 MG TABLET PO SCH (20:52)
[2021-04-10 05:56] LABS: BUN Creatinine Ratio 35.4 (10-20); Calcium 8.3 mg/dl (8.5-10.1); Creatinine Clr Calc Pharmacy 78.2 ml/min; Est GFR (Non-African American) 88.9 ml/min
[2021-04-10] MEDS: LEVOTHYROXINE SODIUM 175 MCG TABLET PO SCH (06:44)
[2021-04-10] MEDS ORDERED: POTASSIUM CHLORIDE PWD 20 MEQ PACK PO STA (07:03)
[2021-04-10] MEDS: INSULIN ASPART 100 UNITS/ML 3 ML PEN SC SCH ×4 (07:57→20:33)
[2021-04-10] MEDS: QUEtiapine FUMARATE 25 MG TABLET PO SCH (07:58)
[2021-04-10] MEDS: CARBIDOPA/LEVODOPA 25/100MG TAB PO SCH ×2 (07:58→20:31)
[2021-04-10] MEDS: DOXYCYCLINE HYCLATE 100 MG in DEXTROSE 5% 100 ML IV SCH (07:59)
[2021-04-10] MEDS: FAMOTIDINE 20 MG in SYRINGE 3 ML IV SCH ×2 (07:59→20:32)
[2021-04-10] MEDS ORDERED: POTASSIUM CHLORIDE / WTR 10 MEQ/100 ML PLCT IV STA (08:05)
[2021-04-10] MEDS: predniSONE 20 MG TAB PO SCH (08:36)
[2021-04-10] MEDS ORDERED: POTASSIUM CHLORIDE PWD 20 MEQ PACK PO ONE (09:30)
[2021-04-10] MEDS: ENOXAPARIN INJ 40 MG/0.4 ML SYR SQ SCH (10:20)
--- NOTE | 2021-04-10 14:36 | Hospitalist Progress Note ---
Date of Service April 10, 2021 Assessment & Plan (1) Acute hypercapnic respiratory failure: (2) Altered mental status: (3) Lewy body dementia: Plan: 75-year-old female with PMH of acute hypoxic and hypercapnic respiratory failure a year ago, hypothyroidism, hypertension, GERD, generalized osteoarthritis, osteoporosis, Parkinson disease, Lewy body dementia without behavioral disturbance,who lives at home, was brought in 04/05 because of respiratory distress. She lives with her and daughter. Walks with a walker at baseline. She was found by her daughter struggling to breathe at 2 AM on the day of arrival and admitting Venous blood gas showed pH of 7.16 and PCO2 of 78; patient was intubated in the ED and was managed in the ICU afterwards. #. Acute hypoxic and hypercapnic respiratory failure #. Acute metabolic encephalopathy 2/2 above History of same a year ago but not intubated. This time, patient was found struggling to breathe at 2 AM on the day of arrival by her daughter. Not on home oxygen. As per daughter, there is no recent fever, no cough, no nausea, no vomiting, no complaints of any pain, no diarrhea. Admitting CTA chest: Motion degraded study, no evidence of central PE or global pulmonary arteries. No airspace consolidation typical for pneumonia or pleural effusion. Admitting CT head: No acute intracranial abnormality identified. Per H&P note, admitting venous blood gas pH of 7.16 and PCO2 of 78 --> intubated in the ED 04/05 --> transferred to ICU care----> extubated to BiPAP 04/06. Critical care suspected possible aspiration contributing to her respiratory distress given progressive Lewy body dementia and Parkinson's disease. Speech evaluated and recommended Pureed diet. Patient extubated 04/06, minimally conversive and seems to be at her baseline mentation. Opens eyes to name. Procalcitonin negative, Zosyn DC'd 04/06. S/p Doxy 5 days. Continue with nebulizations. c/w prednisone - D/C 04/12 Per Pulm, patient will benefit from trilogy machine at homeCM working on it. Patient needs PFT as an outpatient. #. Abnormal cardiac rhythm likely MAT Has history of MAT in the setting of marked respiratory distress per cardiology. Admitting EKG: Sinus tachycardia with frequent premature atrial complexes and atrial runs. Heart rate 122. Admitting troponin negative Cardiology on board: Should resolve with underlying respiratory issue treatment, consider low-dose beta-estephanie in future for heart rate and rhythm control once hemodynamically stable. Continue to monitor. Monitor electrolytes daily and replace as appropriate. #. Parkinson disease and Lewy body dementia: Continue her home carbidopa/levodopa; and Seroquel. #. Hypertension, currently holding her lisinopril, nifedipine and Lasix.BP fluctuating --> Restart when able. #. Gastroesophageal reflux disease: Placed on IV Pepcid. PO when able. #. Hypothyroidism: Continue Synthroid. #. Chronic pain, we will hold the pain medications. Last admission, her hydrocodone/acetaminophen was discontinued. But Daughter says she still has hydrocodone at home but seldom uses it. The night PROJECT MANAGEMENT DIRECTOR she had tramadol. #. Deep venous thrombosis prophylaxis: c/w enoxaparin Oral meds when cleared by speech. DNR/DNI, Palliative care on board. Speech Evaluated --> Pureed diet PT/OT while inpatient, patient will need placement. Prognosis poor, will benefit from palliative care. Will downgrade to med/tele. Admission and Anticipated Discharge Date Admission Date: April 05, 2021 Subjective Patient was lying in bed, on 2 L nasal cannula oxygen, NAD. Per RN patient is eating very little; moving bowels OK, no acute events overnight. Patient minimally conversive, opens eyes to name most of the times, ROS limited due to cognitive status. Urinary catheter in situ with light yellow urine collection. Physical Exam Physical Exam: GENERAL: Opens eyes to name, minimally conversive. Unable to cooperate, NAD, on 2 L. HEENT: No pallor, no icterus. Pupils equal, round and reactive to light. Oral mucosa dry. NECK: No JVD, no neck masses. HEART: S1 and S2 heard. Regular rate and rhythm. No murmur, no gallop. RESPIRATORY SYSTEM: Normal AP diameter. No accessory muscle use. No wheezing, bilateral crackles luis enrique at bases. ABDOMEN: Soft, bowel sounds present, no distention. CENTRAL NERVOUS SYSTEM: No facial droop. Patient unable to cooperate, not assessable. EXTREMITIES: No edema, no erythema seen. BUE 1+ edema Results & Data Results & Data ([facility]) Vital Signs (Past 12 Hours) Vital Signs Temp Pulse Pulse Resp BP Pulse Ox Pulse Ox 04/10/21 12:00 37.0 C 79 18 95/44 L 96 04/10/21 11:23 89 04/10/21 07:36 37.0 C 93 H 20 123/65 94 04/10/21 05:00 36.5 C 85 28 H 96/38 L 92 04/10/21 04:00 92 04/10/21 03:56 28 L 88 H 25 L (1) Altered mental status Altered mental status type: stupor Qualified Code(s): R40.1 - Stupor
[2021-04-10] MEDS: QUEtiapine FUMARATE 100 MG TABLET PO SCH (20:30)
[2021-04-11 05:42] LABS: BUN Creatinine Ratio 38.7 (10-20); Calcium 8.6 mg/dl (8.5-10.1); Creatinine Clr Calc Pharmacy 82.8 ml/min; Est GFR (African American) 104.9 ml/min; Est GFR (Non-African American) 90.5 ml/min; Potassium 3.8 mmol/L (3.5-5.1)
[2021-04-11] MEDS ORDERED: ALENDRONATE SODIUM 70 MG TAB PO SCH (06:30)
[2021-04-11] MEDS: LEVOTHYROXINE SODIUM 175 MCG TABLET PO SCH (06:43)
[2021-04-11] MEDS: INSULIN ASPART 100 UNITS/ML 3 ML PEN SC SCH ×4 (08:18→21:17)
[2021-04-11] MEDS: FAMOTIDINE 20 MG in SYRINGE 3 ML IV SCH ×2 (08:22→21:18)
[2021-04-11] MEDS: predniSONE 20 MG TAB PO SCH (08:23)
[2021-04-11] MEDS: QUEtiapine FUMARATE 25 MG TABLET PO SCH (08:23)
[2021-04-11] MEDS: ASPIRIN 81 MG ECTAB PO SCH (08:23)
[2021-04-11] MEDS: CARBIDOPA/LEVODOPA 25/100MG TAB PO SCH ×2 (08:23→21:19)
[2021-04-11] MEDS: FUROSEMIDE 20 MG TAB PO SCH (10:32)
[2021-04-11] MEDS: ENOXAPARIN INJ 40 MG/0.4 ML SYR SQ SCH (10:33)
--- NOTE | 2021-04-11 14:12 | Hospitalist Progress Note ---
Date of Service April 11, 2021 Assessment & Plan (1) Acute hypercapnic respiratory failure: (2) Altered mental status: (3) Lewy body dementia: Plan: 75-year-old female with PMH of acute hypoxic and hypercapnic respiratory failure a year ago, hypothyroidism, hypertension, GERD, generalized osteoarthritis, osteoporosis, Parkinson disease, Lewy body dementia without behavioral disturbance,who lives at home, was brought in 04/05 because of respiratory distress. She lives with her and daughter. Walks with a walker at baseline. She was found by her daughter struggling to breathe at 2 AM on the day of arrival and admitting Venous blood gas showed pH of 7.16 and PCO2 of 78; patient was intubated in the ED and was managed in the ICU afterwards. #. Acute hypoxic and hypercapnic respiratory failure #. Acute metabolic encephalopathy 2/2 above History of same a year ago but not intubated. This time, patient was found struggling to breathe at 2 AM on the day of arrival by her daughter. Not on home oxygen. As per daughter, there is no recent fever, no cough, no nausea, no vomiting, no complaints of any pain, no diarrhea. Admitting CTA chest: Motion degraded study, no evidence of central PE or global pulmonary arteries. No airspace consolidation typical for pneumonia or pleural effusion. Admitting CT head: No acute intracranial abnormality identified. Per H&P note, admitting venous blood gas pH of 7.16 and PCO2 of 78 --> intubated in the ED 04/05 --> transferred to ICU care----> extubated to BiPAP 04/06. Critical care suspected possible aspiration contributing to her respiratory distress given progressive Lewy body dementia and Parkinson's disease. Speech evaluated and recommended Pureed diet. Patient extubated 04/06, minimally conversive and seems to be at her baseline mentation. Opens eyes spontaneously. Procalcitonin negative, Zosyn DC'd 04/06. S/p Doxy 5 days. Continue with nebulizations. c/w prednisone - D/C 04/12 Per Pulm, patient will benefit from trilogy machine at homeCM working on it. Patient needs PFT as an outpatient. #. Abnormal cardiac rhythm likely MAT Has history of MAT in the setting of marked respiratory distress per cardiology. Admitting EKG: Sinus tachycardia with frequent premature atrial complexes and atrial runs. Heart rate 122. Admitting troponin negative Cardiology on board: Should resolve with underlying respiratory issue treatment, consider low-dose beta-estephanie in future for heart rate and rhythm control once hemodynamically stable. Continue to monitor. Monitor electrolytes daily and replace as appropriate. Started metoprolol tartarate 7.25 mg twice a day, will uptitrate as tolerated. #. Parkinson disease and Lewy body dementia: Continue her home carbidopa/levodopa; and Seroquel. #. Hypertension, currently holding her lisinopril, nifedipine. On home lasix.BP fluctuating --> slowly resume, started on low dose metoprolol #. Gastroesophageal reflux disease: Placed on IV Pepcid. PO when able. #. Hypothyroidism: Continue Synthroid. #. Chronic pain, we will hold the pain medications. Last admission, her hydrocodone/acetaminophen was discontinued. But Daughter says she still has hydrocodone at home but seldom uses it. The night BURGLAR ALARM OPERATOR she had tramadol. #. Deep venous thrombosis prophylaxis: c/w enoxaparin Oral meds being titrated, luis enrique HTN DNR/DNI, Palliative care on board. Speech Evaluated --> Pureed diet PT/OT while inpatient, patient will need placement. Prognosis poor, will benefit from palliative care. c/w med/tele. Awaiting Placement. Admission and Anticipated Discharge Date Admission Date: April 05, 2021 Subjective Patient was lying semi upright in bed, on 2 L nasal cannula oxygen, NAD, Looking better. Patient minimally conversive, opens eyes spontaneously, ROS limited due to cognitive status. Urinary catheter in situ with light yellow urine collection. Physical Exam Physical Exam: GENERAL: Opens eyes, minimally conversive. Unable to cooperat e, NAD, on 2 L. HEENT: No pallor, no icterus. Pupils equal, round and reactive to light. Oral mucosa dry. NECK: No JVD, no neck masses. HEART: S1 and S2 heard. Regular rate and rhythm. No murmur, no gallop. RESPIRATORY SYSTEM: Normal AP diameter. No accessory muscle use. No wheezing, bilateral crackles luis enrique at bases. ABDOMEN: Soft, bowel sounds present, no distention. CENTRAL NERVOUS SYSTEM: No facial droop. Patient unable to cooperate, not assessable. EXTREMITIES: trace edema, no erythema seen. BUE 1+ edema Results & Data Results & Data ([facility]) Vital Signs (Past 12 Hours) Vital Signs Temp Pulse Pulse Resp BP Pulse Ox 04/11/21 11:39 36.8 C 93 H 20 149/59 H 93 04/11/21 08:00 36.8 C 86 86 18 147/77 H 96 04/11/21 03:42 84 32 H 92 04/11/21 03:00 37.4 C 82 30 H 153/84 H 91 (1) Altered mental status Altered mental status type: stupor Qualified Code(s): R40.1 - Stupor
[2021-04-11] MEDS ORDERED: METOPROLOL TARTRATE 1 MG/ML VIAL IV SCH (14:30)
[2021-04-11] MEDS ORDERED: METOPROLOL TARTRATE 25 MG TAB PO SCH (15:00)
[2021-04-11] MEDS ORDERED: METOPROLOL TARTRATE 25 MG TAB PO ONE (15:15)
[2021-04-11] MEDS: POTASSIUM CHLORIDE CRTAB 20 MEQ TABCR PO SCH (16:42)
[2021-04-11] MEDS: QUEtiapine FUMARATE 100 MG TABLET PO SCH (21:19)
[2021-04-12] MEDS: LEVOTHYROXINE SODIUM 175 MCG TABLET PO SCH ×2 (06:03→06:45)
[2021-04-12 06:49] LABS: BUN Creatinine Ratio 40.8 (10-20); Calcium 8.2 mg/dl (8.5-10.1); Creatinine Clr Calc Pharmacy 83.3 ml/min; Est GFR (African American) 105.5 ml/min; Potassium 3.8 mmol/L (3.5-5.1)
[2021-04-12] MEDS: INSULIN ASPART 100 UNITS/ML 3 ML PEN SC SCH ×4 (08:00→21:00)
[2021-04-12] MEDS: ASPIRIN 81 MG ECTAB PO SCH (08:35)
[2021-04-12] MEDS: CARBIDOPA/LEVODOPA 25/100MG TAB PO SCH ×2 (08:35→22:03)
[2021-04-12] MEDS: FUROSEMIDE 20 MG TAB PO SCH (08:35)
[2021-04-12] MEDS: METOPROLOL SUCC 25MG EXT REL TAB PO SCH (08:35)
[2021-04-12] MEDS: QUEtiapine FUMARATE 25 MG TABLET PO SCH (08:36)
[2021-04-12] MEDS: predniSONE 20 MG TAB PO SCH (08:36)
[2021-04-12] MEDS: FAMOTIDINE 20 MG in SYRINGE 3 ML IV SCH ×2 (08:39→22:22)
[2021-04-12] MEDS: ENOXAPARIN INJ 40 MG/0.4 ML SYR SQ SCH (10:29)
--- NOTE | 2021-04-12 13:45 | XRay Report ---
XR chest 1V portable CLINICAL HISTORY: increasing cough, evaluate for possible aspiration. COMPARISON STUDY: 04/07/2021 TECHNIQUE: 1 view of the chest FINDINGS: Single frontal view of the chest demonstrates the cardiomediastinal silhouette to be within normal li mits. Compared to the previous examination, there is a decreased inspiratory effort with elevation of the hemidiaphragms and crowding of the bronchovascular markings at the lung bases. There is right ba silar atelectasis. There are no confluent alveolar opacities or evidence for aspiration pneumonitis. There is no evidence for pleural effusion. There is no evidence for vascular congestion. There is no acute osseous pathology. IMPRESSION: Decreased inspiration with right basilar atelectasis. No radiographic evidence for aspira tion pneumonitis. ACT 112: Negative or not required by law. Electronically signed by: Dallin Francisco M.D. 04/12/2021 1:44 PM
[2021-04-12] MEDS: POTASSIUM CHLORIDE CRTAB 20 MEQ TABCR PO SCH (15:13)
--- NOTE | 2021-04-12 16:34 | Hospitalist Progress Note ---
Date of Service April 12, 2021 Assessment & Plan (1) Acute hypercapnic respiratory failure: (2) Altered mental status: (3) Lewy body dementia: Plan: 75-year-old female with PMH of acute hypoxic and hypercapnic respiratory failure a year ago, hypothyroidism, hypertension, GERD, generalized osteoarthritis, osteoporosis, Parkinson disease, Lewy body dementia without behavioral disturbance,who lives at home, was brought in 04/05 because of respiratory distress. She lives with her and daughter. Walks with a walker at baseline. She was found by her daughter struggling to breathe at 2 AM on the day of arrival and admitting Venous blood gas showed pH of 7.16 and PCO2 of 78; patient was intubated in the ED and was managed in the ICU afterwards. #. Acute hypoxic and hypercapnic respiratory failure #. Acute metabolic encephalopathy 2/2 above History of same a year ago but not intubated. This time, patient was found struggling to breathe at 2 AM on the day of arrival by her daughter. Not on home oxygen. As per daughter, there is no recent fever, no cough, no nausea, no vomiting, no complaints of any pain, no diarrhea. Admitting CTA chest: Motion degraded study, no evidence of central PE or global pulmonary arteries. No airspace consolidation typical for pneumonia or pleural effusion. Admitting CT head: No acute intracranial abnormality identified. Per H&P note, admitting venous blood gas pH of 7.16 and PCO2 of 78 --> intubated in the ED 04/05 --> transferred to ICU care----> extubated to BiPAP 04/06. Critical care suspected possible aspiration contributing to her respiratory distress given progressive Lewy body dementia and Parkinson's disease. Speech evaluated and recommended Pureed diet. Patient extubated 04/06, minimally conversive and at her baseline mentation. Opens eyes spontaneously. Procalcitonin negative, Zosyn DC'd 04/06. S/p Doxy 5 days. Continue with nebulizations. s/p [id number] Per Pulm, patient will benefit from trilogy machine at homeCM working on it. Patient needs PFT as an outpatient. 04/12patient started having coughing fit while lying in bed, likely aspiration, and had one-time temperature of 38.3 C today---> prop up the head of bed, maintain aspiration precaution strictly, change thin liquids in her diet to thick liquid per speech recommendation, patient recently completed antibiotic, was out for aspiration pneumonia, chest x-ray done today negative for aspiration pneumonitis, follow-up CBC and pro-Geo tomorrow, if still febrile, WBC uptrending or pro-Geo positive and patient clinically not improving, might need coverage for aspiration pneumonia. #. Abnormal cardiac rhythm likely MAT Has history of MAT in the setting of marked respiratory distress per cardiology. Admitting EKG: Sinus tachycardia with frequent premature atrial complexes and atrial runs. Heart rate 122. Admitting troponin negative Cardiology on board: Should resolve with underlying respiratory issue treatment, consider low-dose beta-estephanie in future for heart rate and rhythm control once hemodynamically stable. Continue to monitor. Monitor electrolytes daily and replace as appropriate. Continue with low-dose metoprolol succinate 12.5 mg daily #. Parkinson disease and Lewy body dementia: Continue her home carbidopa/levodopa; and Seroquel. #. Hypertension, currently holding her lisinopril, nifedipine. On home lasix.BP fluctuating --> slowly resume, started on low dose metoprolol #. Gastroesophageal reflux disease: Placed on IV Pepcid. PO when able. #. Hypothyroidism: Continue Synthroid. #. Chronic pain, we will hold the pain medications. Last admission, her hydrocodone/acetaminophen was discontinued. But Daughter says she still has hydrocodone at home but seldom uses it. The night POLLUTION CONTROL ENGINEER she had tramadol. #. Deep venous thrombosis prophylaxis: c/w enoxaparin Oral meds being titrated, luis enrique HTN DNR/DNI, Palliative care on board. Speech Evaluated --> Pureed diet PT/OT while inpatient, patient will need placement. Prognosis poor, will benefit from palliative care. c/w med. Awaiting Placement. Patient accepted to [place] care, [id number] done 04/[address] Greer tong. Given recent development of one-time temperature of 38.3 C, continue to monitor for medical stability for discharge tomorrow. If patient stable clinically can be discharged tomorrow. Admission and Anticipated Discharge Date Admission Date: April 05, 2021 Subjective Patient was lying semi upright in bed, on 6 L nasal cannula oxygen, NAD. Patient minimally conversive, opens eyes spontaneously, seemed somewhat irritated today. ROS limited due to cognitive status. Urinary catheter in situ with light yellow urine collection. Per RN, she had a coughing fit in the morning requiring increasing oxygen up towards. Suspect aspiration on self secretion, suggest to prop up the head of the bed. We will change her thin liquids to thick liquid per speech recommendation. Physical Exam Physical Exam: GENERAL: Opens eyes, minimally conversive.somewhat irritated today. Unable to cooperate, NAD, on 6 L. HEENT: No pallor, no icterus. Pupils equal, round and reactive to light. Oral mucosa dry. NECK: No JVD, no neck masses. HEART: S1 and S2 heard. Regular rate and rhythm. No murmur, no gallop. RESPIRATORY SYSTEM: Normal AP diameter. No accessory muscle use. No wheezing, bilateral crackles luis enrique at bases. ABDOMEN: Soft, bowel sounds present, no distention. CENTRAL NERVOUS SYSTEM: No facial droop. Patient unable to cooperate, not assessable. EXTREMITIES: trace edema, no erythema seen. BUE 1+ edema Results & Data Results & Data ([facility]) Vital Signs (Past 12 Hours) Vital Signs Temp Pulse Pulse Resp BP Pulse Ox 04/12/21 15:52 38.3 C H 96 H 16 128/91 91 04/12/21 15:45 93 H 04/12/21 12:05 37.3 C 90 24 136/89 88 L 04/12/21 08:00 83 04/12/21 07:36 37.7 C H 82 24 127/78 95 (1) Altered mental status Altered mental status type: stupor Qualified Code(s): R40.1 - Stupor
[2021-04-12] MEDS: ACETAMINOPHEN 650 MG SUPP PR PRN (16:42)
[2021-04-12] MEDS ORDERED: KETOROLAC TROMETHAMINE 15 MG/ML VIAL IV ONE (21:28)
[2021-04-12] MEDS ORDERED: PIPERACILL/TAZOBAC CONSULT ACTIVE PRN (21:50)
--- NOTE | 2021-04-12 21:50 | Communication Note ---
Date of Service: April 12, 2021 Made aware by RN of fever, cough symptoms, concern for aspiration. AP Possible aspiration pneumonitis Continue aspiration precautions, await swallow mirella Kern
[2021-04-12] MEDS ORDERED: PIPERACILLIN/TAZOBACTAM 3.375 GM in DEXTROSE 5% 100 ML IV ONE (22:00)
[2021-04-12] MEDS: QUEtiapine FUMARATE 100 MG TABLET PO SCH (22:04)
[2021-04-12 22:58] LABS: Appearance Urine Clear (Clear); Bacteria Urine Automated Negative (Negative); Bilirubin Urine Negative (Negative); Blood Urine Negative (Negative); Color Urine Dark Yellow; Epithelial Cell Urine Auto 20-30 /lpf (0-5); Glucose Urine UA Negative (Negative); Ketones Urine Trace (Negative); Leukocyte Esterase Urine Trace (Negative); Nitrite Urine Negative (Negative); Protein Urine Trace (Negative); Specific Gravity Urine 1.027 (1.000-1.030); Urobilinogen Urine Negative (Negative); WBC Urine Automated >30 /hpf (0-5); pH Urine 5.5 (4.5-7.5)
[2021-04-13] MEDS: PIPERACILLIN/TAZOBACTAM 3.375 GM in DEXTROSE 5% 100 ML IV SCH ×2 (04:29→12:13)
[2021-04-13] MEDS: LEVOTHYROXINE SODIUM 175 MCG TABLET PO SCH (05:59)
[2021-04-13 07:10] LABS: Hematocrit (blood only) 38.9 % (37-47); Hemoglobin 12.4 g/dL (12.0-16.0); Mean Corpuscular Hemoglobin 28.2 pg (25-34); Mean Corpuscular Hgb Conc 31.9 g/dL (32-36); Mean Corpuscular Volume 88.6 fL (80-100); Mean Platelet Volume 9.8 fL (7.4-10.4); Platelet Count 254 K/uL (130-400); RDW Coefficient of Variation 14.4 % (11.5-14.5); RDW Standard Deviation 47.1 fL (36.4-46.3); Red Blood Count 4.39 M/uL (4.2-5.4); White Blood Count 4.96 K/uL (4.8-10.8)
[2021-04-13] MEDS: INSULIN ASPART 100 UNITS/ML 3 ML PEN SC SCH ×2 (07:41→11:44)
[2021-04-13 07:46] LABS: BUN Creatinine Ratio 33.8 (10-20); Calcium 8.8 mg/dl (8.5-10.1); Creatinine Clr Calc Pharmacy 65.7 ml/min; Est GFR (African American) 97.8 ml/min; Est GFR (Non-African American) 84.4 ml/min; Magnesium 2.3 mg/dl (1.8-2.4); Phosphorus 4.1 mg/dl (2.5-4.9); Potassium 3.5 mmol/L (3.5-5.1)
[2021-04-13] MEDS: FAMOTIDINE 20 MG in SYRINGE 3 ML IV SCH (07:58)
[2021-04-13] MEDS: CARBIDOPA/LEVODOPA 25/100MG TAB PO SCH (08:07)
[2021-04-13] MEDS: FUROSEMIDE 20 MG TAB PO SCH (08:07)
[2021-04-13] MEDS: ENOXAPARIN INJ 40 MG/0.4 ML SYR SQ SCH (08:07)
[2021-04-13] MEDS: METOPROLOL SUCC 25MG EXT REL TAB PO SCH (08:07)
[2021-04-13] MEDS: ASPIRIN 81 MG ECTAB PO SCH (08:07)
[2021-04-13] MEDS: QUEtiapine FUMARATE 25 MG TABLET PO SCH (08:07)
--- NOTE | 2021-04-13 09:12 | Hospitalist Progress Note ---
Date of Service April 13, 2021 Assessment & Plan (1) Acute hypercapnic respiratory failure: (2) Altered mental status: (3) Lewy body dementia: Plan: 75 yo F w/ hx of acute hypoxic and hypercapnic respiratory failure a year ago, hypothyroidism, hypertension, GERD, generalized osteoarthritis, osteoporosis, Parkinson disease, Lewy body dementia without behavioral disturbance,who lives at home, was brought in 04/05 because of respiratory distress. She lives with her and daughter. Walks with a walker at baseline. She was found by her daughter struggling to breathe at 2 AM on the day of arrival and admitting Venous blood gas showed pH of 7.16 and PCO2 of 78; patient was intubated in the ED and was managed in the ICU afterwards. Acute hypoxic and hypercapnic respiratory failure Acute metabolic encephalopathy 2/2 above History of same a year ago but not intubated. This time, patient was found struggling to breathe at 2 AM on the day of arrival by her daughter. Not on home oxygen. As per daughter, there is no recent fever, no cough, no nausea, no vomiting, no complaints of any pain, no diarrhea. Admitting CTA chest: Motion degraded study, no evidence of central PE or global pulmonary arteries. No airspace consolidation typical for pneumonia or pleural effusion. Admitting CT head: No acute intracranial abnormality identified. Per H&P note, admitting venous blood gas pH of 7.16 and PCO2 of 78 --> intubated in the ED 04/05 --> transferred to ICU care----> extubated to BiPAP 04/06. Critical care suspected possible aspiration contributing to her respiratory distress given progressive Lewy body dementia and Parkinson's disease. Speech evaluated and recommended Pureed diet. Patient extubated 04/06, minimally conversive and at her baseline mentation. Opens eyes spontaneously. Procalcitonin negative, Zosyn DC'd 04/06. S/p Doxy 5 days. Continue with nebulizations. s/p [id number] Per Pulm, patient will benefit from trilogy machine at homeCM working on it. Patient needs PFT as an outpatient. 04/12patient started having coughing fit while lying in bed, likely aspiration, and had one-time temperature of 38.3 C today---> prop up the head of bed, maintain aspiration precaution strictly, change thin liquids in her diet to thick liquid per speech recommendation, patient recently completed antibiotic, was out for aspiration pneumonia, chest x-ray done today negative for aspiration pneumonitis, follow-up CBC and pro-Geo tomorrow, if still febrile, WBC uptrending or pro-Geo positive and patient clinically not improving, might need coverage for aspiration pneumonia. 04/13 patient febrile overnight, and started on Zosyn by organization development consultant. Minimally responsive, case management and palliative medicine also updated. Abnormal cardiac rhythm likely MAT Has history of MAT in the setting of marked respiratory distress per cardiology. Admitting EKG: Sinus tachycardia with frequent premature atrial complexes and atrial runs. Heart rate 122. Admitting troponin negative Cardiology consulted: Should resolve with underlying respiratory issue treatment, consider low-dose beta-estephanie in future for heart rate and rhythm control once hemodynamically stable. Continue to monitor. Monitor electrolytes daily and replace as appropriate. Continue with low-dose metoprolol succinate 12.5 mg daily #. Parkinson disease and Lewy body dementia: Continue her home carbidopa/levo dopa; and Seroquel. #. Hypertension, currently holding her lisinopril, nifedipine. On home lasix.BP fluctuating --> slowly resume, started on low dose metoprolol #. Gastroesophageal reflux disease: Placed on IV Pepcid. PO when able. #. Hypothyroidism: Continue Synthroid. #. Chronic pain, we will hold the pain medications. Last admission, her hy drocodone/acetaminophen was discontinued. But Daughter says she still has hydrocodone at home but seldom uses it. The night [place] she had tramadol. DVT prophylaxis: c/w enoxaparin Oral meds being titrated, luis enrique HTN DNR/DNI, Palliative care on board. Speech Evaluated --> Pureed diet PT/OT while inpatient, patient will need placement. Prognosis poor, will benefit from palliative care. c/w med. Awaiting Placement. Patient [facility] to [facility], [id number] done 04/[address] Santillan. Given recent development of fever/ likely aspiration, continue to monitor for medical stability for discharge. CM and palliative medicine upodated. Admission and Anticipated Discharge Date Admission Date: April 05, 2021 Subjective Pt seen in follow up of AMS, hypercapnic resp. failure, aspiration Patient currently lying semi upright in bed, on 6 L NC oxygen, in NAD. Patient does not respond much, hardly opens her eyes. ROS limited due to cognitive status. Urinary catheter placed light yellow urine collection. Yesterday, she had a coughing fit in the morning requiring increasing oxygen up towards. Suspect aspiration on self secretion. Changed her thin liquids to thick liquid per speech recommendation. Febrile again overnight, started on IV Zosyn by organization development consultant Updated palliative medicine as well as case management Review of Systems Review of Systems: Unobtainable due to cognitive status Physical Exam Physical Exam: GENERAL: Hardly opens eyes,does not answer questions.NAD, on 6 L. HEENT: NC. No pallor, no icterus. Pupils equal, round and reactive to light. Oral mucosa dry. NECK: No JVD, no neck masses. HEART: S1 and S2 heard. Regular rate and rhythm. No murmur, no gallop. RESPIRATORY: Normal AP diameter. No accessory muscle use. No wheezing, + rhonchi and crackles ABDOMEN: Soft, bowel sounds present, no distention. NEURO: No facial droop. Patient unable to cooperate, not assessable. EXTREMITIES: trace edema, no erythema seen. BUE 1+ edema Results & Data Results & Data ([facility]) Vital Signs (Past 12 Hours) Vital Signs Temp Pulse Pulse Pulse Resp BP Pulse Ox 04/13/21 07:55 37.4 C 59 L 18 142/75 H 90 04/13/21 06:26 78 04/13/21 04:04 36.5 C 75 18 114/64 91 04/12/21 23:00 36.2 C L 88 18 120/72 93 04/12/21 22:19 88 04/12/21 21:25 37.9 C H 90 92 Laboratory Results 04/13/21 04/13/21 04/13/21 Range/Units 07:17 06:50 06:50 WBC (4.8-10.8) K/uL RBC (4.2-5.4) M/uL Hgb (12.0-16.0) g/dL Hct (37-47) % MCV (80-100) fL MCH (25-34) pg MCHC (32-36) g/dL RDW Std Deviation (36.4-46.3) fL RDW Coeff of Marcelino (11.5-14.5) % Plt Count (130-400) K/uL MPV (7.4-10.4) fL Sodium 140 (136-145) mmol/L Potassium 3.5 (3.5-5.1) mmol/L Chloride 107 (98-107) mmol/L Carbon Dioxide 25 (21-32) mmol/L Anion Gap 8.0 (3-11) BUN 23 H (7-18) mg/dl Creatinine 0.68 (0.6-1.2) mg/dl Est Cr Clr Drug Dosing 65.7 ml/min Est GFR ( Amer) 97.8 ml/min Est GFR (Non-Af Amer) 84.4 ml/min BUN/Creatinine Ratio 33.8 H (10-20) Glucose 93 (70-99) mg/dl POC Glucose 93 (70-99) mg/dl Calcium 8.8 (8.5-10.1) mg/dl Phosphorus 4.1 (2.5-4.9) mg/dl Magnesium 2.3 (1.8-2.4) mg/dl Procalcitonin < 0.05 (0-0.5) ng/ml Urine Color Urine Appearance (Clear) Urine pH (4.5-7.5) Ur Specific [place] (1.000-1.030) Urine Protein (Negative) Urine Glucose (UA) (Negative) Urine Ketones (Negative) Urine Blood (Negative) Urine Nitrite (Negative) Urine Bilirubin (Negative) Urine Urobilinogen (Negative) Ur Leukocyte Esterase (Negative) Urine WBC (Auto) (0-5) /hpf Urine RBC (Auto) (0-4) /hpf U Hyaline Cast (Auto) (0-5) /lpf U Epithel Cells (Auto) (0-5) /lpf Urine Bacteria (Auto) (Negative) 04/13/21 04/12/21 04/12/21 Range/Units 06:50 22:20 20:11 WBC 4.96 (4.8-10.8) K/uL RBC 4.39 (4.2-5.4) M/uL Hgb 12.4 (12.0-16.0) g/dL Hct 38.9 (37-47) % MCV 88.6 (80-100) fL MCH 28.2 (25-34) pg MCHC 31.9 L (32-36) g/dL RDW Std Deviation 47.1 H (36.4-46.3) fL RDW Coeff of Marcelino 14.4 (11.5-14.5) % Plt Count 254 (130-400) K/uL MPV 9.8 (7.4-10.4) fL Sodium (136-145) mmol/L Potassium (3.5-5.1) mmol/L Chloride (98-107) mmol/L Carbon Dioxide (21-32) mmol/L Anion Gap (3-11) BUN (7-18) mg/dl Creatinine (0.6-1.2) mg/dl Est Cr Clr Drug Dosing ml/min Est GFR ( Amer) ml/min Est GFR (Non-Af Amer) ml/min BUN/Creatinine Ratio (10-20) Glucose (70-99) mg/dl POC Glucose 81 (70-99) mg/dl Calcium (8.5-10.1) mg/dl Phosphorus (2.5-4.9) mg/dl Magnesium (1.8-2.4) mg/dl Procalcitonin (0-0.5) ng/ml Urine Color Dark Yellow Urine Appearance Clear (Clear) Urine pH 5.5 (4.5-7.5) Ur Specific [place] 1.027 (1.000-1.030) Urine Protein Trace H (Negative) Urine Glucose (UA) Negative (Negative) Urine Ketones Trace H (Negative) Urine Blood Negative (Negative) Urine Nitrite Negative (Negative) Urine Bilirubin Negative (Negative) Urine Urobilinogen Negative (Negative) Ur Leukocyte Esterase Trace H (Negative) Urine WBC (Auto) >30 H (0-5) /hpf Urine RBC (Auto) 10-30 H (0-4) /hpf U Hyaline Cast (Auto) 5-10 H (0-5) /lpf U Epithel Cells (Auto) 20-30 H (0-5) /lpf Urine Bacteria (Auto) Negative (Negative) 04/12/21 04/12/21 Range/Units 16:49 11:25 WBC (4.8-10.8) K/uL RBC (4.2-5.4) M/uL Hgb (12.0-16.0) g/dL Hct (37-47) % MCV (80-100) fL MCH (25-34) pg MCHC (32-36) g/dL RDW Std Deviation (36.4-46.3) fL RDW Coeff of Marcelino (11.5-14.5) % Plt Count (130-400) K/uL MPV (7.4-10.4) fL Sodium (136-145) mmol/L Potassium (3.5-5.1) mmol/L Chloride (98-107) mmol/L Carbon Dioxide (21-32) mmol/L Anion Gap (3-11) BUN (7-18) mg/dl Creatinine (0.6-1.2) mg/dl Est Cr Clr Drug Dosing ml/min Est GFR ( Amer) ml/min Est GFR (Non-Af Amer) ml/min BUN/Creatinine Ratio (10-20) Glucose (70-99) mg/dl POC Glucose 86 86 (70-99) mg/dl Calcium (8.5-10.1) mg/dl Phosphorus (2.5-4.9) mg/dl Magnesium (1.8-2.4) mg/dl Procalcitonin (0-0.5) ng/ml Urine Color Urine Appearance (Clear) Urine pH (4.5-7.5) Ur Specific [place] (1.000-1.030) Urine Protein (Negative) Urine Glucose (UA) (Negative) Urine Ketones (Negative) Urine Blood (Negative) Urine Nitrite (Negative) Urine Bilirubin (Negative) Urine Urobilinogen (Negative) Ur Leukocyte Esterase (Negative) Urine WBC (Auto) (0-5) /hpf Urine RBC (Auto) (0-4) /hpf U Hyaline Cast (Auto) (0-5) /lpf U Epithel Cells (Auto) (0-5) /lpf Urine Bacteria (Auto) (Negative) Medications Administered Current Inpatient Medications Acetaminophen (Acetaminophen 650 Mg Supp) 650 mg [place] Q6H PRN PRN Reason: fever Stop: 05/12/21 16:07 Last Admin: 04/12/21 16:42 Dose: 650 mg Documented by: Alendronate Sodium (Alendronate Sodium 70 Mg Tab) 70 mg PO Mo@0630 [facility] Stop: 05/11/21 06:29 Last Admin: 04/11/21 06:43 Dose: 70 mg Documented by: Aspirin (Aspirin 81 Mg Ectab) 81 mg PO QAM [facility] Stop: 05/11/21 08:59 Last Admin: 04/13/21 08:07 Dose: 81 mg Documented by: Carbidopa/Levodopa (Carbidopa/Levodopa 25/100mg Tab) 1 tab PO BID ADAL Stop: 05/05/21 09:59 Last Admin: 04/13/21 08:07 Dose: 1 tab Documented by: Dextrose (Dextrose 50% 50 Ml Syringe) 25 - 50 ml IV UD PRN; Protocol PRN Reason: Hypoglycemia Protocol Stop: 05/07/21 20:14 Enoxaparin Sodium (Enoxaparin Inj 40 Mg/0.4 Ml Syr) 40 mg SQ Q24H ADAL Stop: 05/05/21 09:21 Last Admin: 04/13/21 08:07 Dose: 40 mg Documented by: Furosemide (Furosemide 20 Mg Tab) 20 mg PO QAM ADAL Stop: 05/11/21 09:14 Last Admin: 04/13/21 08:07 Dose: 20 mg Documented by: Glucagon (Glucagon For Inj 1 Mg Vial) 1 mg IM UD PRN; Protocol PRN Reason: Hypoglycemia Protocol Stop: 05/07/21 20:14 Glucose (Glucose 40% Gel 15 Gm Tube) 15 - 30 gm PO UD PRN; Protocol PRN Reason: Hypoglycemia Protocol Stop: 05/07/21 20:14 Glucose (Glucose 10 Tabs/Tube) 4 - 8 tabs PO UD PRN; Protocol PRN Reason: Hypoglycemia Protocol Stop: 05/07/21 20:14 Famotidine 20 mg/ Syringe 5 mls @ 2.5 mls/min IV BID ADAL Stop: 05/05/21 09:21 Last Admin: 04/13/21 07:58 Dose: 2.5 mls/min Documented by: Piperacillin Sod/Tazobactam (Sod 3.375 gm/ Dextrose) 115 mls @ 28.75 mls/hr IV Q8H ADAL; Protocol Stop: 04/20/21 03:59 Last Admin: 04/13/21 04:29 Dose: 28.8 mls/hr Documented by: Insulin Aspart (Insulin Aspart 100 Units/Ml 3 Ml Pen) 0 units SC ACHS [facility] Stop: 05/07/21 20:59 Last Admin: 04/13/21 07:41 Dose: Not Given Documented by: Ipratropium [place] (Ipratropium [place] Neb Soln 0.02% 2.5 Ml Vial) 0.5 mg INH Q6R PRN PRN Reason: Shortness Of Breath Or Wheezing Stop: 05/05/21 09:59 Levalbuterol HCl (Levalbuterol 1.25mg/0.5ml Neb) 1.25 mg INH Q6R PRN PRN Reason: Shortness Of Breath Or Wheezing Stop: 05/05/21 09:59 Levothyroxine Sodium (Levothyroxine Sodium 175 Mcg Tablet) 175 mcg PO DAILYBB [facility] Stop: 05/06/21 06:29 Last Admin: 04/13/21 05:59 Dose: Not Given Documented by: Metoprolol Succinate (Metoprolol Succ 25mg Ext Rel Tab) 12.5 mg PO QAM [facility] Stop: 05/12/21 08:59 Last Admin: 04/13/21 08:07 Dose: Not Given Documented by: Miscellaneous (Carbohydrates For Hypoglycemia ) 15 - 30 gm PO UD PRN PRN Reason: Hypoglycemia Treatment Stop: 05/07/21 20:14 Miscellaneous Information (Piperacill/Tazobac Consult Active) 1 ea N/A UD PRN PRN Reason: Consult Stop: 05/12/21 21:49 Potassium Chloride (Potassium Chloride Crtab 20 Meq Tabcr) 20 meq PO DAILY@1600 [facility] Stop: 05/11/21 15:59 Last Admin: 04/12/21 15:13 Dose: Not Given Documented by: Quetiapine Fumarate (Quetiapine Fumarate 25 Mg Tablet) 25 mg PO QAM [facility] Stop: 05/05/21 09:59 Last Admin: 04/13/21 08:07 Dose: 25 mg Documented by: Quetiapine Fumarate (Quetiapine Fumarate 100 Mg Tablet) 100 mg PO HS [facility] Stop: 05/05/21 20:59 Last Admin: 04/12/21 22:04 Dose: Not Given Documented by: (1) Altered mental status Altered mental status type: stupor Qualified Code(s): R40.1 - Stupor
[2021-04-13] MEDS: POTASSIUM CHLORIDE / WTR 10 MEQ/100 ML PLCT IV SCH ×2 (10:05→11:17)
--- NOTE | 2021-04-13 12:02 | XRay Report ---
XR chest 1V portable HISTORY: 75 years-old Female follow up/ rhonchi, fever ? aspiration acute cough with fever COMPARISON: Chest radiograph 04/12/2021 TECHNIQUE: Portable AP view of the chest FINDINGS: The cardiomediastinal and hilar silhouettes are unchanged. Chronic right hemidiaphragmatic elevation. Progressive interstitial coarsening of the mid to lower lung zones with right midlung linear consoli dation, likely [place] representative of atelectasis or scarring. Pulmonary vascular congestion. No pneumotho rax or large pleural effusion. Cholecystectomy. Degenerative changes of the shoulders and spine. IMPRESSION: There is progressive interstitial coarsening of the lung bases suggestive of atelectasis versus pneumonitis. ACT 112: Negative or not required by law. The above report was generated using voice recognition software. It may contain grammatical, syntax o r spelling errors. Electronically signed by: Jaime España M.D. 04/13/2021 12:01 PM
--- NOTE | 2021-04-13 13:28 | Palliative Care Progress Note ---
Date of Service April 13, 2021 Assessment & Plan (1) Palliative care encounter: Plan: The patient was sitting in her bed upright, but unable to have a meaningful conversation. She only moaned when talked to. She was able to take her morning pills, but safety with swallowing is a challenge. She is hemodynamically stable as of right now, but overall had a big shift in her mental status. She is on IV antibiotics. She was planning to be transferred to a SNF; however, her decline has that on hold as she is not stable for transfer. I called her daughter, Terri. at [phone] and talked at length. She said that she normally can talk and have conversation, walk with a walker and eat if her meals are prepared. I discussed the above and she was able to see her last evening and agrees that she has declined. She is considering a transition to [facility] and wanted to talk to some other folks involved in their life. She requested a call back. Update : I talked with Terri again and she has decided to make a full transition to [facility], including discontinuation of all non essential medications, including IV abx. All blood draws, vitals, PT/OT, etc discontinued. Roxanol, Ativan, and Atropine gtts ordered. help desk analyst aware of [facility] change. The above discussed with the hospitalist and nursing and case management. Should patient stabilize over the next few days, would revisit a return home with hospice services. Palliative will follow. (2) Hypoxia: (3) Senile degeneration of brain: Admission and Anticipated Discharge Date Admission Date: April 05, 2021 Subjective the patient was sitting in her bed upright, but unable to have a meaningful conversation. She only moaned when talked to. She was able to take her morning pills, but safety with swallowing is a challenge. She is hemodynamically stable as of right now. She is on 4LNC. See A/P for further details Physical Exam Constitutional: + frail appearing ENMT: Mouth: + dry oral mucous membranes Respiratory: normal respiratory effort and symmetric chest movement Auscultation: + diminished lung sounds Cardiovascular: Rate/Rhythm: regular rate and regular rhythm Heart Sounds: normal S1 and normal S2 Extremities: normal capillary refill; no edema Gastrointestinal (Abdomen): Inspection/Auscultation: abdomen normal to inspection Skin: + pallor Results & Data ([facility]) Vital Signs (Past 12 Hours) Vital Signs Temp Pulse Pulse Pulse Resp BP Pulse Ox 04/13/21 12:01 96 04/13/21 11:43 37.3 C 74 18 112/61 96 04/13/21 07:55 37.4 C 59 L 18 142/75 H 90 04/13/21 06:26 78 04/13/21 04:04 36.5 C 75 18 114/64 91 PG Care Time/CCT Total # of Minutes Spent Total Time Spent with Patient: Total time spent is greater than 50% in coordination of care (as documented) at patient's floor/unit and/or counseling patient: 35 mintues Coding Level of Care Code 87629 Subseq Hosp Care Lvl 3 Diagnoses Palliative care encounter Z51.5 Hypoxia R09.02 Senile degeneration of brain G31.1 Time Spent (min) 35
[2021-04-13] MEDS ORDERED: LORazepam 1 MG/2 ML VIAL IV PRN (14:54)
[2021-04-13] MEDS: ATROPINE SULFATE 1% OP SOLN 5 ML BTL OP PRN (16:21)
[2021-04-13] MEDS: MoRPHine SULFATE 5 MG/0.25 ML UDP PO PRN (16:25)
[2021-04-13] MEDS: ACETAMINOPHEN 650 MG SUPP PR PRN (18:06)
[2021-04-14 06:42] LABS: Hematocrit (blood only) 37.9 % (37-47); Mean Corpuscular Hemoglobin 28.3 pg (25-34); Mean Corpuscular Hgb Conc 31.7 g/dL (32-36); Mean Corpuscular Volume 89.4 fL (80-100); Mean Platelet Volume 9.5 fL (7.4-10.4); Platelet Count 290 K/uL (130-400); RDW Coefficient of Variation 14.4 % (11.5-14.5); RDW Standard Deviation 47.4 fL (36.4-46.3); Red Blood Count 4.24 M/uL (4.2-5.4); White Blood Count 5.18 K/uL (4.8-10.8)
[2021-04-14 07:11] LABS: BUN Creatinine Ratio 37.1 (10-20); Calcium 8.3 mg/dl (8.5-10.1); Creatinine Clr Calc Pharmacy 91.2 ml/min; Est GFR (African American) 108.9 ml/min; Magnesium 2.3 mg/dl (1.8-2.4); Potassium 3.3 mmol/L (3.5-5.1)
[2021-04-14 07:12] LABS: Phosphorus 2.7 mg/dl (2.5-4.9)
[2021-04-14] MEDS: MoRPHine SULFATE 5 MG/0.25 ML UDP PO PRN ×2 (11:16→22:42)
[2021-04-15] MEDS: MoRPHine SULFATE 5 MG/0.25 ML UDP PO PRN ×3 (06:05→22:07)
[2021-04-15] MEDS: ATROPINE SULFATE 1% OP SOLN 5 ML BTL OP PRN (06:06)
[2021-04-15 08:01] LABS: Hematocrit (blood only) 38.3 % (37-47); Mean Corpuscular Hemoglobin 28.3 pg (25-34); Mean Corpuscular Hgb Conc 31.3 g/dL (32-36); Mean Corpuscular Volume 90.3 fL (80-100); Mean Platelet Volume 9.6 fL (7.4-10.4); Platelet Count 334 K/uL (130-400); RDW Coefficient of Variation 14.5 % (11.5-14.5); RDW Standard Deviation 48.7 fL (36.4-46.3); Red Blood Count 4.24 M/uL (4.2-5.4)
[2021-04-15 08:31] LABS: BUN Creatinine Ratio 42.2 (10-20); Calcium 8.5 mg/dl (8.5-10.1); Creatinine Clr Calc Pharmacy 114.5 ml/min; Est GFR (African American) 117.4 ml/min; Est GFR (Non-African American) 101.3 ml/min; Magnesium 2.4 mg/dl (1.8-2.4); Potassium 3.2 mmol/L (3.5-5.1)
[2021-04-15 08:32] LABS: Phosphorus 2.4 mg/dl (2.5-4.9)
--- NOTE | 2021-04-15 13:14 | Palliative Care Progress Note ---
Date of Service April 15, 2021 Assessment & Plan (1) Pain: Plan: Nadia has chronic pain with neuropathy and arthritis. Her daughter notes that she was taking tramadol 4-5 times a day prior to admission and had been on hydrocodone prior to that. We discussed her furrowed brow with intermittent grimacing as possible signs that Nadia continues to have pain. We discussed routine rather prn dosing of morphine and Terri is very supportive of this. She is tearful but understands that Nadia is approaching her dying time and emphasizes that he comfort is the primary goal. Discussed with RN (2) Palliative care encounter: (3) Acute hypercapnic respiratory failure: (4) Sepsis: Admission and Anticipated Discharge Date Admission Date: April 05, 2021 Subjective No response to voice or touch. Brow furrowed. She has had roxanol x 3 for 15mg OME in last 24 hours. Daughter, Terri, is at bedside. Review of Systems Review of Systems: Unobtainable due to reduced consciousness [place] Symptom Assessment Scale Pain by observation 2/3 Dyspnea by observation 0/3 Palliative Performance Score 10% Physical Exam Constitutional: + ill appearing; + uncomfortable ENMT: Mouth: + dry oral mucous membranes Respiratory: normal respiratory effort; no labored breathing Skin: no mottling Neurologic: + obtunded PG Care Time/CCT Total # of Minutes Spent Total Time Spent: 35 Total Time Spent with Patient: Total time spent is greater than 50% in coordination of care (as documented) at patient's floor/unit and/or counseling patient: symptom management, family education and support, coordination of care Coding Level of Care Code 85950 Subseq Hosp Care Lvl 3 Diagnoses Pain R52 Palliative care encounter Z51.5 Acute hypercapnic respiratory failure J96.02 Sepsis A41.9
[2021-04-15] MEDS: ACETAMINOPHEN 650 MG SUPP PR PRN (14:13)
--- NOTE | 2021-04-15 15:25 | Hospitalist Progress Note ---
Date of Service April 14, 2021 (late entry) Assessment & Plan (1) Acute hypercapnic respiratory failure: (2) Altered mental status: (3) Lewy body dementia: Plan: 75 yo F w/ hx of acute hypoxic and hypercapnic respiratory failure a year ago, hypothyroidism, hypertension, GERD, generalized osteoarthritis, osteoporosis, Parkinson disease, Lewy body dementia without behavioral disturbance,who lives at home, was brought in 04/05 because of respiratory distress. She lives with her and daughter. Walks with a walker at baseline. She was found by her daughter struggling to breathe at 2 AM on the day of arrival and admitting Venous blood gas showed pH of 7.16 and PCO2 of 78; patient was intubated in the ED and was managed in the ICU afterwards. Acute hypoxic and hypercapnic respiratory failure Acute metabolic encephalopathy 2/2 above History of same a year ago but not intubated. This time, patient was found struggling to breathe at 2 AM on the day of arrival by her daughter. Not on home oxygen. As per daughter, there is no recent fever, no cough, no nausea, no vomiting, no complaints of any pain, no diarrhea. Admitting CTA chest: Motion degraded study, no evidence of central PE or global pulmonary arteries. No airspace consolidation typical for pneumonia or pleural effusion. Admitting CT head: No acute intracranial abnormality identified. Per H&P note, admitting venous blood gas pH of 7.16 and PCO2 of 78 --> intubated in the ED 04/05 --> transferred to ICU care----> extubated to BiPAP 04/06. Critical care suspected possible aspiration contributing to her respiratory distress given progressive Lewy body dementia and Parkinson's disease. Speech evaluated and recommended Pureed diet. Patient extubated 04/06, minimally conversive and at her baseline mentation. Opens eyes spontaneously. Procalcitonin negative, Zosyn DC'd 04/06. S/p Doxy 5 days. Continued with nebulizations. s/p [id number] Per Pulmonary medicine, patient will benefit from trilogy machine at homeCM aware Patient should have PFT as an outpatient. 04/12patient started having coughing fit while lying in bed, likely aspiration, and had one-time temperature of 38.3 C today---> prop up the head of bed, maintain aspiration precaution strictly, change thin liquids in her diet to thick liquid per speech recommendation, patient recently completed antibiotic, was out for aspiration pneumonia, chest x-ray done today negative for aspiration pneumonitis, follow-up CBC and pro-Geo tomorrow, if still febrile, WBC uptrending or pro-Geo positive and patient clinically not improving, might need coverage for aspiration pneumonia. 04/13 patient febrile overnight, and started on Zosyn by social worker. Minimally responsive, case management and palliative medicine also updated. Pt made comfort care after further discussion with family and palliative medicine. Abnormal cardiac rhythm likely MAT Has history of MAT in the setting of marked respiratory distress per cardiology. Admitting EKG: Sinus tachycardia with frequent premature atrial complexes and atrial runs. Heart rate 122. Admitting troponin negative Cardiology consulted: Should resolve with underlying respiratory issue treatment, consider low-dose beta-estephanie in future for heart rate and rhythm control once hemodynamically stable. Continue to monitor. Monitor electrolytes daily and replace as appropriate. Continued with low-dose metoprolol succinate 12.5 mg daily Now pt comfort care, unnecessary medications were stopped Chronic conditions: Parkinson disease and Lewy body dementia: Continued her home carbidopa/levodopa; and Seroquel. Now comfort care, unnecessary medications were stopped Hypertension, currently holding her lisinopril, nifedipine. On home lasix.BP fluctuating --> started on low dose metoprolol. Now comfort care, unnecessary medications were stopped Gastroesophageal reflux disease: Placed on IV Pepcid. PO when able. Now comfort care, unnecessary medications were stopped Hypothyroidism: Continued Synthroid. Now comfort care, unnecessary medications were stopped Chronic pain, we will hold the pain medications. Last admission, her hydroc odone/acetaminophen was discontinued. But Daughter says she still has hydrocodone at home but seldom uses it. 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 Code status: DNR/DNI - Pt made comfort care after discussion with family and palliative medicine. Admission and Anticipated Discharge Date Admission Date: April 05, 2021 Subjective Pt seen in follow up of AMS, hypercapnic resp. failure, aspiration Patient currently lying in bed in NAD, on suppl. O2 Patient does not respond much, hardly opens her eyes. Yesterday, patient made comfort care after further discussion with family and palliative medicine - as patient was not improving, and had likely another aspiration event, became febrile and was started on IV antibiotics. Palliative medicine following Review of Systems Review of Systems: Unobtainable due to cognitive status Physical Exam Physical Exam: GENERAL: Hardly opens eyes,does not answer questions.NAD, on suppl. O2 HEENT: NC. AT, Oral mucosa dry. NECK: No JVD, no neck masses. HEART: S1 and S2 heard. Regular rate and rhythm. No murmur, no gallop. RESPIRATORY: Normal AP diameter. No accessory muscle use. No wheezing, + rhonchi and crackles ABDOMEN: Soft, bowel sounds present, no distention. NEURO: No facial droop. Patient unable to cooperate, not assessable. EXTREMITIES: trace edema, no erythema seen. BUE 1+ edema (1) Altered mental status Altered mental status type: stupor Qualified Code(s): R40.1 - Stupor
--- NOTE | 2021-04-15 15:26 | Hospitalist Progress Note ---
Date of Service April 15, 2021 Assessment & Plan (1) Acute hypercapnic respiratory failure: (2) Altered mental status: (3) Lewy body dementia: Plan: 75 yo F w/ hx of acute hypoxic and hypercapnic respiratory failure a year ago, hypothyroidism, hypertension, GERD, generalized osteoarthritis, osteoporosis, Parkinson disease, Lewy body dementia without behavioral disturbance,who lives at home, was brought in 04/05 because of respiratory distress. She lives with her and daughter. Walks with a walker at baseline. She was found by her daughter struggling to breathe at 2 AM on the day of arrival and admitting Venous blood gas showed pH of 7.16 and PCO2 of 78; patient was intubated in the ED and was managed in the ICU afterwards. Acute hypoxic and hypercapnic respiratory failure Acute metabolic encephalopathy 2/2 above History of same a year ago but not intubated. This time, patient was found struggling to breathe at 2 AM on the day of arrival by her daughter. Not on home oxygen. As per daughter, there is no recent fever, no cough, no nausea, no vomiting, no complaints of any pain, no diarrhea. Admitting CTA chest: Motion degraded study, no evidence of central PE or global pulmonary arteries. No airspace consolidation typical for pneumonia or pleural effusion. Admitting CT head: No acute intracranial abnormality identified. Per H&P note, admitting venous blood gas pH of 7.16 and PCO2 of 78 --> intubated in the ED 04/05 --> transferred to ICU care----> extubated to BiPAP 04/06. Critical care suspected possible aspiration contributing to her respiratory distress given progressive Lewy body dementia and Parkinson's disease. Speech evaluated and recommended Pureed diet. Patient extubated 04/06, minimally conversive and at her baseline mentation. Opens eyes spontaneously. Procalcitonin negative, Zosyn DC'd 04/06. S/p Doxy 5 days. Continued with nebulizations. s/p [id number] Per Pulmonary medicine, patient will benefit from trilogy machine at homeCM aware Patient should have PFT as an outpatient. 04/12patient started having coughing fit while lying in bed, likely aspiration, and had one-time temperature of 38.3 C today---> prop up the head of bed, maintain aspiration precaution strictly, change thin liquids in her diet to thick liquid per speech recommendation, patient recently completed antibiotic, was out for aspiration pneumonia, chest x-ray done today negative for aspiration pneumonitis, follow-up CBC and pro-Geo tomorrow, if still febrile, WBC uptrending or pro-Geo positive and patient clinically not improving, might need coverage for aspiration pneumonia. 04/13 patient febrile overnight, and started on Zosyn by hydro technician. Minimally responsive, case management and palliative medicine also updated. Pt made comfort care after further discussion with family and palliative medicine. Abnormal cardiac rhythm likely MAT Has history of MAT in the setting of marked respiratory distress per cardiology. Admitting EKG: Sinus tachycardia with frequent premature atrial complexes and atrial runs. Heart rate 122. Admitting troponin negative Cardiology consulted: Should resolve with underlying respiratory issue treatment, consider low-dose beta-estephanie in future for heart rate and rhythm control once hemodynamically stable. Continue to monitor. Monitor electrolytes daily and replace as appropriate. Continued with low-dose metoprolol succinate 12.5 mg daily Now pt comfort care, unnecessary medications were stopped Chronic conditions: Parkinson disease and Lewy body dementia: Continued her home carbidopa/levodopa; and Seroquel. Now comfort care, unnecessary medications were stopped Hypertension, currently holding her lisinopril, nifedipine. On home lasix.BP fluctuating --> started on low dose metoprolol. Now comfort care, unnecessary medications were stopped Gastroesophageal reflux disease: Placed on IV Pepcid. PO when able. Now comfort care, unnecessary medications were stopped Hypothyroidism: Continued Synthroid. Now comfort care, unnecessary medications were stopped Chronic pain, we will hold the pain medications. Last admission, her hydrocodone/acetaminophen was discontinued. But Daughter says she still has hydrocodone at home but seldom uses it. The night [employer] she had tramadol. Code status: DNR/DNI - Pt made comfort care after discussion with family and palliative medicine. Admission and Anticipated Discharge Date Admission Date: April 05, 2021 Subjective Pt seen in follow up of AMS, hypercapnic resp. failure, aspiration Patient currently lying in bed in NAD, on suppl. O2 Patient does not respond much, but opens her eyes today. Patient's daughter at the bedside. Palliative medicine following Review of Systems Review of Systems: All systems reviewed & are unremarkable except as noted in Subjective Physical Exam Physical Exam: GENERAL: Hardly opens eyes,does not answer questions.NAD, on suppl. O2 HEENT: NC. AT, Oral mucosa dry. NECK: No JVD, no neck masses. HEART: S1 and S2 heard. Regular rate and rhythm. No murmur, no gallop. RESPIRATORY: Normal AP diameter. No accessory muscle use. No wheezing, + rhonchi and crackles ABDOMEN: Soft, bowel sounds present, no distention. NEURO: No facial droop. Patient unable to cooperate, not assessable. EXTREMITIES: trace edema, no erythema seen. BUE 1+ edema Results & Data Results & Data ([facility]) Vital Signs (Past 12 Hours) Vital Signs Temp 04/15/21 14:16 38 C H Medications Administered Current Inpatient Medications Acetaminophen (Acetaminophen 650 Mg Supp) 650 mg FL Q6H PRN PRN Reason: fever Stop: 05/12/21 16:07 Last Admin: 04/15/21 14:13 Dose: 650 mg Documented by: Atropine Sulfate (Atropine Sulfate 1% Op Soln 5 Ml Btl) 4 drops OP Q3H PRN PRN Reason: secretions Stop: 05/13/21 14:59 Last Admin: 04/15/21 06:06 Dose: 4 drops Documented by: Dextrose (Dextrose 50% 50 Ml Syringe) 25 - 50 ml IV UD PRN; Protocol PRN Reason: Hypoglycemia Protocol Stop: 05/07/21 20:14 Glucagon (Glucagon For Inj 1 Mg Vial) 1 mg IM UD PRN; Protocol PRN Reason: Hypoglycemia Protocol Stop: 05/07/21 20:14 Lorazepam (Ativan) 1 mg in 2 mls @ 2 mls/min IV Q4H PRN PRN Reason: agitation Stop: 05/13/21 14:53 Morphine Sulfate (Morphine Sulfate 5 Mg/0.25 Ml Udp) 5 mg PO Q6H PRN PRN Reason: Pain/air hunger Stop: 04/27/21 14:53 Last Admin: 04/15/21 14:07 Dose: 5 mg Documented by: (1) Altered mental status Altered mental status type: stupor Qualified Code(s): R40.1 - Stupor
[2021-04-16] MEDS: MoRPHine SULFATE 5 MG/0.25 ML UDP PO PRN (07:37)
[2021-04-16] MEDS ORDERED: MoRPHine SULFATE 5 MG/0.25 ML UDP PO PRN (07:52)
[2021-04-16] MEDS: MoRPHine SULFATE 5 MG/0.25 ML UDP PO SCH ×5 (08:17→23:27)
[2021-04-17] MEDS: MoRPHine SULFATE 5 MG/0.25 ML UDP PO SCH ×6 (03:50→23:58)
--- NOTE | 2021-04-17 05:44 | Hospitalist Progress Note ---
Date of Service April 16, 2021 Assessment & Plan (1) Acute hypercapnic respiratory failure: (2) Altered mental status: (3) Lewy body dementia: Plan: 75 yo F w/ hx of acute hypoxic and hypercapnic respiratory failure a year ago, hypothyroidism, hypertension, GERD, generalized osteoarthritis, osteoporosis, Parkinson disease, Lewy body dementia without behavioral disturbance,who lives at home, was brought in 04/05 because of respiratory distress. She lives with her and daughter. Walks with a walker at baseline. She was found by her daughter struggling to breathe at 2 AM on the day of arrival and admitting Venous blood gas showed pH of 7.16 and PCO2 of 78; patient was intubated in the ED and was managed in the ICU afterwards. Acute hypoxic and hypercapnic respiratory failure Acute metabolic encephalopathy 2/2 above History of same a year ago but not intubated. This time, patient was found struggling to breathe at 2 AM on the day of arrival by her daughter. Not on home oxygen. As per daughter, there is no recent fever, no cough, no nausea, no vomiting, no complaints of any pain, no diarrhea. Admitting CTA chest: Motion degraded study, no evidence of central PE or global pulmonary arteries. No airspace consolidation typical for pneumonia or pleural effusion. Admitting CT head: No acute intracranial abnormality identified. Per H&P note, admitting venous blood gas pH of 7.16 and PCO2 of 78 --> intubated in the ED 04/05 --> transferred to ICU care----> extubated to BiPAP 04/06. Critical care suspected possible aspiration contributing to her respiratory distress given progressive Lewy body dementia and Parkinson's disease. Speech evaluated and recommended Pureed diet. Patient extubated 04/06, minimally conversive and at her baseline mentation. Opens eyes spontaneously. Procalcitonin negative, Zosyn DC'd 04/06. S/p Doxy 5 days. Continued with nebulizations. s/p [id number] Per Pulmonary medicine, patient will benefit from trilogy machine at homeCM aware Patient should have PFT as an outpatient. 04/12patient started having coughing fit while lying in bed, likely aspiration, and had one-time temperature of 38.3 C today---> prop up the head of bed, maintain aspiration precaution strictly, change thin liquids in her diet to thick liquid per speech recommendation, patient recently completed antibiotic, was out for aspiration pneumonia, chest x-ray done today negative for aspiration pneumonitis, follow-up CBC and pro-Geo tomorrow, if still febrile, WBC uptrending or pro-Geo positive and patient clinically not improving, might need coverage for aspiration pneumonia. 04/13 patient febrile overnight, and started on Zosyn by buzzsaw operator. Minimally responsive, case management and palliative medicine also updated. Pt made comfort care after further discussion with family and palliative medicine. Abnormal cardiac rhythm likely MAT Has history of MAT in the setting of marked respiratory distress per cardiology. Admitting EKG: Sinus tachycardia with frequent premature atrial complexes and atrial runs. Heart rate 122. Admitting troponin negative Cardiology consulted: Should resolve with underlying respiratory issue treatment, consider low-dose beta-estephanie in future for heart rate and rhythm control once hemodynamically stable. Continue to monitor. Monitor electrolytes daily and replace as appropriate. Continued with low-dose metoprolol succinate 12.5 mg daily Now pt comfort care, unnecessary medications were stopped Chronic conditions: Parkinson disease and Lewy body dementia: Continued her home carbidopa/levodopa; and Seroquel. Now comfort care, unnecessary medications were stopped Hypertension, currently holding her lisinopril, nifedipine. On home lasix.BP fluctuating --> started on low dose metoprolol. Now comfort care, unnecessary medications were stopped Gastroesophageal reflux disease: Placed on IV Pepcid. PO when able. Now comfort care, unnecessary medications were stopped Hypothyroidism: Continued Synthroid. Now comfort care, unnecessary medications were stopped Chronic pain, we will hold the pain medications. Last admission, her hydrocodone/acetaminophen was discontinued. But Daughter says she still has hydrocodone at home but seldom uses it. 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 Code status: DNR/DNI - Pt made comfort care after discussion with family and palliative medicine. Admission and Anticipated Discharge Date Admission Date: April 05, 2021 Subjective Pt seen in follow up of AMS, hypercapnic, hypoxic resp. failure, aspiration Patient currently lying in bed in NAD, on suppl. O2 Patient does not respond today to me. Eyes closed. Appears comfortable. Patient's daughter at the bedside. Palliative medicine following Review of Systems Review of Systems: All systems reviewed & are unremarkable except as noted in Subjective Physical Exam Physical Exam: GENERAL: Elderly F in NAD, on suppl. O2, not responsive to touch or voice HEENT: NC. AT HEART: S1 and S2 heard. Regular rate and rhythm. No murmur, no gallop. RESPIRATORY: Normal AP diameter. No accessory muscle use. No wheezing, + rhonchi and crackles ABDOMEN: Soft, bowel sounds present, no distention. NEURO: Patient unable to cooperate, not assessable. Not responsive to touch or voice. EXTREMITIES: trace edema, no erythema seen. BUE 1+ edema Results & Data Results & Data ([facility]) Medications Administered Current Inpatient Medications Acetaminophen (Acetaminophen 650 Mg Supp) 650 mg MS Q6H PRN PRN Reason: fever Stop: 05/12/21 16:07 Last Admin: 04/15/21 14:13 Dose: 650 mg Documented by: Atropine Sulfate (Atropine Sulfate 1% Op Soln 5 Ml Btl) 4 drops OP Q3H PRN PRN Reason: secretions Stop: 05/13/21 14:59 Last Admin: 04/15/21 06:06 Dose: 4 drops Documented by: Dextrose (Dextrose 50% 50 Ml Syringe) 25 - 50 ml IV UD PRN; Protocol PRN Reason: Hypoglycemia Protocol Stop: 05/07/21 20:14 Glucagon (Glucagon For Inj 1 Mg Vial) 1 mg IM UD PRN; Protocol PRN Reason: Hypoglycemia Protocol Stop: 05/07/21 20:14 Lorazepam (Ativan) 1 mg in 2 mls @ 2 mls/min IV Q4H PRN PRN Reason: agitation Stop: 05/13/21 14:53 Morphine Sulfate (Morphine Sulfate 5 Mg/0.25 Ml Udp) 5 mg PO Q2H PRN PRN Reason: Pain/air hunger Stop: 04/27/21 14:53 Morphine Sulfate (Morphine Sulfate 5 Mg/0.25 Ml Udp) 5 mg PO Q4 ADAL Stop: 04/30/21 07:59 Last Admin: 04/17/21 03:50 Dose: 5 mg Documented by: (1) Altered mental status Altered mental status type: stupor Qualified Code(s): R40.1 - Stupor
--- NOTE | 2021-04-17 08:14 | Hospitalist Progress Note ---
Date of Service April 17, 2021 Assessment & Plan (1) Acute hypercapnic respiratory failure: (2) Altered mental status: (3) Lewy body dementia: Plan: 75 yo F w/ hx of acute hypoxic and hypercapnic respiratory failure a year ago, hypothyroidism, hypertension, GERD, generalized osteoarthritis, osteoporosis, Parkinson disease, Lewy body dementia without behavioral disturbance,who lives at home, was brought in 04/05 because of respiratory distress. She lives with her and daughter. Walks with a walker at baseline. She was found by her daughter struggling to breathe at 2 AM on the day of arrival and admitting Venous blood gas showed pH of 7.16 and PCO2 of 78; patient was intubated in the ED and was managed in the ICU afterwards. Acute hypoxic and hypercapnic respiratory failure Acute metabolic encephalopathy 2/2 above History of same a year ago but not intubated. This time, patient was found struggling to breathe at 2 AM on the day of arrival by her daughter. Not on home oxygen. As per daughter, there is no recent fever, no cough, no nausea, no vomiting, no complaints of any pain, no diarrhea. Admitting CTA chest: Motion degraded study, no evidence of central PE or global pulmonary arteries. No airspace consolidation typical for pneumonia or pleural effusion. Admitting CT head: No acute intracranial abnormality identified. Per H&P note, admitting venous blood gas pH of 7.16 and PCO2 of 78 --> intubated in the ED 04/05 --> transferred to ICU care----> extubated to BiPAP 04/06. Critical care suspected possible aspiration contributing to her respiratory distress given progressive Lewy body dementia and Parkinson's disease. Speech evaluated and recommended Pureed diet. Patient extubated 04/06, minimally conversive and at her baseline mentation. Opens eyes spontaneously. Procalcitonin negative, Zosyn DC'd 04/06. S/p Doxy 5 days. Continued with nebulizations. s/p [id number] Per Pulmonary medicine, patient will benefit from trilogy machine at homeCM aware Patient should have PFT as an outpatient. 04/12patient started having coughing fit while lying in bed, likely aspiration, and had one-time temperature of 38.3 C today---> prop up the head of bed, maintain aspiration precaution strictly, change thin liquids in her diet to thick liquid per speech recommendation, patient recently completed antibiotic, was out for aspiration pneumonia, chest x-ray done today negative for aspiration pneumonitis, follow-up CBC and pro-Geo tomorrow, if still febrile, WBC uptrending or pro-Geo positive and patient clinically not improving, might need coverage for aspiration pneumonia. 04/13 patient febrile overnight, and started on Zosyn by head banquet waiter/waitress. Minimally responsive, case management and palliative medicine also updated. Pt made comfort care after further discussion with family and palliative medicine. Palliative medicine following closely. Abnormal cardiac rhythm likely MAT Has history of MAT in the setting of marked respiratory distress per cardiology. Admitting EKG: Sinus tachycardia with frequent premature atrial complexes and atrial runs. Heart rate 122. Admitting troponin negative Cardiology consulted: Should resolve with underlying respiratory issue treatment, consider low-dose beta-estephanie in future for heart rate and rhythm control once hemodynamically stable. Continue to monitor. Monitor electrolytes daily and replace as appropriate. Continued with low-dose metoprolol succinate 12.5 mg daily Now pt comfort care, unnecessary medications were stopped Chronic conditions: Parkinson disease and Lewy body dementia: Continued her home carbidopa/levodopa; and Seroquel. Now comfort care, unnecessary medications were stopped Hypertension, currently holding her lisinopril, nifedipine. On home lasix.BP fluctuating --> started on low dose metoprolol. Now comfort care, unnecessary medications were stopped Gastroesophageal reflux disease: Placed on IV Pepcid. PO when able. Now comfort care, unnecessary medications were stopped Hypothyroidism: Continued Synthroid. Now comfort care, unnecessary medications were stopped Chronic pain,Last admission, her hydrocodone/acetaminophen was discontinued. But Daughter says she still has hydrocodone at home but seldom uses it. 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 Pain control managed by palliative medicine. Code status: DNR/DNI - Pt made comfort care after discussion with family and palliative medicine. Admission and Anticipated Discharge Date Admission Date: April 05, 2021 Subjective Pt seen in follow up of AMS, hypercapnic, hypoxic resp. failure, aspiration Patient currently lying in bed in NAD, on suppl. O2 Pt is on comfort care Patient does not respond today to me. Eyes closed. Appears comfortable. No family at the bedside this morning. Pt has been febrile. Palliative medicine following Review of Systems Review of Systems: All systems reviewed & are unremarkable except as noted in Subjective Physical Exam Physical Exam: GENERAL: Elderly F in NAD, on suppl. O2, not responsive to touch or voice HEENT: NC. AT HEART: S1 and S2 heard. Regular rate and rhythm. No murmur, no gallop. RESPIRATORY: Normal AP diameter. No accessory muscle use. No wheezing, + rhonchi and crackles ABDOMEN: Soft, bowel sounds present, no distention. NEURO: Patient unable to cooperate, not assessable. Not responsive to touch or voice. EXTREMITIES: trace edema, no erythema seen. BUE 1+ edema (1) Altered mental status Altered mental status type: stupor Qualified Code(s): R40.1 - Stupor
[2021-04-18] MEDS: MoRPHine SULFATE 5 MG/0.25 ML UDP PO SCH ×5 (04:03→19:58)
--- NOTE | 2021-04-18 11:25 | Palliative Care Progress Note ---
Date of Service April 18, 2021 Assessment & Plan (1) Pain: Plan: Continue routine morphine dosing. No signs of toxicity. (2) Palliative care encounter: Plan: Talked with daughter at bedside. She was concerned about IV access. Reassured her that we can give medications for her comfort if we lose IV access. Nadia appears likely to within the next day or two. Admission and Anticipated Discharge Date Admission Date: April 05, 2021 Subjective Appears comfortable. Did have morphine x 1 early this morning. Daughter at bedside but was not here when morphine was given. Review of Systems Review of Systems: Unobtainable due to reduced consciousness [place] Symptom Assessment Scale Pain 0/3 by observation Dyspnea 0/3 by observation Palliative Performance Score 10% Physical Exam Constitutional: no acute distress ENMT: Mouth: + dry oral mucous membranes Respiratory: no labored breathing no audible ronchi Cardiovascular: Extremities: no edema Skin: no mottling PG Care Time/CCT Total # of Minutes Spent Total Time Spent with Patient: Total time spent is greater than 50% in coordination of care (as documented) at patient's floor/unit and/or counseling patient: Coding Level of Care Code 36380 Subseq Hosp Care Lvl 2 Diagnoses Pain R52 Palliative care encounter Z51.5
--- NOTE | 2021-04-18 16:43 | Hospitalist Progress Note ---
Date of Service April 18, 2021 Assessment & Plan (1) Acute hypercapnic respiratory failure: (2) Altered mental status: (3) Lewy body dementia: Plan: 75 yo F w/ hx of acute hypoxic and hypercapnic respiratory failure a year ago, hypothyroidism, hypertension, GERD, generalized osteoarthritis, osteoporosis, Parkinson disease, Lewy body dementia without behavioral disturbance,who lives at home, was brought in 04/05 because of respiratory distress. She lives with her and daughter. Walks with a walker at baseline. She was found by her daughter struggling to breathe at 2 AM on the day of arrival and admitting Venous blood gas showed pH of 7.16 and PCO2 of 78; patient was intubated in the ED and was managed in the ICU afterwards. Acute hypoxic and hypercapnic respiratory failure Acute metabolic encephalopathy 2/2 above History of same a year ago but not intubated. This time, patient was found struggling to breathe at 2 AM on the day of arrival by her daughter. Not on home oxygen. As per daughter, there is no recent fever, no cough, no nausea, no vomiting, no complaints of any pain, no diarrhea. Admitting CTA chest: Motion degraded study, no evidence of central PE or global pulmonary arteries. No airspace consolidation typical for pneumonia or pleural effusion. Admitting CT head: No acute intracranial abnormality identified. Per H&P note, admitting venous blood gas pH of 7.16 and PCO2 of 78 --> intubated in the ED 04/05 --> transferred to ICU care----> extubated to BiPAP 04/06. Critical care suspected possible aspiration contributing to her respiratory distress given progressive Lewy body dementia and Parkinson's disease. Speech evaluated and recommended Pureed diet. Patient extubated 04/06, minimally conversive and at her baseline mentation. Opens eyes spontaneously. Procalcitonin negative, Zosyn DC'd 04/06. S/p Doxy 5 days. Continued with nebulizations. s/p [id number] Per Pulmonary medicine, patient will benefit from trilogy machine at homeCM aware Patient should have PFT as an outpatient. 04/12patient started having coughing fit while lying in bed, likely aspiration, and had one-time temperature of 38.3 C today---> prop up the head of bed, maintain aspiration precaution strictly, change thin liquids in her diet to thick liquid per speech recommendation, patient recently completed antibiotic, was out for aspiration pneumonia, chest x-ray done today negative for aspiration pneumonitis, follow-up CBC and pro-Ego tomorrow, if still febrile, WBC uptrending or pro-Geo positive and patient clinically not improving, might need coverage for aspiration pneumonia. 04/13 patient febrile overnight, and started on Zosyn by mattress and foundation sewer. Minimally responsive, case management and palliative medicine also updated. Pt made comfort care after further discussion with family and palliative medicine. Palliative medicine following closely. Abnormal cardiac rhythm likely MAT Has history of MAT in the setting of marked respiratory distress per cardiology. Admitting EKG: Sinus tachycardia with frequent premature atrial complexes and atrial runs. Heart rate 122. Admitting troponin negative Cardiology consulted: Should resolve with underlying respiratory issue treatment, consider low-dose beta-estephanie in future for heart rate and rhythm control once hemodynamically stable. Continue to monitor. Monitor electrolytes daily and replace as appropriate. Continued with low-dose metoprolol succinate 12.5 mg daily Now pt comfort care, unnecessary medications were stopped Chronic conditions: Parkinson disease and Lewy body dementia: Continued her home carbidopa/levodopa; and Seroquel. Now comfort care, unnecessary medications were stopped Hypertension, currently holding her lisinopril, nifedipine. On home lasix.BP fluctuating --> started on low dose metoprolol. Now comfort care, unnecessary medications were stopped Gastroesophageal reflux disease: Placed on IV Pepcid. PO when able. Now comfort care, unnecessary medications were stopped Hypothyroidism: Continued Synthroid. Now comfort care, unnecessary medications were stopped Chronic pain,Last admission, her hydrocodone/acetaminophen was discontinued. But Daughter says she still has hydrocodone at home but seldom uses it. 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 Pain control managed by palliative medicine. Code status: DNR/DNI - Pt made comfort care after discussion with family and palliative medicine. Admission and Anticipated Discharge Date Admission Date: April 05, 2021 Subjective Pt seen in follow up of AMS, hypercapnic, hypoxic resp. failure, aspiration Patient currently lying in bed in NAD Pt is on comfort care Patient does not respond today to me. Eyes closed. Appears comfortable. No family at the bedside at this time. Usually one of the daughters at the bedside. Pt has been febrile. Palliative medicine following Review of Systems Review of Systems: All systems reviewed & are unremarkable except as noted in Subjective Physical Exam Physical Exam: GENERAL: Elderly F in NAD, not responsive to touch or voice HEENT: NC. AT HEART: S1 and S2 heard. Regular rate and rhythm. No murmur, no gallop. RESPIRATORY: Normal AP diameter. No accessory muscle use. No wheezing, + rhonchi and crackles ABDOMEN: Soft, bowel sounds present, no distention. NEURO: Not responsive to touch or voice. EXTREMITIES: trace edema, no erythema seen. BUE 1+ edema Results & Data Results & Data ([facility]) Medications Administered Current Inpatient Medications Acetaminophen (Acetaminophen 650 Mg Supp) 650 mg [place] Q6H PRN PRN Reason: fever Stop: 05/12/21 16:07 Last Admin: 04/15/21 14:13 Dose: 650 mg Documented by: Atropine Sulfate (Atropine Sulfate 1% Op Soln 5 Ml Btl) 4 drops OP Q3H PRN PRN Reason: secretions Stop: 05/13/21 14:59 Last Admin: 04/15/21 06:06 Dose: 4 drops Documented by: Dextrose (Dextrose 50% 50 Ml Syringe) 25 - 50 ml IV UD PRN; Protocol PRN Reason: Hypoglycemia Protocol Stop: 05/07/21 20:14 Glucagon (Glucagon For Inj 1 Mg Vial) 1 mg IM UD PRN; Protocol PRN Reason: Hypoglycemia Protocol Stop: 05/07/21 20:14 Lorazepam (Ativan) 1 mg in 2 mls @ 2 mls/min IV Q4H PRN PRN Reason: agitation Stop: 05/13/21 14:53 Morphine Sulfate (Morphine Sulfate 5 Mg/0.25 Ml Udp) 5 mg PO Q2H PRN PRN Reason: Pain/air hunger Stop: 04/27/21 14:53 Last Admin: 04/18/21 06:15 Dose: 5 mg Documented by: Morphine Sulfate (Morphine Sulfate 5 Mg/0.25 Ml Udp) 5 mg PO Q4 ADAL Stop: 04/30/21 07:59 Last Admin: 04/18/21 15:55 Dose: 5 mg Documented by: (1) Altered mental status Altered mental status type: stupor Qualified Code(s): R40.1 - Stupor
[2021-04-19] MEDS: MoRPHine SULFATE 5 MG/0.25 ML UDP PO SCH ×3 (00:37→08:03)
--- NOTE | 2021-04-19 10:12 | Palliative Care Progress Note ---
Date of Service April 19, 2021 Assessment & Plan (1) Pain: Plan: Pt tolerating routine dosing of Roxanol; however, nursing reported having a difficult time administering it orally. Pt has received 35 mg of Roxanol over past 24 hours, will transition to a Morphine infusion starting at 1mg/hour and titrate from there. Discussed with nursing. (2) Palliative care encounter: Plan: T No family at bedside. Patient having some mottling on her feet and appears to have likely hours to a day or so left of life. Palliative will follow. Admission and Anticipated Discharge Date Admission Date: April 05, 2021 Subjective Patient currently lying in bed in NAD, or signs of agitation Pt is on comfort care Patient does not respond today to me and is obtunded No family at the bedside at this time. See A/P for further details Review of Systems Review of Systems: [place] Symptom Assessment Scale Pain 0/3 by observation Dyspnea 0/3 by observation Palliative Performance Score 10% Physical Exam Constitutional: + frail appearing ENMT: Mouth: + dry oral mucous membranes Respiratory: normal respiratory effort and symmetric chest movement Auscultation: + diminished lung sounds Cardiovascular: Rate/Rhythm: regular rate and regular rhythm Heart Sounds: normal S1 and normal S2 Extremities: normal capillary refill; no edema Gastrointestinal (Abdomen): Inspection/Auscultation: abdomen normal to inspection Skin: + pallor PG Care Time/CCT Total # of Minutes Spent Total Time Spent with Patient: Total time spent is greater than 50% in coordination of care (as documented) at patient's floor/unit and/or counseling patient: 35 minutes Coding Level of Care Code 97076 Subseq Hosp Care Lvl 3 Diagnoses Pain R52 Palliative care encounter Z51.5 Time Spent (min) 35
[2021-04-19] MEDS ORDERED: MoRPHine SULFATE 2 MG/ML CARP IV STA (10:44)
--- NOTE | 2021-04-19 10:48 | Hospitalist Progress Note ---
Date of Service April 19, 2021 Assessment & Plan (1) Acute hypercapnic respiratory failure: (2) Altered mental status: (3) Lewy body dementia: Plan: 75 yo F w/ hx of acute hypoxic and hypercapnic respiratory failure a year ago, hypothyroidism, hypertension, GERD, generalized osteoarthritis, osteoporosis, Parkinson disease, Lewy body dementia without behavioral disturbance,who lives at home, was brought in 04/05 because of respiratory distress. She lives with her and daughter. Walks with a walker at baseline. She was found by her daughter struggling to breathe at 2 AM on the day of arrival and admitting Venous blood gas showed pH of 7.16 and PCO2 of 78; patient was intubated in the ED and was managed in the ICU afterwards. Acute hypoxic and hypercapnic respiratory failure Acute metabolic encephalopathy 2/2 above History of same a year ago but not intubated. This time, patient was found struggling to breathe at 2 AM on the day of arrival by her daughter. Not on home oxygen. As per daughter, there is no recent fever, no cough, no nausea, no vomiting, no complaints of any pain, no diarrhea. Admitting CTA chest: Motion degraded study, no evidence of central PE or global pulmonary arteries. No airspace consolidation typical for pneumonia or pleural effusion. Admitting CT head: No acute intracranial abnormality identified. Per H&P note, admitting venous blood gas pH of 7.16 and PCO2 of 78 --> intubated in the ED 04/05 --> transferred to ICU care----> extubated to BiPAP 04/06. Critical care suspected possible aspiration contributing to her respiratory distress given progressive Lewy body dementia and Parkinson's disease. Speech evaluated and recommended Pureed diet. Patient extubated 04/06, minimally conversive and at her baseline mentation. Opens eyes spontaneously. Procalcitonin negative, Zosyn DC'd 04/06. S/p Doxy 5 days. Continued with nebulizations. s/p [id number] Per Pulmonary medicine, patient will benefit from trilogy machine at homeCM aware Patient should have PFT as an outpatient. 04/12patient started having coughing fit while lying in bed, likely aspiration, and had one-time temperature of 38.3 C today---> prop up the head of bed, maintain aspiration precaution strictly, change thin liquids in her diet to thick liquid per speech recommendation, patient recently completed antibiotic, was out for aspiration pneumonia, chest x-ray done today negative for aspiration pneumonitis, follow-up CBC and pro-Geo tomorrow, if still febrile, WBC uptrending or pro-Geo positive and patient clinically not improving, might need coverage for aspiration pneumonia. 04/13 patient febrile overnight, and started on Zosyn by rcp. Minimally responsive, case management and palliative medicine also updated. Pt made comfort care after further discussion with family and palliative medicine. Palliative medicine following closely. 04/19/2021 patient started on IV morphine, on April 19, 5:10 PM. Abnormal cardiac rhythm likely MAT Has history of MAT in the setting of marked respiratory distress per cardiology. Admitting EKG: Sinus tachycardia with frequent premature atrial complexes and atrial runs. Heart rate 122. Admitting troponin negative Cardiology consulted: Should resolve with underlying respiratory issue treatment, consider low-dose beta-estephanie in future for heart rate and rhythm control once hemodynamically stable. Continue to monitor. Monitor electrolytes daily and replace as appropriate. Continued with low-dose metoprolol succinate 12.5 mg daily Now pt comfort care, unnecessary medications were stopped Chronic conditions: Parkinson disease and Lewy body dementia: Continued her home carbidopa/levodopa; and Seroquel. Now comfort care, unnecessary medications were stopped Hypertension, currently holding her lisinopril, nifedipine. On home lasix.BP fluctuating --> started on low dose metoprolol. Now comfort care, unnecessary medications were stopped Gastroesophageal reflux disease: Placed on IV Pepcid. PO when able. Now comfort care, unnecessary medications were stopped Hypothyroidism: Continued Synthroid. Now comfort care, unnecessary medications were stopped Chronic pain,Last admission, her hydrocodone/acetaminophen was discontinued. But Daughter says she still has hydrocodone at home but seldom uses it. 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 Pain control managed by palliative medicine. Code status: DNR/DNI - Pt made comfort care after discussion with family and palliative medicine. Patient on April 19, at 5:10 PM. Admission and Anticipated Discharge Date Admission Date: April 05, 2021 Subjective Pt followed for AMS, hypercapnic, hypoxic resp. failure, aspiration Notified by nursing staff, that it was difficult to administer pain medications orally. Palliative medicine aware, and started patient on IV morphine. Patient not seen on rounds, notified by nursing staff that patient ceased to breathe around 5 PM. Patient pronounced at 5:10 PM. Results & Data Results & Data ([facility]) Medications Administered Current Inpatient Medications Acetaminophen (Acetaminophen 650 Mg Supp) 650 mg [place] Q6H PRN PRN Reason: fever Stop: 05/12/21 16:07 Last Admin: 04/15/21 14:13 Dose: 650 mg Documented by: Atropine Sulfate (Atropine Sulfate 1% Op Soln 5 Ml Btl) 4 drops OP Q3H PRN PRN Reason: secretions Stop: 05/13/21 14:59 Last Admin: 04/15/21 06:06 Dose: 4 drops Documented by: Dextrose (Dextrose 50% 50 Ml Syringe) 25 - 50 ml IV UD PRN; Protocol PRN Reason: Hypoglycemia Protocol Stop: 05/07/21 20:14 Glucagon (Glucagon For Inj 1 Mg Vial) 1 mg IM UD PRN; Protocol PRN Reason: Hypoglycemia Protocol Stop: 05/07/21 20:14 Lorazepam (Ativan) 1 mg in 2 mls @ 2 mls/min IV Q4H PRN PRN Reason: agitation Stop: 05/13/21 14:53 Morphine Sulfate (Morphine Sulfate 5 Mg/0.25 Ml Udp) 5 mg PO Q2H PRN PRN Reason: Pain/air hunger Stop: 04/27/21 14:53 Last Admin: 04/18/21 06:15 Dose: 5 mg Documented by: Morphine Sulfate (Morphine Sulfate 5 Mg/0.25 Ml Udp) 5 mg PO Q4 ADAL Stop: 04/30/21 07:59 Last Admin: 04/19/21 08:03 Dose: 5 mg Documented by: (1) Altered mental status Altered mental status type: stupor Qualified Code(s): R40.1 - Stupor
[2021-04-19] MEDS ORDERED: STAT IV Infusion **Titration per Protocol STA (11:26)
[2021-04-19] MEDS ORDERED: MoRPHine SULF/NSS 250 MG/250 ML BTL IV SCH (11:30)
--- NOTE | 2021-04-19 17:39 | Hospitalist Progress Note ---
Date of Service April 19, 2021 Assessment & Plan Admission and Anticipated Discharge Date Admission Date: April 05, 2021 Subjective NOTE Notified by nursing staff that patient ceased to breathe. On my exam, patient is unresponsive to voice or touch. There are no breath sounds, no heart sounds, no radial or carotid pulses. Pupils are round,and nonreactive to light. Time of 5:10 PM, April 19, 2021. Per nursing staff, family was at the bedside. Roby Navarro MD
--- NOTE | 2021-04-19 17:40 | Discharge Summary ---
Date of Service April 19, 2021 Admission HPI Per Admitting Provider This is a 75-year-old female with past medical history significant for hypothyroidism, hypertension, GERD, generalized osteoarthritis, osteoporosis, Parkinson disease, Lewy body dementia without behavioral disturbance,who lives at home, was brought in because of respiratory distress. The patient was here in the hospital in January of this year with acute hypoxic and hypercapnic respiratory failure, seen by Pulmonary. At that time, thought from acute bronchitis . She received antibiotics, steroids and she did fine and she was discharged to [facility] and from [facility] she was discharged back to home. She lives with her and daughter. Per daughter she was doing okay. She walks with a walker. She chops the food for her to eat. Daughter does not think she has been aspirated. She was doing fine when she went to sleep in the nighttime. She took her to the bathroom around 11:00 p.m. Patient's goes to work and around 2:00 a.m., he checked her and she was doing fine and she when daughter went to check her around 3:00 in the morning, she was found to be struggling to breathe and she was not answering any questions and she was drooling and she called the ambulance. She was brought into the ER with non- breather. Her venous blood gas showed pH of 7.16 and pCO2 of 78 and ER physician intubated the patient in the ER. Currently status post intubation on Diprivan. Daughter is in the room. Otherwise, the patient is afebrile. Hemodynamics are stable. As per daughter, there is no recent fever, no cough, no nausea, no vomiting, no complaints of any pain, no diarrhea. Admission Exam Per Admitting Provider GENERAL: The patient currently status post intubated and sedated. VITAL SIGNS: Temperature 36.8, pulse 96, respiratory rate 20, blood pressure 135/72, oxygen 94% on mechanical ventilation. HEENT: Atraumatic.Difficult to exam eyes as patient shutting them tight NECK: No JVD. No neck masses seen. CARDIOVASCULAR: S1 and S2 heard. Regular rate and rhythm. No murmur, no gallop. RESPIRATORY SYSTEM: Normal AP diameter. No accessory muscle use. No wheezing, no crackles. ABDOMEN: Soft, bowel sounds present, nontender, no distention. CENTRAL NERVOUS SYSTEM: Currently status post intubated, sedated. EXTREMITIES: No edema, no erythema. SKIN: Some bruises seen on the left gautam, which the daughter attributes to the mattress. Principal Diagnosis Acute respiratory failure with hypoxia and hypercarbia Aspiration Parkinson's disease and Lewy body dementia Discharge Exam Pt is unresponsive to voice or touch. There are no breath sounds, no heart sounds, no radial or carotid pulses. Pupils are round,and fixed, nonreactive to light. Time of 5:10 PM, April 19, 2021. Discharge Data Allergies Allergy/AdvReac Type Severity Reaction Status Date / Time Sulfa (Sulfonamide Allergy Intermediate HIVES AND Verified 04/05/21 07:19 Antibiotics) RASH Macrolide Antibiotics AdvReac Severe Interacted Unverified 04/05/21 07:19 with other meds Consultations 04/05/21 06:09 ED Decision to Admit Stat 04/05/21 10:22 Consult Cardiology Routine 04/05/21 11:59 Consult Palliative Care Routine Ordered Studies 04/05/21 05:10 CT angio chest PE protocol Urgent IMPRESSION: 1. Severely streak and motion degraded examination. 2. There is no evidence of central pulmonary embolus in the main or lobar pulmonary arteries. The segmental and subsegmental branches cannot be assessed due to artifact. 3. No airspace consolidation typical for pneumonia or pleural effusion is identified. 04/05/21 07:06 CT head/brain wo con Stat IMPRESSION: Motion degraded exam. No acute intracranial abnormality identified. Hospital Course (1) Acute hypercapnic respiratory failure: (2) Altered mental status: (3) Lewy body dementia: 75 yo F w/ hx of acute hypoxic and hypercapnic respiratory failure a year ago, hypothyroidism, hypertension, GERD, generalized osteoarthritis, osteoporosis, Parkinson disease, Lewy body dementia without behavioral disturbance,who lives at home, was brought in 04/05 because of respiratory distress. She lives with her and daughter. Walks with a walker at baseline. She was found by her daughter struggling to breathe at 2 AM on the day of arrival and admitting Venous blood gas showed pH of 7.16 and PCO2 of 78; patient was intubated in the ED and was managed in the ICU afterwards. Acute hypoxic and hypercapnic respiratory failure Acute metabolic encephalopathy 2/2 above History of same a year ago but not intubated. This time, patient was found struggling to breathe at 2 AM on the day of arrival by her daughter. Not on home oxygen. As per daughter, there is no recent fever, no cough, no nausea, no vomiting, no complaints of any pain, no diarrhea. Admitting CTA chest: Motion degraded study, no evidence of central PE or global pulmonary arteries. No airspace consolidation typical for pneumonia or pleural effusion. Admitting CT head: No acute intracranial abnormality identified. Per H&P note, admitting venous blood gas pH of 7.16 and PCO2 of 78 --> intubated in the ED 04/05 --> transferred to ICU care----> extubated to BiPAP 04/06. Critical care suspected possible aspiration contributing to her respiratory distress given progressive Lewy body dementia and Parkinson's disease. Speech evaluated and recommended Pureed diet. Patient extubated 04/06, minimally conversive and at her baseline mentation. Opens eyes spontaneously. Procalcitonin negative, Zosyn DC'd 04/06. S/p Doxy 5 days. Continued with nebulizations. s/p [id number] Per Pulmonary medicine, patient would benefit from trilogy machine at home and and PFT as an outpatient. 04/12patient started having coughing fit while lying in bed, likely aspiration, and had one-time temperature of 38.3 C today---> prop up the head of bed, maintain aspiration precaution strictly, change thin liquids in her diet to thick liquid per speech recommendation, patient recently completed antibiotic, was out for aspiration pneumonia, chest x-ray done today negative for aspiration pneumonitis, follow-up CBC and pro-Geo tomorrow, if still febrile, WBC uptrending or pro-Geo positive and patient clinically not improving, might need coverage for aspiration pneumonia. 04/13 patient febrile overnight, and started on Zosyn by drafter [employer] design layout. Minimally responsive, case management and palliative medicine also updated. Pt made comfort care after further discussion with family and palliative medicine. Palliative medicine following closely. 04/19/2021 patient started on IV morphine, on April 19, 5:10 PM. Abnormal cardiac rhythm likely MAT Has history of MAT in the setting of marked respiratory distress per cardiology. Admitting EKG: Sinus tachycardia with frequent premature atrial complexes and atrial runs. Heart rate 122. Admitting troponin negative Cardiology consulted: Should resolve with underlying respiratory issue treatment, consider low-dose beta-estephanie in future for heart rate and rhythm control once hemodynamically stable. Continue to monitor. Monitor electrolytes daily and replace as appropriate. Continued with low-dose metoprolol succinate 12.5 mg daily Pt on comfort care, unnecessary medications were stopped Chronic conditions: Parkinson disease and Lewy body dementia: Continued her home carbidopa/levodopa; and Seroquel. ->comfort care, unnecessary medications were stopped Hypertension, currently holding her lisinopril, nifedipine. On home lasix.BP fluctuating --> started on low dose metoprolol. -> comfort care, unnecessary medications were stopped Gastroesophageal reflux disease: Placed on IV Pepcid. PO when able. -> comfort care, unnecessary medications were stopped Hypothyroidism: Continued Synthroid. ->comfort care, unnecessary medications were stopped Chronic pain,Last admission, her hydrocodone/acetaminophen was discontinued. But Daughter says she still has hydrocodone at home but seldom uses it. The night [employer] she had tramadol. Pain control managed by palliative medicine. Code status: DNR/DNI - Pt made comfort care after discussion with family and palliative medicine. Patient on April 19, at 5:10 PM. Total Time Total Time Spent Total Time Spent (In Minutes): 15 Discharge Plan Discharge Items Patient Disposition: Discharge Diagnosis: Acute respiratory failure with hypoxia and hypercarbia Aspiration Parkinson's disease and Lewy body dementia Other Date/Time: 04/19/21 17:10
== END 2021-04-19 19:11 | disposition expired | DRG 208 ==
LOC: ED 04:03 → SUATTDRO 06:49 → EDINP 06:49 → 1E 09:10 → 2N 04-12 15:51 → 3E 04-13 20:34